=== PATIENT | female | born 1945 | race Caucasian/White ===

== ENCOUNTER 2019-08-06 12:13 | Inpatient (IN) | payer MEDICARE ==
[2019-08-06] MEDS ORDERED: SODIUM CHLORIDE 0.9% 1,000 ML IV STA ×2 (12:32→16:54)
[2019-08-06] MEDS ORDERED: ONDANSETRON 4 MG/2 ML VIAL IVP STA (12:34)
[2019-08-06] MEDS ORDERED: FAMOTIDINE 20 MG/2 ML VIAL IV STA (12:34)
--- NOTE | 2019-08-06 12:44 | ED ---
General Adult HPI - General Chief complaint: Weakness Stated complaint: weaknes/nausea Time Seen by Provider: 08/06/19 12:26 Source: patient, RN notes reviewed Mode of arrival: wheelchair Limitations: no limitations - History of Present Illness Initial comments: Patient is a pleasant 73-year-old female presenting to the emergency Department with fatigue. Symptoms have progressed over the past couple of weeks. Patient has mild nausea. Patient states she may feel slightly short of breath. No cough. Patient originally denies chest discomfort and then later states sometimes she has discomfort lateral to her left breast when she lies on it at nighttime. Patient does complain of some discomfort behind her right knee. No vomiting. No constipation or diarrhea. - Related Data Home Medications Medication Instructions Recorded Confirmed Gabapentin [Neurontin] 300 mg PO BID 08/06/19 08/06/19 LORazepam [Ativan] 0.5 mg PO BID 08/06/19 08/06/19 Lisinopril [Zestril] 2.5 mg PO DAILY 08/06/19 08/06/19 PARoxetine [Paxil] 20 mg PO DAILY 08/06/19 08/06/19 Pioglitazone [Actos] 30 mg PO DAILY 08/06/19 08/06/19 amLODIPine [Norvasc] 5 mg PO DAILY 08/06/19 08/06/19 metFORMIN HCL [Glucophage] 500 mg PO BID 08/06/19 08/06/19 Allergies Allergy/AdvReac Type Severity Reaction Status Date / Time No Known Allergies Allergy Verified 08/06/19 13:21 Review of Systems ROS Statement: Those systems with pertinent positive or pertinent negative responses have been documented in the HPI. ROS Other: All systems not noted in ROS Statement are negative. Constitutional: Denies: fever Eyes: Denies: eye pain ENT: Denies: ear pain Respiratory: Reports: dyspnea (Possibly mild dyspnea). Denies: cough Cardiovascular: Reports: as per HPI Endocrine: Reports: fatigue Gastrointestinal: Reports: nausea. Denies: abdominal pain, vomiting Genitourinary: Denies: dysuria Musculoskeletal: Denies: back pain Skin: Denies: rash Neurological: Denies: weakness Past Medical History Past Medical History: Diabetes Mellitus, Hypertension History of Any Multi-Drug Resistant Organisms: None Reported Past Surgical History: Breast Surgery, Heart Catheterization With Stent, Hysterectomy, Orthopedic Surgery Additional Past Surgical History / Comment(s): knee, shoulder replacement Past Psychological History: No Psychological Hx Reported Smoking Status: Never smoker Past Alcohol Use History: None Reported Past Drug Use History: None Reported General Exam Limitations: no limitations General appearance: alert, in no apparent distress Head exam: Present: normocephalic Eye exam: Present: normal appearance, PERRL, EOMI ENT exam: Present: normal oropharynx Neck exam: Present: normal inspection Respiratory exam: Present: normal lung sounds bilaterally Cardiovascular Exam: Present: regular rate, normal rhythm Expanded Peripheral pulses: 2+: Dorsalis Pedis (R), Dorsalis Pedis (L) GI/Abdominal exam: Present: soft. Absent: tenderness Extremities exam: Present: normal inspection, calf tenderness (Mild tenderness right upper calf and popliteal region). Absent: pedal edema Back exam: Present: normal inspection Neurological exam: Present: alert Psychiatric exam: Present: normal affect, normal mood Skin exam: Present: normal color Course Vital Signs 08/06/19 08/06/19 08/06/19 12:19 13:18 14:00 Temperature 98.2 F Pulse Rate 70 65 Pulse Rate [ 87 Telemetry Nurse ] Respiratory 18 16 Rate Blood Pressure 106/60 114/66 O2 Sat by Pulse 95 95 Oximetry EKG Findings - EKG Comments: EKG Findings:: Normal sinus rhythm 66. DC 170. QRS 92. QT 406. QTc 425. Normal axis. Normal QRS. No acute ST change. Medical Decision Making - Medical Decision Making Patient reevaluated and resting comfortably in bed. Case was discussed with Dr. Ponce, who will admit covering for hospital call. Consult placed for pulmonary. VQ scan will be ordered. - Lab Data Result diagrams: 08/06/19 12:50 08/06/19 12:50 Lab Results 08/06/19 08/06/19 08/06/19 Range/Units 12:50 12:50 12:50 WBC 3.0 L (3.8-10.6) k/uL RBC 4.53 (3.80-5.40) m/uL Hgb 13.8 (11.4-16.0) gm/dL Hct 40.7 (34.0-46.0) % MCV 89.8 (80.0-100.0) fL MCH 30.5 (25.0-35.0) pg MCHC 33.9 (31.0-37.0) g/dL RDW 13.3 (11.5-15.5) % Plt Count 90 L (150-450) k/uL Neutrophils % 69 % Lymphocytes % 24 % Monocytes % 4 % Eosinophils % 1 % Basophils % 0 % Neutrophils # 2.1 (1.3-7.7) k/uL Lymphocytes # 0.7 L (1.0-4.8) k/uL Monocytes # 0.1 (0-1.0) k/uL Eosinophils # 0.0 (0-0.7) k/uL Basophils # 0.0 (0-0.2) k/uL Manual Slide Review Performed PT 10.5 (9.0-12.0) sec INR 1.0 (<1.2) APTT 25.3 (22.0-30.0) sec D-Dimer 1.16 H (<0.60) mg/L FEU Sodium 139 (137-145) mmol/L Potassium 3.5 (3.5-5.1) mmol/L Chloride 106 (98-107) mmol/L Carbon Dioxide 22 (22-30) mmol/L Anion Gap 11 mmol/L BUN 17 (7-17) mg/dL Creatinine 0.67 (0.52-1.04) mg/dL Est GFR (CKD-EPI)AfAm >90 (>60 ml/min/1.73 sqM) Est GFR (CKD-EPI)NonAf 88 (>60 ml/min/1.73 sqM) Glucose 196 H (74-99) mg/dL Calcium 8.7 (8.4-10.2) mg/dL Total Bilirubin 0.6 (0.2-1.3) mg/dL AST 44 H (14-36) U/L ALT 21 (4-34) U/L Alkaline Phosphatase 75 (38-126) U/L Creatine Kinase 98 (30-135) U/L Troponin I (0.000-0.034) ng/mL NT-Pro-B Natriuret Pep pg/mL Total Protein 7.4 (6.3-8.2) g/dL Albumin 3.9 (3.5-5.0) g/dL Urine Color Urine Appearance (Clear) Urine pH (5.0-8.0) Ur Specific [place] (1.001-1.035) Urine Protein (Negative) Urine Glucose (UA) (Negative) Urine Ketones (Negative) Urine Blood (Negative) Urine Nitrite (Negative) Urine Bilirubin (Negative) Urine Urobilinogen (<2.0) mg/dL Ur Leukocyte Esterase (Negative) Urine RBC (0-5) /hpf Urine WBC (0-5) /hpf Ur Squamous Epith Cells (0-4) /hpf Hyaline Casts (0-2) /lpf Urine Mucus (None) /hpf 08/06/19 08/06/19 08/06/19 Range/Units 12:50 12:50 13:12 WBC (3.8-10.6) k/uL RBC (3.80-5.40) m/uL Hgb (11.4-16.0) gm/dL Hct (34.0-46.0) % MCV (80.0-100.0) fL MCH (25.0-35.0) pg MCHC (31.0-37.0) g/dL RDW (11.5-15.5) % Plt Count (150-450) k/uL Neutrophils % % Lymphocytes % % Monocytes % % Eosinophils % % Basophils % % Neutrophils # (1.3-7.7) k/uL Lymphocytes # (1.0-4.8) k/uL Monocytes # (0-1.0) k/uL Eosinophils # (0-0.7) k/uL Basophils # (0-0.2) k/uL Manual Slide Review PT (9.0-12.0) sec INR (<1.2) APTT (22.0-30.0) sec D-Dimer (<0.60) mg/L FEU Sodium (137-145) mmol/L Potassium (3.5-5.1) mmol/L Chloride (98-107) mmol/L Carbon Dioxide (22-30) mmol/L Anion Gap mmol/L BUN (7-17) mg/dL Creatinine (0.52-1.04) mg/dL Est GFR (CKD-EPI)AfAm (>60 ml/min/1.73 sqM) Est GFR (CKD-EPI)NonAf (>60 ml/min/1.73 sqM) Glucose (74-99) mg/dL Calcium (8.4-10.2) mg/dL Total Bilirubin (0.2-1.3) mg/dL AST (14-36) U/L ALT (4-34) U/L Alkaline Phosphatase (38-126) U/L Creatine Kinase (30-135) U/L Troponin I <0.012 (0.000-0.034) ng/mL NT-Pro-B Natriuret Pep 489 pg/mL Total Protein (6.3-8.2) g/dL Albumin (3.5-5.0) g/dL Urine Color Yellow Urine Appearance Clear (Clear) Urine pH 6.0 (5.0-8.0) Ur Specific [place] 1.030 (1.001-1.035) Urine Protein 3+ H (Negative) Urine Glucose (UA) Negative (Negative) Urine Ketones Negative (Negative) Urine Blood Negative (Negative) Urine Nitrite Negative (Negative) Urine Bilirubin Negative (Negative) Urine Urobilinogen <2.0 (<2.0) mg/dL Ur Leukocyte Esterase Small (Negative) Urine RBC 3 (0-5) /hpf Urine WBC 8 H (0-5) /hpf Ur Squamous Epith Cells 1 (0-4) /hpf Hyaline Casts 67 H (0-2) /lpf Urine Mucus Many H (None) /hpf - Radiology Data Radiology results: report reviewed (Ultrasound right leg negative for DVT), image reviewed (Computed tomography scan of the chest is suboptimal study without evidence for acute pulmonary embolism. Bilateral groundglass opacities more prominent mid to lower lungs.) Disposition Clinical Impression: Dyspnea Disposition: ADMITTED IP TO THIS HOSP Is patient prescribed a controlled substance at d/c from ED?: No Referrals: None,Stated [Primary Care Provider] - 1-2 days Decision Time: 16:02
[2019-08-06 13:30] LABS: Basophils % (A) 0 %; Eosinophils % (A) 1 %; HCT 40.7 % (34.0-46.0); HGB 13.8 gm/dL (11.4-16.0); Lymphocytes # (A) 0.7 k/uL (1.0-4.8); Lymphocytes % (A) 24 %; MCH 30.5 pg (25.0-35.0); MCHC 33.9 g/dL (31.0-37.0); MCV 89.8 fL (80.0-100.0); Mean Platelet Volume 9.6; Monocytes # (A) 0.1 k/uL (0-1.0); Monocytes % (A) 4 %; Neutrophils # (A) 2.1 k/uL (1.3-7.7); Neutrophils % (A) 69 %; RBC 4.53 m/uL (3.80-5.40); RDW 13.3 % (11.5-15.5)
[2019-08-06 13:42] LABS: Partial Thromboplastin Time 25.3 sec (22.0-30.0); Prothrombin Time 10.5 sec (9.0-12.0)
[2019-08-06 13:44] LABS: ALT 21 U/L (4-34); AST 44 U/L (14-36); African American GFR (CKD) >90 (>60 ml/min/1.73 sqM); Albumin 3.9 g/dL (3.5-5.0); Alkaline Phosphatase 75 U/L (38-126); Anion Gap 11 mmol/L; Blood Urea Nitrogen 17 mg/dL (7-17); Calcium 8.7 mg/dL (8.4-10.2); Carbon Dioxide 22 mmol/L (22-30); Chloride 106 mmol/L (98-107); Creatine Kinase 98 U/L (30-135); Glucose 196 mg/dL (74-99); Non-African American GFR(CKD) 88 (>60 ml/min/1.73 sqM); Potassium 3.5 mmol/L (3.5-5.1); Sodium 139 mmol/L (137-145); Total Bilirubin 0.6 mg/dL (0.2-1.3); Total Protein 7.4 g/dL (6.3-8.2)
[2019-08-06 13:55] LABS: D-Dimer 1.16 mg/L FEU (<0.60)
[2019-08-06 13:59] LABS: Hyaline Casts,Urine 67 /lpf (0-2); Mucus,Urine Many /hpf; RBC,Urine 3 /hpf (0-5); Squamous Epithelial Cell,Urine 1 /hpf (0-4); WBC,Urine 8 /hpf (0-5)
[2019-08-06 14:12] LABS: Appearance,Urine Clear (Clear); Bilirubin,Urine Negative (Negative); Blood,Urine Negative (Negative); Color,Urine Yellow; Glucose,Urine (UA) Negative (Negative); Ketones,Urine Negative (Negative); Protein,Urine 3+ (Negative); Urobilinogen,Urine <2.0 mg/dL (<2.0)
[2019-08-06 14:13] LABS: Leukocyte Esterase,Urine Small (Negative); Nitrite,Urine Negative (Negative)
--- NOTE | 2019-08-06 14:27 | US ---
EXAMINATION TYPE: US venous doppler duplex LE RT DATE OF EXAM: 08/06/2019 2:05 PM COMPARISON: NONE CLINICAL HISTORY: pain. Pain SIDE PERFORMED: Right TECHNIQUE: The lower extremity deep venous system is examined utilizing real time linear array sonog nichole with graded compression, doppler sonography and color-flow sonography. VESSELS IMAGED: External Iliac Vein (EIV) Common Femoral Vein Deep Femoral Vein Greater Saphenous Vein * Femoral Vein Popliteal Vein Small Saphenous Vein * Proximal Calf Veins (* superficial vessels) Right Leg: Negative for DVT Grayscale, color doppler, spectral doppler imaging performed of the deep veins of the right lower ext remity. There is normal flow, compressibility, vascular waveforms. IMPRESSION: No ultrasound evidence for acute DVT in the right lower extremity.
[2019-08-06 14:38] LABS: Platelet Count 90 k/uL (150-450)
--- NOTE | 2019-08-06 15:20 | CT ---
EXAMINATION TYPE: CT angio chest DATE OF EXAM: 08/06/2019 COMPARISON: NONE HISTORY: weakness, cough, elevated d-dimer CT DLP: 492.7 mGycm. Automated Exposure Control for Dose Reduction was Utilized. CONTRAST: CTA scan of the thorax is performed with IV Contrast, patient injected with 65cc mL of Isovue 370, pu lmonary embolism protocol. MIP Images are created on CT scanner and reviewed. FINDINGS: LUNGS: Examination is suboptimal as patient is unable to hold breath with motion artifact degradation throughout the mid to lower lungs present. Multifocal areas of groundglass opacity are seen bilatera lly throughout the bilateral lungs slightly more prominent in the mid to lower lungs with both centra l and peripheral involvement. No pleural effusion or pneumothorax noted bilaterally. MEDIASTINUM: There is slightly suboptimal study with near equal contrast in right and left heart syst ems but no convincing CT evidence for acute pulmonary embolism. There are no greater than 1 cm hilar or mediastinal lymph nodes. No significance pericardial effusion is seen. Cardiomegaly is noted. M oderate to severe three-vessel Coronary artery calcification is present which is noted marked underly ing coronary artery disease. Satisfactory enhancement of the aorta without dissection. Ascending aort a measures up to 3.8 cm in diameter. Adjacent main pulmonary artery measures 3.3 cm in diameter, CT f indings consistent with underlying pulmonary artery hypertension. Moderate left atrial dilatation. OTHER: Small size hiatal hernia. Lipnpdpt-[id number]-[id number] multilevel spurring in the spine greatest mid to lower thoracic levels. Cholecystectomy clips are partially imaged. There is 2.4 cm simple appearing t hin-walled cyst laterally midpole of the right kidney. Visualized measures upper limits of normal in size. IMPRESSION: 1. Suboptimal study without CT evidence for acute pulmonary embolism. 2. Cardiomegaly with suspected mild bilateral alveolar and interstitial edema, correlate for CHF exac erbation. One must exclude Covid-19 pneumonia in current environment. Correlate clinically.
[2019-08-06] MEDS ORDERED: IPRATROPIUM-ALBUTEROL 3 ML NEB INHALATION PRN ×2 (16:02→16:54)
[2019-08-06] MEDS ORDERED: NALOXONE 0.4 MG/ML 1 ML VIAL IV PRN (16:42)
--- NOTE | 2019-08-06 16:54 | P.HPIM ---
History of Present Illness H&P Date: 08/06/19 Chief Complaint: sob 73-year-old female with hx of COPD sec to passive smoking, CAD with stent, DM 2, HTN, hyperlipidemia presenting to the emergency Department with fatigue. She states she was about to fall due to severe weakness. Also having sob and mild cough as well as subjective fevers. Symptoms have progressed over the past couple of weeks. Patient has mild nausea. No chest pain. No vomiting. No constipation or diarrhea. In the ER evaluation revealed normal vital signs. she was worked up, CT chest showed bilateral alveolar edema that could represent CHF vs. pneumonia. Labs showed leukopenia, thromocytopenia as well as elevated d-dimer. Doppler U/S of the right leg showed no DVT. Review of Systems Complete ROS performed, pertinent positives per HPI otherwise negative. Past Medical History Past Medical History: Diabetes Mellitus, Hypertension History of Any Multi-Drug Resistant Organisms: None Reported Past Surgical History: Breast Surgery, Heart Catheterization With Stent, Hysterectomy, Orthopedic Surgery Additional Past Surgical History / Comment(s): knee, shoulder replacement Past Psychological History: No Psychological Hx Reported Smoking Status: Never smoker Past Alcohol Use History: None Reported Past Drug Use History: None Reported Medications and Allergies Home Medications Medication Instructions Recorded Confirmed Type Gabapentin [Neurontin] 300 mg PO BID 08/06/19 08/06/19 History LORazepam [Ativan] 0.5 mg PO BID 08/06/19 08/06/19 History Lisinopril [Zestril] 2.5 mg PO DAILY 08/06/19 08/06/19 History PARoxetine [Paxil] 20 mg PO DAILY 08/06/19 08/06/19 History Pioglitazone [Actos] 30 mg PO DAILY 08/06/19 08/06/19 History amLODIPine [Norvasc] 5 mg PO DAILY 08/06/19 08/06/19 History metFORMIN HCL [Glucophage] 500 mg PO BID 08/06/19 08/06/19 History Allergies Allergy/AdvReac Type Severity Reaction Status Date / Time No Known Allergies Allergy Verified 08/06/19 13:21 Physical Exam Vitals: Vital Signs Temp Pulse Pulse Resp BP Pulse Ox 08/06/19 14:00 87 08/06/19 13:18 65 16 114/66 95 08/06/19 12:19 98.2 F 70 18 106/60 95 Intake and Output 08/06/19 08/06/19 08/06/19 06:59 14:59 22:59 Other: Weight 90.718 kg Constitutional: No acute distress, conversant, pleasant Eyes:Anicteric sclerae, moist conjunctiva, no lid-lag, PERRLA, ENMT: Oropharynx clear, no erythema, exudates Neck: Supple, FROM, no masses, or JVD, No carotid bruits, No thyromegaly Lungs: scatter wheezing. Clear to percussion, Normal respiratory effort, no accessory muscle use Cardiovascular: Irregularly irregular, normal rate, No murmurs, gallops, or rubs, No peripheral edema Abdominal: Soft, Nontender, no guarding, rebound or rigidity, Normoactive bowel sounds, No hepatomegaly, No splenomegaly, No palpable mass Skin: Normal temperature, tone, texture, turgor, no induration, No subcutaneous nodules, No rash, lesions, No ulcers Extremities: No digital cyanosis, No clubbing, Pedal pulses intact and symmetrical, Radial pulses intact and symmetrical, No calf tenderness Psychiatric: Alert and oriented to person, place and time, appropriate affect, intact judgement Neuro: Muscles Strength 5/5 in all 4 extremities, Sensation to light touch grossly present throughout, Cranial nerves II-XII grossly intact, no focal sensory deficits Results CBC & Chem 7: 08/06/19 12:50 08/06/19 12:50 Labs: Abnormal Lab Results - Last 24 Hours (Table) 08/06/19 08/06/19 08/06/19 Range/Units 12:50 12:50 12:50 WBC 3.0 L (3.8-10.6) k/uL Plt Count 90 L (150-450) k/uL Lymphocytes # 0.7 L (1.0-4.8) k/uL D-Dimer 1.16 H (<0.60) mg/L FEU Glucose 196 H (74-99) mg/dL AST 44 H (14-36) U/L Urine Protein (Negative) Urine WBC (0-5) /hpf Hyaline Casts (0-2) /lpf Urine Mucus (None) /hpf 08/06/19 Range/Units 13:12 WBC (3.8-10.6) k/uL Plt Count (150-450) k/uL Lymphocytes # (1.0-4.8) k/uL D-Dimer (<0.60) mg/L FEU Glucose (74-99) mg/dL AST (14-36) U/L Urine Protein 3+ H (Negative) Urine WBC 8 H (0-5) /hpf Hyaline Casts 67 H (0-2) /lpf Urine Mucus Many H (None) /hpf Assessment and Plan Plan: Community aquirted pneumonia R/O COVID, test sent Will treat with ceftriaxone and azithromycin for now. Blood and sputum cx O2 to keep sats above 92% Acute COPD exacerbation Steroids Bronchodilators Abx as above DM2 Hold oral hypoglycemics SSI HTN Hyperlipidemia Depression All stable resume meds Admitted to inpatient expected length of stay more than 2 midnights Anticipated discharge: 1-2 days Disposition: likely home
[2019-08-06 16:56] LABS: C Reactive Protein 39.2 mg/L (<10.0); Magnesium 1.7 mg/dL (1.6-2.3)
--- NOTE | 2019-08-06 18:35 | XR ---
EXAMINATION TYPE: XR chest 2V DATE OF EXAM: 08/06/2019 COMPARISON: NONE HISTORY: Short of breath TECHNIQUE: 2 views FINDINGS: There is coarse interstitial density in the lungs. There is a left shoulder prosthesis. The re is no heart failure. Costophrenic angles are clear. IMPRESSION: Coarse interstitial pulmonary density probably due to prominent fibrosis. No heart failur e seen.
--- NOTE | 2019-08-06 18:46 | NM ---
EXAMINATION TYPE: NM pul vent and perfuse DATE OF EXAM: 08/06/2019 COMPARISON: NONE HISTORY: TECHNIQUE: Utilizing inhalation of 34.4 mCi Tc 99m DTPA aerosol and intravenous injection of 4.6 mCi of Tc 99m MAA, ventilation and perfusion images are acquired post injection in multiple projections. FINDINGS: There are matching subsegmental ventilation/perfusion defects involving both upper lobes and consiste nt with airway disease. There is no ventilation/perfusion mismatch. Lower lobes are fairly normally a erated and perfused. The remainder of exam is unremarkable.. IMPRESSION: There is evidence of some airway disease. There is a low probability of pulmonary embolism.
[2019-08-06 19:11] LABS: Glucose,Whole Blood 194 mg/dL (75-99)
[2019-08-06] MEDS: methylPREDNISolone SOD SUCCI 40 MG/ML 1 ML VIAL IV SCH (19:20)
[2019-08-06] MEDS: INSULIN ASPART (NovoLOG) 100 UNIT/ML VIAL SQ SCH ×2 (19:24→21:40)
[2019-08-06] MEDS: IPRATROPIUM-ALBUTEROL 3 ML NEB INHALATION SCH (20:14)
[2019-08-06] MEDS: AZITHROMYCIN 500 MG in SODIUM CHLORIDE 0.9% 250 ML IVPB SCH (20:35)
[2019-08-06 21:38] LABS: Glucose,Whole Blood 174 mg/dL (75-99)
[2019-08-06] MEDS: GABAPENTIN 300 MG CAP PO SCH (21:40)
[2019-08-06] MEDS: LORazepam 0.5 MG TAB PO SCH (21:56)
[2019-08-07] MEDS: methylPREDNISolone SOD SUCCI 40 MG/ML 1 ML VIAL IV SCH ×5 (02:38→23:42)
[2019-08-07 03:09] LABS: Ferritin 231.3 ng/mL (10.0-291.0)
[2019-08-07 06:18] LABS: HCT 40.2 % (34.0-46.0); HGB 12.9 gm/dL (11.4-16.0); MCH 29.3 pg (25.0-35.0); MCHC 32.1 g/dL (31.0-37.0); MCV 91.5 fL (80.0-100.0); Mean Platelet Volume 9.5; RBC 4.39 m/uL (3.80-5.40); RDW 13.5 % (11.5-15.5)
[2019-08-07 06:20] LABS: Platelet Count 76 k/uL (150-450)
[2019-08-07 06:21] LABS: ALT 19 U/L (4-34); AST 38 U/L (14-36); African American GFR (CKD) >90 (>60 ml/min/1.73 sqM); Albumin 3.7 g/dL (3.5-5.0); Alkaline Phosphatase 74 U/L (38-126); Anion Gap 10 mmol/L; Blood Urea Nitrogen 16 mg/dL (7-17); Calcium 8.7 mg/dL (8.4-10.2); Carbon Dioxide 23 mmol/L (22-30); Chloride 109 mmol/L (98-107); Glucose 233 mg/dL (74-99); Non-African American GFR(CKD) >90 (>60 ml/min/1.73 sqM); Phosphorus 3.5 mg/dL (2.5-4.5); Potassium 3.6 mmol/L (3.5-5.1); Sodium 142 mmol/L (137-145); Total Bilirubin 0.3 mg/dL (0.2-1.3); Total Protein 6.8 g/dL (6.3-8.2); WBC 1.3 k/uL (3.8-10.6)
[2019-08-07 06:42] LABS: Lymphocytes # (M) 0.42 k/uL (1.0-4.8); Monocytes # (M) 0.04 k/uL (0-1.0); Neutrophils # (M) 0.85 k/uL (1.3-7.7); Neutrophils % (M) 65 %; Nucleated Red Blood Cells 0 /100 WBC (0-0); Total Cells Counted 100
[2019-08-07] MEDS: IPRATROPIUM-ALBUTEROL 3 ML NEB INHALATION SCH ×4 (07:14→19:41)
[2019-08-07] MEDS: LORazepam 0.5 MG TAB PO SCH ×2 (08:33→20:53)
[2019-08-07] MEDS: amLODIPine 5 MG TAB PO SCH (08:33)
[2019-08-07] MEDS: ENOXAPARIN 40 MG/0.4 ML SYRINGE SQ SCH (08:33)
[2019-08-07] MEDS: PARoxetine 20 MG TAB PO SCH (08:33)
[2019-08-07] MEDS: LISINOPRIL 2.5 MG TAB PO SCH (08:33)
[2019-08-07 09:03] LABS: Glucose,Whole Blood 244 mg/dL (75-99)
[2019-08-07] MEDS: INSULIN ASPART (NovoLOG) 100 UNIT/ML VIAL SQ SCH ×4 (09:05→20:53)
[2019-08-07] MEDS: GABAPENTIN 300 MG CAP PO SCH ×2 (10:05→20:53)
--- NOTE | 2019-08-07 10:24 | P.PN ---
Subjective Progress Note Date: 08/07/19 Principal diagnosis: weakness Patient doing well, no significant shortness of breath. Still having a cough that is barely productive of any phlegm.. Still feeling weak. No fevers or chills. No nausea or vomiting. No diarrhea. Objective - Vital Signs Vital signs: Vital Signs Temp 98.3 F 08/07/19 07:40 Pulse 67 08/07/19 08:56 Resp 20 08/07/19 08:56 BP 131/66 08/07/19 08:56 Pulse Ox 95 08/07/19 08:56 Intake & Output 08/06/19 08/07/19 08/07/19 18:59 06:59 18:59 Weight 90.718 kg 90.718 kg - Exam Constitutional: No acute distress, conversant, pleasant Eyes:Anicteric sclerae, moist conjunctiva, no lid-lag, PERRLA, ENMT: Oropharynx clear, no erythema, exudates Neck: Supple, FROM, no masses, or JVD, No carotid bruits, No thyromegaly Lungs: scatter wheezing especially on the basis. Clear to percussion, Normal respiratory effort, no accessory muscle use Cardiovascular: RRR, No murmurs, gallops, or rubs, No peripheral edema Abdominal: Soft, Nontender, no guarding, rebound or rigidity, Normoactive bowel sounds, No hepatomegaly, No splenomegaly, No palpable mass Skin: Normal temperature, tone, texture, turgor, no induration, No subcutaneous nodules, No rash, lesions, No ulcers Extremities: No digital cyanosis, No clubbing, Pedal pulses intact and symmetrical, Radial pulses intact and symmetrical, No calf tenderness Psychiatric: Alert and oriented to person, place and time, appropriate affect, intact judgement Neuro: Muscles Strength 5/5 in all 4 extremities, Sensation to light touch grossly present throughout, Cranial nerves II-XII grossly intact, no focal sensory deficits - Labs CBC & Chem 7: 08/07/19 05:54 08/07/19 05:54 Labs: Abnormal Lab Results - Last 24 Hours (Table) 08/06/19 08/06/19 08/06/19 Range/Units 12:50 12:50 12:50 WBC 3.0 L (3.8-10.6) k/uL Plt Count 90 L (150-450) k/uL Neutrophils # (Manual) (1.3-7.7) k/uL Lymphocytes # 0.7 L (1.0-4.8) k/uL Lymphocytes # (Manual) (1.0-4.8) k/uL D-Dimer 1.16 H (<0.60) mg/L FEU Chloride (98-107) mmol/L Glucose 196 H (74-99) mg/dL POC Glucose (mg/dL) (75-99) mg/dL AST 44 H (14-36) U/L Lactate Dehydrogenase (313-618) U/L C-Reactive Protein (<10.0) mg/L Urine Protein (Negative) Urine WBC (0-5) /hpf Hyaline Casts (0-2) /lpf Urine Mucus (None) /hpf 08/06/19 08/06/19 08/06/19 Range/Units 13:12 16:36 19:09 WBC (3.8-10.6) k/uL Plt Count (150-450) k/uL Neutrophils # (Manual) (1.3-7.7) k/uL Lymphocytes # (1.0-4.8) k/uL Lymphocytes # (Manual) (1.0-4.8) k/uL D-Dimer (<0.60) mg/L FEU Chloride (98-107) mmol/L Glucose (74-99) mg/dL POC Glucose (mg/dL) 194 H (75-99) mg/dL AST (14-36) U/L Lactate Dehydrogenase 819 H (313-618) U/L C-Reactive Protein 39.2 H (<10.0) mg/L Urine Protein 3+ H (Negative) Urine WBC 8 H (0-5) /hpf Hyaline Casts 67 H (0-2) /lpf Urine Mucus Many H (None) /hpf 08/06/19 08/07/19 08/07/19 Range/Units 21:36 05:54 05:54 WBC 1.3 L* (3.8-10.6) k/uL Plt Count 76 L (150-450) k/uL Neutrophils # (Manual) 0.85 L (1.3-7.7) k/uL Lymphocytes # (1.0-4.8) k/uL Lymphocytes # (Manual) 0.42 L (1.0-4.8) k/uL D-Dimer (<0.60) mg/L FEU Chloride 109 H (98-107) mmol/L Glucose 233 H (74-99) mg/dL POC Glucose (mg/dL) 174 H (75-99) mg/dL AST 38 H (14-36) U/L Lactate Dehydrogenase (313-618) U/L C-Reactive Protein (<10.0) mg/L Urine Protein (Negative) Urine WBC (0-5) /hpf Hyaline Casts (0-2) /lpf Urine Mucus (None) /hpf 08/07/19 Range/Units 08:52 WBC (3.8-10.6) k/uL Plt Count (150-450) k/uL Neutrophils # (Manual) (1.3-7.7) k/uL Lymphocytes # (1.0-4.8) k/uL Lymphocytes # (Manual) (1.0-4.8) k/uL D-Dimer (<0.60) mg/L FEU Chloride (98-107) mmol/L Glucose (74-99) mg/dL POC Glucose (mg/dL) 244 H (75-99) mg/dL AST (14-36) U/L Lactate Dehydrogenase (313-618) U/L C-Reactive Protein (<10.0) mg/L Urine Protein (Negative) Urine WBC (0-5) /hpf Hyaline Casts (0-2) /lpf Urine Mucus (None) /hpf Assessment and Plan Plan: Community aquirted pneumonia R/O COVID, test sent Continue ceftriaxone and azithromycin for now. Blood and sputum cx O2 to keep sats above 92% Acute COPD exacerbation Steroids Bronchodilators Abx as above DM2 Hold oral hypoglycemics SSI with blood sugar checks every before meals and at bedtime HTN Hyperlipidemia Depression All stable resume meds Anticipated discharge: 2 days Disposition: likely home Discussed with [facility]
--- NOTE | 2019-08-07 10:30 | P.CNPUL ---
History of Present Illness Consult date: 08/06/19 Reason for consult: dyspnea, pneumonia History of present illness: 3-year-old female patient with known history of COPD, coronary artery disease, diabetes mellitus type 2 and hypertension hyperlipidemia who presented emergency department because of shortness of breath. She was feeling weak along with shortness of breath and some mild cough and subjective feeling of feverishness and the temperature and thinks of been progressing slowly over the past few weeks. No chest pain. No nausea vomiting or diarrhea or abdominal pain. Vitals were essentially within normal limits. Computed tomography scan of the chest showed multifocal areas of groundglass opacity bilaterally throughout the lungs slightly more prominent in the mid and lower lung anderson more so central and somewhat peripheral. No pleural effusions. No evidence of any pulmonary embolism. No significant mediastinal lymphadenopathy. Coronary calcifications was present. Ascending aorta measuring 3.8 cm. Pulmonary artery was dilated indicating possibly a component of pulmonary hypertension. Moderate to severe level or multilevel splitting of the spine greatest in the mid and the lower thoracic spine. The white cell count is low with some lymphopenia and a platelet count of 90. D-dimer was 1.16 with a normal PT/PTT and INR. The LDH was 819. C-reactive protein was 39.2. Electrolytes are all within normal limits. Lactic acid level was at 1.5. BNP level was 489. UA showing +3 glucose. 8 WBCs, 3 RBCs along with some hyaline casts. Covid 19 nasal swab was sent and the results are still pending for now. The patient is currently afebrile. She was started on a combination of Rocephin and Zithromax. The patient is receiving IV fluids normal saline at rate of 50 mL an hour. Patient was also started on IV Solu-Medrol 40 mg every 6 hours. Review of Systems Constitutional: Reports fatigue, Reports weakness Eyes: denies as per HPI, denies blurred vision, denies bulging eye, denies decre ased vision, denies diplopia, denies discharge, denies dry eye, denies irritation, denies itching, denies pain, denies loss of peripheral vision, denies loss of vision, denies tunnel vision/blind spots Ears: deny: decreased hearing, ear discharge, earache, tinnitus Ears, nose, mouth and throat: Reports as per HPI Breasts: absent: as per HPI, change in shape, gynecomastia, masses, nipple discharge, pain, skin changes, swelling Cardiovascular: Reports dyspnea on exertion Respiratory: Reports dyspnea Gastrointestinal: Reports as per HPI Genitourinary: Reports as per HPI Menstruation: Reports as per HPI Musculoskeletal: Reports as per HPI Musculoskeletal: absent: ankle pain, ankle stiffness, ankle swelling, as per HPI, elbow pain, elbow stiffness, elbow swelling, foot pain, foot stiffness, foot swelling, hand pain, hand stiffness, hand swelling, hip pain, hip stiffness, hip swelling, knee pain, knee stiffness, knee swelling, shoulder pain, shoulder stiffness, shoulder swelling, wrist pain, wrist stiffness, wrist swelling Integumentary: Reports as per HPI Neurological: Reports as per HPI Psychiatric: Reports as per HPI Endocrine: Reports as per HPI Hematologic/Lymphatic: Reports as per HPI Allergic/Immunologic: Reports as per HPI Past Medical History Past Medical History: Coronary Artery Disease (CAD), Diabetes Mellitus, Hyperlipidemia, Hypertension History of Any Multi-Drug Resistant Organisms: None Reported Past Surgical History: Breast Surgery, Heart Catheterization With Stent, Hysterectomy, Orthopedic Surgery Additional Past Surgical History / Comment(s): knee, shoulder replacement Past Psychological History: No Psychological Hx Reported Smoking Status: Never smoker Past Alcohol Use History: None Reported Past Drug Use History: None Reported Medications and Allergies Home Medications Medication Instructions Recorded Confirmed Type Gabapentin [Neurontin] 300 mg PO BID 08/06/19 08/06/19 History LORazepam [Ativan] 0.5 mg PO BID 08/06/19 08/06/19 History Lisinopril [Zestril] 2.5 mg PO DAILY 08/06/19 08/06/19 History PARoxetine [Paxil] 20 mg PO DAILY 08/06/19 08/06/19 History Pioglitazone [Actos] 30 mg PO DAILY 08/06/19 08/06/19 History amLODIPine [Norvasc] 5 mg PO DAILY 08/06/19 08/06/19 History metFORMIN HCL [Glucophage] 500 mg PO BID 08/06/19 08/06/19 History Allergies Allergy/AdvReac Type Severity Reaction Status Date / Time No Known Allergies Allergy Verified 08/06/19 13:21 Physical Exam Vitals: Vital Signs Temp Pulse Pulse Resp BP Pulse Ox 08/06/19 19:29 97.5 F L 81 18 144/71 93 L 08/06/19 16:39 65 16 119/60 95 08/06/19 14:00 87 08/06/19 13:18 65 16 114/66 95 08/06/19 12:19 98.2 F 70 18 106/60 95 Intake and Output 08/06/19 08/06/19 08/06/19 06:59 14:59 22:59 Other: Weight 90.718 kg The patient appeared well nourished and normally developed. Vital signs as documented. Head exam is unremarkable. No scleral icterus or corneal arcus noted. Neck is without jugular venous distension, thyromegaly, or carotid bruits. Carotid upstrokes are brisk bilaterally. Lungs are clear to auscultation and percussion. Cardiac exam reveals the PMI to be normally sized and situated. Rhythm is regular. First and second heart sounds normal. No murmurs, rubs or gallops. Abdominal exam reveals normal bowel sounds, no masses, no organomegaly and no aortic enlargement. Extremities are nonedematous and both femoral and pedal pulses are normal.Examination of the skin revealed no evidence of significant rashes, suspicious appearing nevi or other concerning lesions.neurologically the patient is awake and alert and there is no focal neurological deficits. Results - Laboratory Findings CBC and BMP: 08/06/19 12:50 08/06/19 12:50 PT/INR, D-dimer PT 10.5 sec (9.0-12.0) 08/06/19 12:50 INR 1.0 (<1.2) 08/06/19 12:50 D-Dimer 1.16 mg/L FEU (<0.60) H 08/06/19 12:50 Abnormal lab findings: Abnormal Labs 08/06/19 08/06/19 08/06/19 12:50 12:50 12:50 WBC 3.0 L Plt Count 90 L Lymphocytes # 0.7 L D-Dimer 1.16 H Glucose 196 H POC Glucose (mg/dL) AST 44 H Lactate Dehydrogenase C-Reactive Protein Urine Protein Urine WBC Hyaline Casts Urine Mucus 08/06/19 08/06/19 08/06/19 13:12 16:36 19:09 WBC Plt Count Lymphocytes # D-Dimer Glucose POC Glucose (mg/dL) 194 H AST Lactate Dehydrogenase 819 H C-Reactive Protein 39.2 H Urine Protein 3+ H Urine WBC 8 H Hyaline Casts 67 H Urine Mucus Many H - Diagnostic Findings Chest x-ray: image reviewed CT scan - chest: image reviewed Assessment and Plan Plan: 1 Acute bilateral pneumonia with vague groundglass pulmonary infiltrates. Consider viral pneumonia. Consider over 19 infection of the lungs/pneumonia. Consider interstitial edema. Acute lung injury is felt to be less likely 2 shortness of breath secondary to above 3 diabetes mellitus type 2 4 hypertension 5 hyperlipidemia 6 history of depression 7 leukopenia/lymphopenia 8 thrombocytopenia Plan Awaiting Covid 19 nasal swab analysis by PCR. Continue current antibiotic coverage Monitor fever pattern Monitor oxygenation Droplet isolation We'll continue to follow
[2019-08-07 12:20] LABS: Glucose,Whole Blood 261 mg/dL (75-99)
--- NOTE | 2019-08-07 13:05 | P.PN ---
Subjective Progress Note Date: 08/07/19 On today's evaluation the patient is on 2 L oxygen by nasal cannula. Denies having any significant shortness of breath and we are still awaiting the covid19 nasal swab PCR.. The patient has developed leukopenia which could be essentially viral in nature. The patient remains in rapid atrial fibrillation. The patient remains on a combination of Rocephin and Zithromax. She remains on IV Solu Medrol 40 mg every 6 hours. Objective - Vital Signs Vital signs: Vital Signs Temp 98.7 F 08/07/19 12:45 Pulse 80 08/07/19 12:45 Resp 18 08/07/19 12:45 BP 111/56 08/07/19 12:45 Pulse Ox 96 08/07/19 12:45 Intake & Output 08/06/19 08/07/19 08/07/19 18:59 06:59 18:59 Weight 90.718 kg 90.718 kg - Exam The patient appeared well nourished and normally developed. Vital signs as documented. Head exam is unremarkable. No scleral icterus or corneal arcus noted. Neck is without jugular venous distension, thyromegaly, or carotid bruits. Carotid upstrokes are brisk bilaterally. Lungs are clear to auscultation and percussion. Cardiac exam reveals the PMI to be normally sized and situated. Rhythm is regular. First and second heart sounds normal. No murmurs, rubs or gallops. Abdominal exam reveals normal bowel sounds, no masses, no organomegaly and no aortic enlargement. Extremities are nonedematous and both femoral and pedal pulses are normal.Examination of the skin revealed no evidence of significant rashes, suspicious appearing nevi or other concerning lesions.neurologically the patient is awake and alert and there is no focal neurological deficits. - Labs CBC & Chem 7: 08/07/19 05:54 08/07/19 05:54 Labs: Abnormal Lab Results - Last 24 Hours (Table) 08/06/19 08/06/19 08/06/19 Range/Units 12:50 12:50 12:50 WBC 3.0 L (3.8-10.6) k/uL Plt Count 90 L (150-450) k/uL Neutrophils # (Manual) (1.3-7.7) k/uL Lymphocytes # 0.7 L (1.0-4.8) k/uL Lymphocytes # (Manual) (1.0-4.8) k/uL D-Dimer 1.16 H (<0.60) mg/L FEU Chloride (98-107) mmol/L Glucose 196 H (74-99) mg/dL POC Glucose (mg/dL) (75-99) mg/dL AST 44 H (14-36) U/L Lactate Dehydrogenase (313-618) U/L C-Reactive Protein (<10.0) mg/L Urine Protein (Negative) Urine WBC (0-5) /hpf Hyaline Casts (0-2) /lpf Urine Mucus (None) /hpf 08/06/19 08/06/19 08/06/19 Range/Units 13:12 16:36 19:09 WBC (3.8-10.6) k/uL Plt Count (150-450) k/uL Neutrophils # (Manual) (1.3-7.7) k/uL Lymphocytes # (1.0-4.8) k/uL Lymphocytes # (Manual) (1.0-4.8) k/uL D-Dimer (<0.60) mg/L FEU Chloride (98-107) mmol/L Glucose (74-99) mg/dL POC Glucose (mg/dL) 194 H (75-99) mg/dL AST (14-36) U/L Lactate Dehydrogenase 819 H (313-618) U/L C-Reactive Protein 39.2 H (<10.0) mg/L Urine Protein 3+ H (Negative) Urine WBC 8 H (0-5) /hpf Hyaline Casts 67 H (0-2) /lpf Urine Mucus Many H (None) /hpf 08/06/19 08/07/19 08/07/19 Range/Units 21:36 05:54 05:54 WBC 1.3 L* (3.8-10.6) k/uL Plt Count 76 L (150-450) k/uL Neutrophils # (Manual) 0.85 L (1.3-7.7) k/uL Lymphocytes # (1.0-4.8) k/uL Lymphocytes # (Manual) 0.42 L (1.0-4.8) k/uL D-Dimer (<0.60) mg/L FEU Chloride 109 H (98-107) mmol/L Glucose 233 H (74-99) mg/dL POC Glucose (mg/dL) 174 H (75-99) mg/dL AST 38 H (14-36) U/L Lactate Dehydrogenase (313-618) U/L C-Reactive Protein (<10.0) mg/L Urine Protein (Negative) Urine WBC (0-5) /hpf Hyaline Casts (0-2) /lpf Urine Mucus (None) /hpf 08/07/19 08/07/19 Range/Units 08:52 12:19 WBC (3.8-10.6) k/uL Plt Count (150-450) k/uL Neutrophils # (Manual) (1.3-7.7) k/uL Lymphocytes # (1.0-4.8) k/uL Lymphocytes # (Manual) (1.0-4.8) k/uL D-Dimer (<0.60) mg/L FEU Chloride (98-107) mmol/L Glucose (74-99) mg/dL POC Glucose (mg/dL) 244 H 261 H (75-99) mg/dL AST (14-36) U/L Lactate Dehydrogenase (313-618) U/L C-Reactive Protein (<10.0) mg/L Urine Protein (Negative) Urine WBC (0-5) /hpf Hyaline Casts (0-2) /lpf Urine Mucus (None) /hpf Assessment and Plan Plan: 1 Acute bilateral pneumonia with vague groundglass pulmonary infiltrates. Consider viral pneumonia. Consider COVID 19 infection of the lungs/pneumonia. Consider interstitial edema. Acute lung injury is felt to be less likely. The Covid 19 nasal swab PCR still pending for now. Patient is currently on 2 L of oxygen by nasal cannula. No signs of bleeding respiratory decompensation as the patient is still on antibiotics and a combination of steroids. 2 shortness of breath secondary to above 3 diabetes mellitus type 2 4 hypertension 5 hyperlipidemia 6 history of depression 7 leukopenia/lymphopenia 8 thrombocytopenia Plan Awaiting Covid 19 nasal swab analysis by PCR. Continue current antibiotic coverage Monitor fever pattern Monitor oxygenation Droplet isolation We'll continue to follow
[2019-08-07 17:28] LABS: Glucose,Whole Blood 275 mg/dL (75-99)
[2019-08-07] MEDS: AZITHROMYCIN 500 MG in SODIUM CHLORIDE 0.9% 250 ML IVPB SCH (17:42)
[2019-08-07 20:19] LABS: Glucose,Whole Blood 298 mg/dL (75-99)
[2019-08-08] MEDS: methylPREDNISolone SOD SUCCI 40 MG/ML 1 ML VIAL IV SCH (05:54)
[2019-08-08 06:49] LABS: Glucose,Whole Blood 263 mg/dL (75-99)
[2019-08-08] MEDS: LISINOPRIL 2.5 MG TAB PO SCH (08:37)
[2019-08-08] MEDS: ENOXAPARIN 40 MG/0.4 ML SYRINGE SQ SCH (08:37)
[2019-08-08] MEDS: INSULIN ASPART (NovoLOG) 100 UNIT/ML VIAL SQ SCH ×4 (08:37→22:12)
[2019-08-08] MEDS: GABAPENTIN 300 MG CAP PO SCH ×2 (08:38→20:41)
[2019-08-08] MEDS: LORazepam 0.5 MG TAB PO SCH ×2 (08:38→20:41)
[2019-08-08] MEDS: amLODIPine 5 MG TAB PO SCH (08:38)
[2019-08-08] MEDS: PARoxetine 20 MG TAB PO SCH (08:38)
[2019-08-08] MEDS: IPRATROPIUM-ALBUTEROL 3 ML NEB INHALATION SCH (08:59)
[2019-08-08 09:55] LABS: Basophils % (A) 0 %; Eosinophils % (A) 0 %; HCT 39.8 % (34.0-46.0); HGB 12.4 gm/dL (11.4-16.0); Lymphocytes # (A) 0.5 k/uL (1.0-4.8); Lymphocytes % (A) 8 %; MCH 28.8 pg (25.0-35.0); MCHC 31.2 g/dL (31.0-37.0); MCV 92.2 fL (80.0-100.0); Mean Platelet Volume 9.3; Monocytes # (A) 0.1 k/uL (0-1.0); Monocytes % (A) 3 %; Neutrophils # (A) 4.8 k/uL (1.3-7.7); Neutrophils % (A) 88 %; RBC 4.32 m/uL (3.80-5.40); RDW 13.7 % (11.5-15.5); WBC 5.4 k/uL (3.8-10.6)
[2019-08-08 10:05] LABS: Platelet Count 96 k/uL (150-450)
[2019-08-08 10:12] LABS: African American GFR (CKD) >90 (>60 ml/min/1.73 sqM); Anion Gap 9 mmol/L; Blood Urea Nitrogen 19 mg/dL (7-17); Calcium 8.6 mg/dL (8.4-10.2); Carbon Dioxide 21 mmol/L (22-30); Chloride 111 mmol/L (98-107); Glucose 267 mg/dL (74-99); Magnesium 1.7 mg/dL (1.6-2.3); Non-African American GFR(CKD) >90 (>60 ml/min/1.73 sqM); Potassium 3.9 mmol/L (3.5-5.1); Sodium 141 mmol/L (137-145)
[2019-08-08 11:38] LABS: Glucose,Whole Blood 298 mg/dL (75-99)
--- NOTE | 2019-08-08 12:11 | P.PN ---
Subjective Progress Note Date: 08/08/19 Principal diagnosis: weakness Patient doing well, no significant shortness of breath. Still having a cough that is barely productive of any phlegm.. Still feeling weak. No fevers or chills. No nausea or vomiting. No diarrhea. Objective - Vital Signs Vital signs: Vital Signs Temp 97.9 F 08/08/19 06:45 Pulse 70 08/08/19 09:20 Resp 17 08/08/19 07:52 BP 125/53 08/08/19 06:45 Pulse Ox 90 L 08/08/19 06:45 Intake & Output 08/07/19 08/08/19 08/08/19 18:59 06:59 18:59 Intake Total 100 Balance 100 Weight 90.718 kg Intake: Intake, IV Titration 100 Amount Sodium Chloride 0.9% 1, 100 000 ml @ 50 mls/hr IV . Q20H STA Rx#:[id number] Other: # Voids 1 1 - Exam Constitutional: No acute distress, conversant, pleasant Eyes:Anicteric sclerae, moist conjunctiva, no lid-lag, PERRLA, ENMT: Oropharynx clear, no erythema, exudates Neck: Supple, FROM, no masses, or JVD, No carotid bruits, No thyromegaly Lungs: scatter wheezing especially on the basis. Clear to percussion, Normal respiratory effort, no accessory muscle use Cardiovascular: RRR, No murmurs, gallops, or rubs, No peripheral edema Abdominal: Soft, Nontender, no guarding, rebound or rigidity, Normoactive bowel sounds, No hepatomegaly, No splenomegaly, No palpable mass Skin: Normal temperature, tone, texture, turgor, no induration, No subcutaneous nodules, No rash, lesions, No ulcers Extremities: No digital cyanosis, No clubbing, Pedal pulses intact and symmetrical, Radial pulses intact and symmetrical, No calf tenderness Psychiatric: Alert and oriented to person, place and time, appropriate affect, intact judgement Neuro: Muscles Strength 5/5 in all 4 extremities, Sensation to light touch grossly present throughout, Cranial nerves II-XII grossly intact, no focal sensory deficits - Labs CBC & Chem 7: 08/08/19 08:48 08/08/19 08:48 Labs: Abnormal Lab Results - Last 24 Hours (Table) 08/06/19 08/07/19 08/07/19 Range/Units 16:36 12:19 17:27 Plt Count (150-450) k/uL Lymphocytes # (1.0-4.8) k/uL Chloride (98-107) mmol/L Carbon Dioxide (22-30) mmol/L BUN (7-17) mg/dL Creatinine (0.52-1.04) mg/dL Glucose (74-99) mg/dL POC Glucose (mg/dL) 261 H 275 H (75-99) mg/dL Coronavirus (PCR) Detected H (Not Detected) 08/07/19 08/08/19 08/08/19 Range/Units 20:18 06:44 08:48 Plt Count 96 L (150-450) k/uL Lymphocytes # 0.5 L (1.0-4.8) k/uL Chloride (98-107) mmol/L Carbon Dioxide (22-30) mmol/L BUN (7-17) mg/dL Creatinine (0.52-1.04) mg/dL Glucose (74-99) mg/dL POC Glucose (mg/dL) 298 H 263 H (75-99) mg/dL Coronavirus (PCR) (Not Detected) 08/08/19 08/08/19 Range/Units 08:48 11:33 Plt Count (150-450) k/uL Lymphocytes # (1.0-4.8) k/uL Chloride 111 H (98-107) mmol/L Carbon Dioxide 21 L (22-30) mmol/L BUN 19 H (7-17) mg/dL Creatinine 0.47 L (0.52-1.04) mg/dL Glucose 267 H (74-99) mg/dL POC Glucose (mg/dL) 298 H (75-99) mg/dL Coronavirus (PCR) (Not Detected) Microbiology - Last 24 Hours (Table) 08/06/19 19:16 Blood Culture - Preliminary Blood No Growth after 24 hours Assessment and Plan Plan: Community aquirted pneumonia sec to COVID19 Discontinue ceftriaxone and azithromycin Start decadron. Blood cx negative O2 to keep sats above 92% Acute COPD exacerbation Steroids as above Bronchodilators DM2 Hold oral hypoglycemics Glucose not controlled Start lantus 6 units daily SSI with blood sugar checks every before meals and at bedtime HTN Hyperlipidemia Depression All stable resume meds Anticipated discharge: 2 days Disposition: likely home
[2019-08-08] MEDS: ALBUTEROL HFA INHALER INHALATION SCH ×3 (12:34→20:08)
[2019-08-08] MEDS: DEXAMETHASONE 2 MG TAB PO SCH (13:03)
--- NOTE | 2019-08-08 13:27 | P.PN ---
Subjective Progress Note Date: 08/08/19 Principal diagnosis: Acute COVID 19 related pneumonia On today's evaluation the patient is on 2 L oxygen by nasal cannula. Denies having any significant shortness of breath and we are still awaiting the covid19 nasal swab PCR.. The patient has developed leukopenia which could be essentially viral in nature. The patient remains in rapid atrial fibrillation. The patient remains on a combination of Rocephin and Zithromax. She remains on IV Solu Medrol 40 mg every 6 hours. On 08/08/2019 patient seen in follow-up on medical surgical floor, her COVID 19 was found to be positive. Clinically patient remains stable, room air pulse ox is 90%, she is afebrile, hemodynamically she is stable, occasional cough, no specific complaints. Feeling better, with a stop the azithromycin, Decadron has been added, patient is ready on Lovenox prophylactic dose. Today's blood work shows white blood cell count at 5.4, within normal range now, lymphocyte count is 0.5, sodium is 141, potassium is 3.9, chloride is 111, CO2 is 21, BUN is 19, creatinine 0.47. Patient reports no nausea no vomiting, breathing appears to be comfortable. Objective - Vital Signs Vital signs: Vital Signs Temp 98.2 F 08/08/19 11:30 Pulse 92 08/08/19 11:30 Resp 17 08/08/19 11:30 BP 133/52 08/08/19 11:30 Pulse Ox 90 L 08/08/19 11:30 Intake & Output 08/07/19 08/08/19 08/08/19 18:59 06:59 18:59 Intake Total 100 Balance 100 Weight 90.718 kg 90.718 kg Intake: Intake, IV Titration 100 Amount Sodium Chloride 0.9% 1, 100 000 ml @ 50 mls/hr IV . Q20H STA Rx#:[id number] Other: # Voids 1 1 - Exam GENERAL EXAM: Alert, very pleasant, 73-year-old white female, on room air, with a pulse ox of 90%, comfortable in no apparent distress. HEAD: Normocephalic/atraumatic. EYES: Normal reaction of pupils, equal size. Conjunctiva pink, sclera white. NOSE: Clear with pink turbinates. THROAT: No erythema or exudates. NECK: No masses, no JVD, no thyroid enlargement, no adenopathy. CHEST: No chest wall deformity. Symmetrical expansion. LUNGS: Equal air entry with no crackles, wheeze, rhonchi or dullness. CVS: Regular rate and rhythm, normal S1 and S2, no gallops, no murmurs, no rubs ABDOMEN: Soft, nontender. No hepatosplenomegaly, normal bowel sounds, no guarding or rigidity. EXTREMITIES: No clubbing, no edema, no cyanosis, 2+ pulses and upper and lower extremities. MUSCULOSKELETAL: Muscle strength and tone normal. SPINE: No scoliosis or deformity SKIN: No rashes CENTRAL NERVOUS SYSTEM: Alert and oriented -3. No focal deficits, tone is normal in all 4 extremities. PSYCHIATRIC: Alert and oriented -3. Appropriate affect. Intact judgment and insight. - Labs CBC & Chem 7: 08/08/19 08:48 08/08/19 08:48 Labs: Abnormal Lab Results - Last 24 Hours (Table) 08/06/19 08/07/19 08/07/19 Range/Units 16:36 17:27 20:18 Plt Count (150-450) k/uL Lymphocytes # (1.0-4.8) k/uL Chloride (98-107) mmol/L Carbon Dioxide (22-30) mmol/L BUN (7-17) mg/dL Creatinine (0.52-1.04) mg/dL Glucose (74-99) mg/dL POC Glucose (mg/dL) 275 H 298 H (75-99) mg/dL Coronavirus (PCR) Detected H (Not Detected) 08/08/19 08/08/19 08/08/19 Range/Units 06:44 08:48 08:48 Plt Count 96 L (150-450) k/uL Lymphocytes # 0.5 L (1.0-4.8) k/uL Chloride 111 H (98-107) mmol/L Carbon Dioxide 21 L (22-30) mmol/L BUN 19 H (7-17) mg/dL Creatinine 0.47 L (0.52-1.04) mg/dL Glucose 267 H (74-99) mg/dL POC Glucose (mg/dL) 263 H (75-99) mg/dL Coronavirus (PCR) (Not Detected) 08/08/19 Range/Units 11:33 Plt Count (150-450) k/uL Lymphocytes # (1.0-4.8) k/uL Chloride (98-107) mmol/L Carbon Dioxide (22-30) mmol/L BUN (7-17) mg/dL Creatinine (0.52-1.04) mg/dL Glucose (74-99) mg/dL POC Glucose (mg/dL) 298 H (75-99) mg/dL Coronavirus (PCR) (Not Detected) Microbiology - Last 24 Hours (Table) 08/06/19 19:16 Blood Culture - Preliminary Blood No Growth after 24 hours Assessment and Plan Plan: Assessment: 1 Acute bilateral pneumonia with vague groundglass pulmonary infiltrates secondary to COVID 19 related pneumonia. 2 shortness of breath secondary to above 3 diabetes mellitus type 2 4 hypertension 5 hyperlipidemia 6 history of depression 7 leukopenia/lymphopenia 8 thrombocytopenia Plan: We'll add Decadron 6 mg daily orally, postop that nebulized treatments, patient can have albuterol inhaler 4 times a day, continue current dose of Lovenox, patient's coronavirus PCR came back positive, confirming suspicions for coronavirus related pneumonitis. Vital signs are stable, patient is afebrile, can stop the azithromycin. Follow-up chest x-ray in the morning. I performed a history & physical examination of the patient and discussed their management with my nurse practitioner, Erin Encarnacion. I reviewed the nurse practitioner's note and agree with the documented findings and plan of care. Lung sounds are positive for diminished breath sounds. The findings and the impression was discussed with the patient. I attest to the documentation by the nurse practitioner. Time with Patient: Less than 30
[2019-08-08 16:41] LABS: Glucose,Whole Blood 289 mg/dL (75-99)
[2019-08-08] MEDS: INSULIN DETEMIR (LEVEMIR) 100 UNIT/ML SYR SQ SCH (17:21)
[2019-08-08] MEDS ORDERED: ACETAMINOPHEN TAB 325 MG TAB PO PRN (17:24)
[2019-08-08 21:44] LABS: Glucose,Whole Blood 250 mg/dL (75-99)
[2019-08-09 07:17] LABS: Glucose,Whole Blood 186 mg/dL (75-99)
[2019-08-09 07:41] LABS: Glucose,Whole Blood 176 mg/dL (75-99)
[2019-08-09] MEDS: ALBUTEROL HFA INHALER INHALATION SCH ×4 (08:16→20:41)
[2019-08-09 08:33] LABS: Basophils % (A) 0 %; Eosinophils % (A) 0 %; HCT 37.8 % (34.0-46.0); HGB 12.4 gm/dL (11.4-16.0); Lymphocytes # (A) 0.5 k/uL (1.0-4.8); Lymphocytes % (A) 6 %; MCH 29.6 pg (25.0-35.0); MCHC 32.8 g/dL (31.0-37.0); MCV 90.4 fL (80.0-100.0); Mean Platelet Volume 9.5; Monocytes # (A) 0.2 k/uL (0-1.0); Monocytes % (A) 3 %; Neutrophils # (A) 7.1 k/uL (1.3-7.7); Neutrophils % (A) 90 %; Platelet Count 101 k/uL (150-450); RBC 4.18 m/uL (3.80-5.40); RDW 13.8 % (11.5-15.5); WBC 7.8 k/uL (3.8-10.6)
[2019-08-09 09:01] LABS: ALT 24 U/L (4-34); AST 58 U/L (14-36); African American GFR (CKD) >90 (>60 ml/min/1.73 sqM); Albumin 3.1 g/dL (3.5-5.0); Alkaline Phosphatase 72 U/L (38-126); Anion Gap 6 mmol/L; Blood Urea Nitrogen 14 mg/dL (7-17); Calcium 8.4 mg/dL (8.4-10.2); Carbon Dioxide 25 mmol/L (22-30); Chloride 109 mmol/L (98-107); Creatine Kinase 154 U/L (30-135); Glucose 189 mg/dL (74-99); Non-African American GFR(CKD) >90 (>60 ml/min/1.73 sqM); Potassium 3.2 mmol/L (3.5-5.1); Sodium 140 mmol/L (137-145); Total Bilirubin 0.6 mg/dL (0.2-1.3); Total Protein 6.2 g/dL (6.3-8.2)
[2019-08-09 09:28] LABS: C Reactive Protein 68.1 mg/L (<10.0)
[2019-08-09] MEDS: GABAPENTIN 300 MG CAP PO SCH ×2 (09:36→20:12)
[2019-08-09] MEDS: PARoxetine 20 MG TAB PO SCH (09:36)
[2019-08-09] MEDS: LORazepam 0.5 MG TAB PO SCH ×2 (09:36→20:12)
[2019-08-09] MEDS: INSULIN ASPART (NovoLOG) 100 UNIT/ML VIAL SQ SCH ×4 (10:00→20:25)
[2019-08-09] MEDS: INSULIN DETEMIR (LEVEMIR) 100 UNIT/ML SYR SQ SCH (10:31)
[2019-08-09] MEDS: DEXAMETHASONE 2 MG TAB PO SCH (10:31)
[2019-08-09] MEDS: POTASSIUM CHLORIDE ER 20 MEQ TAB.ER PO SCH ×2 (10:32→11:41)
[2019-08-09] MEDS: LISINOPRIL 2.5 MG TAB PO SCH (10:32)
[2019-08-09] MEDS: amLODIPine 5 MG TAB PO SCH (10:32)
--- NOTE | 2019-08-09 10:44 | XR ---
EXAMINATION TYPE: XR chest 1V portable DATE OF EXAM: 08/09/2019 COMPARISON: 08/06/2019 HISTORY: Shortness of breath TECHNIQUE: Single frontal view of the chest is obtained. FINDINGS: There is multifocal areas of consolidation progressed relative to the prior exam. No pneum othorax. Postsurgical change left shoulder arthropathy right shoulder. Atherosclerotic change aorta. Hypertrophic degenerative change of the spine. IMPRESSION: 1. Multifocal areas of infiltrate correlate for pneumonia.
[2019-08-09] MEDS ORDERED: SODIUM CHLORIDE 0.9% IV ONE (11:30)
[2019-08-09] MEDS ORDERED: [UNRECOGNIZED DRUG - OTHER] IV ONE (11:30)
[2019-08-09] MEDS: SODIUM CHLORIDE 0.9% 1,000 ML IV SCH (11:42)
[2019-08-09 11:50] LABS: Appearance,Urine Clear (Clear); Bilirubin,Urine Negative (Negative); Blood,Urine Moderate (Negative); Color,Urine Yellow; Glucose,Urine (UA) Trace (Negative); Ketones,Urine Negative (Negative); Leukocyte Esterase,Urine Negative (Negative); Mucus,Urine Rare /hpf; Nitrite,Urine Negative (Negative); Protein,Urine 1+ (Negative); RBC,Urine <1 /hpf (0-5); Specific Gravity,Urine 1.015 (1.001-1.035); Squamous Epithelial Cell,Urine <1 /hpf (0-4); Urobilinogen,Urine <2.0 mg/dL (<2.0); WBC,Urine 1 /hpf (0-5)
[2019-08-09 12:09] LABS: Glucose,Whole Blood 218 mg/dL (75-99)
--- NOTE | 2019-08-09 14:38 | P.PN ---
Subjective Progress Note Date: 08/09/19 On today's evaluation of 08/09/2019 the patient is being seen in follow-up. Noted the patient got transferred to the intensive care unit because of worsening shortness of breath and worsening and hypoxemia. Earlier this morning, the patient didn't placed on 100% nonrebreather facemask and despite that she continued to be quite hypoxic with a pulse ox in the mid 80s. She was placed on high flow oxygen and subsequently she was switched to airvo at 15 L with an FiO2 of 90%. This both upper saturation just above 90%. She was still tachypneic and her most recent respiratory rate is in the mid 30s. Noted the patient was quite short of breath earlier and she was breathing is fast as 40 times a minute. Her troponin came back at 0.042. LDH level is at 1156. Her d- dimer came up to 4.08. The patient was switched to a therapeutic dose of Lovenox. She is still on Decadron and she is receiving 6 mg daily basis. I'm going to also proceed with Remdisavir treatment and ID consultation will be obt ained and appropriate paperwork will be sent to approve this medication. The patient is obviously decompensated and had a PF ratio has not significantly, and as such the patient will be candidate for this medication. She is running a low-grade fever of 100.6. I also contacted the family had spoke to the son and informed him of the above-mentioned changes. The patient's condition is critical and she is a high risk of developing respiratory failure requiring intubation mechanical ventilation. She is on normal saline at the rate of 70 mL an hour. Objective - Vital Signs Vital signs: Vital Signs Temp 99.1 F 08/09/19 12:00 Pulse 75 08/09/19 12:00 Resp 40 H 08/09/19 12:00 BP 135/63 08/09/19 12:00 Pulse Ox 96 08/09/19 12:00 Intake & Output 08/08/19 08/09/19 08/09/19 18:59 06:59 18:59 Intake Total 650 600 Output Total 285 Balance 650 315 Weight 90.718 kg Intake: IV 350 Sodium Chloride 0.9% 1, 350 000 ml @ 70 mls/hr IV . [id number] [facility] Rx#:[id number] Intake, IV Titration 250 Amount Non Formulary Drug 100 250 each In Sodium Chloride 0 .9% 250 ml @ 250 mls/hr IV Q24H [facility] Rx#:[id number] Oral 650 Output: Urine 285 Other: Voiding Method Indwelling Catheter # Voids 3 1 - Exam The patient appeared to be in moderate degree of respiratory distress. She was tachypneic. She was in the 100% nonrebreather facemask and subsequently she was switched to Airvo at an FiO2 of 90% with a flow of 50 L. Head exam was generally normal. There was no scleral icterus or corneal arcus. Mucous membranes were moist. Neck was supple and without jugular venous distension, thyromegaly, or carotid bruits. Carotids were easily palpable bilaterally. There was no adenopathy. Lungs sounds are diminished bilaterally and some crackles that are fine can be appreciated throughout the lungs bilaterally. Cardiac exam revealed the PMI to be normally situated and sized. The rhythm was regular and no extrasystoles were noted during several minutes of auscultation. The first and second heart sounds were normal and physiologic splitting of the second heart sound was noted. There were no murmurs, rubs, clicks, or gallops. Abdominal exam revealed normal bowel sounds. The abdomen was soft, non-tender, and without masses, organomegaly, or appreciable enlargement of the abdominal aorta. Examination of the extremities revealed easily palpable radial, femoral and pedal pulses. There was no cyanosis, clubbing or edema. Examination of the skin revealed no evidence of significant rashes, suspicious appearing nevi or other concerning lesions. Neurologically awake and alert and there is no focal neurological deficits. - Labs CBC & Chem 7: 08/09/19 08:06 08/09/19 08:06 Labs: Abnormal Lab Results - Last 24 Hours (Table) 08/08/19 08/08/19 08/09/19 Range/Units 16:35 21:43 07:16 Plt Count (150-450) k/uL Lymphocytes # (1.0-4.8) k/uL D-Dimer (<0.60) mg/L FEU Potassium (3.5-5.1) mmol/L Chloride (98-107) mmol/L Creatinine (0.52-1.04) mg/dL Glucose (74-99) mg/dL POC Glucose (mg/dL) 289 H 250 H 186 H (75-99) mg/dL AST (14-36) U/L Lactate Dehydrogenase (313-618) U/L Creatine Kinase (30-135) U/L Troponin I (0.000-0.034) ng/mL C-Reactive Protein (<10.0) mg/L Total Protein (6.3-8.2) g/dL Albumin (3.5-5.0) g/dL Urine Protein (Negative) Urine Glucose (UA) (Negative) Urine Blood (Negative) Urine Mucus (None) /hpf 08/09/19 08/09/19 08/09/19 Range/Units 07:40 08:06 08:06 Plt Count 101 L (150-450) k/uL Lymphocytes # 0.5 L (1.0-4.8) k/uL D-Dimer (<0.60) mg/L FEU Potassium 3.2 L (3.5-5.1) mmol/L Chloride 109 H (98-107) mmol/L Creatinine 0.49 L (0.52-1.04) mg/dL Glucose 189 H (74-99) mg/dL POC Glucose (mg/dL) 176 H (75-99) mg/dL AST 58 H (14-36) U/L Lactate Dehydrogenase (313-618) U/L Creatine Kinase 154 H (30-135) U/L Troponin I (0.000-0.034) ng/mL C-Reactive Protein 68.1 H (<10.0) mg/L Total Protein 6.2 L (6.3-8.2) g/dL Albumin 3.1 L (3.5-5.0) g/dL Urine Protein (Negative) Urine Glucose (UA) (Negative) Urine Blood (Negative) Urine Mucus (None) /hpf 08/09/19 08/09/19 08/09/19 Range/Units 08:18 08:18 08:18 Plt Count (150-450) k/uL Lymphocytes # (1.0-4.8) k/uL D-Dimer 4.08 H (<0.60) mg/L FEU Potassium (3.5-5.1) mmol/L Chloride (98-107) mmol/L Creatinine (0.52-1.04) mg/dL Glucose (74-99) mg/dL POC Glucose (mg/dL) (75-99) mg/dL AST (14-36) U/L Lactate Dehydrogenase 1156 H (313-618) U/L Creatine Kinase (30-135) U/L Troponin I 0.042 H* (0.000-0.034) ng/mL C-Reactive Protein (<10.0) mg/L Total Protein (6.3-8.2) g/dL Albumin (3.5-5.0) g/dL Urine Protein (Negative) Urine Glucose (UA) (Negative) Urine Blood (Negative) Urine Mucus (None) /hpf 08/09/19 08/09/19 Range/Units 08:45 11:49 Plt Count (150-450) k/uL Lymphocytes # (1.0-4.8) k/uL D-Dimer (<0.60) mg/L FEU Potassium (3.5-5.1) mmol/L Chloride (98-107) mmol/L Creatinine (0.52-1.04) mg/dL Glucose (74-99) mg/dL POC Glucose (mg/dL) 218 H (75-99) mg/dL AST (14-36) U/L Lactate Dehydrogenase (313-618) U/L Creatine Kinase (30-135) U/L Troponin I (0.000-0.034) ng/mL C-Reactive Protein (<10.0) mg/L Total Protein (6.3-8.2) g/dL Albumin (3.5-5.0) g/dL Urine Protein 1+ H (Negative) Urine Glucose (UA) Trace H (Negative) Urine Blood Moderate H (Negative) Urine Mucus Rare H (None) /hpf Microbiology - Last 24 Hours (Table) 08/06/19 19:16 Blood Culture - Preliminary Blood No Growth after 48 hours Assessment and Plan Plan: 1 acute hypoxic respiratory failure with significant worsening of the oxygenation and drop in the PF ratio with development of diffuse bilateral Covid 19 related pneumonia. The patient is currently on a airvo with an FiO2 of 90% and 50 L. She has developed worsening in bilateral pulmonary infiltrates. Her condition decompensated significantly. There is a rise in the LDH and the d- dimer is and the patient remains on Decadron and she'll be started on anticoagu lation. Consider development of ARDS secondary to extensive bilateral Covid related pneumonia. 2 shortness of breath secondary to above 3 diabetes mellitus type 2 4 hypertension 5 hyperlipidemia 6 history of depression 7 leukopenia/lymphopenia, improving and the white cell count is up to 7.8 8 thrombocytopenia, improved and the patient's platelet count is up to 101 Plan Continue Decadron 6 mg by mouth daily Continue high flow oxygen Continue Lovenox and change it to 1 mg per KG every 12 hours IV fluids with normal saline at the rate of 50 mL an hour Monitor. 3 markers Monitor fever pattern Monitor oxygenation Droplet isolation Obtain approval for Remdesivir and will consult infectious disease. Condition is critical and I contacted the son and there is a high likelihood that the patient may end up intubated on a mechanical ventilator. We'll continue to follow
--- NOTE | 2019-08-09 14:46 | CDI ---
Documentation Clarification Form Date: 08/09/2019 CDS: Anahi Mock, CCS, CCDS Admit Date: 08/06/2019 Patient Name: Carine Mccarty Discharge Date: ATTENTION: The Clinical Documentation Specialists (CDI) and [facility] Coding Staff appreciate your assistance in clarifying documentation. Please respond to the clarification below the line at the bottom and electronically sign. The CDI & [facility] Coding staff will review the response and follow-up if needed. Please note: Queries are made part of the Legal Health Record. If you have any questions, please contact the author of this message via ITS. Dear Dr. Daina Mcadams: Per the 08/07 Attending Progress Note: "Community acquired pneumonia secondary to COVDI-19. History/Risk Factors: COPD, DM II, Hypertension, Hyperlipidemia, Depression, CAD with previous stent. Clinical Indicators: 73 yo fem, presented to the [facility] on 08/05 with weakness & nausea, slightly SOB, no cough, no chest discomfort, no diarrhea. VS 08/05: T 98.2-97.5* - 99.9^, 08/08: 100.6^. HR 70 - 81; R 18 - 16, 08/08: 20^ - 45^. BP: 106/60 - 144/71. PO: 95 - 92* RA - 2Lnc; 08/08: 75 2Lnc - 88 6Lnc - 98 15% nb - 96 50% high flow Lactic acid 08/05: 1.5, no repeat Blood cultures 08/05: Preliminary no growth @ 48 hrs. Treatment 08/05: IV fluid rate 1,000 mls @ 75/hr, IV Pepcid, IV Zofran, INH Albuterol, IV fluid rate 1,000 mls @ 50/hr, IV Rocephin, IV Azithromycin, IV Solumedrol/ 08/08: IV fluid rate 1,000 mls @ 70/hr, po Kcl, IV Decadron (IV Rocephin & IV Azithromycin discontinued) Transferred to ICU 08/08. In your professional opinion, please clarify if these findings signify one of the following conditions, whether the condition is POA, and cause, if known: Sepsis ruled out Sepsis, please specify cause: Other, please specify Unable to determine Present on Admission: Yes or No (Last Revision: May 2017) Sepsis likely sec to acute pneumonia MTDD
--- NOTE | 2019-08-09 17:05 | P.PN ---
Subjective Progress Note Date: 08/09/19 Principal diagnosis: weakness Patient apparently decompensated last night, became tachypnea, hypoxic. She was transferred to the ICU. She is currently on high flow nasal cannula. She states that she's feeling fine. Denied any pain. She did have a fever last night 100.6. No nausea or vomiting. Objective - Vital Signs Vital signs: Vital Signs Temp 99.1 F 08/09/19 12:00 Pulse 68 08/09/19 16:00 Resp 36 H 08/09/19 16:00 BP 109/54 08/09/19 16:00 Pulse Ox 92 L 08/09/19 16:24 Intake & Output 08/08/19 08/09/19 08/09/19 18:59 06:59 18:59 Intake Total 650 740 Output Total 410 Balance 650 330 Weight 90.718 kg Intake: IV 490 Sodium Chloride 0.9% 1, 490 000 ml @ 70 mls/hr IV . [id number] [facility] Rx#:[id number] Intake, IV Titration 250 Amount Non Formulary Drug 100 250 each In Sodium Chloride 0 .9% 250 ml @ 250 mls/hr IV Q24H [facility] Rx#:[id number] Oral 650 Output: Urine 410 Other: Voiding Method Indwelling Catheter # Voids 3 1 - Exam Constitutional: No acute distress, conversant, pleasant Eyes:Anicteric sclerae, moist conjunctiva, no lid-lag, PERRLA, ENMT: Oropharynx clear, no erythema, exudates Neck: Supple, FROM, no masses, or JVD, No carotid bruits, No thyromegaly Lungs: scatter wheezing especially on the basis. Clear to percussion, Normal respiratory effort, no accessory muscle use Cardiovascular: RRR, No murmurs, gallops, or rubs, No peripheral edema Abdominal: Soft, Nontender, no guarding, rebound or rigidity, Normoactive bowel sounds, No hepatomegaly, No splenomegaly, No palpable mass Skin: Normal temperature, tone, texture, turgor, no induration, No subcutaneous nodules, No rash, lesions, No ulcers Extremities: No digital cyanosis, No clubbing, Pedal pulses intact and symmetrical, Radial pulses intact and symmetrical, No calf tenderness Psychiatric: Alert and oriented to person, place and time, appropriate affect, intact judgement Neuro: Muscles Strength 5/5 in all 4 extremities, Sensation to light touch grossly present throughout, Cranial nerves II-XII grossly intact, no focal sensory deficits - Labs CBC & Chem 7: 08/09/19 08:06 08/09/19 08:06 Labs: Abnormal Lab Results - Last 24 Hours (Table) 08/08/19 08/09/19 08/09/19 Range/Units 21:43 07:16 07:40 Plt Count (150-450) k/uL Lymphocytes # (1.0-4.8) k/uL D-Dimer (<0.60) mg/L FEU Potassium (3.5-5.1) mmol/L Chloride (98-107) mmol/L Creatinine (0.52-1.04) mg/dL Glucose (74-99) mg/dL POC Glucose (mg/dL) 250 H 186 H 176 H (75-99) mg/dL AST (14-36) U/L Lactate Dehydrogenase (313-618) U/L Creatine Kinase (30-135) U/L Troponin I (0.000-0.034) ng/mL C-Reactive Protein (<10.0) mg/L Total Protein (6.3-8.2) g/dL Albumin (3.5-5.0) g/dL Urine Protein (Negative) Urine Glucose (UA) (Negative) Urine Blood (Negative) Urine Mucus (None) /hpf 08/09/19 08/09/19 08/09/19 Range/Units 08:06 08:06 08:18 Plt Count 101 L (150-450) k/uL Lymphocytes # 0.5 L (1.0-4.8) k/uL D-Dimer 4.08 H (<0.60) mg/L FEU Potassium 3.2 L (3.5-5.1) mmol/L Chloride 109 H (98-107) mmol/L Creatinine 0.49 L (0.52-1.04) mg/dL Glucose 189 H (74-99) mg/dL POC Glucose (mg/dL) (75-99) mg/dL AST 58 H (14-36) U/L Lactate Dehydrogenase (313-618) U/L Creatine Kinase 154 H (30-135) U/L Troponin I (0.000-0.034) ng/mL C-Reactive Protein 68.1 H (<10.0) mg/L Total Protein 6.2 L (6.3-8.2) g/dL Albumin 3.1 L (3.5-5.0) g/dL Urine Protein (Negative) Urine Glucose (UA) (Negative) Urine Blood (Negative) Urine Mucus (None) /hpf 08/09/19 08/09/19 08/09/19 Range/Units 08:18 08:18 08:45 Plt Count (150-450) k/uL Lymphocytes # (1.0-4.8) k/uL D-Dimer (<0.60) mg/L FEU Potassium (3.5-5.1) mmol/L Chloride (98-107) mmol/L Creatinine (0.52-1.04) mg/dL Glucose (74-99) mg/dL POC Glucose (mg/dL) (75-99) mg/dL AST (14-36) U/L Lactate Dehydrogenase 1156 H (313-618) U/L Creatine Kinase (30-135) U/L Troponin I 0.042 H* (0.000-0.034) ng/mL C-Reactive Protein (<10.0) mg/L Total Protein (6.3-8.2) g/dL Albumin (3.5-5.0) g/dL Urine Protein 1+ H (Negative) Urine Glucose (UA) Trace H (Negative) Urine Blood Moderate H (Negative) Urine Mucus Rare H (None) /hpf 08/09/19 Range/Units 11:49 Plt Count (150-450) k/uL Lymphocytes # (1.0-4.8) k/uL D-Dimer (<0.60) mg/L FEU Potassium (3.5-5.1) mmol/L Chloride (98-107) mmol/L Creatinine (0.52-1.04) mg/dL Glucose (74-99) mg/dL POC Glucose (mg/dL) 218 H (75-99) mg/dL AST (14-36) U/L Lactate Dehydrogenase (313-618) U/L Creatine Kinase (30-135) U/L Troponin I (0.000-0.034) ng/mL C-Reactive Protein (<10.0) mg/L Total Protein (6.3-8.2) g/dL Albumin (3.5-5.0) g/dL Urine Protein (Negative) Urine Glucose (UA) (Negative) Urine Blood (Negative) Urine Mucus (None) /hpf Microbiology - Last 24 Hours (Table) 08/06/19 19:16 Blood Culture - Preliminary Blood No Growth after 48 hours Assessment and Plan Plan: Acute sepsis Community acquired pneumonia sec to COVID19 Continue Decadron 6 mg by mouth daily Continue high flow oxygen Patient started on Lovenox therapeutic dose especially with the elevated d-dimer and troponin IV fluids with normal saline at the rate of 50 mL an hour Acute COPD exacerbation Steroids as above Bronchodilators DM2 Hold oral hypoglycemics Glucose better controlled after lantus 6 units daily added SSI with blood sugar checks every before meals and at bedtime HTN Hyperlipidemia Depression All stable resume meds Anticipated discharge: Pending clinical course Disposition: Pending clinical course
[2019-08-09 17:32] LABS: Glucose,Whole Blood 251 mg/dL (75-99)
[2019-08-09 18:55] LABS: Ferritin 309.5 ng/mL (10.0-291.0)
[2019-08-09] MEDS: ENOXAPARIN 100 MG/ML SYRINGE SQ SCH (20:12)
[2019-08-09 20:24] LABS: Glucose,Whole Blood 233 mg/dL (75-99)
[2019-08-09] MEDS ORDERED: INSULIN DETEMIR (LEVEMIR) 100 UNIT/ML SYR SQ SCH (21:00)
[2019-08-09] MEDS ORDERED: INSULIN DETEMIR (LEVEMIR) 100 UNIT/ML SYR SQ ONE (21:00)
[2019-08-10] MEDS: SODIUM CHLORIDE 0.9% 1,000 ML IV SCH ×2 (01:28→16:35)
[2019-08-10 05:45] LABS: Basophils % (A) 0 %; Eosinophils % (A) 1 %; HCT 43.3 % (34.0-46.0); HGB 12.8 gm/dL (11.4-16.0); Hypochromasia Marked; Lymphocytes # (A) 0.4 k/uL (1.0-4.8); Lymphocytes % (A) 6 %; MCH 30.4 pg (25.0-35.0); MCHC 29.6 g/dL (31.0-37.0); Macrocytosis Slight; Mean Platelet Volume 8.7; Monocytes # (A) 0.4 k/uL (0-1.0); Monocytes % (A) 6 %; Neutrophils # (A) 6.1 k/uL (1.3-7.7); Neutrophils % (A) 88 %; RBC 4.21 m/uL (3.80-5.40); RDW 13.2 % (11.5-15.5); WBC 6.9 k/uL (3.8-10.6)
[2019-08-10 05:54] LABS: MCV 102.8 fL (80.0-100.0); Platelet Count 157 k/uL (150-450)
[2019-08-10 05:56] LABS: Albumin 3.4 g/dL (3.5-5.0); Calcium 8.7 mg/dL (8.4-10.2); Potassium 3.6 mmol/L (3.5-5.1); Total Bilirubin 0.3 mg/dL (0.2-1.3); Total Protein 6.4 g/dL (6.3-8.2)
[2019-08-10 06:04] LABS: Glucose,Whole Blood 158 mg/dL (75-99)
[2019-08-10] MEDS: INSULIN ASPART (NovoLOG) 100 UNIT/ML VIAL SQ SCH ×4 (06:32→20:56)
[2019-08-10] MEDS ORDERED: Potassium Replacement Protocol 1 EACH MISC MISCELLANE PRN (06:33)
[2019-08-10] MEDS: INSULIN DETEMIR (LEVEMIR) 100 UNIT/ML SYR SQ SCH (06:55)
[2019-08-10] MEDS ORDERED: POTASSIUM CHLORIDE ER 20 MEQ TAB.ER PO SCH (07:00)
[2019-08-10] MEDS: ALBUTEROL HFA INHALER INHALATION SCH ×4 (07:57→20:27)
[2019-08-10] MEDS: GABAPENTIN 300 MG CAP PO SCH ×2 (08:31→20:20)
[2019-08-10] MEDS: PARoxetine 20 MG TAB PO SCH (08:31)
[2019-08-10] MEDS: FAMOTIDINE 20 MG TAB PO SCH ×2 (08:31→20:20)
[2019-08-10] MEDS: LISINOPRIL 2.5 MG TAB PO SCH (08:31)
[2019-08-10] MEDS: DEXAMETHASONE 2 MG TAB PO SCH (08:32)
[2019-08-10] MEDS: amLODIPine 5 MG TAB PO SCH (08:32)
[2019-08-10] MEDS: ENOXAPARIN 100 MG/ML SYRINGE SQ SCH ×2 (08:33→20:18)
--- NOTE | 2019-08-10 08:58 | P.CONS ---
History of Present Illness - Reason for Consult Consult date: 08/09/19 Covid 19 infection Requesting physician: Hue Huerta - Chief Complaint Fatigue and weakness shortness of breath few days - History of Present Illness Patient is a 73-year-old female presented to the ER at [facility] on 08/06/2019 with a chief complaints of weakness and fatigue nausea and shortness of breath symptom has been going on for a few days before she presented to the hospital patient did have a mild cough which was dry in nature and no pleuritic chest pain on arrival to the ER the patient was afebrile subsequently during hospital stay the patient did spike a low-grade fever of 99.9 patient had did have a leukopenia as well as lymphopenia elevated CRP and normal before considering patient CT angiogram did shows bilateral alveolar and is additionally been treated with a question of CHF versus covid 19 infection the patient and is apparently saw came back positive and the patient was initially managed on the floor with dexamethasone and respiratory support last 5 to the patient did went respiratory distress requiring high flow oxygen subsequently the patient has been transferred to the ICU where the patient had been complaining of more shortness of breath even at rest she also have a cough which has been moderate intensity and not bring up any sputum some nausea but no vomiting no diarrhea patient is in the surgeon for consideration of Remdisivir in view of worsening respiratory status with underlying covid19 pn eum[place] Review of Systems Positive point has been mentioned in the HPI rest of the systems are negative Past Medical History Past Medical History: Coronary Artery Disease (CAD), Diabetes Mellitus, Hyperlipidemia, Hypertension Additional Past Medical History / Comment(s): NIDDM type II, 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 History of Any Multi-Drug Resistant Organisms: None Reported Past Surgical History: Breast Surgery, Heart Catheterization With Stent, Hysterectomy, Orthopedic Surgery Additional Past Surgical History / Comment(s): knee, shoulder replacement Additional Past Anesthesia/Blood Transfusion Reaction / Comm: Slow to wake with last surgery. Date of Last Stent Placement:: 02/14/99 Past Psychological History: No Psychological Hx Reported Additional Psychological History / Comment(s): Pt recently moved here from [place] and is currently living in a hotel waiting to purchase a home. She is independent. Smoking Status: Never smoker Past Alcohol Use History: None Reported Past Drug Use History: None Reported - Past Family History Father Additional Family Medical History / Comment(s): Father had heart problems Mother Family Medical History: Diabetes Mellitus Additional Family Medical History / Comment(s): Heart problems Medications and Allergies Home Medications Medication Instructions Recorded Confirmed Type Gabapentin [Neurontin] 300 mg PO BID 08/06/19 08/06/19 History LORazepam [Ativan] 0.5 mg PO BID 08/06/19 08/06/19 History Lisinopril [Zestril] 2.5 mg PO DAILY 08/06/19 08/06/19 History PARoxetine [Paxil] 20 mg PO DAILY 08/06/19 08/06/19 History Pioglitazone [Actos] 30 mg PO DAILY 08/06/19 08/06/19 History amLODIPine [Norvasc] 5 mg PO DAILY 08/06/19 08/06/19 History metFORMIN HCL [Glucophage] 500 mg PO BID 08/06/19 08/06/19 History Allergies Allergy/AdvReac Type Severity Reaction Status Date / Time No Known Allergies Allergy Verified 08/06/19 13:21 Physical Exam Vitals: Vital Signs Temp Pulse Pulse Resp BP BP Pulse Ox 08/09/19 12:00 99.1 F 75 40 H 135/63 96 08/09/19 11:25 93 L 08/09/19 11:00 72 45 H 143/66 90 L 08/09/19 10:00 92 37 H 123/57 90 L 08/09/19 09:10 88 L 08/09/19 09:00 78 41 H 131/66 87 L 08/09/19 08:00 99.1 F 78 40 H 152/70 08/09/19 07:00 100.6 F H 58 L 24 132/72 95 08/09/19 06:21 99 148/63 89 L 08/09/19 06:01 98.2 F 91 40 H 138/66 90 L 08/09/19 04:52 93 L 08/09/19 04:10 24 92 L 08/09/19 04:05 88 L 08/09/19 04:00 61 24 08/09/19 02:55 99.3 F 61 30 H 152/66 92 L 08/09/19 02:13 96 08/09/19 01:27 97 08/09/19 01:25 98 08/09/19 01:00 99.2 F 77 20 144/72 88 L 08/09/19 00:00 77 20 08/08/19 20:00 76 18 08/08/19 19:25 98.2 F 76 130/71 92 L 08/08/19 16:00 80 18 08/08/19 14:30 98.2 F 80 18 128/65 93 L Intake and Output 08/08/19 08/09/19 08/09/19 22:59 06:59 14:59 Intake Total 600 Output Total 285 Balance 315 Intake: IV 350 Sodium Chloride 0.9% 1, 350 000 ml @ 70 mls/hr IV . [id number] [facility] Rx#:[id number] Intake, IV Titration 250 Amount Non Formulary Drug 100 250 each In Sodium Chloride 0 .9% 250 ml @ 250 mls/hr IV Q24H [facility] Rx#:[id number] Output: Urine 285 Other: Voiding Method Indwelling Catheter # Voids 1 1 GENERAL DESCRIPTION: An elderly female lying in bed, mild distress. Mild tachypnea, no accessory muscle of respiration use. HEENT: Shows Pallor , no scleral icterus. Oral mucous membrane is dry. No pharyngeal erythema or thrush NECK: Trachea central, no thyromegaly. LUNGS: Unlabored breathing. Coarse present bilaterally No wheeze or crackle. HEART: S1, S2, regular rate and rhythm. No loud murmur ABDOMEN: Soft, no tenderness , guarding or rigidity, no organomegaly EXTREMITIES: No edema of feet. SKIN: No rash, no masses palpable. NEUROLOGICAL: The patient is awake, alert, oriented x3, mood and affect normal. Results CBC & Chem 7: 08/10/19 05:08 08/10/19 05:08 Labs: Abnormal Lab Results - Last 24 Hours (Table) 08/08/19 08/08/19 08/09/19 Range/Units 16:35 21:43 07:16 Plt Count (150-450) k/uL Lymphocytes # (1.0-4.8) k/uL D-Dimer (<0.60) mg/L FEU Potassium (3.5-5.1) mmol/L Chloride (98-107) mmol/L Creatinine (0.52-1.04) mg/dL Glucose (74-99) mg/dL POC Glucose (mg/dL) 289 H 250 H 186 H (75-99) mg/dL AST (14-36) U/L Lactate Dehydrogenase (313-618) U/L Creatine Kinase (30-135) U/L Troponin I (0.000-0.034) ng/mL C-Reactive Protein (<10.0) mg/L Total Protein (6.3-8.2) g/dL Albumin (3.5-5.0) g/dL Urine Protein (Negative) Urine Glucose (UA) (Negative) Urine Blood (Negative) Urine Mucus (None) /hpf 08/09/19 08/09/19 08/09/19 Range/Units 07:40 08:06 08:06 Plt Count 101 L (150-450) k/uL Lymphocytes # 0.5 L (1.0-4.8) k/uL D-Dimer (<0.60) mg/L FEU Potassium 3.2 L (3.5-5.1) mmol/L Chloride 109 H (98-107) mmol/L Creatinine 0.49 L (0.52-1.04) mg/dL Glucose 189 H (74-99) mg/dL POC Glucose (mg/dL) 176 H (75-99) mg/dL AST 58 H (14-36) U/L Lactate Dehydrogenase (313-618) U/L Creatine Kinase 154 H (30-135) U/L Troponin I (0.000-0.034) ng/mL C-Reactive Protein 68.1 H (<10.0) mg/L Total Protein 6.2 L (6.3-8.2) g/dL Albumin 3.1 L (3.5-5.0) g/dL Urine Protein (Negative) Urine Glucose (UA) (Negative) Urine Blood (Negative) Urine Mucus (None) /hpf 08/09/19 08/09/19 08/09/19 Range/Units 08:18 08:18 08:18 Plt Count (150-450) k/uL Lymphocytes # (1.0-4.8) k/uL D-Dimer 4.08 H (<0.60) mg/L FEU Potassium (3.5-5.1) mmol/L Chloride (98-107) mmol/L Creatinine (0.52-1.04) mg/dL Glucose (74-99) mg/dL POC Glucose (mg/dL) (75-99) mg/dL AST (14-36) U/L Lactate Dehydrogenase 1156 H (313-618) U/L Creatine Kinase (30-135) U/L Troponin I 0.042 H* (0.000-0.034) ng/mL C-Reactive Protein (<10.0) mg/L Total Protein (6.3-8.2) g/dL Albumin (3.5-5.0) g/dL Urine Protein (Negative) Urine Glucose (UA) (Negative) Urine Blood (Negative) Urine Mucus (None) /hpf 08/09/19 08/09/19 Range/Units 08:45 11:49 Plt Count (150-450) k/uL Lymphocytes # (1.0-4.8) k/uL D-Dimer (<0.60) mg/L FEU Potassium (3.5-5.1) mmol/L Chloride (98-107) mmol/L Creatinine (0.52-1.04) mg/dL Glucose (74-99) mg/dL POC Glucose (mg/dL) 218 H (75-99) mg/dL AST (14-36) U/L Lactate Dehydrogenase (313-618) U/L Creatine Kinase (30-135) U/L Troponin I (0.000-0.034) ng/mL C-Reactive Protein (<10.0) mg/L Total Protein (6.3-8.2) g/dL Albumin (3.5-5.0) g/dL Urine Protein 1+ H (Negative) Urine Glucose (UA) Trace H (Negative) Urine Blood Moderate H (Negative) Urine Mucus Rare H (None) /hpf Microbiology - Last 24 Hours (Table) 08/06/19 19:16 Blood Culture - Preliminary Blood No Growth after 48 hours Assessment and Plan Assessment: 1-patient with acute respiratory failure in this patient who did have bilateral interstitial and alveolar infiltrate and positive nasopharyngeal swab for Covid19 in this patient who did have a progressive worsening of her respiratory status over the last 48 hours in this patient who did have significantly elevated inflammatory markers with elevated LDH CRP lymphopenia despite being on dexamethasone qualifies her for the Remdisivir (1) Pneumonia due to COVID-19 virus Current Visit: Yes Status: Acute Code(s): U07.1 - COVID-19; J12.89 - OTHER VIRAL PNEUMONIA SNOMED Code(s): 464778380 (2) Respiratory failure Current Visit: Yes Status: Acute Code(s): J96.90 - RESPIRATORY FAILURE, UNSP, UNSP W HYPOXIA OR HYPERCAPNIA SNOMED Code(s): 016969486 Plan: 1-patient will be started on Remdesivir 200 mg day 1 followed by 100 mg daily for 4 more doses 2- continue with the dexamethasone 3- droplet isolation and respiratory support We will follow on clinical condition and cultures to further adjust medication if needed Thank you for this consultation will follow this patient with you
--- NOTE | 2019-08-10 10:42 | XR ---
EXAMINATION TYPE: XR chest 1V portable DATE OF EXAM: 08/10/2019 HISTORY: Shortness of breath. COMPARISON: 08/09/2019 TECHNIQUE: Single view of the chest is submitted. FINDINGS: Demonstrated are scattered senescent parenchymal change. Scattered patchy infiltrates seen throughout both lung anderson remain essentially unchanged. Correlate for underlying pneumonia. Progress studies are advised. The heart is stable. Hilar and mediastinal structures are within normal limits. Degenerative changes are seen of the dorsal spine. IMPRESSION: 1. Scattered patchy infiltrates seen throughout both lung anderson remain essentially unchanged. Corre late for underlying pneumonia. Progress studies are advised.
[2019-08-10 12:10] LABS: Ferritin 37.1 ng/mL (10.0-291.0)
[2019-08-10] MEDS: SODIUM CHLORIDE 0.9% IV SCH (12:17)
[2019-08-10] MEDS: [UNRECOGNIZED DRUG - OTHER] IV SCH (12:17)
[2019-08-10 12:30] LABS: Glucose,Whole Blood 220 mg/dL (75-99)
--- NOTE | 2019-08-10 14:03 | P.PN ---
Subjective Progress Note Date: 08/10/19 Principal diagnosis: weakness Patient states that she's feeling better. She denies current shortness of breath. No pain. No fevers or chills. No overnight issues. Still requiring oxygen with high flow. According to nursing staff she is less tachypneic today compared to yesterday. Objective - Vital Signs Vital signs: Vital Signs Temp 98.0 F 08/10/19 12:00 Pulse 59 L 08/10/19 13:00 Resp 35 H 08/10/19 13:00 BP 119/53 08/10/19 13:00 Pulse Ox 92 L 08/10/19 13:00 Intake & Output 08/09/19 08/10/19 08/10/19 18:59 06:59 18:59 Intake Total 1020 770 420 Output Total 685 665 245 Balance 335 105 175 Intake: IV 770 770 420 Sodium Chloride 0.9% 1, 770 770 420 000 ml @ 70 mls/hr IV . [id number] [facility] Rx#:[id number] Intake, IV Titration 250 Amount Non Formulary Drug 100 250 each In Sodium Chloride 0 .9% 250 ml @ 250 mls/hr IV Q24H [facility] Rx#:[id number] Output: Urine 685 665 245 Other: Voiding Method Indwelling Catheter Indwelling Catheter Indwelling Catheter # Bowel Movements 1 - Exam Constitutional: No acute distress, conversant, pleasant Eyes:Anicteric sclerae, moist conjunctiva, no lid-lag, PERRLA, ENMT: Oropharynx clear, no erythema, exudates Neck: Supple, FROM, no masses, or JVD, No carotid bruits, No thyromegaly Lungs: scatter wheezing especially on the basis. Clear to percussion, Normal respiratory effort, no accessory muscle use Cardiovascular: RRR, No murmurs, gallops, or rubs, No peripheral edema Abdominal: Soft, Nontender, no guarding, rebound or rigidity, Normoactive bowel sounds, No hepatomegaly, No splenomegaly, No palpable mass Skin: Normal temperature, tone, texture, turgor, no induration, No subcutaneous nodules, No rash, lesions, No ulcers Extremities: No digital cyanosis, No clubbing, Pedal pulses intact and symme trical, Radial pulses intact and symmetrical, No calf tenderness Psychiatric: Alert and oriented to person, place and time, appropriate affect, intact judgement Neuro: Muscles Strength 5/5 in all 4 extremities, Sensation to light touch grossly present throughout, Cranial nerves II-XII grossly intact, no focal sensory deficits - Labs CBC & Chem 7: 08/10/19 05:08 08/10/19 05:08 Labs: Abnormal Lab Results - Last 24 Hours (Table) 08/09/19 08/09/19 08/09/19 Range/Units 08:06 17:20 20:23 MCV (80.0-100.0) fL MCHC (31.0-37.0) g/dL Lymphocytes # (1.0-4.8) k/uL Chloride (98-107) mmol/L Carbon Dioxide (22-30) mmol/L BUN (7-17) mg/dL Glucose (74-99) mg/dL POC Glucose (mg/dL) 251 H 233 H (75-99) mg/dL Ferritin 309.5 H (10.0-291.0) ng/mL ALT (4-34) U/L C-Reactive Protein (<10.0) mg/L Albumin (3.5-5.0) g/dL 08/10/19 08/10/19 08/10/19 Range/Units 05:08 05:08 06:02 MCV 102.8 H D (80.0-100.0) fL MCHC 29.6 L (31.0-37.0) g/dL Lymphocytes # 0.4 L (1.0-4.8) k/uL Chloride 96 L (98-107) mmol/L Carbon Dioxide 43 H* (22-30) mmol/L BUN 34 H (7-17) mg/dL Glucose 118 H (74-99) mg/dL POC Glucose (mg/dL) 158 H (75-99) mg/dL Ferritin (10.0-291.0) ng/mL ALT 59 H (4-34) U/L C-Reactive Protein 15.0 H (<10.0) mg/L Albumin 3.4 L (3.5-5.0) g/dL 08/10/19 Range/Units 12:25 MCV (80.0-100.0) fL MCHC (31.0-37.0) g/dL Lymphocytes # (1.0-4.8) k/uL Chloride (98-107) mmol/L Carbon Dioxide (22-30) mmol/L BUN (7-17) mg/dL Glucose (74-99) mg/dL POC Glucose (mg/dL) 220 H (75-99) mg/dL Ferritin (10.0-291.0) ng/mL ALT (4-34) U/L C-Reactive Protein (<10.0) mg/L Albumin (3.5-5.0) g/dL Microbiology - Last 24 Hours (Table) 08/06/19 19:16 Blood Culture - Preliminary Blood No Growth after 72 hours Assessment and Plan Plan: Acute sepsis Community acquired pneumonia sec to COVID19 Started on remdisivir, ID following Continue Decadron 6 mg by mouth daily Continue high flow oxygen Patient started on Lovenox therapeutic dose especially with the elevated d-dimer and troponin IV fluids with normal saline at the rate of 50 mL an hour Acute hypoxic respiratory failure High-Flow nasal cannula as above High risk for intubation Acute COPD exacerbation Steroids as above Bronchodilators DM2 Hold oral hypoglycemics Increase lantus to 8 units daily SSI with blood sugar checks every before meals and at bedtime HTN Hyperlipidemia Depression All stable resume meds Anticipated discharge: Pending clinical course Disposition: Pending clinical course
--- NOTE | 2019-08-10 14:23 | P.PN ---
Subjective Progress Note Date: 08/10/19 On today's evaluation of 08/10/2019, the patient seems to be a bit more stable compared to yesterday. She was quite tachypneic on yesterday's evaluation she was requiring high flow oxygen. Currently she is still requiring high flow oxygen with a 50 L and FiO2 of 90%. Nevertheless, the patient is less tachypneic and less short of breath compared to yesterday. Her pulse ox is improved and her saturations above 92% at this point in time. Note that I was able to arrange for this patient to receive Remdisivir and this will be continued for now. She is also on Decadron 6 mg on a daily basis. Her chest x- ray still showing diffuse bilateral pulmonary infiltrates. The inflammatory markers are gradually improving. There is a significant drop in the LDH which is down to 431. The patient's CRP is down. The patient is taking some soft diet. No nausea. No vomiting. No abdominal pain. No altered mentation. No muscle aches or pains. No side effects related to the treatment for now. Objective - Vital Signs Vital signs: Vital Signs Temp 98.0 F 08/10/19 12:00 Pulse 59 L 08/10/19 13:00 Resp 35 H 08/10/19 13:00 BP 119/53 08/10/19 13:00 Pulse Ox 92 L 08/10/19 13:00 Intake & Output 08/09/19 08/10/19 08/10/19 18:59 06:59 18:59 Intake Total 1020 770 420 Output Total 685 665 245 Balance 335 105 175 Intake: IV 770 770 420 Sodium Chloride 0.9% 1, 770 770 420 000 ml @ 70 mls/hr IV . [id number] [facility] Rx#:[id number] Intake, IV Titration 250 Amount Non Formulary Drug 100 250 each In Sodium Chloride 0 .9% 250 ml @ 250 mls/hr IV Q24H [facility] Rx#:[id number] Output: Urine 685 665 245 Other: Voiding Method Indwelling Catheter Indwelling Catheter Indwelling Catheter # Bowel Movements 1 - Exam The patient appeared to be in moderate degree of respiratory distress. She is less tachypneic and she is on Airvo at an FiO2 of 90% with a flow of 50 L. Head exam was generally normal. There was no scleral icterus or corneal arcus. M ucous membranes were moist. Neck was supple and without jugular venous distension, thyromegaly, or carotid bruits. Carotids were easily palpable bilaterally. There was no adenopathy. Lungs sounds are diminished bilaterally and some crackles that are fine can be appreciated throughout the lungs bilaterally. Cardiac exam revealed the PMI to be normally situated and sized. The rhythm was regular and no extrasystoles were noted during several minutes of auscultation. The first and second heart sounds were normal and physiologic splitting of the second heart sound was noted. There were no murmurs, rubs, clicks, or gallops. Abdominal exam revealed normal bowel sounds. The abdomen was soft, non-tender, and without masses, organomegaly, or appreciable enlargement of the abdominal aorta. Examination of the extremities revealed easily palpable radial, femoral and pedal pulses. There was no cyanosis, clubbing or edema. Examination of the skin revealed no evidence of significant rashes, suspicious appearing nevi or other concerning lesions. Neurologically awake and alert and there is no focal neurological deficits. - Labs CBC & Chem 7: 08/10/19 05:08 08/10/19 05:08 Labs: Abnormal Lab Results - Last 24 Hours (Table) 08/09/19 08/09/19 08/09/19 Range/Units 08:06 17:20 20:23 MCV (80.0-100.0) fL MCHC (31.0-37.0) g/dL Lymphocytes # (1.0-4.8) k/uL Chloride (98-107) mmol/L Carbon Dioxide (22-30) mmol/L BUN (7-17) mg/dL Glucose (74-99) mg/dL POC Glucose (mg/dL) 251 H 233 H (75-99) mg/dL Ferritin 309.5 H (10.0-291.0) ng/mL ALT (4-34) U/L C-Reactive Protein (<10.0) mg/L Albumin (3.5-5.0) g/dL 08/10/19 08/10/19 08/10/19 Range/Units 05:08 05:08 06:02 MCV 102.8 H D (80.0-100.0) fL MCHC 29.6 L (31.0-37.0) g/dL Lymphocytes # 0.4 L (1.0-4.8) k/uL Chloride 96 L (98-107) mmol/L Carbon Dioxide 43 H* (22-30) mmol/L BUN 34 H (7-17) mg/dL Glucose 118 H (74-99) mg/dL POC Glucose (mg/dL) 158 H (75-99) mg/dL Ferritin (10.0-291.0) ng/mL ALT 59 H (4-34) U/L C-Reactive Protein 15.0 H (<10.0) mg/L Albumin 3.4 L (3.5-5.0) g/dL 08/10/19 Range/Units 12:25 MCV (80.0-100.0) fL MCHC (31.0-37.0) g/dL Lymphocytes # (1.0-4.8) k/uL Chloride (98-107) mmol/L Carbon Dioxide (22-30) mmol/L BUN (7-17) mg/dL Glucose (74-99) mg/dL POC Glucose (mg/dL) 220 H (75-99) mg/dL Ferritin (10.0-291.0) ng/mL ALT (4-34) U/L C-Reactive Protein (<10.0) mg/L Albumin (3.5-5.0) g/dL Microbiology - Last 24 Hours (Table) 08/06/19 19:16 Blood Culture - Preliminary Blood No Growth after 72 hours Assessment and Plan Plan: 1 acute hypoxic respiratory failure with significant worsening of the oxygenation and drop in the PF ratio with development of diffuse bilateral Covid 19 related pneumonia. The patient is currently on a airvo with an FiO2 of 90% and 50 L. the patient is currently on Decadron. The patient was also started on Remdesivir . She seems to be less tachypneic compared to yesterday. Her shortness of breath is not that significant and the patient is not having any major respiratory distress. The respiratory rate has settled and calm down compared to yesterday. She is also having intermittent markers checked and the levels are also improving. 2 shortness of breath secondary to above 3 diabetes mellitus type 2 4 hypertension 5 hyperlipidemia 6 history of depression 7 leukopenia/lymphopenia, recovered 8 thrombocytopenia, recovered Plan Continue Decadron 6 mg by mouth daily Continue high flow oxygen Continue Lovenox and change it to 1 mg per KG every 12 hours IV fluids with normal saline at the rate of 50 mL an hour Continue Remdesivir Monitor markers Monitor fever pattern Monitor oxygenation Droplet isolation The patient continues to be critical. The patient was monitored here in the intensive care unit. She remains a high risk of requiring intubation mechanical ventilation. Nevertheless, I would say there has been some improvement compared to yesterday and will continue to follow.
--- NOTE | 2019-08-10 16:28 | PN ---
PROGRESS NOTE DATE OF SERVICE: 08/10/2019 REASON FOR FOLLOWUP: Acute COVID-19 pneumonia. INTERVAL HISTORY: The patient is currently afebrile. She did have 100.6 yesterday morning. The patient did require high-flow oxygen last night. However, currently she is on a nasal cannula, high-flow. The patient is hemodynamically stable, not on pressor support. No vomiting or diarrhea has been reported. Oral intake remains poor. The patient remains sleepy. PHYSICAL EXAMINATION: Blood pressure 131/63 with a pulse of 56, temperature 98. She is 95% on high-flow oxygen. General description is an elderly female lying in bed in no distress. No tachypnea or accessory muscle of respiration use. RESPIRATORY SYSTEM: Unlabored breathing. No tachypnea. Fisher catheter dark urine. EXTREMITIES: No edema of the feet. LABS: Hemoglobin 12.8, white count 6.9, BUN of 34, creatinine 0.98. DIAGNOSTIC IMPRESSION AND PLAN: Patient with acute COVID-19 pneumonia in this patient who is currently on remdesivir Chest x-ray this morning shows significant change. Continue to monitor the patient closely. Overall prognosis remains guarded. MMODL / IJN: [id number] /
[2019-08-10 17:42] LABS: Glucose,Whole Blood 232 mg/dL (75-99)
[2019-08-10 20:31] LABS: Glucose,Whole Blood 184 mg/dL (75-99)
[2019-08-10] MEDS: LORazepam 0.5 MG TAB PO SCH (22:43)
[2019-08-10] MEDS: ENOXAPARIN 40 MG/0.4 ML SYRINGE SQ SCH (22:43)
[2019-08-11 06:09] LABS: Basophils % (A) 0 %; Eosinophils % (A) 1 %; HCT 34.5 % (34.0-46.0); HGB 11.9 gm/dL (11.4-16.0); Lymphocytes # (A) 0.6 k/uL (1.0-4.8); Lymphocytes % (A) 10 %; MCH 31.3 pg (25.0-35.0); MCHC 34.6 g/dL (31.0-37.0); Mean Platelet Volume 9.8; Monocytes # (A) 0.2 k/uL (0-1.0); Monocytes % (A) 3 %; Neutrophils # (A) 4.8 k/uL (1.3-7.7); Neutrophils % (A) 85 %; Platelet Count 123 k/uL (150-450); RBC 3.81 m/uL (3.80-5.40); RDW 13.5 % (11.5-15.5); WBC 5.7 k/uL (3.8-10.6)
[2019-08-11 06:16] LABS: MCV 90.4 fL (80.0-100.0)
[2019-08-11 06:25] LABS: Glucose,Whole Blood 154 mg/dL (75-99)
[2019-08-11 06:28] LABS: ALT 20 U/L (4-34); AST 36 U/L (14-36); African American GFR (CKD) >90 (>60 ml/min/1.73 sqM); Albumin 2.6 g/dL (3.5-5.0); Alkaline Phosphatase 66 U/L (38-126); Anion Gap 6 mmol/L; Blood Urea Nitrogen 18 mg/dL (7-17); Calcium 7.8 mg/dL (8.4-10.2); Carbon Dioxide 22 mmol/L (22-30); Chloride 112 mmol/L (98-107); Creatine Kinase 43 U/L (30-135); Glucose 144 mg/dL (74-99); LDH 1430 U/L (313-618); Non-African American GFR(CKD) >90 (>60 ml/min/1.73 sqM); Potassium 3.6 mmol/L (3.5-5.1); Sodium 140 mmol/L (137-145); Total Bilirubin 0.5 mg/dL (0.2-1.3); Total Protein 5.6 g/dL (6.3-8.2)
[2019-08-11] MEDS: SODIUM CHLORIDE 0.9% 1,000 ML IV SCH ×2 (06:46→20:00)
--- NOTE | 2019-08-11 06:46 | XR ---
EXAMINATION TYPE: XR chest 1V portable DATE OF EXAM: 08/11/2019 HISTORY: assess lungs. REFERENCE: Previous study dated 08/10/2019. FINDINGS: There has been a left shoulder arthroplasty. The heart is enlarged. There are worsening bilateral infiltrates. There is blunting of the right CP a ngle. I cannot exclude a small right effusion. IMPRESSION: WORSENING BILATERAL PNEUMONIAS, WORSE ON THE RIGHT THAN THE LEFT.
[2019-08-11] MEDS: INSULIN ASPART (NovoLOG) 100 UNIT/ML VIAL SQ SCH ×4 (07:01→20:16)
[2019-08-11] MEDS: INSULIN DETEMIR (LEVEMIR) 100 UNIT/ML SYR SQ SCH (07:01)
[2019-08-11 07:32] LABS: C Reactive Protein 66.7 mg/L (<10.0)
[2019-08-11] MEDS ORDERED: POTASSIUM CHLORIDE ER 20 MEQ TAB.ER PO SCH (08:00)
[2019-08-11] MEDS ORDERED: FUROSEMIDE 10 MG/ML 4 ML VIAL IV STA (08:20)
[2019-08-11] MEDS: ALBUTEROL HFA INHALER INHALATION SCH ×4 (08:26→20:02)
[2019-08-11] MEDS: GABAPENTIN 300 MG CAP PO SCH ×2 (08:45→20:00)
[2019-08-11] MEDS: DEXAMETHASONE 2 MG TAB PO SCH (08:45)
[2019-08-11] MEDS: LISINOPRIL 2.5 MG TAB PO SCH (08:45)
[2019-08-11] MEDS: amLODIPine 5 MG TAB PO SCH (08:45)
[2019-08-11] MEDS: LORazepam 0.5 MG TAB PO PRN (08:45)
[2019-08-11] MEDS: FAMOTIDINE 20 MG TAB PO SCH ×2 (08:45→20:00)
[2019-08-11] MEDS: PARoxetine 20 MG TAB PO SCH (08:45)
[2019-08-11] MEDS: ENOXAPARIN 100 MG/ML SYRINGE SQ SCH ×2 (08:46→20:00)
[2019-08-11 09:08] LABS: Glucose,Whole Blood 148 mg/dL (75-99)
[2019-08-11] MEDS: [UNRECOGNIZED DRUG - OTHER] IV SCH (12:15)
[2019-08-11] MEDS: SODIUM CHLORIDE 0.9% IV SCH (12:15)
--- NOTE | 2019-08-11 12:16 | P.PN ---
Subjective Progress Note Date: 08/11/19 Principal diagnosis: weakness Patient is doing ok, no complaints of sob but states that she is feeling anxious. Still having a cough. No fevers. It was noted that she became more tachypneic today. Objective - Vital Signs Vital signs: Vital Signs Temp 98.0 F 08/11/19 08:00 Pulse 55 L 08/11/19 11:00 Resp 38 H 08/11/19 11:00 BP 135/64 08/11/19 11:00 Pulse Ox 100 08/11/19 11:00 Intake & Output 08/10/19 08/11/19 08/11/19 18:59 06:59 18:59 Intake Total 1160 770 350 Output Total 332 993 2202 Balance 530 20 -1685 Weight 89.1 kg Intake: IV 910 770 350 Sodium Chloride 0.9% 1, 910 770 350 000 ml @ 70 mls/hr IV . [id number] [facility] Rx#:[id number] Intake, IV Titration 250 Amount Non Formulary Drug 100 250 each In Sodium Chloride 0 .9% 250 ml @ 250 mls/hr IV Q24H [facility] Rx#:[id number] Output: Urine 856 246 7556 Other: Voiding Method Indwelling Catheter Indwelling Catheter # Bowel Movements 1 1 - Exam Constitutional: No acute distress, conversant, pleasant Eyes:Anicteric sclerae, moist conjunctiva, no lid-lag, PERRLA, ENMT: Oropharynx clear, no erythema, exudates Neck: Supple, FROM, no masses, or JVD, No carotid bruits, No thyromegaly Lungs: scatter wheezing especially on the basis. Clear to percussion, Normal respiratory effort, no accessory muscle use Cardiovascular: RRR, No murmurs, gallops, or rubs, No peripheral edema Abdominal: Soft, Nontender, no guarding, rebound or rigidity, Normoactive bowel sounds, No hepatomegaly, No splenomegaly, No palpable mass Skin: Normal temperature, tone, texture, turgor, no induration, No subcutaneous nodules, No rash, lesions, No ulcers Extremities: No digital cyanosis, No clubbing, Pedal pulses intact and symmetrical, Radial pulses intact and symmetrical, No calf tenderness Psychiatric: Alert and oriented to person, place and time, appropriate affect, intact judgement Neuro: Muscles Strength 5/5 in all 4 extremities, Sensation to light touch grossly present throughout, Cranial nerves II-XII grossly intact, no focal sensory deficits - Labs CBC & Chem 7: 08/11/19 05:19 08/11/19 05:19 Labs: Abnormal Lab Results - Last 24 Hours (Table) 08/10/19 08/10/19 08/10/19 Range/Units 12:25 17:31 20:30 Plt Count (150-450) k/uL Lymphocytes # (1.0-4.8) k/uL D-Dimer (<0.60) mg/L FEU Chloride (98-107) mmol/L BUN (7-17) mg/dL Creatinine (0.52-1.04) mg/dL Glucose (74-99) mg/dL POC Glucose (mg/dL) 220 H 232 H 184 H (75-99) mg/dL Calcium (8.4-10.2) mg/dL Lactate Dehydrogenase (313-618) U/L C-Reactive Protein (<10.0) mg/L Total Protein (6.3-8.2) g/dL Albumin (3.5-5.0) g/dL 08/11/19 08/11/19 08/11/19 Range/Units 05:19 05:19 05:19 Plt Count 123 L (150-450) k/uL Lymphocytes # 0.6 L (1.0-4.8) k/uL D-Dimer 3.89 H (<0.60) mg/L FEU Chloride 112 H (98-107) mmol/L BUN 18 H (7-17) mg/dL Creatinine 0.35 L (0.52-1.04) mg/dL Glucose 144 H (74-99) mg/dL POC Glucose (mg/dL) (75-99) mg/dL Calcium 7.8 L (8.4-10.2) mg/dL Lactate Dehydrogenase 1430 H (313-618) U/L C-Reactive Protein 66.7 H (<10.0) mg/L Total Protein 5.6 L (6.3-8.2) g/dL Albumin 2.6 L (3.5-5.0) g/dL 08/11/19 08/11/19 Range/Units 06:23 09:05 Plt Count (150-450) k/uL Lymphocytes # (1.0-4.8) k/uL D-Dimer (<0.60) mg/L FEU Chloride (98-107) mmol/L BUN (7-17) mg/dL Creatinine (0.52-1.04) mg/dL Glucose (74-99) mg/dL POC Glucose (mg/dL) 154 H 148 H (75-99) mg/dL Calcium (8.4-10.2) mg/dL Lactate Dehydrogenase (313-618) U/L C-Reactive Protein (<10.0) mg/L Total Protein (6.3-8.2) g/dL Albumin (3.5-5.0) g/dL Microbiology - Last 24 Hours (Table) 08/06/19 19:16 Blood Culture - Preliminary Blood No Growth after 96 hours Assessment and Plan Plan: Acute sepsis/Community acquired pneumonia sec to COVID19 Started on remdisivir, ID following Continue Decadron 6 mg by mouth daily Continue high flow oxygen Lovenox therapeutic dose especially with the elevated d-dimer and troponin Lasix 40mg IV times one Acute hypoxic respiratory failure High-Flow nasal cannula as above High risk for intubation Acute COPD exacerbation Steroids as above Bronchodilators DM2 Hold oral hypoglycemics Lantus 8 units daily SSI with blood sugar checks every before meals and at bedtime HTN Hyperlipidemia Depression All stable resume meds D/W Dr Huerta Anticipated discharge: Pending clinical course Disposition: Pending clinical course
[2019-08-11 12:25] LABS: Glucose,Whole Blood 141 mg/dL (75-99)
--- NOTE | 2019-08-11 13:22 | P.PN ---
Subjective Progress Note Date: 08/11/19 On today's evaluation of 08/11/2019, the patient remains critically ill. Chest x-ray showing diffuse bilateral pulmonary infiltrates related to COVID 19 related pneumonia. However, there has been no interval worsening in the patient's oxygenation. I see the patient she is slightly more tachypneic compared to yesterday. She denies having any significant dyspnea despite her tachypnea. She is on Remdisivir per protocol in addition to Decadron. The patient had an initial drop in the LDH and a C-reactive protein. On today's evaluation, I see that the LDH is up to 1430 and the C-reactive protein is up to 66.7. She remains on therapeutic dose of Lovenox. She is afebrile. No specific complaints. She is trying to sit up as much as possible on a chair. She is getting a bit more weak and debilitated based on the above-mentioned comorbidities. No nausea. No vomiting. No diarrhea. She'll be given a dose of Lasix for now to keep a adequate fluid balance. She is aware that if her condition gets worse, she may need to be intubated and placed on a mechanical ventilator. We are trying to avoid the process of intubation for now. Objective - Vital Signs Vital signs: Vital Signs Temp 98.0 F 08/11/19 08:00 Pulse 52 L 08/11/19 12:00 Resp 43 H 08/11/19 12:00 BP 121/48 08/11/19 12:00 Pulse Ox 100 08/11/19 12:00 Intake & Output 08/10/19 08/11/19 08/11/19 18:59 06:59 18:59 Intake Total 1160 770 600 Output Total 266 494 5658 Balance 530 20 -1760 Weight 89.1 kg Intake: IV 910 770 350 Sodium Chloride 0.9% 1, 910 770 350 000 ml @ 70 mls/hr IV . [id number] [facility] Rx#:[id number] Intake, IV Titration 250 250 Amount Non Formulary Drug 100 250 250 each In Sodium Chloride 0 .9% 250 ml @ 250 mls/hr IV Q24H [facility] Rx#:[id number] Output: Urine 216 811 5465 Other: Voiding Method Indwelling Catheter Indwelling Catheter # Bowel Movements 1 1 - Exam The patient appeared to be in moderate degree of respiratory distress. She is less tachypneic and she is on Airvo at an FiO2 of 90% with a flow of 50 L. Head exam was generally normal. There was no scleral icterus or corneal arcus. Mucous membranes were moist. Neck was supple and without jugular venous distension, thyromegaly, or carotid bruits. Carotids were easily palpable bilaterally. There was no adenopathy. Lungs sounds are diminished bilaterally and some crackles that are fine can be appreciated throughout the lungs bilaterally. Cardiac exam revealed the PMI to be normally situated and sized. The rhythm was regular and no extrasystoles were noted during several minutes of auscultation. The first and second heart sounds were normal and physiologic splitting of the second heart sound was noted. There were no murmurs, rubs, clicks, or gallops. Abdominal exam revealed normal bowel sounds. The abdomen was soft, non-tender, and without masses, organomegaly, or appreciable enlargement of the abdominal aorta. Examination of the extremities revealed easily palpable radial, femoral and pedal pulses. There was no cyanosis, clubbing or edema. Examination of the skin revealed no evidence of significant rashes, suspicious appearing nevi or other concerning lesions. Neurologically awake and alert and there is no focal neurological deficits. - Labs CBC & Chem 7: 08/11/19 05:19 08/11/19 05:19 Labs: Abnormal Lab Results - Last 24 Hours (Table) 08/10/19 08/10/19 08/11/19 Range/Units 17:31 20:30 05:19 Plt Count (150-450) k/uL Lymphocytes # (1.0-4.8) k/uL D-Dimer (<0.60) mg/L FEU Chloride 112 H (98-107) mmol/L BUN 18 H (7-17) mg/dL Creatinine 0.35 L (0.52-1.04) mg/dL Glucose 144 H (74-99) mg/dL POC Glucose (mg/dL) 232 H 184 H (75-99) mg/dL Calcium 7.8 L (8.4-10.2) mg/dL Lactate Dehydrogenase 1430 H (313-618) U/L C-Reactive Protein 66.7 H (<10.0) mg/L Total Protein 5.6 L (6.3-8.2) g/dL Albumin 2.6 L (3.5-5.0) g/dL 08/11/19 08/11/19 08/11/19 Range/Units 05:19 05:19 06:23 Plt Count 123 L (150-450) k/uL Lymphocytes # 0.6 L (1.0-4.8) k/uL D-Dimer 3.89 H (<0.60) mg/L FEU Chloride (98-107) mmol/L BUN (7-17) mg/dL Creatinine (0.52-1.04) mg/dL Glucose (74-99) mg/dL POC Glucose (mg/dL) 154 H (75-99) mg/dL Calcium (8.4-10.2) mg/dL Lactate Dehydrogenase (313-618) U/L C-Reactive Protein (<10.0) mg/L Total Protein (6.3-8.2) g/dL Albumin (3.5-5.0) g/dL 08/11/19 08/11/19 Range/Units 09:05 12:24 Plt Count (150-450) k/uL Lymphocytes # (1.0-4.8) k/uL D-Dimer (<0.60) mg/L FEU Chloride (98-107) mmol/L BUN (7-17) mg/dL Creatinine (0.52-1.04) mg/dL Glucose (74-99) mg/dL POC Glucose (mg/dL) 148 H 141 H (75-99) mg/dL Calcium (8.4-10.2) mg/dL Lactate Dehydrogenase (313-618) U/L C-Reactive Protein (<10.0) mg/L Total Protein (6.3-8.2) g/dL Albumin (3.5-5.0) g/dL Microbiology - Last 24 Hours (Table) 08/06/19 19:16 Blood Culture - Preliminary Blood No Growth after 96 hours Assessment and Plan Plan: 1 acute hypoxic respiratory failure with significant worsening of the oxygenation and drop in the PF ratio with development of diffuse bilateral Covid 19 related pneumonia. Remdisivir and Decadron is being utilized to treat this patient's pneumonia. The patient is also on on the percent nonrebreather facemask and she is alternating that with high flow oxygen. X-rays slightly worse compared to yesterday's pressure in the right lower lobe area. Still oxygenating and still declining any significant respiratory distress despite her underlying tachypnea. Typical of this type of coronavirus pneumonia. I do not think she has progressed to full blown ARDS for now. 2 shortness of breath secondary to above 3 diabetes mellitus type 2 4 hypertension 5 hyperlipidemia 6 history of depression 7 leukopenia/lymphopenia, recovered 8 thrombocytopenia, recovered Plan Decadron 6 mg by mouth daily Continue high flow oxygen Continue Lovenox and change it to 1 mg per KG every 12 hours IV fluids with normal saline at the rate of 50 mL an hour Lasix 40 mg IV push Continue Remdesivir Monitor markers Monitor fever pattern Monitor oxygenation Droplet isolation The patient continues to be critical. The patient was monitored here in the intensive care unit. She remains a high risk of requiring intubation mechanical ventilation. Nevertheless, I would say there has been some improvement compared to yesterday and will continue to follow.
[2019-08-11 17:25] LABS: Glucose,Whole Blood 244 mg/dL (75-99)
[2019-08-11 17:33] LABS: Ferritin 443.5 ng/mL (10.0-291.0)
[2019-08-11] MEDS: POTASSIUM CHLORIDE ER 20 MEQ TAB.ER PO SCH ×2 (18:10→19:59)
[2019-08-11 20:10] LABS: Glucose,Whole Blood 209 mg/dL (75-99)
--- NOTE | 2019-08-11 23:53 | PN ---
PROGRESS NOTE DATE OF SERVICE: 08/11/2019 REASON FOR FOLLOWUP: Acute COVID-19 pneumonia. INTERVAL HISTORY: Patient is currently afebrile. The patient is requiring high-flow oxygen. Still complaining of some shortness of breath. No worsening pain. Continued to have a cough which is moderate intensity. Remains to be dry in nature. No chest pain. No nausea. No abdominal pain. No diarrhea. PHYSICAL EXAMINATION: Blood pressure 128/58 with a pulse of 73, temperature 98.4. She is 97% on high-flow oxygen. General description is an elderly female up in the bed in no distress. Respiratory system: Unlabored breathing, decreased breath sounds in the base. No wheeze. Heart S1, S2. Regular rate and rhythm. Abdomen soft, no tenderness. LABS: Hemoglobin 11.8, white count 5.7. BUN of 18, creatinine 0.35. DIAGNOSTIC IMPRESSION/PLAN: Patient with acute COVID-19 pneumonia. This patient has x-ray finding showing some worsening also with worsening inflammatory markers with concern for possible the patient is currently on and dexamethasone. Lovenox dose will be adjusted up. We will monitor clinical course closely and may benefit from . This will be discussed further with the groover and striper operator. Continue supportive care. MMODL / IJN: [id number] /
[2019-08-12 05:28] LABS: Basophils % (A) 0 %; Eosinophils % (A) 0 %; HCT 36.2 % (34.0-46.0); HGB 11.7 gm/dL (11.4-16.0); Lymphocytes # (A) 0.6 k/uL (1.0-4.8); Lymphocytes % (A) 11 %; MCH 28.9 pg (25.0-35.0); MCHC 32.2 g/dL (31.0-37.0); MCV 89.7 fL (80.0-100.0); Mean Platelet Volume 9.9; Monocytes # (A) 0.2 k/uL (0-1.0); Monocytes % (A) 4 %; Neutrophils # (A) 4.4 k/uL (1.3-7.7); Neutrophils % (A) 82 %; Platelet Count 130 k/uL (150-450); RBC 4.04 m/uL (3.80-5.40); RDW 13.5 % (11.5-15.5); WBC 5.4 k/uL (3.8-10.6)
[2019-08-12 05:39] LABS: ALT 19 U/L (4-34); AST 32 U/L (14-36); African American GFR (CKD) >90 (>60 ml/min/1.73 sqM); Albumin 2.7 g/dL (3.5-5.0); Alkaline Phosphatase 70 U/L (38-126); Anion Gap 4 mmol/L; Blood Urea Nitrogen 18 mg/dL (7-17); C Reactive Protein 46.6 mg/L (<10.0); Calcium 8.1 mg/dL (8.4-10.2); Carbon Dioxide 24 mmol/L (22-30); Chloride 109 mmol/L (98-107); Creatine Kinase 33 U/L (30-135); Glucose 138 mg/dL (74-99); LDH 1353 U/L (313-618); Non-African American GFR(CKD) >90 (>60 ml/min/1.73 sqM); Potassium 3.9 mmol/L (3.5-5.1); Sodium 137 mmol/L (137-145); Total Bilirubin 0.6 mg/dL (0.2-1.3); Total Protein 5.6 g/dL (6.3-8.2)
[2019-08-12] MEDS ORDERED: POTASSIUM CHLORIDE ER 20 MEQ TAB.ER PO SCH (06:00)
[2019-08-12] MEDS: INSULIN DETEMIR (LEVEMIR) 100 UNIT/ML SYR SQ SCH (06:31)
[2019-08-12 06:36] LABS: Glucose,Whole Blood 147 mg/dL (75-99)
--- NOTE | 2019-08-12 06:36 | XR ---
EXAMINATION TYPE: XR chest 1V portable DATE OF EXAM: 08/12/2019 HISTORY: assess lungs. REFERENCE: Previous study dated 08/11/2019. FINDINGS: There is a left shoulder arthroplasty in place. The heart is enlarged. There are continuing opacities present bilaterally. Aeration of the left lung has improved. The right lung appears unchanged. There is blunting of the right CP angle. It would be difficult to exclude a small right effusion. IMPRESSION: 1. CONTINUING RIGHT-SIDED INFILTRATES. 2. IMPROVED AERATION, LEFT LUNG.
[2019-08-12] MEDS: INSULIN ASPART (NovoLOG) 100 UNIT/ML VIAL SQ SCH ×4 (06:54→21:01)
[2019-08-12] MEDS: ENOXAPARIN 100 MG/ML SYRINGE SQ SCH ×2 (07:39→20:53)
[2019-08-12] MEDS: DEXAMETHASONE 2 MG TAB PO SCH (07:39)
[2019-08-12] MEDS: amLODIPine 5 MG TAB PO SCH (07:39)
[2019-08-12] MEDS: GABAPENTIN 300 MG CAP PO SCH ×2 (07:40→20:54)
[2019-08-12] MEDS: FAMOTIDINE 20 MG TAB PO SCH ×2 (07:40→20:53)
[2019-08-12] MEDS: LISINOPRIL 2.5 MG TAB PO SCH (07:41)
[2019-08-12] MEDS: ALBUTEROL HFA INHALER INHALATION SCH ×4 (08:08→21:12)
[2019-08-12] MEDS: PARoxetine 20 MG TAB PO SCH (09:00)
--- NOTE | 2019-08-12 11:02 | P.PN ---
Subjective Progress Note Date: 08/12/19 On 08/12/2019 a.m. seeing this patient for a follow-up. I'm glad to report some improvement on today's chest x-ray was a left-sided infiltrate is improved compared to yesterday's chest x-ray. The right remains unchanged. In any rate, there is been within the patient's oxygenation also. The patient is a 55 L and FiO2 has been drop down to 70%. Her pulse oxing is above 90% and she seems to be much more comfortable and less tachypneic compared to yesterday. She is afebrile. She remains on Decadron. She remains on Remdisivir per protocol in addition to Decadron.she remains on Lovenox. LDH and CRP is gradually improving. No nausea. No vomiting. No chest pain. No altered mentation. There is some overall generalized weakness which is global. Objective - Vital Signs Vital signs: Vital Signs Temp 98 F 08/12/19 08:00 Pulse 49 L 08/12/19 10:00 Resp 12 08/12/19 10:00 BP 120/47 08/12/19 10:00 Pulse Ox 95 08/12/19 10:00 Intake & Output 08/11/19 08/12/19 08/12/19 18:59 06:59 18:59 Intake Total 1020 910 330 Output Total 2910 900 245 Balance -1890 10 85 Weight 90 kg Intake: IV 770 910 210 Sodium Chloride 0.9% 1, 770 910 210 000 ml @ 70 mls/hr IV . [id number] [facility] Rx#:[id number] Intake, IV Titration 250 Amount Non Formulary Drug 100 250 each In Sodium Chloride 0 .9% 250 ml @ 250 mls/hr IV Q24H [facility] Rx#:[id number] Oral 120 Output: Urine 2910 900 245 Other: Voiding Method Indwelling Catheter Indwelling Catheter Indwelling Catheter # Bowel Movements 1 - Exam The patient appeared to be in moderate degree of respiratory distress. She is less tachypneic and she is on Airvo at an FiO2 of 70% with a flow of 55L. Head exam was generally normal. There was no scleral icterus or corneal arcus. Mucous membranes were moist. Neck was supple and without jugular venous distension, thyromegaly, or carotid bruits. Carotids were easily palpable bilaterally. There was no adenopathy. Lungs sounds are diminished bilaterally and some crackles that are fine can be appreciated throughout the lungs bilaterally. Cardiac exam revealed the PMI to be normally situated and sized. The rhythm was regular and no extrasystoles were noted during several minutes of auscultation. The first and second heart sounds were normal and physiologic splitting of the second heart sound was noted. There were no murmurs, rubs, clicks, or gallops. Abdominal exam revealed normal bowel sounds. The abdomen was soft, non-tender, and without masses, organomegaly, or appreciable enlargement of the abdominal aorta. Examination of the extremities revealed easily palpable radial, femoral and pedal pulses. There was no cyanosis, clubbing or edema. Examination of the skin revealed no evidence of significant rashes, suspicious appearing nevi or other concerning lesions. Neurologically awake and alert and there is no focal neurological deficits. - Labs CBC & Chem 7: 08/12/19 04:32 08/12/19 04:32 Labs: Abnormal Lab Results - Last 24 Hours (Table) 08/11/19 08/11/19 08/11/19 Range/Units 05:19 12:24 17:24 Plt Count (150-450) k/uL Lymphocytes # (1.0-4.8) k/uL D-Dimer (<0.60) mg/L FEU Chloride (98-107) mmol/L BUN (7-17) mg/dL Creatinine (0.52-1.04) mg/dL Glucose (74-99) mg/dL POC Glucose (mg/dL) 141 H 244 H (75-99) mg/dL Calcium (8.4-10.2) mg/dL Ferritin 443.5 H (10.0-291.0) ng/mL Lactate Dehydrogenase (313-618) U/L C-Reactive Protein (<10.0) mg/L Total Protein (6.3-8.2) g/dL Albumin (3.5-5.0) g/dL 08/11/19 08/12/19 08/12/19 Range/Units 20:09 04:32 04:32 Plt Count 130 L (150-450) k/uL Lymphocytes # 0.6 L (1.0-4.8) k/uL D-Dimer (<0.60) mg/L FEU Chloride 109 H (98-107) mmol/L BUN 18 H (7-17) mg/dL Creatinine 0.43 L (0.52-1.04) mg/dL Glucose 138 H (74-99) mg/dL POC Glucose (mg/dL) 209 H (75-99) mg/dL Calcium 8.1 L (8.4-10.2) mg/dL Ferritin (10.0-291.0) ng/mL Lactate Dehydrogenase 1353 H (313-618) U/L C-Reactive Protein 46.6 H (<10.0) mg/L Total Protein 5.6 L (6.3-8.2) g/dL Albumin 2.7 L (3.5-5.0) g/dL 08/12/19 08/12/19 Range/Units 04:32 06:35 Plt Count (150-450) k/uL Lymphocytes # (1.0-4.8) k/uL D-Dimer 2.97 H (<0.60) mg/L FEU Chloride (98-107) mmol/L BUN (7-17) mg/dL Creatinine (0.52-1.04) mg/dL Glucose (74-99) mg/dL POC Glucose (mg/dL) 147 H (75-99) mg/dL Calcium (8.4-10.2) mg/dL Ferritin (10.0-291.0) ng/mL Lactate Dehydrogenase (313-618) U/L C-Reactive Protein (<10.0) mg/L Total Protein (6.3-8.2) g/dL Albumin (3.5-5.0) g/dL Microbiology - Last 24 Hours (Table) 08/06/19 19:16 Blood Culture - Preliminary Blood No Growth after 120 hours Assessment and Plan Plan: 1 acute hypoxic respiratory failure with significant worsening of the oxygenation and drop in the PF ratio with development of diffuse bilateral Covid 19 related pneumonia. Remdisivir and Decadron is being utilized to treat this patient's pneumonia. The patient does not fit the typical ARDS criteria. I think she has diffuse pneumonia which is probably improving based on today's chest x-ray and there is been some limited improvement in the oxygenation. No significant tachypnea. We'll avoid intubation. 2 shortness of breath secondary to above 3 diabetes mellitus type 2 4 hypertension 5 hyperlipidemia 6 history of depression 7 leukopenia/lymphopenia, recovered 8 thrombocytopenia, recovered Plan Decadron 6 mg by mouth daily Continue high flow oxygen, and wean down the FiO2 as tolerated to maintain a saturation above 90% Continue Lovenox and change it to 1 mg per KG every 12 hours IV fluids with normal saline at the rate of 50 mL an hour Lasix 40 mg IV push Continue Remdesivir Monitor markers Monitor fever pattern Monitor oxygenation Droplet isolation The patient continues to be critical. The patient was monitored here in the intensive care unit. She is slightly improved compared to yesterday.
[2019-08-12 13:48] LABS: Glucose,Whole Blood 227 mg/dL (75-99)
[2019-08-12] MEDS: SODIUM CHLORIDE 0.9% IV SCH (17:34)
[2019-08-12] MEDS: [UNRECOGNIZED DRUG - OTHER] IV SCH (17:34)
[2019-08-12 18:20] LABS: Glucose,Whole Blood 218 mg/dL (75-99)
[2019-08-12] MEDS: SODIUM CHLORIDE 0.9% 1,000 ML IV SCH (20:53)
[2019-08-12] MEDS: LORazepam 0.5 MG TAB PO PRN (21:01)
[2019-08-12 21:02] LABS: Glucose,Whole Blood 215 mg/dL (75-99)
--- NOTE | 2019-08-13 04:16 | PN ---
PROGRESS NOTE DATE OF SERVICE: 08/12/2019 REASON FOR FOLLOWUP: Acute COVID-19 pneumonia. INTERVAL HISTORY: The patient is currently afebrile. The patient is breathing comfortably, feeling slightly better compared to yesterday. Denies having any chest pain with minimal cough. No nausea, no vomiting. No abdominal pain or any diarrhea. PHYSICAL EXAMINATION: Blood pressure 124/56 with pulse 60, temperature 98.3. She is 96% on 65% FiO2. General description is an elderly female up in the bed in no distress. RESPIRATORY SYSTEM: Unlabored breathing. A few crackles by the nursing staff. EXTREMITIES: No edema of feet. LABS: Hemoglobin 11.7, white count 5.4. BUN of 18, creatinine 0.43. Blood culture has been negative. DIAGNOSTIC IMPRESSION AND PLAN: Patient with acute COVID-19 pneumonia in this patient who has shown some clinical improvement with improved aeration of the left lung and right-sided infiltrate. Patient to continue with therapy along with Lovenox and dexamethasone and monitor clinical course closely. MMODL / IJN: [id number] /
[2019-08-13 04:51] LABS: Basophils % (A) 0 %; Eosinophils % (A) 1 %; HCT 35.7 % (34.0-46.0); HGB 11.9 gm/dL (11.4-16.0); Lymphocytes # (A) 0.7 k/uL (1.0-4.8); Lymphocytes % (A) 14 %; MCH 30.4 pg (25.0-35.0); MCHC 33.4 g/dL (31.0-37.0); MCV 90.9 fL (80.0-100.0); Mean Platelet Volume 9.3; Monocytes # (A) 0.2 k/uL (0-1.0); Monocytes % (A) 4 %; Neutrophils # (A) 4.2 k/uL (1.3-7.7); Neutrophils % (A) 79 %; Platelet Count 130 k/uL (150-450); RBC 3.93 m/uL (3.80-5.40); RDW 13.5 % (11.5-15.5); WBC 5.3 k/uL (3.8-10.6)
[2019-08-13 05:07] LABS: ALT 19 U/L (4-34); AST 33 U/L (14-36); African American GFR (CKD) >90 (>60 ml/min/1.73 sqM); Albumin 2.5 g/dL (3.5-5.0); Alkaline Phosphatase 53 U/L (38-126); Anion Gap 15 mmol/L; Blood Urea Nitrogen 16 mg/dL (7-17); C Reactive Protein 35.9 mg/L (<10.0); Carbon Dioxide 21 mmol/L (22-30); Chloride 102 mmol/L (98-107); Glucose 110 mg/dL (74-99); LDH 1262 U/L (313-618); Non-African American GFR(CKD) >90 (>60 ml/min/1.73 sqM); Potassium 3.9 mmol/L (3.5-5.1); Sodium 138 mmol/L (137-145); Total Bilirubin 0.6 mg/dL (0.2-1.3); Total Protein 5.2 g/dL (6.3-8.2)
[2019-08-13 05:13] LABS: Calcium 6.4 mg/dL (8.4-10.2)
[2019-08-13] MEDS: SODIUM CHLORIDE 0.9% 1,000 ML IV SCH ×2 (05:39→08:28)
[2019-08-13] MEDS ORDERED: POTASSIUM CHLORIDE ER 20 MEQ TAB.ER PO SCH (06:00)
[2019-08-13] MEDS: INSULIN DETEMIR (LEVEMIR) 100 UNIT/ML SYR SQ SCH (06:58)
[2019-08-13 07:06] LABS: Glucose,Whole Blood 114 mg/dL (75-99)
[2019-08-13] MEDS: INSULIN ASPART (NovoLOG) 100 UNIT/ML VIAL SQ SCH ×4 (07:10→21:10)
[2019-08-13] MEDS ORDERED: CALCIUM GLUCONATE 1 GM in SODIUM CHLORIDE 0.9% 100 ML IVPB ONE (07:30)
--- NOTE | 2019-08-13 07:46 | XR ---
EXAMINATION TYPE: XR chest 1V portable DATE OF EXAM: 08/13/2019 COMPARISON: 08/12/2019 HISTORY: Shortness of breath TECHNIQUE: Single frontal view of the chest is obtained. FINDINGS: Postsurgical change left shoulder with arthropathy resorption of the right clavicle. Diffu se airspace disease greater on the right stable. Heart is enlarged. Atherosclerotic change aorta. No pneumothorax. IMPRESSION: 1. Diffuse bilateral airspace disease correlate for diffuse pneumonia versus CHF.
[2019-08-13] MEDS: ALBUTEROL HFA INHALER INHALATION SCH ×4 (08:12→21:05)
[2019-08-13] MEDS: FAMOTIDINE 20 MG TAB PO SCH ×2 (08:26→20:36)
[2019-08-13] MEDS: LISINOPRIL 2.5 MG TAB PO SCH (08:26)
[2019-08-13] MEDS: amLODIPine 5 MG TAB PO SCH (08:26)
[2019-08-13] MEDS: PARoxetine 20 MG TAB PO SCH (08:27)
[2019-08-13] MEDS: GABAPENTIN 300 MG CAP PO SCH ×2 (08:27→20:36)
[2019-08-13] MEDS: DEXAMETHASONE 2 MG TAB PO SCH (08:27)
[2019-08-13] MEDS: ENOXAPARIN 100 MG/ML SYRINGE SQ SCH ×2 (08:27→21:09)
--- NOTE | 2019-08-13 11:04 | P.PN ---
Subjective Progress Note Date: 08/12/19 Principal diagnosis: weakness Patient seems to be more comfortable today. O2 requirements coming down. Objective - Vital Signs Vital signs: Vital Signs Temp 99.0 F 08/13/19 08:00 Pulse 69 08/13/19 10:00 Resp 34 H 08/13/19 10:00 BP 132/65 08/13/19 10:00 Pulse Ox 91 L 08/13/19 10:00 Intake & Output 08/12/19 08/13/19 08/13/19 18:59 06:59 18:59 Intake Total 890 810 280 Output Total 765 1000 655 Balance 125 190 -375 Weight 91.9 kg 91.9 kg Intake: IV 770 810 280 Sodium Chloride 0.9% 1, 770 810 280 000 ml @ 70 mls/hr IV . [id number] COUNTS [facility]CLUDE 234 BEDS AT [facility] Rx#:[id number] Oral 120 Output: Urine 765 1000 655 Other: Voiding Method Indwelling Catheter Indwelling Catheter Indwelling Catheter - Exam Constitutional: No acute distress, conversant, pleasant Eyes:Anicteric sclerae, moist conjunctiva, no lid-lag, PERRLA, ENMT: Oropharynx clear, no erythema, exudates Neck: Supple, FROM, no masses, or JVD, No carotid bruits, No thyromegaly Lungs: scatter wheezing especially on the basis. Clear to percussion, Normal respiratory effort, no accessory muscle use Cardiovascular: RRR, No murmurs, gallops, or rubs, No peripheral edema Abdominal: Soft, Nontender, no guarding, rebound or rigidity, Normoactive bowel sounds, No hepatomegaly, No splenomegaly, No palpable mass Skin: Normal temperature, tone, texture, turgor, no induration, No subcutaneous nodules, No rash, lesions, No ulcers Extremities: No digital cyanosis, No clubbing, Pedal pulses intact and symmetrical, Radial pulses intact and symmetrical, No calf tenderness Psychiatric: Alert and oriented to person, place and time, appropriate affect, i ntact judgement Neuro: Muscles Strength 5/5 in all 4 extremities, Sensation to light touch grossly present throughout, Cranial nerves II-XII grossly intact, no focal sensory deficits - Labs CBC & Chem 7: 08/13/19 04:12 08/13/19 04:12 Labs: Abnormal Lab Results - Last 24 Hours (Table) 08/12/19 08/12/19 08/12/19 Range/Units 04:32 13:47 18:09 Plt Count (150-450) k/uL Lymphocytes # (1.0-4.8) k/uL D-Dimer (<0.60) mg/L FEU Carbon Dioxide (22-30) mmol/L Creatinine (0.52-1.04) mg/dL Glucose (74-99) mg/dL POC Glucose (mg/dL) 227 H 218 H (75-99) mg/dL Calcium (8.4-10.2) mg/dL Ferritin 369.0 H (10.0-291.0) ng/mL Lactate Dehydrogenase (313-618) U/L C-Reactive Protein (<10.0) mg/L Total Protein (6.3-8.2) g/dL Albumin (3.5-5.0) g/dL 08/12/19 08/13/19 08/13/19 Range/Units 21:00 04:12 04:12 Plt Count 130 L (150-450) k/uL Lymphocytes # 0.7 L (1.0-4.8) k/uL D-Dimer 4.33 H (<0.60) mg/L FEU Carbon Dioxide (22-30) mmol/L Creatinine (0.52-1.04) mg/dL Glucose (74-99) mg/dL POC Glucose (mg/dL) 215 H (75-99) mg/dL Calcium (8.4-10.2) mg/dL Ferritin (10.0-291.0) ng/mL Lactate Dehydrogenase (313-618) U/L C-Reactive Protein (<10.0) mg/L Total Protein (6.3-8.2) g/dL Albumin (3.5-5.0) g/dL 08/13/19 08/13/19 Range/Units 04:12 07:05 Plt Count (150-450) k/uL Lymphocytes # (1.0-4.8) k/uL D-Dimer (<0.60) mg/L FEU Carbon Dioxide 21 L (22-30) mmol/L Creatinine 0.33 L (0.52-1.04) mg/dL Glucose 110 H (74-99) mg/dL POC Glucose (mg/dL) 114 H (75-99) mg/dL Calcium 6.4 L* (8.4-10.2) mg/dL Ferritin (10.0-291.0) ng/mL Lactate Dehydrogenase 1262 H (313-618) U/L C-Reactive Protein 35.9 H (<10.0) mg/L Total Protein 5.2 L (6.3-8.2) g/dL Albumin 2.5 L (3.5-5.0) g/dL Microbiology - Last 24 Hours (Table) 08/06/19 19:16 Blood Culture - Final Blood No Growth after 144 hours Assessment and Plan Plan: Acute sepsis/Community acquired pneumonia sec to COVID19 Started on remdisivir, ID following Continue Decadron 6 mg by mouth daily Continue high flow oxygen Lovenox therapeutic dose especially with the elevated d-dimer and troponin Lasix 40mg IV times one Acute hypoxic respiratory failure High-Flow nasal cannula as above High risk for intubation Acute COPD exacerbation Steroids as above Bronchodilators DM2 Hold oral hypoglycemics Lantus 8 units daily SSI with blood sugar checks every before meals and at bedtime HTN Hyperlipidemia Depression All stable resume meds D/W Dr Huerta Anticipated discharge: Pending clinical course Disposition: Pending clinical course
--- NOTE | 2019-08-13 11:06 | P.PN ---
Subjective Progress Note Date: 08/13/19 Principal diagnosis: weakness She continues to improve, oxygen requirement continued to go down. No fevers or chills. She seems less short of breath. No pain. Objective - Vital Signs Vital signs: Vital Signs Temp 99.0 F 08/13/19 08:00 Pulse 69 08/13/19 10:00 Resp 34 H 08/13/19 10:00 BP 132/65 08/13/19 10:00 Pulse Ox 91 L 08/13/19 10:00 Intake & Output 08/12/19 08/13/19 08/13/19 18:59 06:59 18:59 Intake Total 890 810 280 Output Total 765 1000 655 Balance 125 -190 -375 Weight 91.9 kg 91.9 kg Intake: IV 770 810 280 Sodium Chloride 0.9% 1, 770 810 280 000 ml @ 70 mls/hr IV . [id number] [facility] Rx#:[id number] Oral 120 Output: Urine 765 1000 655 Other: Voiding Method Indwelling Catheter Indwelling Catheter Indwelling Catheter - Exam Constitutional: No acute distress, conversant, pleasant Eyes:Anicteric sclerae, moist conjunctiva, no lid-lag, PERRLA, ENMT: Oropharynx clear, no erythema, exudates Neck: Supple, FROM, no masses, or JVD, No carotid bruits, No thyromegaly Lungs: scatter wheezing especially on the basis. Clear to percussion, Normal respiratory effort, no accessory muscle use Cardiovascular: RRR, No murmurs, gallops, or rubs, No peripheral edema Abdominal: Soft, Nontender, no guarding, rebound or rigidity, Normoactive bowel sounds, No hepatomegaly, No splenomegaly, No palpable mass Skin: Normal temperature, tone, texture, turgor, no induration, No subcutaneous nodules, No rash, lesions, No ulcers Extremities: No digital cyanosis, No clubbing, Pedal pulses intact and symmetrical, Radial pulses intact and symmetrical, No calf tenderness Psychiatric: Alert and oriented to person, place and time, appropriate affect, intact judgement Neuro: Muscles Strength 5/5 in all 4 extremities, Sensation to light touch grossly present throughout, Cranial nerves II-XII grossly intact, no focal sensory deficits - Labs CBC & Chem 7: 08/13/19 04:12 08/13/19 04:12 Labs: Abnormal Lab Results - Last 24 Hours (Table) 08/12/19 08/12/19 08/12/19 Range/Units 04:32 13:47 18:09 Plt Count (150-450) k/uL Lymphocytes # (1.0-4.8) k/uL D-Dimer (<0.60) mg/L FEU Carbon Dioxide (22-30) mmol/L Creatinine (0.52-1.04) mg/dL Glucose (74-99) mg/dL POC Glucose (mg/dL) 227 H 218 H (75-99) mg/dL Calcium (8.4-10.2) mg/dL Ferritin 369.0 H (10.0-291.0) ng/mL Lactate Dehydrogenase (313-618) U/L C-Reactive Protein (<10.0) mg/L Total Protein (6.3-8.2) g/dL Albumin (3.5-5.0) g/dL 08/12/19 08/13/19 08/13/19 Range/Units 21:00 04:12 04:12 Plt Count 130 L (150-450) k/uL Lymphocytes # 0.7 L (1.0-4.8) k/uL D-Dimer 4.33 H (<0.60) mg/L FEU Carbon Dioxide (22-30) mmol/L Creatinine (0.52-1.04) mg/dL Glucose (74-99) mg/dL POC Glucose (mg/dL) 215 H (75-99) mg/dL Calcium (8.4-10.2) mg/dL Ferritin (10.0-291.0) ng/mL Lactate Dehydrogenase (313-618) U/L C-Reactive Protein (<10.0) mg/L Total Protein (6.3-8.2) g/dL Albumin (3.5-5.0) g/dL 08/13/19 08/13/19 Range/Units 04:12 07:05 Plt Count (150-450) k/uL Lymphocytes # (1.0-4.8) k/uL D-Dimer (<0.60) mg/L FEU Carbon Dioxide 21 L (22-30) mmol/L Creatinine 0.33 L (0.52-1.04) mg/dL Glucose 110 H (74-99) mg/dL POC Glucose (mg/dL) 114 H (75-99) mg/dL Calcium 6.4 L* (8.4-10.2) mg/dL Ferritin (10.0-291.0) ng/mL Lactate Dehydrogenase 1262 H (313-618) U/L C-Reactive Protein 35.9 H (<10.0) mg/L Total Protein 5.2 L (6.3-8.2) g/dL Albumin 2.5 L (3.5-5.0) g/dL Microbiology - Last 24 Hours (Table) 08/06/19 19:16 Blood Culture - Final Blood No Growth after 144 hours Assessment and Plan Plan: Acute sepsis/Community acquired pneumonia sec to COVID19 Started on remdisivir, ID following Continue Decadron 6 mg by mouth daily Continue high flow oxygen and wean as possible Lovenox therapeutic dose especially with the elevated d-dimer and troponin Acute hypoxic respiratory failure High-Flow nasal cannula as above High risk for intubation Acute COPD exacerbation Steroids as above Bronchodilators DM2 Hold oral hypoglycemics Lantus 10 units daily SSI with blood sugar checks every before meals and at bedtime HTN Hyperlipidemia Depression All stable resume meds Anticipated discharge: Pending clinical course Disposition: Pending clinical course
[2019-08-13 11:52] LABS: Glucose,Whole Blood 169 mg/dL (75-99)
[2019-08-13 12:03] LABS: Ferritin 406.1 ng/mL (10.0-291.0)
[2019-08-13] MEDS: SODIUM CHLORIDE 0.9% IV SCH (12:19)
[2019-08-13] MEDS: [UNRECOGNIZED DRUG - OTHER] IV SCH (12:19)
--- NOTE | 2019-08-13 12:23 | CDI ---
Documentation Clarification Form Date: 08/13/2019 12:13:30 PM From: Anahi Mock CCS, CCDS Admit Date: 08/06/2019 04:02:00 PM Patient Name: Carine Mccarty Visit Number: [id number] Discharge Date: ATTENTION: The Clinical Documentation Specialists (CDI) and [facility] Coding Staff appreciate your assistance in clarifying documentation. Please respond to the clarification below the line at the bottom and electronically sign. The CDI & [facility] Coding staff will review the response and follow-up if needed. Please note: Queries are made part of the Legal Health Record. If you have any questions, please contact the author of this message via ITS. Dr. Hue Huerta: Atrial Fibrillation is documented in the [facility] Progress Notes 08/06 & 08/07 without further specificity. Cardiology is not consulted on this account. History/Risk Factors: Hypertension, CAD, Hyperlipidemia, DM II on oral hypoglycemic drugs, COPD & previous coronary stent placement. No history of Atrial Fibrillation documented, no home anticoagulants. Clinical Indicators: 73 yo female, presented to the ED with SOB on 08/05. Diagnosed with Sepsis due to community acquired pneumonia is positive COVID 19 & COPD exacerbation. EKG 08/05: R 66 nsr HR 08/05: 70 81; 08/06: 62 80; 08/07: 71; 08/08: 69 92; 08/09: 58* - 76; 08/10: 45* - 73; 08/11: 44* - 74; 08/12: 45* - 71 Treatment: IV fluid rate 1,000 mls @ 75/hr, IV Pepcid, IV Zofran, INH Albuterol, IV Rocephin, IV Azithromycin, IV Solumedrol, IV Lasix, po KCL, Lovenox SQ, po Zestril, Norvasc. In your professional opinion, can you please clarify the type of Atrial Fibrillation, if known? Paroxysmal Persistent Other, please specify Unable to determine (Last Revision: May 2017) Paroxysmal MTDD
--- NOTE | 2019-08-13 14:37 | P.PN ---
Subjective Progress Note Date: 08/13/19 Principal diagnosis: Acute hypoxic respiratory failure secondary to covid 19 pneumonitis. Patient was reevaluated today on 08/13/19, she was admitted on 08/06/19, patient was admitted with diffuse bilateral pneumonia, and she turned out to have positive PCR for aguiar virus. Patient remains in the ICU, she remains on high flow nasal cannula/airvo with flow of 45 L/m, and 60% FiO2. Her O2 saturation is marginal, 93%. Patient looks very comfortable, she is now on Decadron, Pe pcid, Lovenox, lisinopril, and we added Lopid. Patient has poor oral intake, and dietary was consulted. Clinically the patient stated that she is feeling better. Her inflammatory markers for aguiar virus seems to be improving. Patient has mostly overall generalized weakness. Chest x-ray continues to show diffuse bilateral airspace disease Right more so than left. The left lung seems to be improving compared to previous x-rays CBC is relatively normal electrolytes are normal renal profile is normal, ionized calcium is 4.9. C- reactive protein is 36, LDH is 1262 and ferritin is 406. Objective - Vital Signs Vital signs: Vital Signs Temp 99.0 F 08/13/19 08:00 Pulse 68 08/13/19 13:00 Resp 32 H 08/13/19 13:00 BP 130/65 08/13/19 13:00 Pulse Ox 95 08/13/19 13:00 Intake & Output 08/12/19 08/13/19 08/13/19 18:59 06:59 18:59 Intake Total 890 810 490 Output Total 765 1000 1040 Balance 125 -190 -550 Weight 91.9 kg 91.9 kg Intake: IV 770 810 490 Sodium Chloride 0.9% 1, 770 810 490 000 ml @ 70 mls/hr IV . [id number] [facility] Rx#:[id number] Oral 120 Output: Urine 765 1000 1040 Other: Voiding Method Indwelling Catheter Indwelling Catheter Indwelling Catheter - Exam Physical Exam: Revealed 73-year-old female, in no distress. On high flow oxygen. Head: Atraumatic, normocephalic. HEENT:[Neck is supple.] [No neck masses.] [No thyromegaly.] [No JVD.] Chest: [Crackles and Velcro rales at the bases bilaterally. Specially on the right side/right basilar symmetrical chest expansion. Cardiac Exam: [Normal S1 and S2, no S3 gallop, no murmur.] Abdomen: [Soft, nontender, no megaly, no rebound, no guarding, normal bowel sounds.] Extremities: [No clubbing, no edema, no cyanosis.] Neurological Exam: [No focal neurologic deficit.] Alert oriented 3. Psychiatric: Normal mood, affect and normal mental status examination. Skin: No rashes. - Labs CBC & Chem 7: 08/13/19 04:12 08/13/19 04:12 Labs: Abnormal Lab Results - Last 24 Hours (Table) 08/12/19 08/12/19 08/12/19 Range/Units 04:32 18:09 21:00 Plt Count (150-450) k/uL Lymphocytes # (1.0-4.8) k/uL D-Dimer (<0.60) mg/L FEU Carbon Dioxide (22-30) mmol/L Creatinine (0.52-1.04) mg/dL Glucose (74-99) mg/dL POC Glucose (mg/dL) 218 H 215 H (75-99) mg/dL Calcium (8.4-10.2) mg/dL Ferritin 369.0 H (10.0-291.0) ng/mL Lactate Dehydrogenase (313-618) U/L C-Reactive Protein (<10.0) mg/L Total Protein (6.3-8.2) g/dL Albumin (3.5-5.0) g/dL 08/13/19 08/13/19 08/13/19 Range/Units 04:12 04:12 04:12 Plt Count 130 L (150-450) k/uL Lymphocytes # 0.7 L (1.0-4.8) k/uL D-Dimer 4.33 H (<0.60) mg/L FEU Carbon Dioxide 21 L (22-30) mmol/L Creatinine 0.33 L (0.52-1.04) mg/dL Glucose 110 H (74-99) mg/dL POC Glucose (mg/dL) (75-99) mg/dL Calcium 6.4 L* (8.4-10.2) mg/dL Ferritin 406.1 H (10.0-291.0) ng/mL Lactate Dehydrogenase 1262 H (313-618) U/L C-Reactive Protein 35.9 H (<10.0) mg/L Total Protein 5.2 L (6.3-8.2) g/dL Albumin 2.5 L (3.5-5.0) g/dL 08/13/19 08/13/19 Range/Units 07:05 11:49 Plt Count (150-450) k/uL Lymphocytes # (1.0-4.8) k/uL D-Dimer (<0.60) mg/L FEU Carbon Dioxide (22-30) mmol/L Creatinine (0.52-1.04) mg/dL Glucose (74-99) mg/dL POC Glucose (mg/dL) 114 H 169 H (75-99) mg/dL Calcium (8.4-10.2) mg/dL Ferritin (10.0-291.0) ng/mL Lactate Dehydrogenase (313-618) U/L C-Reactive Protein (<10.0) mg/L Total Protein (6.3-8.2) g/dL Albumin (3.5-5.0) g/dL Microbiology - Last 24 Hours (Table) 08/06/19 19:16 Blood Culture - Final Blood No Growth after 144 hours Assessment and Plan Assessment: Impression: Acute hypoxic respiratory failure secondary to covid 19 pneumonitis. Patient remains on Decadron, she received already remdesivir. On relatively high dose of Lovenox, on high flow oxygen, on Pepcid, added Lopid. And she is already on lisinopril. Type 2 diabetes. Leukopenia with lymphopenia and thrombocytopenia recovery. Benign essential hypertension. Recommendation: Continue present supportive care measures. Continue to monitor the patient in the ICU, Continue all medications as listed above. We will continue to follow. Prognosis remains relatively guarded. Time with Patient: Less than 30
[2019-08-13 16:47] LABS: Glucose,Whole Blood 293 mg/dL (75-99)
[2019-08-13 16:47] LABS: Glucose,Whole Blood 275 mg/dL (75-99)
[2019-08-13 17:49] LABS: Glucose,Whole Blood 278 mg/dL (75-99)
--- NOTE | 2019-08-13 18:18 | PN ---
PROGRESS NOTE DATE OF SERVICE: 08/13/2019 REASON FOR FOLLOWUP: Acute COVID-19 pneumonia. INTERVAL HISTORY: The patient is currently afebrile. The patient is hemodynamically stable, not on any pressor support. The patient's FiO2 is currently down. No vomiting has been noted. She did have one episode of diarrhea. No other change has been reported by the nursing staff. PHYSICAL EXAMINATION: Blood pressure 123/51, pulse 65, temperature 98. She is 98% on high-flow oxygen. General description is an elderly female lying in bed in no distress. RESPIRATORY SYSTEM: Unlabored breathing. No significant crackles or wheezing have been reported by the nursing staff. EXTREMITIES: No edema of the feet. LABS: Hemoglobin 11.9, white count 5.3, BUN of 16, creatinine 0.33. Inflammatory markers are slowly coming down. A chest x-ray this morning did show diffuse airspace disease, but did not mention any comparing to the previous x-ray. DIAGNOSTIC IMPRESSION/PLAN: 1. Patient with acute COVID-19 pneumonia, for which the patient will continue on remdesivir and Lovenox. 2. and will monitor clinical course closely. 3. Patient had diarrhea only one episode. Advised to increase her probiotic and yogurt intake. No need for C difficile testing at this point. MMODL / IJN: [id number] /
[2019-08-13] MEDS: ATORVASTATIN 20 MG TAB PO SCH (20:36)
[2019-08-13 21:03] LABS: Glucose,Whole Blood 220 mg/dL (75-99)
[2019-08-14 05:45] LABS: African American GFR (CKD) >90 (>60 ml/min/1.73 sqM); Anion Gap 5 mmol/L; Blood Urea Nitrogen 15 mg/dL (7-17); Carbon Dioxide 22 mmol/L (22-30); Chloride 107 mmol/L (98-107); Glucose 118 mg/dL (74-99); Non-African American GFR(CKD) >90 (>60 ml/min/1.73 sqM); Potassium 3.6 mmol/L (3.5-5.1); Sodium 134 mmol/L (137-145)
[2019-08-14 05:51] LABS: Basophils % (A) 0 %; Eosinophils % (A) 1 %; HCT 35.5 % (34.0-46.0); HGB 11.5 gm/dL (11.4-16.0); Lymphocytes # (A) 0.7 k/uL (1.0-4.8); Lymphocytes % (A) 12 %; MCH 28.9 pg (25.0-35.0); MCHC 32.4 g/dL (31.0-37.0); MCV 89.3 fL (80.0-100.0); Mean Platelet Volume 9.8; Monocytes # (A) 0.3 k/uL (0-1.0); Monocytes % (A) 5 %; Neutrophils # (A) 4.5 k/uL (1.3-7.7); Neutrophils % (A) 81 %; Platelet Count 165 k/uL (150-450); RBC 3.97 m/uL (3.80-5.40); RDW 13.4 % (11.5-15.5); WBC 5.6 k/uL (3.8-10.6)
[2019-08-14] MEDS ORDERED: POTASSIUM CHLORIDE ER 20 MEQ TAB.ER PO SCH (06:00)
[2019-08-14 06:28] LABS: Glucose,Whole Blood 112 mg/dL (75-99)
[2019-08-14] MEDS: SODIUM CHLORIDE 0.9% 1,000 ML IV SCH ×2 (06:34→12:14)
[2019-08-14] MEDS: INSULIN DETEMIR (LEVEMIR) 100 UNIT/ML SYR SQ SCH (06:35)
[2019-08-14] MEDS: INSULIN ASPART (NovoLOG) 100 UNIT/ML VIAL SQ SCH ×4 (06:36→20:31)
[2019-08-14] MEDS: ALBUTEROL HFA INHALER INHALATION SCH ×4 (08:09→20:31)
[2019-08-14] MEDS: amLODIPine 5 MG TAB PO SCH (08:28)
[2019-08-14] MEDS: DEXAMETHASONE 2 MG TAB PO SCH (08:28)
[2019-08-14] MEDS: ENOXAPARIN 100 MG/ML SYRINGE SQ SCH ×2 (08:28→19:53)
[2019-08-14] MEDS: FAMOTIDINE 20 MG TAB PO SCH ×2 (08:29→19:54)
[2019-08-14] MEDS: PARoxetine 20 MG TAB PO SCH (08:29)
[2019-08-14] MEDS: GABAPENTIN 300 MG CAP PO SCH ×2 (08:29→19:53)
[2019-08-14] MEDS: LISINOPRIL 2.5 MG TAB PO SCH (08:31)
[2019-08-14] MEDS: PIPERACILLIN-TAZOBACTAM 3.375 GM in SODIUM CHLORIDE 0.9% 100 ML IVPB SCH ×2 (09:23→17:09)
--- NOTE | 2019-08-14 10:24 | XR ---
EXAMINATION TYPE: XR chest 1V portable DATE OF EXAM: 08/14/2019 COMPARISON: Prior chest x-ray 08/13/2019 HISTORY: Covid Pneumonia TECHNIQUE: Single frontal view of the chest is obtained. FINDINGS: Diffuse airspace disease is greater on the right than on the left and similar appearance. Patient is rotated. No evident pneumothorax or pleural effusion. Heart size is likely stable. There a re overlying cardiac leads. Patient is status post left shoulder arthroplasty. There are overlying ar tifacts. IMPRESSION: Findings are similar to prior exam and consistent with patient's history of pneumonia. C ongestive heart failure, pulmonary edema not excluded.
[2019-08-14 11:57] LABS: Glucose,Whole Blood 171 mg/dL (75-99)
--- NOTE | 2019-08-14 13:37 | P.PN ---
Subjective Progress Note Date: 08/14/19 Principal diagnosis: Acute hypoxic respiratory failure secondary to covid 19 pneumonitis. Patient was reevaluated today on 08/13/19, she was admitted on 08/06/19, patient was admitted with diffuse bilateral pneumonia, and she turned out to have positive PCR for aguiar virus. Patient remains in the ICU, she remains on high flow nasal cannula/airvo with flow of 45 L/m, and 60% FiO2. Her O2 saturation is marginal, 93%. Patient looks very comfortable, she is now on Decadron, Pe pcid, Lovenox, lisinopril, and we added Lopid. Patient has poor oral intake, and dietary was consulted. Clinically the patient stated that she is feeling better. Her inflammatory markers for aguiar virus seems to be improving. Patient has mostly overall generalized weakness. Chest x-ray continues to show diffuse bilateral airspace disease Right more so than left. The left lung seems to be improving compared to previous x-rays CBC is relatively normal electrolytes are normal renal profile is normal, ionized calcium is 4.9. C- reactive protein is 36, LDH is 1262 and ferritin is 406. Patient was reevaluated today on 08/14/19, remains in the ICU, remains on high flow oxygen, FiO2 is 60%, and flow rate is 45 L/m. O2 saturation is 94%. Patient is now complaining of any form of respiratory distress. She seems to be quite comfortable, looks comfortable, her chest x-ray continues to show significant airspace disease in both lungs, however right seems to be more so compared to the left lung. Today I added Zosyn for empiric coverage for possible underlying bacterial infection in addition to her aguiar virus pneumonitis. Labs today were noted to be relatively unremarkable, CBC is re latively normal. No inflammatory markers were ordered today. Objective - Vital Signs Vital signs: Vital Signs Temp 98.5 F 08/14/19 12:00 Pulse 56 L 08/14/19 13:00 Resp 17 08/14/19 13:00 BP 118/49 08/14/19 13:00 Pulse Ox 90 L 08/14/19 13:00 Intake & Output 08/13/19 08/14/19 08/14/19 18:59 06:59 18:59 Intake Total 1030 920 490 Output Total 1735 795 745 Balance -705 125 -255 Weight 91.9 kg Intake: IV 840 840 490 Sodium Chloride 0.9% 1, 840 840 490 000 ml @ 70 mls/hr IV . [id number] [facility] Rx#:[id number] Oral 190 80 Output: Urine 1735 795 745 Other: Voiding Method Indwelling Catheter Indwelling Catheter Indwelling Catheter # Voids 1 - Exam Physical Exam: Revealed 73-year-old female, in no distress. On high flow oxygen. Head: Atraumatic, normocephalic. HEENT:[Neck is supple.] [No neck masses.] [No thyromegaly.] [No JVD.] Chest: [Crackles and Velcro rales at the bases bilaterally. Specially on the right side/right basilar symmetrical chest expansion. Cardiac Exam: [Normal S1 and S2, no S3 gallop, no murmur.] Abdomen: [Soft, nontender, no megaly, no rebound, no guarding, normal bowel sounds.] Extremities: [No clubbing, no edema, no cyanosis.] Neurological Exam: [No focal neurologic deficit.] Alert oriented 3. Psychiatric: Normal mood, affect and normal mental status examination. Skin: No rashes. - Labs CBC & Chem 7: 08/14/19 04:46 08/14/19 04:46 Labs: Abnormal Lab Results - Last 24 Hours (Table) 08/13/19 08/13/19 08/13/19 Range/Units 16:36 16:39 17:48 Lymphocytes # (1.0-4.8) k/uL Sodium (137-145) mmol/L Creatinine (0.52-1.04) mg/dL Glucose (74-99) mg/dL POC Glucose (mg/dL) 275 H 293 H 278 H (75-99) mg/dL Calcium (8.4-10.2) mg/dL 08/13/19 08/14/19 08/14/19 Range/Units 21:01 04:46 04:46 Lymphocytes # 0.7 L (1.0-4.8) k/uL Sodium 134 L (137-145) mmol/L Creatinine 0.39 L (0.52-1.04) mg/dL Glucose 118 H (74-99) mg/dL POC Glucose (mg/dL) 220 H (75-99) mg/dL Calcium 8.0 L (8.4-10.2) mg/dL 08/14/19 08/14/19 Range/Units 06:27 11:56 Lymphocytes # (1.0-4.8) k/uL Sodium (137-145) mmol/L Creatinine (0.52-1.04) mg/dL Glucose (74-99) mg/dL POC Glucose (mg/dL) 112 H 171 H (75-99) mg/dL Calcium (8.4-10.2) mg/dL Assessment and Plan Assessment: Impression: Acute hypoxic respiratory failure secondary to covid 19 pneumonitis. Patient remains on Decadron, she received already remdesivir. On relatively high dose of Lovenox, on high flow oxygen, on Pepcid, added Lopid. And she is already on lisinopril. Type 2 diabetes. Leukopenia with lymphopenia and thrombocytopenia, resolved. Benign essential hypertension. Recommendation: Continue present supportive care measures. Continue to monitor the patient in the ICU, Continue all medications as listed above. Add Zosyn 3.375 g IV piggyback every 8 hours for empiric coverage for potential underlying bacterial infection. We will continue to follow. Prognosis remains relatively guarded. Time with Patient: Less than 30
--- NOTE | 2019-08-14 14:08 | P.PN ---
Subjective Progress Note Date: 08/14/19 Principal diagnosis: weakness Patient has been doing well. Her oxygen demand has been decreasing. No fevers or chills. No other overnight events. Objective - Vital Signs Vital signs: Vital Signs Temp 98.5 F 08/14/19 12:00 Pulse 56 L 08/14/19 14:00 Resp 35 H 08/14/19 14:00 BP 133/86 08/14/19 14:00 Pulse Ox 100 08/14/19 14:00 Intake & Output 08/13/19 08/14/19 08/14/19 18:59 06:59 18:59 Intake Total 1030 920 620 Output Total 1735 795 795 Balance -705 125 -175 Weight 91.9 kg Intake: IV 840 840 560 Sodium Chloride 0.9% 1, 840 840 560 000 ml @ 70 mls/hr IV . [id number] [facility] Rx#:[id number] Oral 190 80 60 Output: Urine 1735 795 795 Other: Voiding Method Indwelling Catheter Indwelling Catheter Indwelling Catheter # Voids 1 - Exam Constitutional: No acute distress, conversant, pleasant Eyes:Anicteric sclerae, moist conjunctiva, no lid-lag, PERRLA, ENMT: Oropharynx clear, no erythema, exudates Neck: Supple, FROM, no masses, or JVD, No carotid bruits, No thyromegaly Lungs: scatter wheezing especially on the basis. Clear to percussion, Normal respiratory effort, no accessory muscle use Cardiovascular: RRR, No murmurs, gallops, or rubs, No peripheral edema Abdominal: Soft, Nontender, no guarding, rebound or rigidity, Normoactive bowel sounds, No hepatomegaly, No splenomegaly, No palpable mass Skin: Normal temperature, tone, texture, turgor, no induration, No subcutaneous nodules, No rash, lesions, No ulcers Extremities: No digital cyanosis, No clubbing, Pedal pulses intact and symmetrical, Radial pulses intact and symmetrical, No calf tenderness Psychiatric: Alert and oriented to person, place and time, appropriate affect, intact judgement Neuro: Muscles Strength 5/5 in all 4 extremities, Sensation to light touch grossly present throughout, Cranial nerves II-XII grossly intact, no focal sensory deficits - Labs CBC & Chem 7: 08/14/19 04:46 08/14/19 04:46 Labs: Abnormal Lab Results - Last 24 Hours (Table) 08/13/19 08/13/19 08/13/19 Range/Units 16:36 16:39 17:48 Lymphocytes # (1.0-4.8) k/uL Sodium (137-145) mmol/L Creatinine (0.52-1.04) mg/dL Glucose (74-99) mg/dL POC Glucose (mg/dL) 275 H 293 H 278 H (75-99) mg/dL Calcium (8.4-10.2) mg/dL 08/13/19 08/14/19 08/14/19 Range/Units 21:01 04:46 04:46 Lymphocytes # 0.7 L (1.0-4.8) k/uL Sodium 134 L (137-145) mmol/L Creatinine 0.39 L (0.52-1.04) mg/dL Glucose 118 H (74-99) mg/dL POC Glucose (mg/dL) 220 H (75-99) mg/dL Calcium 8.0 L (8.4-10.2) mg/dL 08/14/19 08/14/19 Range/Units 06:27 11:56 Lymphocytes # (1.0-4.8) k/uL Sodium (137-145) mmol/L Creatinine (0.52-1.04) mg/dL Glucose (74-99) mg/dL POC Glucose (mg/dL) 112 H 171 H (75-99) mg/dL Calcium (8.4-10.2) mg/dL Assessment and Plan Plan: Acute sepsis/Community acquired pneumonia sec to COVID19 Continue remdisivir, ID following Continue Decadron 6 mg by mouth daily Continue high flow oxygen and wean as possible Lovenox therapeutic dose especially with the elevated d-dimer and troponin Zosyn started by ICU team on 08/13 to cover for possible bacterial pneumonia Acute hypoxic respiratory failure High-Flow nasal cannula as above Risk for intubation persists Acute COPD exacerbation Steroids as above Bronchodilators DM2 Sugars have been high Increase lantus to 12 units daily SSI with blood sugar checks every before meals and at bedtime HTN Hyperlipidemia Depression All stable resume meds Anticipated discharge: Pending clinical course Disposition: Pending clinical course
--- NOTE | 2019-08-14 15:28 | PN ---
PROGRESS NOTE DATE OF SERVICE: 08/14/2019 REASON FOR FOLLOWUP: Acute COVID-19 pneumonia. INTERVAL HISTORY: Patient is currently afebrile. Patient is breathing more comfortably. The patient overall FiO2 requirement has decreased. Denies having any chest pain. Did have some cough but no sputum. No nausea, no vomiting. No abdominal pain or diarrhea. PHYSICAL EXAMINATION: Blood pressure 133/86, pulse of 56. Temperature is 98.5. She is 100% on 50% FiO2. General description is an elderly female in the chair in no distress. Respiratory system: Unlabored breathing. Clear to auscultation anteriorly. Heart S1, S2. Regular rate and rhythm. Abdomen soft, no tenderness. LABS: Hemoglobin 11.5, white count 5.6, 0.7. DIAGNOSTIC IMPRESSION AND PLAN: Patient with acute COVID-19 pneumonia, patient seemed to have shown some clinical improvement currently on to continue and monitor clinical course closely. Continue supportive care. MMODL / IJN: [id number] /
[2019-08-14 16:48] LABS: Glucose,Whole Blood 338 mg/dL (75-99)
[2019-08-14] MEDS: ATORVASTATIN 20 MG TAB PO SCH (19:54)
[2019-08-14 20:24] LABS: Glucose,Whole Blood 300 mg/dL (75-99)
[2019-08-15] MEDS: PIPERACILLIN-TAZOBACTAM 3.375 GM in SODIUM CHLORIDE 0.9% 100 ML IVPB SCH ×3 (00:11→15:29)
[2019-08-15 04:41] LABS: Basophils % (A) 0 %; Eosinophils % (A) 1 %; HCT 34.5 % (34.0-46.0); HGB 11.2 gm/dL (11.4-16.0); Lymphocytes # (A) 0.5 k/uL (1.0-4.8); Lymphocytes % (A) 10 %; MCH 28.9 pg (25.0-35.0); MCHC 32.6 g/dL (31.0-37.0); MCV 88.7 fL (80.0-100.0); Monocytes # (A) 0.3 k/uL (0-1.0); Monocytes % (A) 5 %; Neutrophils # (A) 4.5 k/uL (1.3-7.7); Neutrophils % (A) 83 %; Platelet Count 124 k/uL (150-450); RBC 3.89 m/uL (3.80-5.40); RDW 13.3 % (11.5-15.5); WBC 5.5 k/uL (3.8-10.6)
[2019-08-15 04:55] LABS: African American GFR (CKD) >90 (>60 ml/min/1.73 sqM); Anion Gap 5 mmol/L; Blood Urea Nitrogen 17 mg/dL (7-17); Carbon Dioxide 22 mmol/L (22-30); Chloride 109 mmol/L (98-107); Glucose 138 mg/dL (74-99); Non-African American GFR(CKD) >90 (>60 ml/min/1.73 sqM); Potassium 3.4 mmol/L (3.5-5.1); Sodium 136 mmol/L (137-145)
[2019-08-15] MEDS: POTASSIUM CHLORIDE ER 20 MEQ TAB.ER PO SCH ×4 (06:13→12:46)
[2019-08-15 06:33] LABS: Glucose,Whole Blood 119 mg/dL (75-99)
[2019-08-15] MEDS: INSULIN DETEMIR (LEVEMIR) 100 UNIT/ML SYR SQ SCH (06:40)
[2019-08-15] MEDS: INSULIN ASPART (NovoLOG) 100 UNIT/ML VIAL SQ SCH ×4 (06:40→20:43)
--- NOTE | 2019-08-15 08:56 | XR ---
EXAMINATION TYPE: XR chest 1V portable DATE OF EXAM: 08/15/2019 COMPARISON: 08/14/2019 HISTORY: Shortness of breath TECHNIQUE: Single frontal view of the chest is obtained. FINDINGS: Diffuse bilateral pleural-parenchymal changes are seen. Arthropathy of the shoulder. Posts urgical change left shoulder. No pneumothorax. Heart size normal. Atherosclerotic change aorta. IMPRESSION: Diffuse pleural-parenchymal changes are stable correlate for pneumonia or pneumonitis gi johnny the lack of significant pleural fluid which is favored over CHF.
[2019-08-15] MEDS: ENOXAPARIN 100 MG/ML SYRINGE SQ SCH ×2 (09:08→20:03)
[2019-08-15] MEDS: GABAPENTIN 300 MG CAP PO SCH ×2 (09:09→20:03)
[2019-08-15] MEDS: PARoxetine 20 MG TAB PO SCH (09:09)
[2019-08-15] MEDS: DEXAMETHASONE 2 MG TAB PO SCH (09:09)
[2019-08-15] MEDS: LISINOPRIL 2.5 MG TAB PO SCH (09:09)
[2019-08-15] MEDS: FAMOTIDINE 20 MG TAB PO SCH ×2 (09:09→20:03)
[2019-08-15] MEDS: amLODIPine 5 MG TAB PO SCH (09:09)
[2019-08-15] MEDS: SODIUM CHLORIDE 0.9% 1,000 ML IV SCH (09:28)
[2019-08-15] MEDS: ALBUTEROL HFA INHALER INHALATION SCH ×4 (10:13→20:43)
--- NOTE | 2019-08-15 10:21 | P.PN ---
Subjective No acute events reported by nursing staff. Patient's feeling about the same. She denies shortness of breath at rest. She is still 60% FiO2/45 L Objective - Vital Signs Vital signs: Vital Signs Temp 98.1 F 08/15/19 08:00 Pulse 54 L 08/15/19 10:00 Resp 27 H 08/15/19 10:00 BP 129/93 08/15/19 10:00 Pulse Ox 91 L 08/15/19 10:00 Intake & Output 08/14/19 08/15/19 08/15/19 18:59 06:59 18:59 Intake Total 970 1210 70 Output Total 1315 850 65 Balance -345 360 5 Weight 91.2 kg Intake: IV 910 770 70 Sodium Chloride 0.9% 1, 910 770 70 000 ml @ 70 mls/hr IV . [id number] [facility] Rx#:[id number] Intake, IV Titration 200 Amount Piperacillin-Tazobactam 3 200 .375 gm In Sodium Chloride 0.9% 100 ml @ 25 mls/hr IVPB Q8HR [facility] Rx# :[id number] Oral 60 240 Output: Urine 1315 850 65 Other: Voiding Method Indwelling Catheter Indwelling Catheter Indwelling Catheter # Bowel Movements 1 1 - Exam General: The patient is awake and alert, in no distress Eye: there is normal conjunctiva bilaterally. Neck: The neck is supple, there is no JVD. Cardiovascular: Normal S1-S2, no S3-S4, no murmurs. Respiratory: Lungs with diffuse crackles all over the chest Gastrointestinal: Abdomen is soft, nontender Musculoskeletal: There is no pedal edema. Neurological:. Speech is normal. Skin: Skin is warm and dry - Labs CBC & Chem 7: 08/15/19 04:10 08/15/19 04:10 Labs: Abnormal Lab Results - Last 24 Hours (Table) 08/14/19 08/14/19 08/14/19 Range/Units 11:56 16:46 20:22 Hgb (11.4-16.0) gm/dL Plt Count (150-450) k/uL Lymphocytes # (1.0-4.8) k/uL Sodium (137-145) mmol/L Potassium (3.5-5.1) mmol/L Chloride (98-107) mmol/L Creatinine (0.52-1.04) mg/dL Glucose (74-99) mg/dL POC Glucose (mg/dL) 171 H 338 H 300 H (75-99) mg/dL Calcium (8.4-10.2) mg/dL 08/15/19 08/15/19 08/15/19 Range/Units 04:10 04:10 06:32 Hgb 11.2 L (11.4-16.0) gm/dL Plt Count 124 L (150-450) k/uL Lymphocytes # 0.5 L (1.0-4.8) k/uL Sodium 136 L (137-145) mmol/L Potassium 3.4 L (3.5-5.1) mmol/L Chloride 109 H (98-107) mmol/L Creatinine 0.49 L (0.52-1.04) mg/dL Glucose 138 H (74-99) mg/dL POC Glucose (mg/dL) 119 H (75-99) mg/dL Calcium 8.0 L (8.4-10.2) mg/dL Assessment and Plan Assessment: Acute sepsis/Community acquired pneumonia/pneumonitis secondary to COVID19 Finished remdisivir course, ID following Continue Decadron 6 mg by mouth daily Continue high flow oxygen and wean as possible Lovenox therapeutic dose especially with the elevated d-dimer and troponin Zosyn started by ICU team on 08/13 to cover for possible bacterial pneumonia Acute hypoxic respiratory failure High-Flow nasal cannula as above Acute COPD exacerbation Steroids as above Bronchodilators DM2 Elevated blood glucose, steroid-induced Increase lantus to 12 units daily SSI with blood sugar checks every before meals and at bedtime HTN Hyperlipidemia Depression All stable resume meds Anticipated discharge: Pending clinical course Disposition: Pending clinical course
--- NOTE | 2019-08-15 12:32 | P.PN ---
Subjective Progress Note Date: 08/15/19 Principal diagnosis: Acute hypoxic respiratory failure secondary to covid 19 pneumonitis. Patient was reevaluated today on 08/13/19, she was admitted on 08/06/19, patient was admitted with diffuse bilateral pneumonia, and she turned out to have positive PCR for aguiar virus. Patient remains in the ICU, she remains on high flow nasal cannula/airvo with flow of 45 L/m, and 60% FiO2. Her O2 saturation is marginal, 93%. Patient looks very comfortable, she is now on Decadron, Pe pcid, Lovenox, lisinopril, and we added Lopid. Patient has poor oral intake, and dietary was consulted. Clinically the patient stated that she is feeling better. Her inflammatory markers for aguiar virus seems to be improving. Patient has mostly overall generalized weakness. Chest x-ray continues to show diffuse bilateral airspace disease Right more so than left. The left lung seems to be improving compared to previous x-rays CBC is relatively normal electrolytes are normal renal profile is normal, ionized calcium is 4.9. C- reactive protein is 36, LDH is 1262 and ferritin is 406. Patient was reevaluated today on 08/14/19, remains in the ICU, remains on high flow oxygen, FiO2 is 60%, and flow rate is 45 L/m. O2 saturation is 94%. Patient is now complaining of any form of respiratory distress. She seems to be quite comfortable, looks comfortable, her chest x-ray continues to show significant airspace disease in both lungs, however right seems to be more so compared to the left lung. Today I added Zosyn for empiric coverage for possible underlying bacterial infection in addition to her aguiar virus pneumonitis. Labs today were noted to be relatively unremarkable, CBC is re latively normal. No inflammatory markers were ordered today. Patient was reevaluated today on 08/15/19, remains in the ICU, chest x-ray showing slight improvement especially in the right sided pneumonitis. Patient is down to 50% FiO2, flow at 45 L/m, O2 saturation is 88%. However the patient has no symptoms of shortness of breath no cough no wheezing. Her cough is occasional with minimal sputum production. No chest pain, patient does not feel and does not seem to be in distress. Labs today were all reviewed. No inflammatory markers were ordered. Objective - Vital Signs Vital signs: Vital Signs Temp 98.1 F 08/15/19 08:00 Pulse 52 L 08/15/19 11:00 Resp 29 H 08/15/19 11:00 BP 107/43 08/15/19 11:00 Pulse Ox 91 L 08/15/19 11:01 Intake & Output 08/14/19 08/15/19 08/15/19 18:59 06:59 18:59 Intake Total 970 1210 70 Output Total 1315 850 65 Balance -345 360 5 Weight 91.2 kg Intake: IV 910 770 70 Sodium Chloride 0.9% 1, 910 770 70 000 ml @ 70 mls/hr IV . [id number] [facility] Rx#:[id number] Intake, IV Titration 200 Amount Piperacillin-Tazobactam 3 200 .375 gm In Sodium Chloride 0.9% 100 ml @ 25 mls/hr IVPB Q8HR [facility] Rx# :[id number] Oral 60 240 Output: Urine 1315 850 65 Other: Voiding Method Indwelling Catheter Indwelling Catheter Indwelling Catheter # Bowel Movements 1 1 - Exam Physical Exam: Revealed 73-year-old female, in no distress. On high flow oxygen. Head: Atraumatic, normocephalic. HEENT:[Neck is supple.] [No neck masses.] [No thyromegaly.] [No JVD.] Chest: [Crackles at the bases persists. Symmetrical chest expansion. No chest wall tenderness. Cardiac Exam: [Normal S1 and S2, no S3 gallop, no murmur.] Abdomen: [Soft, nontender, no megaly, no rebound, no guarding, normal bowel sounds.] Extremities: [No clubbing, no edema, no cyanosis.] Neurological Exam: [No focal neurologic deficit.] Alert oriented 3. Psychiatric: Normal mood, affect and normal mental status examination. Skin: No rashes. - Labs CBC & Chem 7: 08/15/19 04:10 08/15/19 10:16 Labs: Abnormal Lab Results - Last 24 Hours (Table) 08/14/19 08/14/19 08/15/19 Range/Units 16:46 20:22 04:10 Hgb 11.2 L (11.4-16.0) gm/dL Plt Count 124 L (150-450) k/uL Lymphocytes # 0.5 L (1.0-4.8) k/uL Sodium (137-145) mmol/L Potassium (3.5-5.1) mmol/L Chloride (98-107) mmol/L Creatinine (0.52-1.04) mg/dL Glucose (74-99) mg/dL POC Glucose (mg/dL) 338 H 300 H (75-99) mg/dL Calcium (8.4-10.2) mg/dL 08/15/19 08/15/19 08/15/19 Range/Units 04:10 06:32 10:16 Hgb (11.4-16.0) gm/dL Plt Count (150-450) k/uL Lymphocytes # (1.0-4.8) k/uL Sodium 136 L (137-145) mmol/L Potassium 3.4 L 3.3 L (3.5-5.1) mmol/L Chloride 109 H (98-107) mmol/L Creatinine 0.49 L (0.52-1.04) mg/dL Glucose 138 H (74-99) mg/dL POC Glucose (mg/dL) 119 H (75-99) mg/dL Calcium 8.0 L (8.4-10.2) mg/dL Assessment and Plan Assessment: Impression: Acute hypoxic respiratory failure secondary to covid 19 pneumonitis. Type 2 diabetes. Leukopenia with lymphopenia and thrombocytopenia, resolved. Benign essential hypertension. Recommendation: Continue present supportive care measures. Patient received so far remdesivir, Decadron, remains on Lovenox, Pepcid, atorvastatin, and Zosyn was added yesterday. Continue to monitor the patient in the ICU, Continue all medications as listed above. Add Zosyn 3.375 g IV piggyback every 8 hours for empiric coverage for potential underlying bacterial infection. Prognosis remains relatively guarded. Continue to monitor in the ICU Time with Patient: Less than 30
[2019-08-15 12:42] LABS: Glucose,Whole Blood 199 mg/dL (75-99)
[2019-08-15 15:47] LABS: Magnesium 1.7 mg/dL (1.6-2.3); Potassium 4.8 mmol/L (3.5-5.1)
[2019-08-15 17:19] LABS: Glucose,Whole Blood 394 mg/dL (75-99)
[2019-08-15 17:19] LABS: Glucose,Whole Blood 396 mg/dL (75-99)
[2019-08-15] MEDS: ATORVASTATIN 20 MG TAB PO SCH (20:03)
[2019-08-15 20:25] LABS: Glucose,Whole Blood 409 mg/dL (75-99)
--- NOTE | 2019-08-15 22:55 | PN ---
PROGRESS NOTE DATE OF SERVICE: 08/15/2019 REASON FOR FOLLOWUP: Acute COVID-19 pneumonia. INTERVAL HISTORY: The patient is currently afebrile. The patient is breathing comfortably. The patient denies having any chest pain. Occasional cough. No nausea. No vomiting. No abdominal pain or diarrhea. PHYSICAL EXAMINATION: Blood pressure is 113/57 with a pulse of 55, temperature 98.1. She is 92% on 45% FiO2. General description is an elderly female up in the chair in no distress. RESPIRATORY SYSTEM: Unlabored breathing. Some decreased breath sounds at the base. No wheeze. HEART: S1, S2. Regular rate and rhythm. ABDOMEN: Soft. No tenderness. LABS: Hemoglobin 11.1, white count of 5.5, creatinine 0.49. Blood cultures negative. Chest x-ray stable. DIAGNOSTIC IMPRESSION AND PLAN: Patient with acute COVID-19 pneumonia in this patient who seems to have shown some clinical improvement. FiO2 requirement has slightly decreased. The patient is breathing comfortably. Patient at this time to continue with current supportive treatment. She has to finish her 5-day course of remdesivir. Monitor the patient closely. secondary bacterial infection. MMODL / IJN: [id number] /
[2019-08-16] MEDS: PIPERACILLIN-TAZOBACTAM 3.375 GM in SODIUM CHLORIDE 0.9% 100 ML IVPB SCH ×3 (00:13→16:44)
[2019-08-16] MEDS: SODIUM CHLORIDE 0.9% 1,000 ML IV SCH (00:14)
[2019-08-16 05:19] LABS: Basophils % (A) 0 %; Eosinophils # (A) 0.1 k/uL (0-0.7); Eosinophils % (A) 1 %; HCT 35.4 % (34.0-46.0); HGB 11.9 gm/dL (11.4-16.0); Lymphocytes # (A) 0.7 k/uL (1.0-4.8); Lymphocytes % (A) 11 %; MCH 30.5 pg (25.0-35.0); MCHC 33.6 g/dL (31.0-37.0); MCV 90.6 fL (80.0-100.0); Mean Platelet Volume 9.6; Monocytes # (A) 0.3 k/uL (0-1.0); Monocytes % (A) 4 %; Neutrophils # (A) 5.1 k/uL (1.3-7.7); Neutrophils % (A) 82 %; Platelet Count 153 k/uL (150-450); RBC 3.91 m/uL (3.80-5.40); RDW 13.5 % (11.5-15.5); WBC 6.2 k/uL (3.8-10.6)
[2019-08-16 05:57] LABS: ALT 23 U/L (4-34); AST 25 U/L (14-36); African American GFR (CKD) >90 (>60 ml/min/1.73 sqM); Albumin 2.4 g/dL (3.5-5.0); Alkaline Phosphatase 74 U/L (38-126); Anion Gap 5 mmol/L; Blood Urea Nitrogen 14 mg/dL (7-17); C Reactive Protein 24.9 mg/L (<10.0); Calcium 8.2 mg/dL (8.4-10.2); Carbon Dioxide 23 mmol/L (22-30); Chloride 108 mmol/L (98-107); Glucose 130 mg/dL (74-99); Non-African American GFR(CKD) >90 (>60 ml/min/1.73 sqM); Sodium 136 mmol/L (137-145); Total Bilirubin 0.5 mg/dL (0.2-1.3); Total Protein 5.4 g/dL (6.3-8.2)
[2019-08-16] MEDS: INSULIN ASPART (NovoLOG) 100 UNIT/ML VIAL SQ SCH ×4 (06:01→21:01)
[2019-08-16] MEDS: INSULIN DETEMIR (LEVEMIR) 100 UNIT/ML SYR SQ SCH (06:07)
[2019-08-16 06:16] LABS: Glucose,Whole Blood 129 mg/dL (75-99)
[2019-08-16] MEDS: ENOXAPARIN 100 MG/ML SYRINGE SQ SCH ×2 (07:42→20:46)
[2019-08-16] MEDS: LISINOPRIL 2.5 MG TAB PO SCH (07:42)
[2019-08-16] MEDS: amLODIPine 5 MG TAB PO SCH (07:42)
[2019-08-16] MEDS: FAMOTIDINE 20 MG TAB PO SCH ×2 (07:42→20:45)
[2019-08-16] MEDS: GABAPENTIN 300 MG CAP PO SCH ×2 (07:43→20:45)
[2019-08-16] MEDS: DEXAMETHASONE 2 MG TAB PO SCH (07:43)
[2019-08-16] MEDS: PARoxetine 20 MG TAB PO SCH (07:43)
[2019-08-16] MEDS: ALBUTEROL HFA INHALER INHALATION SCH ×4 (09:08→20:36)
--- NOTE | 2019-08-16 11:13 | XR ---
EXAMINATION TYPE: XR chest 1V portable DATE OF EXAM: 08/16/2019 COMPARISON: Prior chest x-ray 08/15/2019 HISTORY: Redness of breath TECHNIQUE: Single frontal view of the chest is obtained. FINDINGS: Bilateral airspace disease shows a similar appearance. There are overlying leads. No evide nt pneumothorax or pleural effusion. Heart is stable accounting for rotation. Aorta is dense. Postop change noted to the left shoulder. Arthropathy present in the right shoulder, distal clavicular resec tion is noted. There are overlying artifacts. IMPRESSION: Findings are similar to prior exam, correlate for pneumonia, edema
[2019-08-16 11:53] LABS: Glucose,Whole Blood 198 mg/dL (75-99)
[2019-08-16 12:02] LABS: Ferritin 270.3 ng/mL (10.0-291.0)
--- NOTE | 2019-08-16 13:01 | P.PN ---
Subjective Progress Note Date: 08/16/19 Principal diagnosis: Acute hypoxic respiratory failure secondary to covid 19 pneumonitis. Patient was reevaluated today on 08/13/19, she was admitted on 08/06/19, patient was admitted with diffuse bilateral pneumonia, and she turned out to have positive PCR for aguiar virus. Patient remains in the ICU, she remains on high flow nasal cannula/airvo with flow of 45 L/m, and 60% FiO2. Her O2 saturation is marginal, 93%. Patient looks very comfortable, she is now on Decadron, Pe pcid, Lovenox, lisinopril, and we added Lopid. Patient has poor oral intake, and dietary was consulted. Clinically the patient stated that she is feeling better. Her inflammatory markers for aguiar virus seems to be improving. Patient has mostly overall generalized weakness. Chest x-ray continues to show diffuse bilateral airspace disease Right more so than left. The left lung seems to be improving compared to previous x-rays CBC is relatively normal electrolytes are normal renal profile is normal, ionized calcium is 4.9. C- reactive protein is 36, LDH is 1262 and ferritin is 406. Patient was reevaluated today on 08/14/19, remains in the ICU, remains on high flow oxygen, FiO2 is 60%, and flow rate is 45 L/m. O2 saturation is 94%. Patient is now complaining of any form of respiratory distress. She seems to be quite comfortable, looks comfortable, her chest x-ray continues to show significant airspace disease in both lungs, however right seems to be more so compared to the left lung. Today I added Zosyn for empiric coverage for possible underlying bacterial infection in addition to her aguiar virus pneumonitis. Labs today were noted to be relatively unremarkable, CBC is re latively normal. No inflammatory markers were ordered today. Patient was reevaluated today on 08/15/19, remains in the ICU, chest x-ray showing slight improvement especially in the right sided pneumonitis. Patient is down to 50% FiO2, flow at 45 L/m, O2 saturation is 88%. However the patient has no symptoms of shortness of breath no cough no wheezing. Her cough is occasional with minimal sputum production. No chest pain, patient does not feel and does not seem to be in distress. Labs today were all reviewed. No inflammatory markers were ordered. Reevaluated today on 08/16/19, patient remains in the ICU, remains on the the same FiO2 and airflow settings, she is on 50% and 45 L/m flow. Remains on Zosyn, remains on Decadron, patient is feeling better, chest x-ray is showing possibly a slight improvement. Patient denies being in distress, she does have some cough the cough is productive with whitish phlegm no fever no chills no hemoptysis no chest pain. C-reactive protein is down to 24.9 today, and it was 35.9 only 2 days ago. Ferritin is down to 270. Rest of the labs are basically unremarkable including a basic metabolic profile and CBC. Objective - Vital Signs Vital signs: Vital Signs Temp 98.0 F 08/16/19 08:00 Pulse 58 L 08/16/19 10:00 Resp 29 H 08/16/19 10:00 BP 111/50 08/16/19 10:00 Pulse Ox 91 L 08/16/19 12:06 Intake & Output 08/15/19 08/16/19 08/16/19 18:59 06:59 18:59 Intake Total 460 500 350 Output Total 1160 1440 400 Balance -700 -940 -50 Weight 92.4 kg Intake: IV 360 250 Sodium Chloride 0.9% 1, 360 250 000 ml @ 50 mls/hr IV . Q20H [facility] Rx#:[id number] Intake, IV Titration 100 500 100 Amount Piperacillin-Tazobactam 3 100 100 100 .375 gm In Sodium Chloride 0.9% 100 ml @ 25 mls/hr IVPB Q8HR [facility] Rx# :[id number] Sodium Chloride 0.9% 1, 400 000 ml @ 50 mls/hr IV . Q20H [facility] Rx#:[id number] Output: Urine 1160 1440 400 Other: Voiding Method Indwelling Catheter Indwelling Catheter Indwelling Catheter # Bowel Movements 1 - Exam Physical Exam: Revealed 73-year-old female, in no distress. On high flow oxygen. 45 L and 50%. Head: Atraumatic, normocephalic. HEENT:[Neck is supple.] [No neck masses.] [No thyromegaly.] [No JVD.] Chest: [Crackles at the bases persists. Symmetrical chest expansion. No chest wall tenderness. Cardiac Exam: [Normal S1 and S2, no S3 gallop, no murmur.] Abdomen: [Soft, nontender, no megaly, no rebound, no guarding, normal bowel sounds.] Extremities: [No clubbing, no edema, no cyanosis.] Neurological Exam: [No focal neurologic deficit.] Alert oriented 3. Psychiatric: Normal mood, affect and normal mental status examination. Skin: No rashes. - Labs CBC & Chem 7: 08/16/19 04:59 08/16/19 04:59 Labs: Abnormal Lab Results - Last 24 Hours (Table) 08/15/19 08/15/19 08/15/19 Range/Units 17:16 17:17 20:23 Lymphocytes # (1.0-4.8) k/uL Sodium (137-145) mmol/L Chloride (98-107) mmol/L Creatinine (0.52-1.04) mg/dL Glucose (74-99) mg/dL POC Glucose (mg/dL) 396 H 394 H 409 H (75-99) mg/dL Calcium (8.4-10.2) mg/dL C-Reactive Protein (<10.0) mg/L Total Protein (6.3-8.2) g/dL Albumin (3.5-5.0) g/dL 08/16/19 08/16/19 08/16/19 Range/Units 04:59 04:59 06:15 Lymphocytes # 0.7 L (1.0-4.8) k/uL Sodium 136 L (137-145) mmol/L Chloride 108 H (98-107) mmol/L Creatinine 0.48 L (0.52-1.04) mg/dL Glucose 130 H (74-99) mg/dL POC Glucose (mg/dL) 129 H (75-99) mg/dL Calcium 8.2 L (8.4-10.2) mg/dL C-Reactive Protein 24.9 H (<10.0) mg/L Total Protein 5.4 L (6.3-8.2) g/dL Albumin 2.4 L (3.5-5.0) g/dL 08/16/19 Range/Units 11:51 Lymphocytes # (1.0-4.8) k/uL Sodium (137-145) mmol/L Chloride (98-107) mmol/L Creatinine (0.52-1.04) mg/dL Glucose (74-99) mg/dL POC Glucose (mg/dL) 198 H (75-99) mg/dL Calcium (8.4-10.2) mg/dL C-Reactive Protein (<10.0) mg/L Total Protein (6.3-8.2) g/dL Albumin (3.5-5.0) g/dL Assessment and Plan Assessment: Impression: Acute hypoxic respiratory failure secondary to covid 19 pneumonitis. Type 2 diabetes. Leukopenia with lymphopenia and thrombocytopenia, resolved. Benign essential hypertension. Recommendation: Continue present supportive care measures. Patient received so far remdesivir, Decadron, remains on Lovenox, Pepcid, atorvastatin, and Zosyn was added yesterday. Continue to monitor the patient in the ICU, Continue all medications as listed above. Add Zosyn 3.375 g IV piggyback every 8 hours for empiric coverage for potential underlying bacterial infection. Considering the patient is clearly demonstrating stability over the last few days, and considering the chest x-ray is showing possibly a slight improvement and not getting any worse, I will transfer the patient out of the ICU to a regular medical floor, and we will continue to follow closely. Not quite ready for discharge planning at this point yet. Time with Patient: Less than 30
--- NOTE | 2019-08-16 14:53 | P.PN ---
Subjective No acute events reported by nursing staff. Patient's feeling about the same. She denies shortness of breath at rest. She is still 60% FiO2/45 L Objective - Vital Signs Vital signs: Vital Signs Temp 98.0 F 08/16/19 08:00 Pulse 58 L 08/16/19 10:00 Resp 29 H 08/16/19 10:00 BP 111/50 08/16/19 10:00 Pulse Ox 91 L 08/16/19 12:06 Intake & Output 08/15/19 08/16/19 08/16/19 18:59 06:59 18:59 Intake Total 460 500 350 Output Total 1160 1440 400 Balance -700 -940 -50 Weight 92.4 kg Intake: IV 360 250 Sodium Chloride 0.9% 1, 360 250 000 ml @ 50 mls/hr IV . Q20H [facility] Rx#:[id number] Intake, IV Titration 100 500 100 Amount Piperacillin-Tazobactam 3 100 100 100 .375 gm In Sodium Chloride 0.9% 100 ml @ 25 mls/hr IVPB Q8HR [facility] Rx# :[id number] Sodium Chloride 0.9% 1, 400 000 ml @ 50 mls/hr IV . Q20H [facility] Rx#:[id number] Output: Urine 1160 1440 400 Other: Voiding Method Indwelling Catheter Indwelling Catheter Indwelling Catheter # Bowel Movements 1 - Exam General: The patient is awake and alert, in no distress Eye: there is normal conjunctiva bilaterally. Neck: The neck is supple, there is no JVD. Cardiovascular: Normal S1-S2, no S3-S4, no murmurs. Respiratory: Lungs with scattered crackles Gastrointestinal: Abdomen is soft, nontender Musculoskeletal: There is no pedal edema. Neurological:. Speech is normal. Skin: Skin is warm and dry - Labs CBC & Chem 7: 08/16/19 04:59 08/16/19 04:59 Labs: Abnormal Lab Results - Last 24 Hours (Table) 08/15/19 08/15/19 08/15/19 Range/Units 17:16 17:17 20:23 Lymphocytes # (1.0-4.8) k/uL Sodium (137-145) mmol/L Chloride (98-107) mmol/L Creatinine (0.52-1.04) mg/dL Glucose (74-99) mg/dL POC Glucose (mg/dL) 396 H 394 H 409 H (75-99) mg/dL Calcium (8.4-10.2) mg/dL C-Reactive Protein (<10.0) mg/L Total Protein (6.3-8.2) g/dL Albumin (3.5-5.0) g/dL 08/16/19 08/16/19 08/16/19 Range/Units 04:59 04:59 06:15 Lymphocytes # 0.7 L (1.0-4.8) k/uL Sodium 136 L (137-145) mmol/L Chloride 108 H (98-107) mmol/L Creatinine 0.48 L (0.52-1.04) mg/dL Glucose 130 H (74-99) mg/dL POC Glucose (mg/dL) 129 H (75-99) mg/dL Calcium 8.2 L (8.4-10.2) mg/dL C-Reactive Protein 24.9 H (<10.0) mg/L Total Protein 5.4 L (6.3-8.2) g/dL Albumin 2.4 L (3.5-5.0) g/dL 08/16/19 Range/Units 11:51 Lymphocytes # (1.0-4.8) k/uL Sodium (137-145) mmol/L Chloride (98-107) mmol/L Creatinine (0.52-1.04) mg/dL Glucose (74-99) mg/dL POC Glucose (mg/dL) 198 H (75-99) mg/dL Calcium (8.4-10.2) mg/dL C-Reactive Protein (<10.0) mg/L Total Protein (6.3-8.2) g/dL Albumin (3.5-5.0) g/dL Assessment and Plan Assessment: Acute sepsis/Community acquired pneumonia/pneumonitis secondary to COVID19 Finished remdisivir course, ID following Continue Decadron 6 mg by mouth daily Continue high flow oxygen and wean as possible Lovenox therapeutic dose especially with the elevated d-dimer and troponin Zosyn started by ICU team on 08/13 to cover for possible bacterial pneumonia Acute hypoxic respiratory failure High-Flow nasal cannula as above Acute COPD exacerbation Steroids as above Bronchodilators DM2 Elevated blood glucose, steroid-induced Increase lantus to 12 units daily SSI with blood sugar checks every before meals and at bedtime HTN Hyperlipidemia Depression All stable resume meds Anticipated discharge: Pending clinical course Disposition: Pending clinical course
[2019-08-16 16:52] LABS: Glucose,Whole Blood 284 mg/dL (75-99)
[2019-08-16] MEDS: ATORVASTATIN 20 MG TAB PO SCH (20:45)
[2019-08-16 20:59] LABS: Glucose,Whole Blood 290 mg/dL (75-99)
--- NOTE | 2019-08-16 22:38 | PN ---
PROGRESS NOTE DATE OF SERVICE: 08/16/2019 REASON FOR FOLLOWUP: Acute COVID-19 pneumonia. INTERVAL HISTORY: The patient is currently afebrile. The patient is hemodynamically stable, not on any pressor support. Oxygen requirement has gone down. No nausea. No vomiting. No diarrhea has been reported. PHYSICAL EXAMINATION: Blood pressure is 119/62 with a pulse of 49, temperature 98.4. She is 94% on 50% FiO2. General description is an elderly female up in the chair in no distress. RESPIRATORY SYSTEM: Unlabored breathing. EXTREMITIES: No edema of the feet. LABS: Hemoglobin 11.9, white count 6.2, BUN of 14, creatinine 0.48. DIAGNOSTIC IMPRESSION AND PLAN: Patient with acute COVID-19 pneumonia in this patient who seems to have responded clinically to the remdesivir. She is currently on Lovenox and dexamethasone; to continue along with the Lovenox continue with supportive care. MMODL / IJN: [id number] /
[2019-08-17] MEDS: PIPERACILLIN-TAZOBACTAM 3.375 GM in SODIUM CHLORIDE 0.9% 100 ML IVPB SCH ×3 (04:55→16:49)
[2019-08-17 06:11] LABS: Basophils % (A) 0 %; Eosinophils # (A) 0.1 k/uL (0-0.7); Eosinophils % (A) 1 %; HCT 34.9 % (34.0-46.0); HGB 11.8 gm/dL (11.4-16.0); Lymphocytes # (A) 0.8 k/uL (1.0-4.8); Lymphocytes % (A) 12 %; MCH 30.5 pg (25.0-35.0); MCHC 33.8 g/dL (31.0-37.0); MCV 90.2 fL (80.0-100.0); Mean Platelet Volume 10.1; Monocytes # (A) 0.2 k/uL (0-1.0); Monocytes % (A) 3 %; Neutrophils # (A) 5.5 k/uL (1.3-7.7); Neutrophils % (A) 82 %; Platelet Count 149 k/uL (150-450); RBC 3.87 m/uL (3.80-5.40); RDW 13.5 % (11.5-15.5); WBC 6.7 k/uL (3.8-10.6)
[2019-08-17 06:17] LABS: ALT 26 U/L (4-34); AST 26 U/L (14-36); African American GFR (CKD) >90 (>60 ml/min/1.73 sqM); Albumin 2.5 g/dL (3.5-5.0); Alkaline Phosphatase 79 U/L (38-126); Anion Gap 5 mmol/L; Blood Urea Nitrogen 14 mg/dL (7-17); Carbon Dioxide 26 mmol/L (22-30); Chloride 108 mmol/L (98-107); Glucose 119 mg/dL (74-99); Non-African American GFR(CKD) >90 (>60 ml/min/1.73 sqM); Potassium 4.3 mmol/L (3.5-5.1); Sodium 139 mmol/L (137-145); Total Bilirubin 0.4 mg/dL (0.2-1.3); Total Protein 5.4 g/dL (6.3-8.2)
[2019-08-17] MEDS: SODIUM CHLORIDE 0.9% 1,000 ML IV SCH ×2 (06:29→16:57)
[2019-08-17 06:51] LABS: Glucose,Whole Blood 120 mg/dL (75-99)
[2019-08-17] MEDS: INSULIN ASPART (NovoLOG) 100 UNIT/ML VIAL SQ SCH ×4 (06:55→22:34)
[2019-08-17] MEDS: INSULIN DETEMIR (LEVEMIR) 100 UNIT/ML SYR SQ SCH (07:07)
--- NOTE | 2019-08-17 08:59 | XR ---
EXAMINATION TYPE: XR chest 1V portable DATE OF EXAM: 08/17/2019 COMPARISON: 08/16/2019 HISTORY: Shortness of breath TECHNIQUE: Single frontal view of the chest is obtained. FINDINGS: Diffuse bilateral infiltrates. Arthropathy of the shoulders. Postsurgical change left shou lder. Heart size stable. Hypertrophic and degenerative change of the spine. IMPRESSION: Diffuse bilateral infiltrates.
[2019-08-17] MEDS: ALBUTEROL HFA INHALER INHALATION SCH ×4 (09:07→20:40)
[2019-08-17] MEDS: FAMOTIDINE 20 MG TAB PO SCH ×2 (09:41→22:15)
[2019-08-17] MEDS: ENOXAPARIN 100 MG/ML SYRINGE SQ SCH ×2 (09:41→22:16)
[2019-08-17] MEDS: DEXAMETHASONE 2 MG TAB PO SCH (09:41)
[2019-08-17] MEDS: PARoxetine 20 MG TAB PO SCH (09:42)
[2019-08-17] MEDS: amLODIPine 5 MG TAB PO SCH (09:42)
[2019-08-17] MEDS: LISINOPRIL 2.5 MG TAB PO SCH (09:42)
[2019-08-17] MEDS: GABAPENTIN 300 MG CAP PO SCH ×2 (09:42→22:16)
--- NOTE | 2019-08-17 11:20 | P.PN ---
Subjective Progress Note Date: 08/17/19 Principal diagnosis: Acute hypoxic respiratory failure secondary to covid 19 pneumonitis. Patient was reevaluated today on 08/13/19, she was admitted on 08/06/19, patient was admitted with diffuse bilateral pneumonia, and she turned out to have positive PCR for aguiar virus. Patient remains in the ICU, she remains on high flow nasal cannula/airvo with flow of 45 L/m, and 60% FiO2. Her O2 saturation is marginal, 93%. Patient looks very comfortable, she is now on Decadron, Pe pcid, Lovenox, lisinopril, and we added Lopid. Patient has poor oral intake, and dietary was consulted. Clinically the patient stated that she is feeling better. Her inflammatory markers for aguiar virus seems to be improving. Patient has mostly overall generalized weakness. Chest x-ray continues to show diffuse bilateral airspace disease Right more so than left. The left lung seems to be improving compared to previous x-rays CBC is relatively normal electrolytes are normal renal profile is normal, ionized calcium is 4.9. C- reactive protein is 36, LDH is 1262 and ferritin is 406. Patient was reevaluated today on 08/14/19, remains in the ICU, remains on high flow oxygen, FiO2 is 60%, and flow rate is 45 L/m. O2 saturation is 94%. Patient is now complaining of any form of respiratory distress. She seems to be quite comfortable, looks comfortable, her chest x-ray continues to show significant airspace disease in both lungs, however right seems to be more so compared to the left lung. Today I added Zosyn for empiric coverage for possible underlying bacterial infection in addition to her aguiar virus pneumonitis. Labs today were noted to be relatively unremarkable, CBC is re latively normal. No inflammatory markers were ordered today. Patient was reevaluated today on 08/15/19, remains in the ICU, chest x-ray showing slight improvement especially in the right sided pneumonitis. Patient is down to 50% FiO2, flow at 45 L/m, O2 saturation is 88%. However the patient has no symptoms of shortness of breath no cough no wheezing. Her cough is occasional with minimal sputum production. No chest pain, patient does not feel and does not seem to be in distress. Labs today were all reviewed. No inflammatory markers were ordered. Reevaluated today on 08/16/19, patient remains in the ICU, remains on the the same FiO2 and airflow settings, she is on 50% and 45 L/m flow. Remains on Zosyn, remains on Decadron, patient is feeling better, chest x-ray is showing possibly a slight improvement. Patient denies being in distress, she does have some cough the cough is productive with whitish phlegm no fever no chills no hemoptysis no chest pain. C-reactive protein is down to 24.9 today, and it was 35.9 only 2 days ago. Ferritin is down to 270. Rest of the labs are basically unremarkable including a basic metabolic profile and CBC. Patient was reevaluated today on 09/13/19, remains on high flow nasal cannula, her O2 saturations up in the 96% range, chest x-ray is showing slight worsening, but clinically the patient is feeling better. Denies shortness of breath but continues to have intermittent episodes of cough. CBC basic metabolic profile and liver profile seems to be quite unremarkable today. Objective - Vital Signs Vital signs: Vital Signs Temp 98.0 F 08/16/19 23:00 Pulse 49 L 08/16/19 17:00 Resp 34 H 08/16/19 23:00 BP 123/79 08/16/19 23:00 Pulse Ox 89 L 08/17/19 03:26 Intake & Output 08/16/19 08/17/19 08/17/19 18:59 06:59 18:59 Intake Total 700 900 Output Total 1100 1350 Balance -400 -450 Weight 92.4 kg 91.6 kg Intake: IV 500 400 Sodium Chloride 0.9% 1, 500 400 000 ml @ 50 mls/hr IV . Q20H [facility] Rx#:[id number] Intake, IV Titration 200 Amount Piperacillin-Tazobactam 3 200 .375 gm In Sodium Chloride 0.9% 100 ml @ 25 mls/hr IVPB Q8HR [facility] Rx# :[id number] Oral 500 Output: Urine 1100 1350 Other: Voiding Method Indwelling Catheter Indwelling Catheter - Exam Physical Exam: Revealed 73-year-old female, in no distress. On high flow oxygen. 45 L and 60%. Head: Atraumatic, normocephalic. HEENT:[Neck is supple.] [No neck masses.] [No thyromegaly.] [No JVD.] Chest: [Crackles at the bases persists. Symmetrical chest expansion. No chest wall tenderness. Cardiac Exam: [Normal S1 and S2, no S3 gallop, no murmur.] Abdomen: [Soft, nontender, no megaly, no rebound, no guarding, normal bowel sounds.] Extremities: [No clubbing, no edema, no cyanosis.] Neurological Exam: [No focal neurologic deficit.] Alert oriented 3. Psychiatric: Normal mood, affect and normal mental status examination. Skin: No rashes. - Labs CBC & Chem 7: 08/17/19 05:05 08/17/19 05:05 Labs: Abnormal Lab Results - Last 24 Hours (Table) 08/16/19 08/16/19 08/16/19 Range/Units 11:51 16:50 20:57 Plt Count (150-450) k/uL Lymphocytes # (1.0-4.8) k/uL Chloride (98-107) mmol/L Creatinine (0.52-1.04) mg/dL Glucose (74-99) mg/dL POC Glucose (mg/dL) 198 H 284 H 290 H (75-99) mg/dL Calcium (8.4-10.2) mg/dL Total Protein (6.3-8.2) g/dL Albumin (3.5-5.0) g/dL 08/17/19 08/17/19 08/17/19 Range/Units 05:05 05:05 06:50 Plt Count 149 L (150-450) k/uL Lymphocytes # 0.8 L (1.0-4.8) k/uL Chloride 108 H (98-107) mmol/L Creatinine 0.48 L (0.52-1.04) mg/dL Glucose 119 H (74-99) mg/dL POC Glucose (mg/dL) 120 H (75-99) mg/dL Calcium 8.0 L (8.4-10.2) mg/dL Total Protein 5.4 L (6.3-8.2) g/dL Albumin 2.5 L (3.5-5.0) g/dL Assessment and Plan Assessment: Impression: Acute hypoxic respiratory failure secondary to covid 19 pneumonitis. Type 2 diabetes. Leukopenia with lymphopenia and thrombocytopenia, resolved. Benign essential hypertension. Recommendation: Continue present supportive care measures. Will transfer the patient to a regular medical floor. And continue to monitor. Continue oxygen at high flow Continue all medications as listed above. Continue Zosyn Transfer out of the ICU once a bed becomes available. Not ready for any discharge planning considering the patient is requiring significant amount of oxygen. Time with Patient: Less than 30
[2019-08-17 12:08] LABS: Glucose,Whole Blood 131 mg/dL (75-99)
[2019-08-17 16:59] LABS: Glucose,Whole Blood 366 mg/dL (75-99)
[2019-08-17 16:59] LABS: Glucose,Whole Blood 364 mg/dL (75-99)
--- NOTE | 2019-08-17 17:13 | P.PN ---
Subjective Progress Note Date: 08/17/19 Principal diagnosis: Coronavirus infection Patient was seen and examined. No acute events overnight. Patient reports improvement in her breathing since yesterday. States that she was feeling much better this morning, tired out this afternoon. She denies any chest pain or pal pitations. No nausea or vomiting. No fever or chills. Currently on high flow saturating 94% 45 L FiO2 60%. Speaking in full sentences without any difficulties on the phone. Chest x-ray shows diffuse bilateral infiltrates. Objective - Vital Signs Vital signs: Vital Signs Temp 98 F 08/17/19 15:00 Pulse 47 L 08/17/19 16:00 Resp 29 H 08/17/19 16:00 BP 121/56 08/17/19 15:00 Pulse Ox 94 L 08/17/19 16:29 Intake & Output 08/16/19 08/17/19 08/17/19 18:59 06:59 18:59 Intake Total 700 900 900 Output Total 1100 1350 700 Balance -400 -450 200 Weight 92.4 kg 91.6 kg Intake: IV 500 400 400 Sodium Chloride 0.9% 1, 500 400 400 000 ml @ 50 mls/hr IV . Q20H [facility] Rx#:[id number] Intake, IV Titration 200 Amount Piperacillin-Tazobactam 3 200 .375 gm In Sodium Chloride 0.9% 100 ml @ 25 mls/hr IVPB Q8HR [facility] Rx# :[id number] Oral 500 500 Output: Urine 1100 1350 700 Other: Voiding Method Indwelling Catheter Indwelling Catheter Indwelling Catheter - Exam General: [non toxic], [no distress], [appears at stated age] Derm: [warm], [dry] Head: [atraumatic], [normocephalic], [symmetric] Eyes: [EOMI], [no lid lag], [anicteric sclera] Mouth: [no lip lesion], [mucus membranes moist] Cardiovascular: [S1S2 reg], [no murmur], [positive DP pulse bilateral], Lungs: [Good air entry with crackles scattered bilateral], [no rhonchi, no rales] , [no accessory muscle use] Abdominal: [soft], [ nontender to palpation], [no guarding], [no appreciable organomegaly] Ext: [no gross muscle atrophy], [no edema], [no contractures] Neuro: [no focal neuro deficits] Psych: [Alert], [oriented], [appropriate affect] - Labs CBC & Chem 7: 08/17/19 05:05 08/17/19 05:05 Labs: Abnormal Lab Results - Last 24 Hours (Table) 08/16/19 08/17/19 08/17/19 Range/Units 20:57 05:05 05:05 Plt Count 149 L (150-450) k/uL Lymphocytes # 0.8 L (1.0-4.8) k/uL Chloride 108 H (98-107) mmol/L Creatinine 0.48 L (0.52-1.04) mg/dL Glucose 119 H (74-99) mg/dL POC Glucose (mg/dL) 290 H (75-99) mg/dL Calcium 8.0 L (8.4-10.2) mg/dL Total Protein 5.4 L (6.3-8.2) g/dL Albumin 2.5 L (3.5-5.0) g/dL 08/17/19 08/17/19 08/17/19 Range/Units 06:50 12:06 16:56 Plt Count (150-450) k/uL Lymphocytes # (1.0-4.8) k/uL Chloride (98-107) mmol/L Creatinine (0.52-1.04) mg/dL Glucose (74-99) mg/dL POC Glucose (mg/dL) 120 H 131 H 366 H (75-99) mg/dL Calcium (8.4-10.2) mg/dL Total Protein (6.3-8.2) g/dL Albumin (3.5-5.0) g/dL 08/17/19 Range/Units 16:57 Plt Count (150-450) k/uL Lymphocytes # (1.0-4.8) k/uL Chloride (98-107) mmol/L Creatinine (0.52-1.04) mg/dL Glucose (74-99) mg/dL POC Glucose (mg/dL) 364 H (75-99) mg/dL Calcium (8.4-10.2) mg/dL Total Protein (6.3-8.2) g/dL Albumin (3.5-5.0) g/dL Assessment and Plan Assessment: Acute hypoxic respiratory failure secondary to COVID 19 with possible superimposed pneumonia Acute COPD exacerbation Type 2 diabetes mellitus with hyperglycemia likely steroid-induced Hypertension Dyslipidemia Depression Patient is currently on Airvo saturating mid 90s on 45 L high flow FiO2 60%. Chest x-ray shows diffuse infiltrates. Blood cultures negative at 144 hours. Continue albuterol inhaler as needed. Continue dexamethasone 6 mg by mouth daily. Continue Lovenox therapeutic dosing due to elevated d-dimer. Completed course of Remdesivir. Zosyn started for possible bacterial pneumonia. Pulmonology on board. Repeat inflammatory markers tomorrow morning. Repeat chest x-ray tomorrow morning. Management as above. [id number] glucose 364. Continue Levemir 16 units at bedtime. Insulin sliding scale. Regular Accu-Cheks. Hypoglycemic precautions. BP 121/56. Continue lisinopril. Monitor vitals, adjust medications as necessary. Continue Lipitor. Continue paroxetine.
--- NOTE | 2019-08-17 17:30 | PN ---
PROGRESS NOTE DATE OF SERVICE: 08/17/2019 REASON FOR FOLLOWUP: Acute COVID-19 pneumonia. INTERVAL HISTORY: Patient is currently afebrile. The patient is breathing comfortably, did request high- flow oxygen this morning, however, currently being weaned off. The patient denies any chest pain. Very minimal cough and occasional sputum. No nausea, vomiting. No abdominal pain. No diarrhea. On examination, blood pressure 120/56, pulse of 97, temperature 98. She is 91% on 45% FIO2. General description is an elderly female up in the chair in no distress. Respiratory system: Unlabored breathing with crackles at bases per still operator batch or continuous. Extremities: No edema of the feet and no rashes. IMPRESSION/PLAN: Patient with acute COVID-19 pneumonia in this patient who has completed her five day course, currently on Dexamethasone, Lovenox, Pepcid to continue along with supportive treatment and monitor clinical course closely. MMMELITONL / BSAIMN: [id number] /
[2019-08-17] MEDS: ATORVASTATIN 20 MG TAB PO SCH (22:16)
[2019-08-17 22:24] LABS: Glucose,Whole Blood 286 mg/dL (75-99)
[2019-08-18] MEDS: PIPERACILLIN-TAZOBACTAM 3.375 GM in SODIUM CHLORIDE 0.9% 100 ML IVPB SCH ×3 (00:10→15:04)
[2019-08-18 07:04] LABS: Glucose,Whole Blood 160 mg/dL (75-99)
[2019-08-18] MEDS: INSULIN ASPART (NovoLOG) 100 UNIT/ML VIAL SQ SCH ×4 (08:13→20:27)
[2019-08-18] MEDS: INSULIN DETEMIR (LEVEMIR) 100 UNIT/ML SYR SQ SCH (08:14)
[2019-08-18] MEDS: PARoxetine 20 MG TAB PO SCH (08:16)
[2019-08-18] MEDS: LISINOPRIL 2.5 MG TAB PO SCH (08:16)
[2019-08-18] MEDS: ENOXAPARIN 100 MG/ML SYRINGE SQ SCH ×2 (08:16→20:33)
[2019-08-18] MEDS: amLODIPine 5 MG TAB PO SCH (08:16)
[2019-08-18] MEDS: DEXAMETHASONE 2 MG TAB PO SCH (08:16)
[2019-08-18] MEDS: FAMOTIDINE 20 MG TAB PO SCH ×2 (08:16→20:27)
[2019-08-18] MEDS: GABAPENTIN 300 MG CAP PO SCH ×2 (08:16→20:27)
[2019-08-18] MEDS: ALBUTEROL HFA INHALER INHALATION SCH ×4 (08:51→20:22)
--- NOTE | 2019-08-18 09:08 | XR ---
EXAMINATION TYPE: XR chest 1V portable DATE OF EXAM: 08/18/2019 COMPARISON: 70 05/04/2019 INDICATION: Covid, coronavirus TECHNIQUE: Single frontal view of the chest is obtained. FINDINGS: The heart size is normal. The pulmonary vasculature is normal. Patchy bilateral infiltrates are present. Findings are similar to prior study. IMPRESSION: 1. Stable patchy infiltrates which can be compatible with atypical pneumonia, coronavirus, in the pro per clinical setting
[2019-08-18 09:55] LABS: Basophils % (A) 0 %; Eosinophils # (A) 0.1 k/uL (0-0.7); Eosinophils % (A) 1 %; HCT 38.6 % (34.0-46.0); Lymphocytes # (A) 0.7 k/uL (1.0-4.8); Lymphocytes % (A) 9 %; MCH 28.6 pg (25.0-35.0); MCV 92.3 fL (80.0-100.0); Mean Platelet Volume 9.6; Monocytes # (A) 0.4 k/uL (0-1.0); Monocytes % (A) 5 %; Neutrophils # (A) 6.5 k/uL (1.3-7.7); Neutrophils % (A) 84 %; Platelet Count 133 k/uL (150-450); RBC 4.19 m/uL (3.80-5.40); RDW 13.6 % (11.5-15.5); WBC 7.7 k/uL (3.8-10.6)
[2019-08-18 10:25] LABS: ALT 28 U/L (4-34); AST 30 U/L (14-36); African American GFR (CKD) >90 (>60 ml/min/1.73 sqM); Albumin 2.6 g/dL (3.5-5.0); Alkaline Phosphatase 80 U/L (38-126); Anion Gap 7 mmol/L; Blood Urea Nitrogen 19 mg/dL (7-17); C Reactive Protein 11.1 mg/L (<10.0); Calcium 8.2 mg/dL (8.4-10.2); Carbon Dioxide 22 mmol/L (22-30); Chloride 106 mmol/L (98-107); Glucose 264 mg/dL (74-99); LDH 977 U/L (313-618); Non-African American GFR(CKD) >90 (>60 ml/min/1.73 sqM); Potassium 3.6 mmol/L (3.5-5.1); Sodium 135 mmol/L (137-145); Total Bilirubin 0.4 mg/dL (0.2-1.3); Total Protein 5.5 g/dL (6.3-8.2)
[2019-08-18 11:59] LABS: Glucose,Whole Blood 186 mg/dL (75-99)
[2019-08-18] MEDS: SODIUM CHLORIDE 0.9% 1,000 ML IV SCH (12:08)
--- NOTE | 2019-08-18 13:10 | P.PN ---
Subjective Progress Note Date: 08/18/19 Principal diagnosis: Acute hypoxic respiratory failure secondary to CoVID 19 pneumonitis The patient is seen today 08/18/2019 in follow-up on the regular medical floor. She is awake and alert in no acute distress. Currently sitting up in a chair at the bedside. She remains on AirVo at 60% FiO2 and 45 L. Chest x-ray continued to show diffuse bilateral pneumonitis more so on the right, unchanged. Clinically she is feeling better. White count 7.7. Hemoglobin 12.0. D-dimer 1.90. Sodium 135. Potassium 3.6. Creatinine 0.43. LDH 977. C-reactive protein 11.1. She remains on Lipitor, dexamethasone, Lovenox, Pepcid. Antibiotics in the form of Zosyn. Objective - Vital Signs Vital signs: Vital Signs Temp 98.5 F 08/18/19 07:00 Pulse 51 L 08/18/19 07:00 Resp 18 08/18/19 07:00 BP 148/77 08/18/19 07:00 Pulse Ox 95 08/18/19 08:51 Intake & Output 08/17/19 08/18/19 08/18/19 18:59 06:59 18:59 Intake Total 900 200 Output Total 418 762 1612 Balance 200 -600 -800 Weight 91.5 kg Intake: IV 400 Sodium Chloride 0.9% 1, 400 000 ml @ 50 mls/hr IV . Q20H [facility] Rx#:[id number] Intake, IV Titration 200 Amount Piperacillin-Tazobactam 3 200 .375 gm In Sodium Chloride 0.9% 100 ml @ 25 mls/hr IVPB Q8HR [facility] Rx# :[id number] Oral 500 Output: Urine 375 091 2238 Other: Voiding Method Indwelling Catheter Indwelling Catheter Indwelling Catheter # Bowel Movements 1 - Exam GENERAL EXAM: Alert, pleasant 73-year-old female patient, on the AirVo device at 60% FiO2, comfortable in no apparent distress. HEAD: Normocephalic. EYES: Normal reaction of pupils, equal size. NOSE: Clear with pink turbinates. THROAT: No erythema or exudates. NECK: No masses, no JVD. CHEST: No chest wall deformity. LUNGS: Equal air entry with bilateral scattered rhonchi. CVS: S1 and S2 normal with no audible murmur, regular rhythm. ABDOMEN: No hepatosplenomegaly, normal bowel sounds, no guarding or rigidity. SPINE: No scoliosis or deformity SKIN: No rashes CENTRAL NERVOUS SYSTEM: No focal deficits, tone is normal in all 4 extremities. EXTREMITIES: There is no peripheral edema. No clubbing, no cyanosis. Peripheral pulses are intact. - Labs CBC & Chem 7: 08/18/19 09:32 08/18/19 09:32 Labs: Abnormal Lab Results - Last 24 Hours (Table) 08/17/19 08/17/19 08/17/19 Range/Units 16:56 16:57 22:22 Plt Count (150-450) k/uL Lymphocytes # (1.0-4.8) k/uL D-Dimer (<0.60) mg/L FEU Sodium (137-145) mmol/L BUN (7-17) mg/dL Creatinine (0.52-1.04) mg/dL Glucose (74-99) mg/dL POC Glucose (mg/dL) 366 H 364 H 286 H (75-99) mg/dL Calcium (8.4-10.2) mg/dL Lactate Dehydrogenase (313-618) U/L C-Reactive Protein (<10.0) mg/L Total Protein (6.3-8.2) g/dL Albumin (3.5-5.0) g/dL 08/18/19 08/18/19 08/18/19 Range/Units 07:03 09:32 09:32 Plt Count 133 L (150-450) k/uL Lymphocytes # 0.7 L (1.0-4.8) k/uL D-Dimer (<0.60) mg/L FEU Sodium 135 L (137-145) mmol/L BUN 19 H (7-17) mg/dL Creatinine 0.43 L (0.52-1.04) mg/dL Glucose 264 H (74-99) mg/dL POC Glucose (mg/dL) 160 H (75-99) mg/dL Calcium 8.2 L (8.4-10.2) mg/dL Lactate Dehydrogenase 977 H (313-618) U/L C-Reactive Protein 11.1 H (<10.0) mg/L Total Protein 5.5 L (6.3-8.2) g/dL Albumin 2.6 L (3.5-5.0) g/dL 08/18/19 08/18/19 Range/Units 09:32 11:58 Plt Count (150-450) k/uL Lymphocytes # (1.0-4.8) k/uL D-Dimer 1.90 H (<0.60) mg/L FEU Sodium (137-145) mmol/L BUN (7-17) mg/dL Creatinine (0.52-1.04) mg/dL Glucose (74-99) mg/dL POC Glucose (mg/dL) 186 H (75-99) mg/dL Calcium (8.4-10.2) mg/dL Lactate Dehydrogenase (313-618) U/L C-Reactive Protein (<10.0) mg/L Total Protein (6.3-8.2) g/dL Albumin (3.5-5.0) g/dL Assessment and Plan Assessment: Acute hypoxic respiratory failure secondary to Covid 19 pneumonitis. Type 2 diabetes. Leukopenia with lymphopenia and thrombocytopenia, resolved. Benign essential hypertension. Plan: The patient was seen and evaluated by Dr. Owens Chest x-ray and labs reviewed Titrate down the FiO2 as tolerated Current medications Increase her activity within her room in isolation as tolerated We will continue to follow and make further recommendations based on her cli nical status I, the cosigning physician, performed a history & physical examination of the patient. Lungs sounds with bilateral scattered rhonchi. Maintaining good O2 saturations in the 90s on 60% FiO2 and 45 L on the AirVo. I discussed the assessment and plan of care with my nurse practitioner, Guerita Griffin. I attest to the above note as dictated by her.
--- NOTE | 2019-08-18 13:57 | P.PN ---
Subjective Progress Note Date: 08/18/19 Principal diagnosis: Coronavirus infection Patient was seen and examined. No acute events overnight. Patient reports mild improvement in her breathing since yesterday. She denies any chest pain or palpitations. No nausea or vomiting. No fever or chills. Currently on high f low saturating mid 90s % 45 L FiO2 60%. Speaking in full sentences without any difficulties. Chest x-ray shows diffuse bilateral infiltrates. Objective - Vital Signs Vital signs: Vital Signs Temp 98.5 F 08/18/19 07:00 Pulse 51 L 08/18/19 07:00 Resp 18 08/18/19 07:00 BP 148/77 08/18/19 07:00 Pulse Ox 95 08/18/19 08:51 Intake & Output 08/17/19 08/18/19 08/18/19 18:59 06:59 18:59 Intake Total 900 200 Output Total 439 979 4019 Balance 200 -600 -800 Weight 91.5 kg Intake: IV 400 Sodium Chloride 0.9% 1, 400 000 ml @ 50 mls/hr IV . Q20H [facility] Rx#:[id number] Intake, IV Titration 200 Amount Piperacillin-Tazobactam 3 200 .375 gm In Sodium Chloride 0.9% 100 ml @ 25 mls/hr IVPB Q8HR [facility] Rx# :[id number] Oral 500 Output: Urine 107 273 9759 Other: Voiding Method Indwelling Catheter Indwelling Catheter Indwelling Catheter # Bowel Movements 1 - Exam General: [non toxic], [no distress], [appears at stated age] Derm: [warm], [dry] Head: [atraumatic], [normocephalic], [symmetric] Eyes: [EOMI], [no lid lag], [anicteric sclera] Mouth: [no lip lesion], [mucus membranes moist] Cardiovascular: [S1S2 reg], [no murmur], [positive DP pulse bilateral], Lungs: [Good air entry with crackles scattered bilateral], [no rhonchi, no rale s] , [no accessory muscle use] Abdominal: [soft], [ nontender to palpation], [no guarding], [no appreciable organomegaly] Ext: [no gross muscle atrophy], [no edema], [no contractures] Neuro: [no focal neuro deficits] Psych: [Alert], [oriented], [appropriate affect] - Labs CBC & Chem 7: 08/18/19 09:32 08/18/19 09:32 Labs: Abnormal Lab Results - Last 24 Hours (Table) 08/17/19 08/17/19 08/17/19 Range/Units 16:56 16:57 22:22 Plt Count (150-450) k/uL Lymphocytes # (1.0-4.8) k/uL D-Dimer (<0.60) mg/L FEU Sodium (137-145) mmol/L BUN (7-17) mg/dL Creatinine (0.52-1.04) mg/dL Glucose (74-99) mg/dL POC Glucose (mg/dL) 366 H 364 H 286 H (75-99) mg/dL Calcium (8.4-10.2) mg/dL Lactate Dehydrogenase (313-618) U/L C-Reactive Protein (<10.0) mg/L Total Protein (6.3-8.2) g/dL Albumin (3.5-5.0) g/dL 08/18/19 08/18/19 08/18/19 Range/Units 07:03 09:32 09:32 Plt Count 133 L (150-450) k/uL Lymphocytes # 0.7 L (1.0-4.8) k/uL D-Dimer (<0.60) mg/L FEU Sodium 135 L (137-145) mmol/L BUN 19 H (7-17) mg/dL Creatinine 0.43 L (0.52-1.04) mg/dL Glucose 264 H (74-99) mg/dL POC Glucose (mg/dL) 160 H (75-99) mg/dL Calcium 8.2 L (8.4-10.2) mg/dL Lactate Dehydrogenase 977 H (313-618) U/L C-Reactive Protein 11.1 H (<10.0) mg/L Total Protein 5.5 L (6.3-8.2) g/dL Albumin 2.6 L (3.5-5.0) g/dL 08/18/19 08/18/19 Range/Units 09:32 11:58 Plt Count (150-450) k/uL Lymphocytes # (1.0-4.8) k/uL D-Dimer 1.90 H (<0.60) mg/L FEU Sodium (137-145) mmol/L BUN (7-17) mg/dL Creatinine (0.52-1.04) mg/dL Glucose (74-99) mg/dL POC Glucose (mg/dL) 186 H (75-99) mg/dL Calcium (8.4-10.2) mg/dL Lactate Dehydrogenase (313-618) U/L C-Reactive Protein (<10.0) mg/L Total Protein (6.3-8.2) g/dL Albumin (3.5-5.0) g/dL Assessment and Plan Assessment: Acute hypoxic respiratory failure secondary to COVID 19 with possible sup erimposed pneumonia Acute COPD exacerbation Type 2 diabetes mellitus with hyperglycemia likely steroid-induced Hypertension Dyslipidemia Depression Patient is currently on Airvo saturating mid 90s on 45 L high flow FiO2 60%. Chest x-ray shows diffuse infiltrates. Blood cultures negative. Continue albuterol inhaler as needed. Continue dexamethasone 6 mg by mouth daily. Continue Lovenox therapeutic dosing due to elevated d-dimer. Completed course of Remdesivir. Zosyn started for possible bacterial pneumonia. Pulmonology on board. D-dimer, LDH and CRP trending down. Repeat chest x-ray tomorrow morning. Management as above. Cjjrg-[id number] glucose 186. Continue Levemir 16 units at bedtime. Insulin sliding scale. Regular Accu-Cheks. Hypoglycemic precautions. BP 148/77. Continue lisinopril. Monitor vitals, adjust medications as necessary. Continue Lipitor. Continue paroxetine.
[2019-08-18 17:07] LABS: Glucose,Whole Blood 361 mg/dL (75-99)
[2019-08-18 20:11] LABS: Glucose,Whole Blood 372 mg/dL (75-99)
[2019-08-18] MEDS: ATORVASTATIN 20 MG TAB PO SCH (20:27)
--- NOTE | 2019-08-18 22:33 | PN ---
PROGRESS NOTE DATE OF SERVICE: 08/18/2019 REASON FOR FOLLOWUP: Acute COVID-19 pneumonia. INTERVAL HISTORY: Patient is currently afebrile. The patient is breathing more comfortably. She has been moved out of the ICU. Still requiring high-flow nasal oxygen. No chest pain or shortness of breath. Minimal cough. No sputum. No nausea. No vomiting. No abdominal pain or diarrhea. PHYSICAL EXAMINATION: Blood pressure 133/64 with a pulse of 63, temperature 98.1. She is 96% on high-flow oxygen. General description: The patient is an elderly female up in the chair in no distress. Respiratory system: Unlabored breathing, decreased breath sounds in the base, with no wheeze. Heart S1, S2. Regular rate and rhythm. Abdomen: Soft, no tenderness. LABS: CRP is down to 11 and did show a downward trend as well. White count is normal. Creatinine 0.43. DIAGNOSTIC IMPRESSION/PLAN: 1. Patient with acute COVID-19 pneumonia in this patient who seemed to have shown overall clinical improvement and received a 5 day course of currently on Lovenox, and Dexamethasone. Inflammatory marker showing a downward trend. No evidence of any secondary bacterial pneumonia. Zosyn can be discontinued. 2. Patient with a Fisher which can be discontinued to decrease risk of catheter associated urinary tract infection. MMODL / IJN: [id number] /
[2019-08-19] MEDS: PIPERACILLIN-TAZOBACTAM 3.375 GM in SODIUM CHLORIDE 0.9% 100 ML IVPB SCH ×3 (00:55→16:15)
[2019-08-19] MEDS: ALBUTEROL HFA INHALER INHALATION SCH ×4 (07:49→21:19)
[2019-08-19 08:11] LABS: Basophils % (A) 0 %; Eosinophils # (A) 0.1 k/uL (0-0.7); Eosinophils % (A) 1 %; HCT 37.6 % (34.0-46.0); HGB 12.8 gm/dL (11.4-16.0); Lymphocytes # (A) 1.1 k/uL (1.0-4.8); Lymphocytes % (A) 13 %; MCH 30.3 pg (25.0-35.0); MCV 89.1 fL (80.0-100.0); Mean Platelet Volume 9.9; Monocytes # (A) 0.3 k/uL (0-1.0); Monocytes % (A) 4 %; Neutrophils # (A) 6.8 k/uL (1.3-7.7); Neutrophils % (A) 81 %; Platelet Count 129 k/uL (150-450); RBC 4.23 m/uL (3.80-5.40); RDW 13.5 % (11.5-15.5); WBC 8.4 k/uL (3.8-10.6)
[2019-08-19 08:20] LABS: Glucose,Whole Blood 127 mg/dL (75-99)
[2019-08-19] MEDS: INSULIN ASPART (NovoLOG) 100 UNIT/ML VIAL SQ SCH ×4 (08:20→23:16)
[2019-08-19 08:22] LABS: ALT 32 U/L (4-34); AST 29 U/L (14-36); African American GFR (CKD) >90 (>60 ml/min/1.73 sqM); Albumin 2.7 g/dL (3.5-5.0); Alkaline Phosphatase 80 U/L (38-126); Anion Gap 4 mmol/L; Blood Urea Nitrogen 19 mg/dL (7-17); Calcium 8.4 mg/dL (8.4-10.2); Carbon Dioxide 27 mmol/L (22-30); Chloride 107 mmol/L (98-107); Glucose 106 mg/dL (74-99); Non-African American GFR(CKD) >90 (>60 ml/min/1.73 sqM); Potassium 4.3 mmol/L (3.5-5.1); Sodium 138 mmol/L (137-145); Total Bilirubin 0.5 mg/dL (0.2-1.3); Total Protein 5.7 g/dL (6.3-8.2)
[2019-08-19] MEDS: INSULIN DETEMIR (LEVEMIR) 100 UNIT/ML SYR SQ SCH (08:34)
[2019-08-19] MEDS: SODIUM CHLORIDE 0.9% 1,000 ML IV SCH (08:35)
[2019-08-19] MEDS: PARoxetine 20 MG TAB PO SCH (08:36)
[2019-08-19] MEDS: GABAPENTIN 300 MG CAP PO SCH ×2 (08:36→23:16)
[2019-08-19] MEDS: amLODIPine 5 MG TAB PO SCH (08:36)
[2019-08-19] MEDS: LISINOPRIL 2.5 MG TAB PO SCH (08:36)
[2019-08-19] MEDS: DEXAMETHASONE 2 MG TAB PO SCH (08:36)
[2019-08-19] MEDS: FAMOTIDINE 20 MG TAB PO SCH ×2 (08:36→23:16)
[2019-08-19 11:36] LABS: Glucose,Whole Blood 169 mg/dL (75-99)
--- NOTE | 2019-08-19 12:19 | P.PN ---
Subjective Progress Note Date: 08/19/19 Principal diagnosis: Acute hypoxic respiratory failure secondary to CoVID 19 pneumonitis The patient is seen today 08/18/2019 in follow-up on the regular medical floor. She is awake and alert in no acute distress. Currently sitting up in a chair at the bedside. She remains on AirVo at 60% FiO2 and 45 L. Chest x-ray continued to show diffuse bilateral pneumonitis more so on the right, unchanged. Clinically she is feeling better. White count 7.7. Hemoglobin 12.0. D-dimer 1.90. Sodium 135. Potassium 3.6. Creatinine 0.43. LDH 977. C-reactive protein 11.1. She remains on Lipitor, dexamethasone, Lovenox, Pepcid. Antibiotics in the form of Zosyn. The patient is seen today 08/19/2019 in follow-up on the regular medical floor. She is currently sitting up in a chair at the bedside. Awake and alert in no acute distress. Breathing easier today compared to yesterday. Still requiring AirVo high flow oxygen currently at 40 L and 43% FiO2. White count 8.4. He moglobin 12.8. Platelet counts 129,000. Sodium 138. Potassium 4.3. Creatinine 0.50. Objective - Vital Signs Vital signs: Vital Signs Temp 98.7 F 08/19/19 07:00 Pulse 51 L 08/19/19 08:00 Resp 16 08/19/19 08:00 BP 118/71 08/19/19 01:37 Pulse Ox 93 L 08/19/19 07:00 Intake & Output 08/18/19 08/19/19 08/19/19 18:59 06:59 18:59 Intake Total 200 100 Output Total 1000 650 Balance -800 100 -650 Weight 91.7 kg Intake: Intake, IV Titration 200 Amount Piperacillin-Tazobactam 3 200 .375 gm In Sodium Chloride 0.9% 100 ml @ 25 mls/hr IVPB Q8HR [facility] Rx# :[id number] Oral 100 Output: Urine 1000 650 Other: Voiding Method Indwelling Catheter Indwelling Catheter Indwelling Catheter # Bowel Movements 1 1 - Exam GENERAL EXAM: Alert, pleasant 73-year-old female patient, on the AirVo device at 43% FiO2, comfortable in no apparent distress. HEAD: Normocephalic. EYES: Normal reaction of pupils, equal size. NOSE: Clear with pink turbinates. THROAT: No erythema or exudates. NECK: No masses, no JVD. CHEST: No chest wall deformity. LUNGS: Equal air entry with bilateral scattered rhonchi. CVS: S1 and S2 normal with no audible murmur, regular rhythm. ABDOMEN: No hepatosplenomegaly, normal bowel sounds, no guarding or rigidity. SPINE: No scoliosis or deformity SKIN: No rashes CENTRAL NERVOUS SYSTEM: No focal deficits, tone is normal in all 4 extremities. EXTREMITIES: There is no peripheral edema. No clubbing, no cyanosis. Peripheral pulses are intact. - Labs CBC & Chem 7: 08/19/19 07:40 08/19/19 07:40 Labs: Abnormal Lab Results - Last 24 Hours (Table) 08/18/19 08/18/19 08/19/19 Range/Units 17:00 20:08 07:40 Plt Count (150-450) k/uL BUN 19 H (7-17) mg/dL Creatinine 0.50 L (0.52-1.04) mg/dL Glucose 106 H (74-99) mg/dL POC Glucose (mg/dL) 361 H 372 H (75-99) mg/dL Total Protein 5.7 L (6.3-8.2) g/dL Albumin 2.7 L (3.5-5.0) g/dL 08/19/19 08/19/19 08/19/19 Range/Units 07:40 08:19 11:35 Plt Count 129 L (150-450) k/uL BUN (7-17) mg/dL Creatinine (0.52-1.04) mg/dL Glucose (74-99) mg/dL POC Glucose (mg/dL) 127 H 169 H (75-99) mg/dL Total Protein (6.3-8.2) g/dL Albumin (3.5-5.0) g/dL Assessment and Plan Assessment: Acute hypoxic respiratory failure secondary to Covid 19 pneumonitis. Improving and currently on AirVo at 40 L and 43% FiO2 Type 2 diabetes. Leukopenia with lymphopenia and thrombocytopenia, improved Benign essential hypertension. Plan: The patient was seen and evaluated by Dr. Owens She remains stable from the pulmonary standpoint Repeat chest x-ray in a.m. Titrate down the FiO2 as tolerated Continue current medications We will continue to follow and make further recommendations based on her clinical status I, the cosigning physician, performed a history & physical examination of the patient. Lungs sounds with bilateral scattered rhonchi. Maintaining good O2 saturations in the 90s on 43% FiO2 and 40 L on the AirVo. I discussed the assessment and plan of care with my nurse practitioner, Guerita Griffin. I attest to the above note as dictated by her.
--- NOTE | 2019-08-19 14:17 | P.PN ---
Subjective Progress Note Date: 08/19/19 Principal diagnosis: Coronavirus infection Patient was seen and examined. No acute events overnight. Patient reports mild improvement in her breathing since yesterday. She denies any chest pain or palpitations. No nausea or vomiting. No fever or chills. Currently on high f low saturating mid 90s % 40 L FiO2 44%. Speaking in full sentences without any difficulties. Chest x-ray shows diffuse bilateral infiltrates. Objective - Vital Signs Vital signs: Vital Signs Temp 98.7 F 08/19/19 07:00 Pulse 51 L 08/19/19 08:00 Resp 16 08/19/19 08:00 BP 118/71 08/19/19 01:37 Pulse Ox 93 L 08/19/19 07:00 Intake & Output 08/18/19 08/19/19 08/19/19 18:59 06:59 18:59 Intake Total 200 100 100 Output Total 1000 650 Balance -800 100 -550 Weight 91.7 kg Intake: Intake, IV Titration 200 Amount Piperacillin-Tazobactam 3 200 .375 gm In Sodium Chloride 0.9% 100 ml @ 25 mls/hr IVPB Q8HR [facility] Rx# :[id number] Oral 100 100 Output: Urine 1000 650 Other: Voiding Method Indwelling Catheter Indwelling Catheter Indwelling Catheter # Bowel Movements 1 1 - Exam General: [non toxic], [no distress], [appears at stated age] Derm: [warm], [dry] Head: [atraumatic], [normocephalic], [symmetric] Eyes: [EOMI], [no lid lag], [anicteric sclera] Mouth: [no lip lesion], [mucus membranes moist] Cardiovascular: [S1S2 reg], [no murmur], [positive DP pulse bilateral], Lungs: [Good air entry with crackles scattered bilateral], [no rhonchi, no rales] , [no accessory muscle use] Abdominal: [soft], [ nontender to palpation], [no guarding], [no appreciable or ganomegaly] Ext: [no gross muscle atrophy], [no edema], [no contractures] Neuro: [no focal neuro deficits] Psych: [Alert], [oriented], [appropriate affect] - Labs CBC & Chem 7: 08/19/19 07:40 08/19/19 07:40 Labs: Abnormal Lab Results - Last 24 Hours (Table) 08/18/19 08/18/19 08/19/19 Range/Units 17:00 20:08 07:40 Plt Count (150-450) k/uL BUN 19 H (7-17) mg/dL Creatinine 0.50 L (0.52-1.04) mg/dL Glucose 106 H (74-99) mg/dL POC Glucose (mg/dL) 361 H 372 H (75-99) mg/dL Total Protein 5.7 L (6.3-8.2) g/dL Albumin 2.7 L (3.5-5.0) g/dL 08/19/19 08/19/19 08/19/19 Range/Units 07:40 08:19 11:35 Plt Count 129 L (150-450) k/uL BUN (7-17) mg/dL Creatinine (0.52-1.04) mg/dL Glucose (74-99) mg/dL POC Glucose (mg/dL) 127 H 169 H (75-99) mg/dL Total Protein (6.3-8.2) g/dL Albumin (3.5-5.0) g/dL Assessment and Plan Assessment: Acute hypoxic respiratory failure secondary to COVID 19 with possible superimposed pneumonia Acute COPD exacerbation Type 2 diabetes mellitus with hyperglycemia likely steroid-induced Hypertension Dyslipidemia Depression Patient is currently on Airvo saturating mid 90s on 40 L high flow FiO2 44%. Chest x-ray shows diffuse infiltrates. Blood cultures negative. Continue albuterol inhaler as needed. Continue dexamethasone 6 mg by mouth daily. Continue Lovenox therapeutic dosing due to elevated d-dimer. Completed course of Remdesivir. Zosyn started for possible bacterial pneumonia. Pulmonology on board. D-dimer, LDH and CRP trending down. Repeat chest x-ray tomorrow morning. Management as above. Rfffc-cm-puvl glucose 169. Continue Levemir 16 units at bedtime. Insulin sliding scale. Regular Accu-Cheks. Hypoglycemic precautions. BP 118/71. Continue lisinopril. Monitor vitals, adjust medications as necessar y. Continue Lipitor. Continue paroxetine. [Patient admitted for acute hypoxic respiratory failure secondary to coronavirus infection. She is on high flow nasal cannula and oxygen requirements are slowly decreasing. She is pending clinical improvement. Pulmonology on board. Likely DC in 3 days.]
[2019-08-19] MEDS: ENOXAPARIN 100 MG/ML SYRINGE SQ SCH ×2 (16:18→20:42)
[2019-08-19 16:19] LABS: Glucose,Whole Blood 297 mg/dL (75-99)
[2019-08-19 20:38] LABS: Glucose,Whole Blood 312 mg/dL (75-99)
[2019-08-19] MEDS: ATORVASTATIN 20 MG TAB PO SCH (23:16)
[2019-08-20] MEDS: ENOXAPARIN 100 MG/ML SYRINGE SQ SCH ×2 (05:58→17:34)
[2019-08-20] MEDS: SODIUM CHLORIDE 0.9% 1,000 ML IV SCH (06:02)
--- NOTE | 2019-08-20 06:28 | PN ---
PROGRESS NOTE DATE OF SERVICE: 08/19/2019 REASON FOR FOLLOWUP: Acute COVID-19 pneumonia. INTERVAL HISTORY: The patient is currently afebrile. The patient has been breathing comfortably. The patient denies having any chest pain or shortness of breath. . No nausea, no vomiting. No abdominal pain or diarrhea. Overall O2 requirement has decreased down to 12 L. PHYSICAL EXAMINATION: Blood pressure 112/69 with a pulse of 47, temperature 98.5. She is 98% on 12 L nasal cannula. General description is an elderly female up in the chair in no distress. RESPIRATORY SYSTEM: Unlabored breathing. Extremities: No edema of the feet. LABS: White count of 8.4, BUN of 19, creatinine 0.50. Blood culture has been negative. DIAGNOSTIC IMPRESSION AND PLAN: 1. Patient with acute COVID-19 pneumonia for which patient completed therapy. The patient is currently on Lovenox and dexamethasone to be continued clinically without any evidence of secondary bacterial pneumonia. Zosyn will be discontinued. 2. Also we are going to discontinue her Fisher catheter to decrease risk of catheter associated urinary tract infection. MMODL / IJN: [id number] /
[2019-08-20 06:54] LABS: Glucose,Whole Blood 136 mg/dL (75-99)
[2019-08-20] MEDS: INSULIN ASPART (NovoLOG) 100 UNIT/ML VIAL SQ SCH ×4 (07:15→21:15)
[2019-08-20] MEDS: FAMOTIDINE 20 MG TAB PO SCH ×2 (08:31→21:15)
[2019-08-20] MEDS: LISINOPRIL 2.5 MG TAB PO SCH (08:31)
[2019-08-20] MEDS: INSULIN DETEMIR (LEVEMIR) 100 UNIT/ML SYR SQ SCH (08:31)
[2019-08-20] MEDS: GABAPENTIN 300 MG CAP PO SCH ×2 (08:32→21:15)
[2019-08-20] MEDS: amLODIPine 5 MG TAB PO SCH (08:32)
[2019-08-20] MEDS: DEXAMETHASONE 2 MG TAB PO SCH (08:32)
[2019-08-20] MEDS: PARoxetine 20 MG TAB PO SCH (08:32)
--- NOTE | 2019-08-20 08:50 | XR ---
EXAMINATION TYPE: XR chest 1V portable DATE OF EXAM: 08/20/2019 COMPARISON: 08/18/2019 HISTORY: Cough, TECHNIQUE: Single frontal view of the chest is obtained. FINDINGS: Diffuse patchy infiltrates bilaterally. Postsurgical change left shoulder and arthropathy right shoulder. No pleural effusion or pneumothorax. Heart size stable. IMPRESSION: Diffuse bilateral infiltrates
[2019-08-20] MEDS: ALBUTEROL HFA INHALER INHALATION SCH ×4 (09:18→20:13)
--- NOTE | 2019-08-20 09:20 | P.PN ---
Subjective No acute events reported by nursing staff. Patient is feeling better today. She denies shortness of breath at this time. Her oxygen requirements improved. She is currently on 20 L of oxygen. Objective - Vital Signs Vital signs: Vital Signs Temp 98 F 08/20/19 06:45 Pulse 44 L 08/20/19 06:45 Resp 18 08/20/19 07:10 BP 139/69 08/20/19 06:45 Pulse Ox 96 08/20/19 06:45 Intake & Output 08/19/19 08/20/19 08/20/19 18:59 06:59 18:59 Intake Total 400 Output Total 1300 750 Balance -900 -750 Weight 77.5 kg Intake: IV 300 Sodium Chloride 0.9% 1, 300 000 ml @ 50 mls/hr IV . Q20H [facility] Rx#:[id number] Oral 100 Output: Urine 1300 750 Other: Voiding Method Indwelling Catheter Indwelling Catheter Indwelling Catheter # Voids 1 300 # Bowel Movements 1 - Exam General: The patient is awake and alert, in no distress Eye: there is normal conjunctiva bilaterally. Neck: The neck is supple, there is no JVD. Cardiovascular: Normal S1-S2, no S3-S4, no murmurs. Respiratory: Lungs clear to auscultation bilaterally Gastrointestinal: Abdomen is soft, nontender Musculoskeletal: There is no pedal edema. Neurological:. Speech is normal. Skin: Skin is warm and dry - Labs CBC & Chem 7: 08/19/19 07:40 08/19/19 07:40 Labs: Abnormal Lab Results - Last 24 Hours (Table) 08/19/19 08/19/19 08/19/19 Range/Units 11:35 16:18 20:37 POC Glucose (mg/dL) 169 H 297 H 312 H (75-99) mg/dL 08/20/19 Range/Units 06:46 POC Glucose (mg/dL) 136 H (75-99) mg/dL Assessment and Plan Assessment: Acute sepsis/Community acquired pneumonia/pneumonitis secondary to COVID19 X-ray showing persistent diffuse infiltrates Finished remdisivir course, ID following Continue Decadron 6 mg by mouth daily Continue high flow oxygen and wean as possible Lovenox therapeutic dose especially with the elevated d-dimer and troponin Finished antibiotic course with Zosyn to cover for possible bacterial pneumonia Acute hypoxic respiratory failure Oxygen requirement improving currently on 23 to Acute COPD exacerbation Steroids as above Bronchodilators DM2 Elevated blood glucose, steroid-induced Increase lantus to 12 units daily SSI with blood sugar checks every before meals and at bedtime HTN Hyperlipidemia Depression All stable resume meds Anticipated discharge: Pending clinical course Disposition: Pending clinical course
[2019-08-20 11:22] LABS: Prothrombin Time 10.7 sec (9.0-12.0)
[2019-08-20 11:37] LABS: Glucose,Whole Blood 133 mg/dL (75-99)
[2019-08-20 11:40] LABS: Ferritin 268.7 ng/mL (10.0-291.0)
[2019-08-20 11:47] LABS: C Reactive Protein <5.0 mg/L (<10.0); LDH 900 U/L (313-618)
--- NOTE | 2019-08-20 13:13 | P.PN ---
Subjective Progress Note Date: 08/20/19 Principal diagnosis: Acute COVID 19 related pneumonia On today's evaluation the patient is on 2 L oxygen by nasal cannula. Denies having any significant shortness of breath and we are still awaiting the covid19 nasal swab PCR.. The patient has developed leukopenia which could be essentially viral in nature. The patient remains in rapid atrial fibrillation. The patient remains on a combination of Rocephin and Zithromax. She remains on IV Solu Medrol 40 mg every 6 hours. On 08/08/2019 patient seen in follow-up on medical surgical floor, her COVID 19 was found to be positive. Clinically patient remains stable, room air pulse ox is 90%, she is afebrile, hemodynamically she is stable, occasional cough, no specific complaints. Feeling better, with a stop the azithromycin, Decadron has been added, patient is ready on Lovenox prophylactic dose. Today's blood work shows white blood cell count at 5.4, within normal range now, lymphocyte count is 0.5, sodium is 141, potassium is 3.9, chloride is 111, CO2 is 21, BUN is 19, creatinine 0.47. Patient reports no nausea no vomiting, breathing appears to be comfortable. On 08/20/2019 patient seen in follow-up on general medical floor, she was on 12 L of oxygen pulse ox of 96%, currently on 10 L of oxygen her pulse ox is 97%, no complaints of worsening dyspnea, she looks very comfortable, she is up to the commode, her Fisher has been discontinued, lung sounds are clear, no crackles nor rhonchi, no fever or chills, chest x-ray still shows patchy diffuse bilateral infiltrates, repeat inflammatory markers are pending, patient is status post course of treatment with remdesivir, she is on oral Decadron, Lovenox at 90 milligrams twice daily, oral Pepcid. No acute events overnight, she states her breathing has improved, but it has improved, no nausea vomiting diarrhea, no complex of abdominal pain. Objective - Vital Signs Vital signs: Vital Signs Temp 98 F 08/20/19 06:45 Pulse 44 L 08/20/19 06:45 Resp 18 08/20/19 07:10 BP 139/69 08/20/19 06:45 Pulse Ox 96 08/20/19 12:40 Intake & Output 08/19/19 08/20/19 08/20/19 18:59 06:59 18:59 Intake Total 400 Output Total 1300 750 700 Balance -900 -750 -700 Weight 77.5 kg Intake: IV 300 Sodium Chloride 0.9% 1, 300 000 ml @ 50 mls/hr IV . Q20H [facility] Rx#:[id number] Oral 100 Output: Urine 1300 750 700 Other: Voiding Method Indwelling Catheter Indwelling Catheter Indwelling Catheter # Voids 1 300 # Bowel Movements 1 - Exam GENERAL EXAM: Alert, very pleasant, 73-year-old white female, 10 L per high flow nasal cannula with pulse ox of 97% comfortable in no apparent distress. HEAD: Normocephalic/atraumatic. EYES: Normal reaction of pupils, equal size. Conjunctiva pink, sclera white. NOSE: Clear with pink turbinates. THROAT: No erythema or exudates. NECK: No masses, no JVD, no thyroid enlargement, no adenopathy. CHEST: No chest wall deformity. Symmetrical expansion. LUNGS: Equal air entry with no crackles, wheeze, rhonchi or dullness. CVS: Regular rate and rhythm, normal S1 and S2, no gallops, no murmurs, no rubs ABDOMEN: Soft, nontender. No hepatosplenomegaly, normal bowel sounds, no guarding or rigidity. EXTREMITIES: No clubbing, no edema, no cyanosis, 2+ pulses and upper and lower extremities. MUSCULOSKELETAL: Muscle strength and tone normal. SPINE: No scoliosis or deformity SKIN: No rashes CENTRAL NERVOUS SYSTEM: Alert and oriented -3. No focal deficits, tone is normal in all 4 extremities. PSYCHIATRIC: Alert and oriented -3. Appropriate affect. Intact judgment and insight. - Labs CBC & Chem 7: 08/19/19 07:40 08/19/19 07:40 Labs: Abnormal Lab Results - Last 24 Hours (Table) 08/19/19 08/19/19 08/20/19 Range/Units 16:18 20:37 06:46 POC Glucose (mg/dL) 297 H 312 H 136 H (75-99) mg/dL Lactate Dehydrogenase (313-618) U/L 08/20/19 08/20/19 Range/Units 10:46 11:34 POC Glucose (mg/dL) 133 H (75-99) mg/dL Lactate Dehydrogenase 900 H (313-618) U/L Assessment and Plan Plan: Assessment: 1 Acute bilateral pneumonia with vague groundglass pulmonary infiltrates second andres to COVID 19 related pneumonia. Improving, and patient is off the Airvo, early on 10 L per high flow nasal cannula. Patient has received a course of Remdesivir, remains on Decadron, therapeutic doses of Lovenox, Pepcid 2 shortness of breath secondary to above, improved 3 diabetes mellitus type 2 4 hypertension 5 hyperlipidemia 6 history of depression 7 leukopenia/lymphopenia 8 thrombocytopenia Plan: Continue current medical treatment, continue weaning FiO2 to keep O2 sat at 92% or better, currently is down to 10 L, continue to wean, breathing is comfortable, no fever or chills, today's chest x-ray has been reviewed showing persistence of diffuse bilateral infiltrates, but clinically patient is stable, recent activity as tolerated. Will repeat inflammatory markers today. I performed a history & physical examination of the patient and discussed their management with my nurse practitioner, Erin Encarnacion. I reviewed the nurse practitioner's note and agree with the documented findings and plan of care. Lung sounds are positive for diminished breath sounds. The findings and the impression was discussed with the patient. I attest to the documentation by the nurse practitioner. Time with Patient: Less than 30
[2019-08-20 16:59] LABS: Glucose,Whole Blood 322 mg/dL (75-99)
--- NOTE | 2019-08-20 20:35 | PN ---
PROGRESS NOTE DATE OF SERVICE: 08/20/2019 REASON FOR FOLLOWUP: Acute COVID-19 pneumonia. INTERVAL HISTORY: The patient is currently afebrile. The patient is breathing more comfortably. The patient is hemodynamically stable, not on any pressor support. FiO2 is currently down to 8 L. She is saturating 97% on it. No significant cough, vomiting or any diarrhea reported. Fisher catheter has been discontinued. PHYSICAL EXAMINATION: Blood pressure 104/67, pulse of 77, temperature 98.5. She is 92% on 8 L nasal cannula. General description is an elderly female lying in bed in no distress. RESPIRATORY SYSTEM: Unlabored breathing with minimal crackles reported by the nursing staff. EXTREMITIES: No edema of the feet. LAB: CRP normal. LDH is 900. DIAGNOSTIC IMPRESSION AND PLAN: Patient with acute COVID-19 pneumonia that has been adequately treated. The patient has completed her 5-day course of remdesivir. No evidence of any secondary bacterial pneumonia. Hence no need for systemic antibiotics. We will monitor her clinical course closely. MMODL / IJN: [id number] /
[2019-08-20 21:01] LABS: Glucose,Whole Blood 281 mg/dL (75-99)
[2019-08-20] MEDS: ATORVASTATIN 20 MG TAB PO SCH (21:15)
[2019-08-21] MEDS: ENOXAPARIN 100 MG/ML SYRINGE SQ SCH ×2 (06:12→17:26)
[2019-08-21 06:55] LABS: Glucose,Whole Blood 129 mg/dL (75-99)
[2019-08-21] MEDS: INSULIN ASPART (NovoLOG) 100 UNIT/ML VIAL SQ SCH ×4 (07:17→21:44)
[2019-08-21] MEDS: INSULIN DETEMIR (LEVEMIR) 100 UNIT/ML SYR SQ SCH (07:17)
[2019-08-21 08:08] LABS: Basophils % (A) 0 %; Eosinophils # (A) 0.1 k/uL (0-0.7); Eosinophils % (A) 1 %; HCT 38.7 % (34.0-46.0); HGB 12.8 gm/dL (11.4-16.0); Lymphocytes # (A) 1.1 k/uL (1.0-4.8); Lymphocytes % (A) 17 %; MCHC 33.1 g/dL (31.0-37.0); MCV 90.6 fL (80.0-100.0); Monocytes # (A) 0.4 k/uL (0-1.0); Monocytes % (A) 5 %; Neutrophils % (A) 75 %; Platelet Count 101 k/uL (150-450); RBC 4.28 m/uL (3.80-5.40); RDW 13.5 % (11.5-15.5); WBC 6.6 k/uL (3.8-10.6)
[2019-08-21 08:25] LABS: African American GFR (CKD) >90 (>60 ml/min/1.73 sqM); Anion Gap 3 mmol/L; Blood Urea Nitrogen 24 mg/dL (7-17); Calcium 8.5 mg/dL (8.4-10.2); Carbon Dioxide 30 mmol/L (22-30); Chloride 104 mmol/L (98-107); Glucose 128 mg/dL (74-99); Non-African American GFR(CKD) >90 (>60 ml/min/1.73 sqM); Potassium 5.1 mmol/L (3.5-5.1); Sodium 137 mmol/L (137-145)
[2019-08-21] MEDS: DEXAMETHASONE 2 MG TAB PO SCH (09:04)
[2019-08-21] MEDS: amLODIPine 5 MG TAB PO SCH (09:04)
[2019-08-21] MEDS: LISINOPRIL 2.5 MG TAB PO SCH (09:04)
[2019-08-21] MEDS: FAMOTIDINE 20 MG TAB PO SCH ×2 (09:04→21:44)
[2019-08-21] MEDS: PARoxetine 20 MG TAB PO SCH (09:04)
[2019-08-21] MEDS: GABAPENTIN 300 MG CAP PO SCH ×2 (09:04→21:44)
[2019-08-21] MEDS: ALBUTEROL HFA INHALER INHALATION SCH ×4 (09:45→19:59)
--- NOTE | 2019-08-21 10:11 | P.PN ---
Subjective No acute events reported by nursing staff. Patient is feeling better today. She denies shortness of breath at this time. Her oxygen requirements improved. She is currently on 20 L of oxygen. Objective - Vital Signs Vital signs: Vital Signs Temp 97.7 F 08/21/19 06:50 Pulse 45 L 08/21/19 07:13 Resp 16 08/21/19 07:13 BP 165/65 08/21/19 06:50 Pulse Ox 97 08/21/19 06:50 Intake & Output 08/20/19 08/21/19 08/21/19 18:59 06:59 18:59 Intake Total 500 100 Output Total 700 700 Balance -200 -600 Intake: Intake, IV Titration 400 Amount Sodium Chloride 0.9% 1, 400 000 ml @ 50 mls/hr IV . Q20H [facility] Rx#:[id number] Oral 100 100 Output: Urine 700 700 Other: Voiding Method Toilet Toilet Toilet # Voids 2 1 1 - Exam General: The patient is awake and alert, in no distress Eye: there is normal conjunctiva bilaterally. Neck: The neck is supple, there is no JVD. Cardiovascular: Normal S1-S2, no S3-S4, no murmurs. Respiratory: Lungs with scattered crackles Gastrointestinal: Abdomen is soft, nontender Musculoskeletal: There is no pedal edema. Neurological:. Speech is normal. Skin: Skin is warm and dry - Labs CBC & Chem 7: 08/21/19 07:33 08/21/19 07:33 Labs: Abnormal Lab Results - Last 24 Hours (Table) 08/20/19 08/20/19 08/20/19 Range/Units 10:46 11:34 16:56 Plt Count (150-450) k/uL BUN (7-17) mg/dL Creatinine (0.52-1.04) mg/dL Glucose (74-99) mg/dL POC Glucose (mg/dL) 133 H 322 H (75-99) mg/dL Lactate Dehydrogenase 900 H (313-618) U/L 08/20/19 08/21/19 08/21/19 Range/Units 21:00 06:51 07:33 Plt Count 101 L (150-450) k/uL BUN (7-17) mg/dL Creatinine (0.52-1.04) mg/dL Glucose (74-99) mg/dL POC Glucose (mg/dL) 281 H 129 H (75-99) mg/dL Lactate Dehydrogenase (313-618) U/L 08/21/19 Range/Units 07:33 Plt Count (150-450) k/uL BUN 24 H (7-17) mg/dL Creatinine 0.51 L (0.52-1.04) mg/dL Glucose 128 H (74-99) mg/dL POC Glucose (mg/dL) (75-99) mg/dL Lactate Dehydrogenase (313-618) U/L Assessment and Plan Assessment: Acute sepsis/Community acquired pneumonia/pneumonitis secondary to COVID19 repeat X-ray on 08/19 showing persistent diffuse infiltrates. We'll repeat chest x-ray tomorrow Finished remdisivir course, ID following Continue Decadron 6 mg by mouth daily, awaiting pulmonology recommendation for duration of steroid course Continue high flow oxygen and wean as possible, currently on 8 L of oxygen down from 12 yesterday. We will continue to wean down as tolerated Lovenox therapeutic dose especially with the elevated d-dimer and troponin Finished antibiotic course with Zosyn to cover for possible bacterial pneumonia Acute hypoxic respiratory failure Oxygen requirement improving gradually Acute COPD exacerbation Steroids as above Bronchodilators DM2 Elevated blood glucose, steroid-induced Increase lantus to 12 units daily SSI with blood sugar checks every before meals and at bedtime HTN Hyperlipidemia Depression All stable resume meds Anticipated discharge: Pending clinical course. May need oxygen to go home with Disposition: Pending clinical course
--- NOTE | 2019-08-21 10:39 | P.PN ---
Subjective Progress Note Date: 08/21/19 Principal diagnosis: Acute COVID 19 related pneumonia On today's evaluation the patient is on 2 L oxygen by nasal cannula. Denies having any significant shortness of breath and we are still awaiting the covid19 nasal swab PCR.. The patient has developed leukopenia which could be essentially viral in nature. The patient remains in rapid atrial fibrillation. The patient remains on a combination of Rocephin and Zithromax. She remains on IV Solu Medrol 40 mg every 6 hours. On 08/08/2019 patient seen in follow-up on medical surgical floor, her COVID 19 was found to be positive. Clinically patient remains stable, room air pulse ox is 90%, she is afebrile, hemodynamically she is stable, occasional cough, no specific complaints. Feeling better, with a stop the azithromycin, Decadron has been added, patient is ready on Lovenox prophylactic dose. Today's blood work shows white blood cell count at 5.4, within normal range now, lymphocyte count is 0.5, sodium is 141, potassium is 3.9, chloride is 111, CO2 is 21, BUN is 19, creatinine 0.47. Patient reports no nausea no vomiting, breathing appears to be comfortable. On 08/20/2019 patient seen in follow-up on general medical floor, she was on 12 L of oxygen pulse ox of 96%, currently on 10 L of oxygen her pulse ox is 97%, no complaints of worsening dyspnea, she looks very comfortable, she is up to the commode, her Fisher has been discontinued, lung sounds are clear, no crackles nor rhonchi, no fever or chills, chest x-ray still shows patchy diffuse bilateral infiltrates, repeat inflammatory markers are pending, patient is status post course of treatment with remdesivir, she is on oral Decadron, Lovenox at 90 milligrams twice daily, oral Pepcid. No acute events overnight, she states her breathing has improved, but it has improved, no nausea vomiting diarrhea, no complex of abdominal pain. On 08/21/2019 patient seen in follow-up on the general medical floor. She is currently on 8 L of oxygen pulse ox is 94%, some reason her FiO2 has been bumped back up to 10 L, patient denies any dyspnea, seems quite comfortable, she has been get not to the commode, and walking the room, tolerating activity very well, overall feeling better, no specific complaints, lung sounds are clear, she's been afebrile. Chest x-ray today, today's labs have been reviewed showing white blood cell count of 6.6, hemoglobin of 12.8, electrolytes were unremarkable, BUN is 24 creatinine 0.51. Patient is status post course of Nilesh Witt on oral dose of Decadron, she is on albuterol inhaler, Pepcid, Lovenox Clinically stable. Objective - Vital Signs Vital signs: Vital Signs Temp 97.7 F 08/21/19 06:50 Pulse 45 L 08/21/19 07:13 Resp 16 08/21/19 07:13 BP 165/65 08/21/19 06:50 Pulse Ox 97 08/21/19 06:50 Intake & Output 08/20/19 08/21/19 08/21/19 18:59 06:59 18:59 Intake Total 500 100 Output Total 700 700 Balance -200 -600 Intake: Intake, IV Titration 400 Amount Sodium Chloride 0.9% 1, 400 000 ml @ 50 mls/hr IV . Q20H [facility] Rx#:[id number] Oral 100 100 Output: Urine 700 700 Other: Voiding Method Toilet Toilet Toilet # Voids 2 1 1 - Exam GENERAL EXAM: Alert, very pleasant, 73-year-old white female, 10 L per high flow nasal cannula with pulse ox of 97% comfortable in no apparent distress. HEAD: Normocephalic/atraumatic. EYES: Normal reaction of pupils, equal size. Conjunctiva pink, sclera white. NOSE: Clear with pink turbinates. THROAT: No erythema or exudates. NECK: No masses, no JVD, no thyroid enlargement, no adenopathy. CHEST: No chest wall deformity. Symmetrical expansion. LUNGS: Equal air entry with no crackles, wheeze, rhonchi or dullness. CVS: Regular rate and rhythm, normal S1 and S2, no gallops, no murmurs, no rubs ABDOMEN: Soft, nontender. No hepatosplenomegaly, normal bowel sounds, no guarding or rigidity. EXTREMITIES: No clubbing, no edema, no cyanosis, 2+ pulses and upper and lower extremities. MUSCULOSKELETAL: Muscle strength and tone normal. SPINE: No scoliosis or deformity SKIN: No rashes CENTRAL NERVOUS SYSTEM: Alert and oriented -3. No focal deficits, tone is normal in all 4 extremities. PSYCHIATRIC: Alert and oriented -3. Appropriate affect. Intact judgment and insight. - Labs CBC & Chem 7: 08/21/19 07:33 08/21/19 07:33 Labs: Abnormal Lab Results - Last 24 Hours (Table) 08/20/19 08/20/19 08/20/19 Range/Units 10:46 11:34 16:56 Plt Count (150-450) k/uL BUN (7-17) mg/dL Creatinine (0.52-1.04) mg/dL Glucose (74-99) mg/dL POC Glucose (mg/dL) 133 H 322 H (75-99) mg/dL Lactate Dehydrogenase 900 H (313-618) U/L 08/20/19 08/21/19 08/21/19 Range/Units 21:00 06:51 07:33 Plt Count 101 L (150-450) k/uL BUN (7-17) mg/dL Creatinine (0.52-1.04) mg/dL Glucose (74-99) mg/dL POC Glucose (mg/dL) 281 H 129 H (75-99) mg/dL Lactate Dehydrogenase (313-618) U/L 08/21/19 Range/Units 07:33 Plt Count (150-450) k/uL BUN 24 H (7-17) mg/dL Creatinine 0.51 L (0.52-1.04) mg/dL Glucose 128 H (74-99) mg/dL POC Glucose (mg/dL) (75-99) mg/dL Lactate Dehydrogenase (313-618) U/L Assessment and Plan Plan: Assessment: 1 Acute bilateral pneumonia with vague groundglass pulmonary infiltrates secondary to COVID 19 related pneumonia. Improving, and patient is off the Airvo, early on 10 L per high flow nasal cannula. Patient has received a course of Remdesivir, remains on Decadron, therapeutic doses of Lovenox, Pepcid 2 shortness of breath secondary to above, improved 3 diabetes mellitus type 2 4 hypertension 5 hyperlipidemia 6 history of depression 7 leukopenia/lymphopenia 8 thrombocytopenia Plan: Continue weaning FiO2, once the patient is down to 3-4 L per nasal cannula she can be considered for discharge home, likely stable, no worsening dyspnea, no fever. No nausea vomiting or diarrhea, tolerating ambulation within the room, remains on Lovenox, Decadron, Pepcid. Status post remdesivir course completion. Follow-up inflammatory markers in the morning. Follow-up chest x-ray. I performed a history & physical examination of the patient and discussed their management with my nurse practitioner, Erin Encarnacion. I reviewed the nurse practitioner's note and agree with the documented findings and plan of care. Lung sounds are positive for diminished breath sounds. The findings and the impression was discussed with the patient. I attest to the documentation by the nurse practitioner. Time with Patient: Less than 30
[2019-08-21 11:37] LABS: Glucose,Whole Blood 215 mg/dL (75-99)
--- NOTE | 2019-08-21 14:19 | CDI ---
Documentation Clarification Form Date: 08/21/2019 02:16:05 PM From: Anahi Mock CCS, CCDS Admit Date: 08/06/2019 04:02:00 PM Patient Name: Carine Mccarty Visit Number: [id number] Discharge Date: ATTENTION: The Clinical Documentation Specialists (CDI) and [facility] Coding Staff appreciate your assistance in clarifying documentation. Please respond to the clarification below the line at the bottom and electronically sign. The CDI & [facility] Coding staff will review the response and follow-up if needed. Please note: Queries are made part of the Legal Health Record. If you have any questions, please contact the author of this message via ITS. Dr. Bailey Guy: Conflicting documentation has been found in the medical record: Per the attending Progress Notes beginning on 08/13: "Zosyn started for possible bacterial pneumonia". Per the Infectious Disease Consult & subsequent Progress Notes beginning on 08/17: "No evidence of any secondary bacterial pneumonia." 08/05 Blood Culture: Final: Negative No Sputum Culture obtained. History/Risk Factors: DM II, Hyperlipidemia, Hypertension, CAD, COPD. Clinical Indicators: 73 yo female, presented to the ED on 08/05 with SOB, fevers, cough, weakness & falls. Admitted with Community Acquired Pneumonia & COVID test done which was positive on 08/05. The patient is being treated for Sepsis related to COVID-19 Pneumonia, Severe Sepsis & Acute Hypoxic Respiratory Failure. The patient was in ICU from 08/08 to 08/16, now on a general medical floor, being gradually weaned off O2. Treatment starting on 08/05: IV fluid rate 75, IV Zofran, INH Albuterol, IV Rocephin, IV Azithromycin, IV Solumedrol, O2 2Lnc. 08/08: Pt was put on NRB & High Flow O2 & transferred to ICU for worsening respiratory status. 08/13 IV Zosyn started. In your opinion, please clarify the most clinically appropriate diagnosis for this patient? Bacterial Pneumonia is ruled out Bacterial Pneumonia ruled in Other, please specify: Unable to determine (Last Revision: May 2017) Bacterial Pneumonia is ruled out MTDD
[2019-08-21 17:09] LABS: Glucose,Whole Blood 481 mg/dL (75-99)
[2019-08-21 20:47] LABS: Glucose,Whole Blood 357 mg/dL (75-99)
[2019-08-21] MEDS: ATORVASTATIN 20 MG TAB PO SCH (21:44)
--- NOTE | 2019-08-21 21:59 | PN ---
PROGRESS NOTE DATE OF SERVICE: 08/21/2019 REASON FOR FOLLOWUP: COVID-19 infection. INTERVAL HISTORY: The patient is currently afebrile. The patient is breathing more comfortably. The patient denies having any chest pain or shortness of breath. Minimal cough with clear sputum. No nausea, no vomiting. No abdominal pain or diarrhea. PHYSICAL EXAMINATION: Blood pressure 107/62 with a pulse of 52, temperature 98.5. She is 94% on 4 L nasal cannula. General description is an elderly female lying in bed in no distress. RESPIRATORY SYSTEM: Unlabored breathing. A few crackles at the base per the RN. EXTREMITIES: No edema of the feet. LABS: Hemoglobin is 12.8, white count 6.6, BUN of 24, creatinine 0.51. DIAGNOSTIC IMPRESSION AND PLAN: Patient with acute COVID-19 pneumonia in this patient who has shown overall clinical improvement. The patient's oxygen requirements have kept going down. She is afebrile. Inflammatory markers are almost normalized. On dexamethasone and Lovenox. No need for any systemic antibiotic, as no evidence of any secondary bacterial infection. Will monitor her clinical course closely. MMODL / IJN: [id number] /
[2019-08-22] MEDS: ENOXAPARIN 100 MG/ML SYRINGE SQ SCH (05:03)
[2019-08-22 07:09] LABS: Glucose,Whole Blood 145 mg/dL (75-99)
--- NOTE | 2019-08-22 07:58 | XR ---
EXAMINATION TYPE: XR chest 1V DATE OF EXAM: 08/22/2019 COMPARISON: 08/20/2019 HISTORY: Shortness of breath TECHNIQUE: Single frontal view of the chest is obtained. FINDINGS: Diffuse patchy infiltrates bilaterally. Postsurgical change left shoulder and arthropathy right shoulder. No pleural effusion or pneumothorax. Heart size stable. IMPRESSION: Diffuse bilateral infiltrates
[2019-08-22] MEDS: INSULIN ASPART (NovoLOG) 100 UNIT/ML VIAL SQ SCH ×2 (08:09→12:27)
[2019-08-22] MEDS: PARoxetine 20 MG TAB PO SCH (08:10)
[2019-08-22] MEDS: amLODIPine 5 MG TAB PO SCH (08:10)
[2019-08-22] MEDS: DEXAMETHASONE 2 MG TAB PO SCH (08:10)
[2019-08-22] MEDS: GABAPENTIN 300 MG CAP PO SCH (08:10)
[2019-08-22] MEDS: LISINOPRIL 2.5 MG TAB PO SCH (08:10)
[2019-08-22] MEDS: FAMOTIDINE 20 MG TAB PO SCH (08:10)
[2019-08-22] MEDS: INSULIN DETEMIR (LEVEMIR) 100 UNIT/ML SYR SQ SCH (08:10)
[2019-08-22] MEDS: ALBUTEROL HFA INHALER INHALATION SCH ×3 (08:25→16:06)
[2019-08-22 08:27] LABS: Basophils % (A) 0 %; Eosinophils # (A) 0.1 k/uL (0-0.7); Eosinophils % (A) 1 %; HCT 39.9 % (34.0-46.0); HGB 13.3 gm/dL (11.4-16.0); Lymphocytes # (A) 1.1 k/uL (1.0-4.8); Lymphocytes % (A) 18 %; MCH 30.3 pg (25.0-35.0); MCHC 33.3 g/dL (31.0-37.0); MCV 91.1 fL (80.0-100.0); Mean Platelet Volume 10.3; Monocytes # (A) 0.3 k/uL (0-1.0); Monocytes % (A) 5 %; Neutrophils # (A) 4.4 k/uL (1.3-7.7); Neutrophils % (A) 75 %; RBC 4.38 m/uL (3.80-5.40); RDW 13.5 % (11.5-15.5); WBC 5.9 k/uL (3.8-10.6)
[2019-08-22 08:42] LABS: Platelet Count 96 k/uL (150-450)
[2019-08-22 08:54] LABS: African American GFR (CKD) >90 (>60 ml/min/1.73 sqM); Anion Gap 5 mmol/L; Blood Urea Nitrogen 25 mg/dL (7-17); Calcium 8.7 mg/dL (8.4-10.2); Carbon Dioxide 30 mmol/L (22-30); Chloride 103 mmol/L (98-107); Glucose 140 mg/dL (74-99); LDH 565 U/L (313-618); Non-African American GFR(CKD) >90 (>60 ml/min/1.73 sqM); Potassium 4.4 mmol/L (3.5-5.1); Sodium 138 mmol/L (137-145)
[2019-08-22 09:26] LABS: C Reactive Protein <5.0 mg/L (<10.0)
[2019-08-22 11:36] LABS: Glucose,Whole Blood 153 mg/dL (75-99)
--- NOTE | 2019-08-22 13:14 | P.DS ---
Providers Date of admission: 08/06/19 16:02 Expected date of discharge: 08/22/19 Attending physician: Daina Mcadams MD Consults: 08/06/19 16:02 Consult Physician Routine Consulting Provider: Hue Huerta Consult Reason/Comments: dyspneay Do you want consulting provider notified?: Yes 08/09/19 09:20 Consult Physician Routine Consulting Provider: Kate Amin Consult Reason/Comments: COVID 19 Do you want consulting provider notified?: Yes 08/09/19 09:25 Consult Physician Routine Consulting Provider: Kate Amin Consult Reason/Comments: remdesiver Do you want consulting provider notified?: Yes Primary care physician: Stated None Hospital Course: Discharge Diagnosis: COVID 19 Pneumonia COVID 19 hypercoagulable state Acute hypoxic respiratory failure DM 2 with hyperglycemia HTN Lymphopenia and leukopenia Thromboctyopenia Sepsis due to COVID 19 pneumonia AE COPD- Ruled out Bacteria; pneumonia ruled out A. Fib ruled out Hospital Course: Patient is a 73-year-old female with diabetes, hypertension, and obesity who presented with fatigue, severe weakness, shortness of breath, and cough. In the ER there was concern for possible COVID 19 pneumonitis versus CHF versus pneumonia. She was admitted and started on ceftriaxone and Zithromax. She was also started on steroids and bronchodilators for possible COPD exacerbation. Pulmonary was consulted and agreeeded with abx, but did not feel this was consistent with COPD exacerbation. COVID 19 testing was done and ultimately came back positive. Her steroids were switched to decadron, her antibiotics were stopped. Overnight on 08/07 the patient was transferred to the ICU due to worsening shortness of breath and hypoxemia. She was requiring a 50L on the airvo. her d-dimer was elevated to 4.08 and she was switched to therapeutic lovenox dosing. ID was consulted and remdisavir was requested and the patient did receive this medication. She had a slow continued improvement in her oxygen requirements. She continued to require high flow nasal canula. She was able to slowly decreased her oxygen requirements. By the moring of 08/21 she was determined stable for discharge. She will follow-up with Dr. Dutta in 1 week, she will be on home O2, and she will have repeat CBC in 1 week. She has completed her course of remdesivir and Decadron. She will be on 30 days of Xaretlo if we can get this covered and then can resume her Aspirin 81 mg daily. Imaging: Venous doppler Right: negative for DVT CTA chest: Cardiomegally, mild bilateral alveolar interstitial edema VQ Scan: low probability of pulmonary embolism Patient seen and examined at bedside. States that her breathing is almost back to baseline. She is still requiring oxygen. No chest pain, no nausea, no diarreah. Concerned about a walker for home and not havig her daughter live with her. I informed her how to call to request a PCP change with her insurance. So cecil gutierrez will meet with her for resources for her daughter, and Rx written for a walker. Vital signs reviewed and stable. General: non toxic, no distress, appears at stated age Derm: warm, dry Head: atraumatic, normocephalic, symmetric Eyes: EOMI, no lid lag, anicteric sclera Mouth: no lip lesion, mucus membranes moist Cardiovascular: S1S2 reg, no murmur, positive posterior tibial pulse bilateral, Lungs: CTA bilateral, no rhonchi, no rales , no accessory muscle use Abdominal: soft, nontender to palpation, no guarding, no appreciable organomegaly Ext: no gross muscle atrophy, no edema, no contractures Neuro: CN II-XI grossly intact, no focal neuro deficits Psych: Alert, oriented, appropriate affect A total of minutes of time were spent preparing this complex discharge summary . Patient Condition at Discharge: Stable Plan - Discharge Summary Discharge Rx Participant: No New Discharge Prescriptions: No Action metFORMIN HCL [Glucophage] 500 mg PO BID amLODIPine [Norvasc] 5 mg PO DAILY Pioglitazone [Actos] 30 mg PO DAILY PARoxetine [Paxil] 20 mg PO DAILY Lisinopril [Zestril] 2.5 mg PO DAILY LORazepam [Ativan] 0.5 mg PO BID Gabapentin [Neurontin] 300 mg PO BID Discharge Medication List Gabapentin [Neurontin] 300 mg PO BID 08/06/19 [History] LORazepam [Ativan] 0.5 mg PO BID 08/06/19 [History] Pioglitazone [Actos] 30 mg PO DAILY 08/06/19 [History] RX: Albuterol Inhaler [Ventolin Hfa Inhaler] 2 puff INHALATION RT-QID #1 inhaler 08/22/19 [Rx] RX: Lisinopril [Zestril] 2.5 mg PO DAILY #30 tab 08/22/19 [Rx] RX: PARoxetine [Paxil] 20 mg PO DAILY #30 tab 08/22/19 [Rx] RX: amLODIPine [Norvasc] 5 mg PO DAILY #30 tab 08/22/19 [Rx] RX: metFORMIN HCL 1,000 mg PO BID #60 tab 08/22/19 [Rx] Rivaroxaban [Xarelto] 10 mg PO DAILY #30 tab 08/22/19 [Rx] Follow up Appointment(s)/Referral(s): [facility], [NON-STAFF] - 1-2 Days None,Stated [Primary Care Provider] - 1-2 days [facility] [NON-STAFF] - As Needed Javier Dutta [STAFF PHYSICIAN] - 1-2 Days (This will also be a new patient appointment, please make day after discharge.)
--- NOTE | 2019-08-22 14:36 | PN ---
PROGRESS NOTE DATE OF SERVICE: 08/22/2019 SUBJECTIVE: Patient was seen in followup today on general medical-surgical floor. She is awake and alert, her oxygen is down to 4 L right now, she has no specific complaints, denies any shortness of breath, lung sounds are clear to auscultation, she is awake and alert, she has been tolerating ambulation in the room, no nausea, vomiting, or diarrhea. The patient has been treated with Remdesivir course of treatment for COVID-19 related pneumoniae, she remains on oral Decadron, Lovenox at therapeutic doses, we do not have access to her labs today, and on her last check inflammatory markers were trending down from 2 days ago. No acute events overnight, the patient is anticipated to be discharged home today. PHYSICAL EXAM: GENERAL: Well-developed 73-year-old white female, sitting up in a chair, currently on 4 L of oxygen, in no acute distress. HEENT: Normocephalic and atraumatic. EYES: No icterus. No conjunctivitis, no sore throat. No cervical lymphadenopathy. No carotid bruits. RESPIRATORY: Lung sounds clear to auscultation, no coughing or wheezes. CARDIOVASCULAR: Normal S1, S2. No murmurs. No extra heart sounds. GI: No abdominal pain. ABDOMEN: Soft, nontender. Bowel sounds x4. : Unremarkable. SKIN: No rash. MUSCULOSKELETAL: Normal range of motion. NEUROLOGICAL: No altered mentation, awake and alert, oriented x3. PSYCHIATRIC: Negative. ASSESSMENT: 1. Acute COVID-19 related pneumonia. 2. Acute hypoxic respiratory failure related to the above. 3. Elevated inflammatory markers related to COVID-19 related pneumonia, improving. 4. Bilateral infiltrates related to COVID-19 pneumonitis. PLAN: Patient is clinically stable, FiO2 down to 4 L, no acute events overnight, afebrile, no specific complaints, tolerating ambulation in the room, from a pulmonary perspective, stable for transfer home today on outpatient course of oral Decadron, she will likely need home oxygen, obtain home oxygen assessment. She will need outpatient followup with her primary care physician in 2 weeks, she will also need a prescription to have her COVID-19 retested likely in 2-3 weeks or when she is completely asymptomatic. MMODL / IJN: [id number] / [facility]
[2019-08-22 16:30] LABS: Glucose,Whole Blood 315 mg/dL (75-99)
--- NOTE | 2019-08-22 16:36 | PN ---
PROGRESS NOTE DATE OF SERVICE: 08/22/2019 REASON FOR FOLLOWUP: Acute COVID-19 infection. INTERVAL HISTORY: The patient is currently afebrile. The patient is feeling better, breathing comfortably. FiO2 is currently down to 4 L. The patient denies having any chest pain. Minimal cough. No nausea. No vomiting. No abdominal pain or diarrhea. PHYSICAL EXAMINATION: Blood pressure 134/73 with a pulse of 81, temperature 98. She is 99% on room air. General description is an elderly female up in the chair in no distress. Exam was deferred. LABS: Hemoglobin is 13.3, white count of 5.9. CRP and LDH normal. Creatinine 0.50. DIAGNOSTIC IMPRESSION AND PLAN: Patient with acute COVID-19 pneumonia. The patient seems to have clinically responded to treatment. Patient currently on Lovenox and dexamethasone. Oral FiO2 requirements have been significantly decreased. Continue supportive treatment. MMODL / IJN: [id number] /
[2019-08-22 16:52] LABS: Ferritin 272.8 ng/mL (10.0-291.0)
[2019-08-23 16:44] LABS: LD Isoenzymes 1 18 % (19-38); LD Isoenzymes 2 36 % (30-43); LD Isoenzymes 3 24 % (16-26); LD Isoenzymes 4 11 % (3-12); LD Isoenzymes 5 11 % (3-14); Lactacte Dehydrogenase(LD) ISO 354 U/L (120-250)
[2019-08-23 23:20] VITALS: BP 134/73; PULSE 51; RESP 17; TEMP 98
[2019-08-24 00:52] VITALS: BMI 32.3
== END 2019-08-22 17:36 | disposition home or self-care (01) | DRG 871 ==
LOC: EC 12:13 → 4SSUR 16:02 → 2SICU 08-09 07:44 → 4SSUR 08-17 23:34
PROVIDERS: ADMIT Internal Medicine; ATTEND Internal Medicine
DX: A41.89 Other specified sepsis (principal); U07.1 COVID-19; J96.01 Acute respiratory failure with hypoxia; J12.89 Other viral pneumonia; J44.0 Chronic obstructive pulmonary disease with (acute) lower respiratory infection; D68.69 Other thrombophilia; E78.5 Hyperlipidemia, unspecified; F32.9 Major depressive disorder, single episode, unspecified; Z96.619 Presence of unspecified artificial shoulder joint; E11.65 Type 2 diabetes mellitus with hyperglycemia; T38.0X5A Adverse effect of glucocorticoids and synthetic analogues, initial encounter; D69.6 Thrombocytopenia, unspecified; R65.20 Severe sepsis without septic shock; K44.9 Diaphragmatic hernia without obstruction or gangrene; D72.810 Lymphocytopenia; I10 Essential (primary) hypertension; I25.10 Atherosclerotic heart disease of native coronary artery without angina pectoris; G25.81 Restless legs syndrome; M19.90 Unspecified osteoarthritis, unspecified site; Z96.659 Presence of unspecified artificial knee joint; E66.9 Obesity, unspecified; Z79.899 Other long term (current) drug therapy; Z95.5 Presence of coronary angioplasty implant and graft; Z90.710 Acquired absence of both cervix and uterus; Z98.890 Other specified postprocedural states; Z87.11 Personal history of peptic ulcer disease; Z83.3 Family history of diabetes mellitus; Z82.49 Family history of ischemic heart disease and other diseases of the circulatory system; Z68.32 Body mass index [BMI] 32.0-32.9, adult; Z79.84 Long term (current) use of oral hypoglycemic drugs
CPT/HCPCS: 36415; 71045; 71046; 71275; 78582; 80048; 80053; 81001; 82330; 82550; 82728; 83605; 83615; 83625; 83735; 83880; 84100; 84132; 84145; 84484; 85025; 85379; 85610; 85730; 86140; 87040; 93005; 94640; 94760; 96361; 96365; 96366; 96367; 96372; 96375; 96376; 99285

== ENCOUNTER 2022-10-02 19:56 | Emergency (ER) | payer MEDICARE ==
[2022-10-02 20:11] VITALS: RESP 18
--- NOTE | 2022-10-02 20:53 | ED ---
Extremity Problem HPI - General Chief complaint: Extremity Problem,Nontraumatic Stated complaint: Feet Swollen Time Seen by Provider: 10/02/22 20:19 Source: patient Mode of arrival: wheelchair Limitations: no limitations - History of Present Illness Initial comments: 76-year-old female presenting with chief complaint of increasing lower extremity swelling. She states that the swelling has been increasing over the last week. She also states she has had increased difficulty breathing. She states that on 09/05 she had a fall which resulted in a compression fracture of the vertebrae. She states that this has caused for pain with deep breathing. She denies any chest pain. No cough, congestion, sore throat, fever, chills. No nausea or vomiting. No numbness or tingling. She denies any history of CHF. She states that she is not prescribed any diuretics that she is aware of. - Related Data Home Medications Medication Instructions Recorded Confirmed Gabapentin [Neurontin] 300 mg PO BID 08/06/19 10/02/22 Aspirin EC [Ecotrin Low Dose] 81 mg PO DAILY 10/02/22 10/02/22 Empagliflozin [Jardiance] 25 mg PO DAILY 10/02/22 10/02/22 Ibuprofen [Motrin] 800 mg PO Q8H PRN 10/02/22 10/02/22 Loratadine [Claritin] 10 mg PO DAILY 10/02/22 10/02/22 Metoprolol Tartrate [Lopressor] 25 mg PO BID 10/02/22 10/02/22 Naloxone HCl [Narcan] 4 mg NASAL DIRECTED PRN 10/02/22 10/02/22 Pantoprazole [Protonix] 40 mg PO DAILY 10/02/22 10/02/22 Rosuvastatin [Crestor] 20 mg PO DAILY 10/02/22 10/02/22 amLODIPine [Norvasc] 10 mg PO DAILY 10/02/22 10/02/22 glipiZIDE [Glucotrol] 5 mg PO BID 10/02/22 10/02/22 methocarbamoL [Robaxin] 1,000 mg PO QID PRN 10/02/22 10/02/22 oxyCODONE HCL [OxyIR] 5 mg PO Q6H PRN 10/02/22 10/02/22 traZODone HCL 150 mg PO HS 10/02/22 10/02/22 Previous Rx's Medication Instructions Recorded PARoxetine [Paxil] 20 mg PO DAILY #30 tab 08/22/19 metFORMIN HCL [Glucophage] 1,000 mg PO BID #60 tab 08/22/19 Allergies Allergy/AdvReac Type Severity Reaction Status Date / Time No Known Allergies Allergy Verified 10/02/22 21:35 Review of Systems ROS Statement: Those systems with pertinent positive or pertinent negative responses have been documented in the HPI. ROS Other: All systems not noted in ROS Statement are negative. 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 History of Any Multi-Drug Resistant Organisms: None Reported Past Surgical History: Breast Surgery, Heart Catheterization With Stent, Hysterectomy, Orthopedic Surgery Additional Past Surgical History / Comment(s): knee, shoulder replacement Additional Past Anesthesia/Blood Transfusion Reaction / Comment(s): Slow to wake with last surgery. Date of Last Stent Placement:: 02/14/99 Past Psychological History: No Psychological Hx Reported Past Alcohol Use History: None Reported Past Drug Use History: None Reported - Past Family History Father Additional Family Medical History / Comment(s): Father had heart problems Mother Family Medical History: Diabetes Mellitus Additional Family Medical History / Comment(s): Heart problems General Exam Limitations: no limitations General appearance: alert, in no apparent distress Head exam: Present: atraumatic, normocephalic, normal inspection Eye exam: Present: normal appearance, EOMI. Absent: scleral icterus, periorbital swelling Neck exam: Present: normal inspection, full ROM Respiratory exam: Present: normal lung sounds bilaterally. Absent: respiratory distress, wheezes, rales, rhonchi, stridor Cardiovascular Exam: Present: regular rate, normal rhythm, normal heart sounds. Absent: systolic murmur, diastolic murmur, rubs, gallop, clicks Extremities exam: Present: pedal edema Neurological exam: Present: alert, oriented X3, CN II-XII intact Psychiatric exam: Present: normal affect, normal mood Skin exam: Present: warm, dry, intact, normal color. Absent: rash Course Vital Signs 10/02/22 10/02/22 10/02/22 20:08 21:56 23:53 Temperature 98.6 F 98.2 F Pulse Rate 58 L 73 87 Respiratory 18 18 18 Rate Blood Pressure 125/68 119/63 121/67 O2 Sat by Pulse 95 94 L 98 Oximetry Medical Decision Making - Medical Decision Making Was pt. sent in by a medical professional or institution ([employer] [facility], [employer], urgent care, hospital, or retirement...) When possible be specific @ -No Did you speak to anyone other than the patient for history (EMS, parent, family, police, friend...)? What history was obtained from this source @ -No Did you review nursing and triage notes (agree or disagree)? Why? @ -I reviewed and agree with nursing and triage notes Were old charts reviewed (outside hosp., previous admission, EMS record, old EKG, old radiological studies, urgent care reports/EKG's, retirement records)? Report findings @ -No old charts were reviewed Differential Diagnosis (chest pain, altered mental status, abdominal pain women, abdominal pain men, vaginal bleeding, weakness, fever, dyspnea, syncope, headache, dizziness, GI bleed, back pain, seizure, CVA, palpatations, mental health, musculoskeletal)? @ -MDM Differential Dyspnea: Coronary syndrome, arrhythmia, tamponade, asthma, COPD, pulmonary embolism, pneumonia, pneumothorax, pulmonary effusion, anaphylaxis, diabetic ketoacidosis, flailed chest, pulmonary contusion, diaphragmatic rupture, anemia, neuromu scular this is not meant to be an all-inclusive list. EKG interpreted by me (3pts min.). @ -Sinus rhythm. Ventricular rate 79. CA interval 192. QRS 99. QT 379. QTc 413. No ischemic changes. X-rays interpreted by me (1pt min.). @ -Chest x-ray shows chronic changes without acute pulmonary process. No significant change from prior. CT interpreted by me (1pt min.). @ -None done U/S interpreted by me (1pt. min.). @ -Ultrasound is Negative for DVT Bilaterally What testing was considered but not performed or refused? (CT, X-rays, U/S, labs)? Why? @ -None What meds were considered but not given or refused? Why? @ -None Did you discuss the management of the patient with other professionals (professionals i.e. Dr., PA, [employer] IN[employer]OVER, lab, RT, psych nurse, social security assessor, continuous improvement director, teacher, youth probation officer, disability case manager)? Give summary @ -No Was smoking cessation discussed for >3mins.? @ -No Was critical care preformed (if so, how long)? @ -No Were there social determinants of health that impacted care today? How? (Homelessness, low income, unemployed, alcoholism, drug addiction, transportation, low edu. Level, literacy, decrease access to med. care, longterm, rehab)? @ -No Was there de-escalation of care discussed even if they declined (Discuss DNR or withdrawal of care, Hospice)? DNR status @ -No What co-morbidities impacted this encounter? (DM, HTN, Smoking, COPD, CAD, Cancer, CVA, ARF, Chemo, Hep., AIDS, mental health diagnosis, sleep apnea, morbid obesity)? @ -None Was patient admitted / discharged? Hospital course, mention meds given and route, prescriptions, significant lab abnormalities, going to OR and other p ertinent info. @ -76-year-old female with history of compression fractures of the vertebrae after a fall that occurred about a month ago. She is complaining of increasing lower extremity swelling as well as dyspnea. Patient states that she has pain with breathing due to the vertebrae fracture. She has been less active due to this injury. She has not been using her incentive spirometer. No history of CHF. On physical examination there is mild lower extremity edema. Heart and lungs are clear to auscultation. Lab work shows no leukocytosis or anemia. BNP is 332. Negative troponin. Lactic acid 2.7. Chest x-ray shows no significant change from prior study. Ultrasound is negative for DVT. Patient is educated on today's findings. Lower extremity swelling likely attributed to dependent edema. She is instructed to use compression stockings and elevate the legs. She is instructed to also use her incentive spirometer as prescribed. Follow-up with PCP. Report back to ER with any new or worsening symptoms. Discussed return parameters and answered all questions. Patient conveyed verbal understanding and agreed to the plan. I discussed this case in detail with my attending Dr. Mann Undiagnosed new problem with uncertain prognosis? @ -No Drug Therapy requiring intensive monitoring for toxicity (Heparin, Nitro, Insulin, Cardizem)? @ -No Were any procedures done? @ -No Diagnosis/symptom? @ -Dependent edema Acute, or Chronic, or Acute on Chronic? @ -Acute Uncomplicated (without systemic symptoms) or Complicated (systemic symptoms)? @ -uncomplicated Side effects of treatment? @ -No Exacerbation, Progression, or Severe Exacerbation? @ -No Poses a threat to life or bodily function? How? (Chest pain, [place], DE, pneumonia, PE, COPD, DKA, ARF, appy, cholecystitis, CVA, Diverticulitis, Homicidal, Suicidal, threat to staff... and all critical care pts) @ -No - Lab Data Result diagrams: 10/02/22 20:53 10/02/22 20:53 Lab Results 10/02/22 10/02/22 10/02/22 Range/Units 20:53 20:53 20:53 WBC 6.4 (3.8-10.6) k/uL RBC 4.34 (3.80-5.40) m/uL Hgb 13.3 (11.4-16.0) gm/dL Hct 38.1 (34.0-46.0) % MCV 87.8 (80.0-100.0) fL MCH 30.6 (25.0-35.0) pg MCHC 34.8 (31.0-37.0) g/dL RDW 13.8 (11.5-15.5) % Plt Count 103 L (150-450) k/uL MPV 12.1 Neutrophils % 63 % Lymphocytes % 27 % Monocytes % 5 % Eosinophils % 3 % Basophils % 0 % Neutrophils # 4.0 (1.3-7.7) k/uL Lymphocytes # 1.7 (1.0-4.8) k/uL Monocytes # 0.3 (0-1.0) k/uL Eosinophils # 0.2 (0-0.7) k/uL Basophils # 0.0 (0-0.2) k/uL Manual Slide Review Performed Large Platelets Present PT 11.1 (9.0-12.0) sec INR 1.1 (<1.2) APTT 23.9 (22.0-30.0) sec Sodium 137 (137-145) mmol/L Potassium 4.1 (3.5-5.1) mmol/L Chloride 106 (98-107) mmol/L Carbon Dioxide 19 L (22-30) mmol/L Anion Gap 12 mmol/L BUN 21 H (7-17) mg/dL Creatinine 0.58 (0.52-1.04) mg/dL Est GFR (CKD-EPI)AfAm >90 (>60 ml/min/1.73 sqM) Est GFR (CKD-EPI)NonAf >90 (>60 ml/min/1.73 sqM) Glucose 208 H (74-99) mg/dL Lactic Ac Sepsis Rflx Plasma Lactic Acid Sridhar (0.7-2.0) mmol/L Calcium 9.1 (8.4-10.2) mg/dL Total Bilirubin 0.5 (0.2-1.3) mg/dL AST 31 (14-36) U/L ALT 25 (4-34) U/L Alkaline Phosphatase 86 (38-126) U/L Troponin I (0.000-0.034) ng/mL NT-Pro-B Natriuret Pep 332 pg/mL Total Protein 6.9 (6.3-8.2) g/dL Albumin 3.9 (3.5-5.0) g/dL Influenza Type A (PCR) (Not Detectd) Influenza Type B (PCR) (Not Detectd) RSV (PCR) (Not Detectd) SARS-CoV-2 (PCR) (Not Detectd) 10/02/22 10/02/22 10/02/22 Range/Units 20:53 20:53 20:53 WBC (3.8-10.6) k/uL RBC (3.80-5.40) m/uL Hgb (11.4-16.0) gm/dL Hct (34.0-46.0) % MCV (80.0-100.0) fL MCH (25.0-35.0) pg MCHC (31.0-37.0) g/dL RDW (11.5-15.5) % Plt Count (150-450) k/uL MPV Neutrophils % % Lymphocytes % % Monocytes % % Eosinophils % % Basophils % % Neutrophils # (1.3-7.7) k/uL Lymphocytes # (1.0-4.8) k/uL Monocytes # (0-1.0) k/uL Eosinophils # (0-0.7) k/uL Basophils # (0-0.2) k/uL Manual Slide Review Large Platelets PT (9.0-12.0) sec INR (<1.2) APTT (22.0-30.0) sec Sodium (137-145) mmol/L Potassium (3.5-5.1) mmol/L Chloride (98-107) mmol/L Carbon Dioxide (22-30) mmol/L Anion Gap mmol/L BUN (7-17) mg/dL Creatinine (0.52-1.04) mg/dL Est GFR (CKD-EPI)AfAm (>60 ml/min/1.73 sqM) Est GFR (CKD-EPI)NonAf (>60 ml/min/1.73 sqM) Glucose (74-99) mg/dL Lactic Ac Sepsis Rflx Plasma Lactic Acid Sridhar 2.7 H* (0.7-2.0) mmol/L Calcium (8.4-10.2) mg/dL Total Bilirubin (0.2-1.3) mg/dL AST (14-36) U/L ALT (4-34) U/L Alkaline Phosphatase (38-126) U/L Troponin I <0.012 (0.000-0.034) ng/mL NT-Pro-B Natriuret Pep pg/mL Total Protein (6.3-8.2) g/dL Albumin (3.5-5.0) g/dL Influenza Type A (PCR) Not Detected (Not Detectd) Influenza Type B (PCR) Not Detected (Not Detectd) RSV (PCR) Not Detected (Not Detectd) SARS-CoV-2 (PCR) Not Detected (Not Detectd) 10/02/22 Range/Units 22:19 WBC (3.8-10.6) k/uL RBC (3.80-5.40) m/uL Hgb (11.4-16.0) gm/dL Hct (34.0-46.0) % MCV (80.0-100.0) fL MCH (25.0-35.0) pg MCHC (31.0-37.0) g/dL RDW (11.5-15.5) % Plt Count (150-450) k/uL MPV Neutrophils % % Lymphocytes % % Monocytes % % Eosinophils % % Basophils % % Neutrophils # (1.3-7.7) k/uL Lymphocytes # (1.0-4.8) k/uL Monocytes # (0-1.0) k/uL Eosinophils # (0-0.7) k/uL Basophils # (0-0.2) k/uL Manual Slide Review Large Platelets PT (9.0-12.0) sec INR (<1.2) APTT (22.0-30.0) sec Sodium (137-145) mmol/L Potassium (3.5-5.1) mmol/L Chloride (98-107) mmol/L Carbon Dioxide (22-30) mmol/L Anion Gap mmol/L BUN (7-17) mg/dL Creatinine (0.52-1.04) mg/dL Est GFR (CKD-EPI)AfAm (>60 ml/min/1.73 sqM) Est GFR (CKD-EPI)NonAf (>60 ml/min/1.73 sqM) Glucose (74-99) mg/dL Lactic Ac Sepsis Rflx Y Plasma Lactic Acid Sridhar (0.7-2.0) mmol/L Calcium (8.4-10.2) mg/dL Total Bilirubin (0.2-1.3) mg/dL AST (14-36) U/L ALT (4-34) U/L Alkaline Phosphatase (38-126) U/L Troponin I (0.000-0.034) ng/mL NT-Pro-B Natriuret Pep pg/mL Total Protein (6.3-8.2) g/dL Albumin (3.5-5.0) g/dL Influenza Type A (PCR) (Not Detectd) Influenza Type B (PCR) (Not Detectd) RSV (PCR) (Not Detectd) SARS-CoV-2 (PCR) (Not Detectd) Disposition Clinical Impression: Dependent edema Disposition: HOME SELF-CARE Condition: Good Instructions (If sedation given, give patient instructions): Leg Edema (ED) Additional Instructions: Follow-up with PCP. Report back to ER with any new or worsening symptoms. Use compression socks and keep the legs elevated. Use incentive spirometer as instructed. Is patient prescribed a controlled substance at d/c from ED?: No Referrals: None,Stated [Primary Care Provider] - 1-2 days Time of Disposition: 23:48
[2022-10-02 21:45] LABS: ALT 25 U/L (4-34); AST 31 U/L (14-36); African American GFR (CKD) >90 (>60 ml/min/1.73 sqM); Albumin 3.9 g/dL (3.5-5.0); Alkaline Phosphatase 86 U/L (38-126); Anion Gap 12 mmol/L; Blood Urea Nitrogen 21 mg/dL (7-17); Calcium 9.1 mg/dL (8.4-10.2); Carbon Dioxide 19 mmol/L (22-30); Chloride 106 mmol/L (98-107); Glucose 208 mg/dL (74-99); Non-African American GFR(CKD) >90 (>60 ml/min/1.73 sqM); Potassium 4.1 mmol/L (3.5-5.1); Sodium 137 mmol/L (137-145); Total Bilirubin 0.5 mg/dL (0.2-1.3); Total Protein 6.9 g/dL (6.3-8.2)
[2022-10-02 21:53] LABS: NT-Pro-B-Type Natriuretic Pept 332 pg/mL
[2022-10-02 22:02] LABS: INR 1.1 (<1.2); Partial Thromboplastin Time 23.9 sec (22.0-30.0); Prothrombin Time 11.1 sec (9.0-12.0)
[2022-10-02 22:27] LABS: Basophils % (A) 0 %; Eosinophils # (A) 0.2 k/uL (0-0.7); Eosinophils % (A) 3 %; HCT 38.1 % (34.0-46.0); HGB 13.3 gm/dL (11.4-16.0); Lymphocytes # (A) 1.7 k/uL (1.0-4.8); Lymphocytes % (A) 27 %; MCH 30.6 pg (25.0-35.0); MCHC 34.8 g/dL (31.0-37.0); MCV 87.8 fL (80.0-100.0); Mean Platelet Volume 12.1; Monocytes # (A) 0.3 k/uL (0-1.0); Monocytes % (A) 5 %; Neutrophils % (A) 63 %; Platelet Count 103 k/uL (150-450); RBC 4.34 m/uL (3.80-5.40); RDW 13.8 % (11.5-15.5); WBC 6.4 k/uL (3.8-10.6)
--- NOTE | 2022-10-02 22:42 | US ---
EXAMINATION TYPE: US venous doppler duplex LE BI DATE OF EXAM: 10/02/2022 10:31 PM COMPARISON: 08/06/2019 CLINICAL INDICATION: Female, 76 years old with history of LE swelling; swollen feet SIDE PERFORMED: bilateral TECHNIQUE: The lower extremity deep venous system is examined utilizing real time linear array sonog nichole with graded compression, doppler sonography and color-flow sonography. VESSELS IMAGED: Common Femoral Vein Deep Femoral Vein Greater Saphenous Vein * Femoral Vein Popliteal Vein Small Saphenous Vein * Proximal Calf Veins (* superficial vessels) Right Leg: no evidence of DVT Left Leg: no evidence of DVT IMPRESSION: Grayscale, color doppler, spectral doppler imaging performed of the deep veins of the lo wer extremities. There is normal flow, compressibility, vascular waveforms.
--- NOTE | 2022-10-02 22:59 | XR ---
EXAMINATION TYPE: XR chest 2V DATE OF EXAM: 10/02/2022 10:53 PM COMPARISON: Chest radiographs from 08/22/2019. TECHNIQUE: XR chest 2V Frontal and lateral views of the chest. CLINICAL INDICATION:Female, 76 years old with history of difficulty breathing; FINDINGS: Lungs/Pleura: There is no evidence of pleural effusion, focal consolidation, or pneumothorax. Pulmonary vascularity: Unremarkable. Heart/mediastinum: Cardiomediastinal silhouette is enlarged and stable. Musculoskeletal: No acute osseous pathology. Left shoulder arthroplasty changes and with hardware int act. IMPRESSION: Chronic changes without acute pulmonary process. No significant change from prior. Correlate for sup erimposed congestive heart failure.
[2022-10-02 23:39] LABS: Large Platelets Present
[2022-10-02 23:54] VITALS: BP 121/67; PULSE 87; TEMP 98.2
== END 2022-10-02 23:55 | disposition home or self-care (01) ==
LOC: EC 19:56
DX: R60.9 Edema, unspecified (principal); E11.9 Type 2 diabetes mellitus without complications; I10 Essential (primary) hypertension; E78.5 Hyperlipidemia, unspecified; I25.10 Atherosclerotic heart disease of native coronary artery without angina pectoris; Z79.82 Long term (current) use of aspirin; Z79.84 Long term (current) use of oral hypoglycemic drugs; Z79.899 Other long term (current) drug therapy; Z20.822 Contact with and (suspected) exposure to COVID-19
CPT/HCPCS: 36415; 71046; 80053; 83605; 83880; 84484; 85025; 85610; 85730; 87636; 93005; 93970; 99284

== ENCOUNTER → 2022-12-01 | Outpatient (CLI) | payer MEDICARE ==
--- NOTE | 2022-12-01 15:45 | NM ---
EXAMINATION TYPE: NM bone scan whole body DATE OF EXAM: 12/01/2022 COMPARISON: NONE CLINICAL INDICATION: Female, 77 years old with history of S32.010A WEDGE COMPRESSION FRACTURE OF FIRS T LUMBA; Delayed whole-body scanning was performed following the injection of 23.2 mCi Tc 99m MDP. Images acq uired 3 hours post injection. FINDINGS: Photopenic defects involving the left shoulder and bilateral knee compatible with knee and left shoul stephan replacement surgery. There is moderate intensity uptake throughout the thoracic and lumbar spine which appears degenerativ e. There is a more linear area of intense uptake involving the approximate level of L1 which would be suspicious for compression fracture. Abnormal uptake involving the left inferior pubic ramus is nonspecific but recommend x-ray correlatio n. Abnormal uptake involving the feet likely post arthritic. Abnormal uptake involving the right shoulde r could be real post arthritic or post traumatic. IMPRESSION: 1. Intense linear abnormal uptake upper lumbar spine compatible with recent compression fracture and concordant with the x-ray abnormality. 2. Nonspecific uptake left inferior pubic ramus recommend x-ray correlation. 3. Intermediate intensity uptake throughout the thoracic and lumbar spine likely degenerative.
== END | disposition home or self-care (01) ==
LOC: RADNMMAIN 10:10
PROVIDERS: ATTEND Physical Medicine & Rehabilitation
DX: S32.010A Wedge compression fracture of first lumbar vertebra, initial encounter for closed fracture (principal); S32.020A Wedge compression fracture of second lumbar vertebra, initial encounter for closed fracture; M47.817 Spondylosis without myelopathy or radiculopathy, lumbosacral region; M43.16 Spondylolisthesis, lumbar region; M43.17 Spondylolisthesis, lumbosacral region; M48.062 Spinal stenosis, lumbar region with neurogenic claudication; M51.37 Other intervertebral disc degeneration, lumbosacral region; M16.0 Bilateral primary osteoarthritis of hip; X58.XXXA Exposure to other specified factors, initial encounter
CPT/HCPCS: 78306; A9503

== ENCOUNTER → 2022-12-18 | Outpatient (CLI) | payer MEDICARE ==
--- NOTE | 2022-12-19 17:12 | MR ---
EXAMINATION TYPE: MR lumbar spine wo con DATE OF EXAM: 12/18/2022 11:10 AM CLINICAL INDICATION:Female, 77 years old with history of M54.59 low back pain; PHH, Lower back and le ft hip pain. COMPARISON: 06/27/2020 MRI TECHNIQUE: Multi planar, multi sequence imaging was performed utilizing: T1-weighted, T2-weighted, a nd turbo inversion recovery imaging of the lumbar spine. IV Contrast: cc . (None if empty) FINDINGS: Alignment: The lumbar vertebral bodies have preserved heights and alignment. Cord: The conus medullaris and the distal spinal cord appear unremarkable with regards to their signa l intensity and morphology. Bones/Discs: There is bony edema throughout the L1 vertebrae with curvilinear T1/T2 signal. Findings most compatible with fracture. Approximately 25% height loss. No evidence for significant retropulsio n. Additional multilevel degeneration changes with osteophyte formation and Schmorl's nodes, and face t arthropathy. T12-L1: Central disc protrusion without significant spinal canal stenosis. Facet arthropathy with mil d bilateral neural foraminal stenosis. L1-L2: Disc bulge and facet joint arthropathy result in mild spinal canal and mild to moderate bilate ral neural foraminal stenosis. L2-L3: No evidence of significant spinal canal stenosis or neural foraminal stenosis. L3-L4: No evidence of significant spinal canal stenosis or neural foraminal stenosis. L4-L5: Disc bulge and facet joint arthropathy result in severe spinal canal and moderate bilateral ne ural foraminal stenosis. L5-S1: The disc is rounded posterior morphology without significant spinal canal stenosis. Facet join t arthropathy with moderate right and severe left neural foraminal stenosis. No significant spinal canal or neural foraminal stenosis in the remainder of the visualized levels. Other findings: None. IMPRESSION: 1. Acute/subacute L1 vertebral body superior endplate fracture. Finding is new from 06/27/2020. 2. L4-L5 severe spinal canal stenosis and moderate bilateral neural foraminal stenosis. 3. L5 on S1 severe left neural foraminal stenosis. 4. T12-L1 central disc extrusion without significant spinal canal stenosis.
== END | disposition home or self-care (01) ==
LOC: RADMRIMAIN 09:47
PROVIDERS: ATTEND Orthopaedic Surgery Orthopaedic Surgery of the Spine
DX: S32.010A Wedge compression fracture of first lumbar vertebra, initial encounter for closed fracture (principal); S32.028A Other fracture of second lumbar vertebra, initial encounter for closed fracture; M25.78 Osteophyte, vertebrae; M43.17 Spondylolisthesis, lumbosacral region; M47.816 Spondylosis without myelopathy or radiculopathy, lumbar region; M99.73 Connective tissue and disc stenosis of intervertebral foramina of lumbar region; M51.26 Other intervertebral disc displacement, lumbar region
CPT/HCPCS: 72148

== ENCOUNTER → 2022-12-21 | Outpatient (CLI) | payer MEDICARE ==
--- NOTE | 2022-12-22 08:04 | MR ---
EXAMINATION TYPE: MR pelvis wo con DATE OF EXAM: 12/21/2022 9:05 PM CLINICAL INDICATION:Female, 77 years old with history of S32.028A fracture of second lumbar vertebra; PHH, Lumbar fracture, initial encounter. Left inferior pubic rami fx,, left buttock pain, falls. COMPARISON: none TECHNIQUE: Triplane multisequence imaging was performed of the pelvis. IV Contrast: cc none FINDINGS: Reproductive: Vagina: Unremarkable. Uterus: Appears surgically absent. Ovaries: Atrophic appearing bilaterally. Bladder: Unremarkable. Bowel: Unremarkable as visualized. Peritoneum: A small amount of free fluid in the pelvis. Lymph nodes: No evidence of adenopathy. Vasculature: Unremarkable. Musculoskeletal: Bone marrow signal is within normal signal intensity. Increased PD signal at origin of the hamstrings on the left with a small amount of signal within the semimembranosus tendon. There is degeneration changes of the hips with osteophyte formation bilaterally. No abnormal bony edema to suggest fracture within the pelvis. Inferior pubic rami appear intact without bony edema. Abdominal wall/soft tissues: Unremarkable. IMPRESSION: 1. Inferior pubic rami are intact bilaterally without evidence for bony edema. 2. Left hamstring origin tendinosis underlying partial tear not excluded the semimembranosus tendon. 3. No evidence for pelvic fracture.
== END | disposition home or self-care (01) ==
LOC: RADMRIMAIN 20:21
PROVIDERS: ATTEND Orthopaedic Surgery Orthopaedic Surgery of the Spine
DX: S32.028A Other fracture of second lumbar vertebra, initial encounter for closed fracture (principal); S32.010A Wedge compression fracture of first lumbar vertebra, initial encounter for closed fracture; M25.78 Osteophyte, vertebrae; M51.36 Other intervertebral disc degeneration, lumbar region; M47.816 Spondylosis without myelopathy or radiculopathy, lumbar region
CPT/HCPCS: 72195

== ENCOUNTER → 2022-12-21 | Outpatient (CLI) | payer MEDICARE ==
[2022-12-21 16:07] LABS: Basophils # (A) 0.02 X 10*3/uL (0.00-0.10); Basophils % (A) 0.3 %; Eosinophils # (A) 0.08 X 10*3/uL (0.04-0.35); Eosinophils % (A) 1.1 %; HGB 13.4 d/dL (12.0-15.0); Lymphocytes # (A) 1.99 X 10*3/uL (0.90-5.00); Lymphocytes % (A) 26.5 %; MCH 30.2 pg (27.0-32.0); MCHC 33.5 d/dL (32.0-37.0); MCV 90.1 FL (80.0-97.0); Mean Platelet Volume 13.8 FL (9.5-12.2); Monocytes # (A) 0.37 X 10*3/uL (0.20-1.00); Monocytes % (A) 4.9 %; NRBC Per 100 WBC 0 X 10*3/uL (0.00-0.01); Neutrophils # (A) 5.02 X 10*3/uL (1.80-7.70); Neutrophils % (A) 66.9 %; Platelet Count 132 X 10*3/uL (140-440); RBC 4.44 X 10*6/uL (4.10-5.20); RDW 13.2 % (11.5-14.5)
[2022-12-21 17:13] LABS: ALT 30 U/L (8-44); AST 35 U/L (13-35); Albumin 4.5 d/dL (3.8-4.9); Alkaline Phosphatase 69 U/L (41-126); BUN/Creat Ratio 17.67 Ratio (12.00-20.00); Blood Urea Nitrogen 10.6 mg/dL (9.0-27.0); Calcium 9.1 mg/dL (8.7-10.3); Carbon Dioxide 21.7 mmol/L (21.6-31.8); Chloride 103 mmol/L (96-109); Chol/HDL Ratio 2.56 Ratio; Globulin 2.5 d/dL (1.6-3.3); Glucose 178 mg/dL (70-110); Magnesium 1.1 mg/dL (1.5-2.4); Sodium 142 mmol/L (135-145); Total Bilirubin 0.4 mg/dL (0.3-1.2)
== END | disposition home or self-care (01) ==
LOC: LABWHC1 08:27
PROVIDERS: ATTEND Internal Medicine
DX: E11.9 Type 2 diabetes mellitus without complications (principal); E55.9 Vitamin D deficiency, unspecified
CPT/HCPCS: 36415; 80053; 80061; 82306; 83036; 83735; 84443; 85025

== ENCOUNTER 2023-01-05 10:12 | Day surgery (SDC) | payer MEDICARE ==
[~2023-01-05 10:12] MED LIST: LACTATED RINGERS 1,000 ML IV SCH; LIDOCAINE 1% (10MG/ML) FOR IV START INTRADERMA PRN
[2023-01-05 10:50] VITALS: PULSE 64; RESP 16; TEMP 98.3
[2023-01-05] MEDS ORDERED: LIDOCAINE 1% INJ 10MG/ML (20 ML MDV) ONE (10:56)
[2023-01-05] MEDS ORDERED: PROPOFOL 10 MG/ML 20 ML VIAL IV ONE (10:56)
[2023-01-05 11:09] LABS: Glucose,Whole Blood 142 mg/dL (70-110)
--- NOTE | 2023-01-05 11:19 | P.PCN ---
Date of Procedure: 01/05/23 Procedure(s) Performed: BRIEF HISTORY: Patient is a 77-year-old pleasant white female scheduled for an elective colonoscopy as a part of evaluation of chronic diarrhea for the last 1 year. She is been having bowel movements daily which are loose to watery in consistency. PROCEDURE PERFORMED: Colonoscopy with biopsy and snare polypectomy. PREOPERATIVE DIAGNOSIS: Chronic diarrhea of 1 year duration. IV sedation per Anesthesia. PROCEDURE: After informed consent was obtained, the patient, was brought into the endoscopy unit. IV sedation was administered by Anesthesia under continuous monitoring. Digital rectal examination was normal. Initially the Olympus CF-160 flexible video colonoscope was then inserted in the rectum, gradually advanced into the cecum without any difficulty. Careful examination was performed as the scope was gradually being withdrawn. Ileocecal valve and the appendiceal orifice were visualized and appeared normal. Prep was excellent. Mucosa of the cecum, appeared normal. In the ascending colon there was a was admitted broad-based polyp removed by piece by snare polypectomy and complete polypectomy accomplished. Mucosa of the ascending colon, transverse colon, descending colon, sigmoid colon, and rectum appeared normal. Random biopsies were done from ascending and descending colon to rule out microscopic/collagenous colitis. Retroflexion was performed in the rectum and no lesions were seen. The patient tolerated the procedure well. IMPRESSION: 2 cm broad-based ascending colon polyp status post piecemeal snare polypectomy and complete polypectomy accomplished Scattered sigmoid diverticulosis RECOMMENDATIONS: Findings of this examination were discussed with the patient as well as a family. She was advised to follow with the biopsy results. If the biopsy reveals adenoma she can have a repeat colonoscopy in 3 years..
[2023-01-05 11:46] VITALS: BP 110/72
== END 2023-01-05 12:03 | disposition home or self-care (01) ==
LOC: ORWHC2ENDO 10:12
PROVIDERS: ATTEND Internal Medicine Gastroenterology
DX: D12.2 Benign neoplasm of ascending colon (principal); K57.30 Diverticulosis of large intestine without perforation or abscess without bleeding; K52.9 Noninfective gastroenteritis and colitis, unspecified; K21.9 Gastro-esophageal reflux disease without esophagitis; K44.9 Diaphragmatic hernia without obstruction or gangrene; I25.10 Atherosclerotic heart disease of native coronary artery without angina pectoris; I10 Essential (primary) hypertension; E78.5 Hyperlipidemia, unspecified; E11.9 Type 2 diabetes mellitus without complications; Z79.84 Long term (current) use of oral hypoglycemic drugs; Z79.4 Long term (current) use of insulin; Z79.899 Other long term (current) drug therapy; Z95.5 Presence of coronary angioplasty implant and graft; Z96.653 Presence of artificial knee joint, bilateral; Z90.710 Acquired absence of both cervix and uterus; Z98.890 Other specified postprocedural states
CPT/HCPCS: 88305; 45380; 45385; J2001; J2704

== ENCOUNTER → 2023-04-07 | Outpatient (CLI) | payer MEDICARE ==
[2023-04-07 15:59] LABS: Basophils # (A) 0.02 X 10*3/uL (0.00-0.10); Basophils % (A) 0.4 %; Eosinophils # (A) 0.16 X 10*3/uL (0.04-0.35); Eosinophils % (A) 2.9 %; HCT 38.3 % (37.2-46.3); HGB 12.7 g/dL (12.0-15.0); Lymphocytes # (A) 1.86 X 10*3/uL (0.90-5.00); Lymphocytes % (A) 33.4 %; MCHC 33.2 g/dL (32.0-37.0); MCV 90.5 FL (80.0-97.0); Mean Platelet Volume 13.7 FL (9.5-12.2); Monocytes % (A) 5.4 %; NRBC Per 100 WBC 0 X 10*3/uL (0.00-0.01); Neutrophils # (A) 3.22 X 10*3/uL (1.80-7.70); Neutrophils % (A) 57.7 %; Platelet Count 113 X 10*3/uL (140-440); RBC 4.23 X 10*6/uL (4.10-5.20); RDW 13.3 % (11.5-14.5); WBC 5.57 X 10*3/uL (4.50-10.00)
[2023-04-07 17:10] LABS: ALT 35 U/L (8-44); AST 37 U/L (13-35); Albumin 4.2 g/dL (3.8-4.9); Albumin/Globulin Ratio 1.68 Ratio (1.60-3.17); Alkaline Phosphatase 65 U/L (41-126); BUN/Creat Ratio 24.83 Ratio (12.00-20.00); Blood Urea Nitrogen 14.9 mg/dL (9.0-27.0); Calcium 9.6 mg/dL (8.7-10.3); Carbon Dioxide 20.7 mmol/L (21.6-31.8); Chloride 107 mmol/L (96-109); Globulin 2.5 g/dL (1.6-3.3); Glucose 121 mg/dL (70-110); Magnesium 1.2 mg/dL (1.5-2.4); Potassium 4.1 mmol/L (3.5-5.5); Sodium 142 mmol/L (135-145); Total Bilirubin <0.2 mg/dL (0.3-1.2); Total Protein 6.7 g/dL (6.2-8.2)
== END | disposition home or self-care (01) ==
LOC: LABWHC1 08:26
PROVIDERS: ATTEND Internal Medicine
DX: E11.65 Type 2 diabetes mellitus with hyperglycemia (principal); E55.9 Vitamin D deficiency, unspecified; R41.3 Other amnesia
CPT/HCPCS: 36415; 80053; 82306; 82607; 82746; 83036; 83735; 84443; 85025; 86780

== ENCOUNTER → 2023-05-12 | Outpatient (CLI) | payer MEDICARE ==
--- NOTE | 2023-05-12 17:23 | US ---
EXAMINATION TYPE: US venous doppler duplex LE LT DATE OF EXAM: 05/12/2023 5:11 PM COMPARISON: 10/02/22 CLINICAL INDICATION: Female, 77 years old with history of M79.662 PAIN IN LEFT LOWER LEG; Left calf p ain x months. No hx of DVT SIDE PERFORMED: Left TECHNIQUE: The lower extremity deep venous system is examined utilizing real time linear array sonog nichole with graded compression, doppler sonography and color-flow sonography. VESSELS IMAGED: Common Femoral Vein Deep Femoral Vein Greater Saphenous Vein * Femoral Vein Popliteal Vein Small Saphenous Vein * Proximal Calf Veins (* superficial vessels) Grayscale, color doppler, spectral doppler imaging performed of the deep veins of the lower extremiti es. There is normal flow, compressibility, vascular waveforms Left Leg: No evidence for DVT IMPRESSION: No evidence of deep venous thrombosis..
== END | disposition home or self-care (01) ==
LOC: RADUSWWP 16:48
PROVIDERS: ATTEND Internal Medicine
DX: M79.662 Pain in left lower leg (principal)

== ENCOUNTER → 2023-05-18 | Outpatient (CLI) | payer MEDICARE ==
--- NOTE | 2023-05-21 12:38 | MR ---
EXAMINATION TYPE: MR brain wo/w con DATE OF EXAM: 05/18/2023 10:03 AM CLINICAL INDICATION:Female, 77 years old with history of R41.3 OTHER AMNESIA; PHH, Evaluating for dem entia, Alzheimer's. COMPARISON: None TECHNIQUE: Multi planar, multi sequence imaging was performed through the brain including: T1, T2, In version recovery, susceptibility weighted imaging and gradient echo imaging and Diffusion weighted im aging. The patient was then given intravenous contrast and multi planar, T1 fat-saturation images wer e obtained. IV Contrast: 9 cc Gadavist FINDINGS: Mild cerebral atrophy with proportional dilation of ventricular system. Atrophy most pronounced in th e frontal and parietal lobes and less so the temporal and occipital lobes. Mesial temporal lobes are symmetric. Diffusion-weighted imaging shows no evidence of restricted diffusion to suggest acute/suba cute infarct. Intracranial arterial flow voids are maintained. Midline structures show no abnormality . Scattered foci of high T2 signal intensity are seen within the periventricular white matter. The zuleta sceptibility weighted images do not reveal any evidence for micro-hemorrhage. After administration of gadolinium, no abnormal enhancement is seen. The bone marrow signal is within normal limits. Paranasal sinuses and mastoid air cells: No significant paranasal sinus disease. Visualized orbits: Bilateral aphakia IMPRESSION: 1. Mild atrophy throughout the brain most pronounced in the frontal and parietal lobes.. No evidence of intracranial mass, acute/subacute infarct, or abnormal enhancement. 2. Nonspecific white matter changes, likely related to small vessel ischemic disease.
== END | disposition home or self-care (01) ==
LOC: RADMRIMAIN 09:09
PROVIDERS: ATTEND Internal Medicine
DX: R41.3 Other amnesia (principal); G31.9 Degenerative disease of nervous system, unspecified; R90.82 White matter disease, unspecified
CPT/HCPCS: 70553; A9585

== ENCOUNTER → 2023-05-19 | Outpatient (CLI) | payer MEDICARE ==
--- NOTE | 2023-05-19 12:07 | XR ---
EXAMINATION TYPE: XR ankle complete LT DATE OF EXAM: 05/19/2023 9:58 AM CLINICAL INDICATION:Female, 77 years old with history of M79.662 Pain L calf; COMPARISON: None TECHNIQUE: XR ankle complete LT; ankle is imaged in frontal, lateral and oblique projections. FINDINGS: There is no evidence of acute osseous pathology. The joint spaces are well-preserved without evidenc e of subluxation or dislocation. Kager's fat pad is intact. Mild soft tissue swelling around the ankl e. No radiopaque foreign bodies are identified. Calcaneal plantar spurring. Calcaneal Achilles enthes ophyte formation. Mild degeneration changes throughout the joints of the foot with osteophyte formati on joint space narrowing. IMPRESSION: 1. No evidence of acute fracture. 2. Subcutaneous swelling around the ankle likely secondary to underlying soft tissue injury versus ce llulitis.
[2023-05-19 14:49] LABS: Basophils # (A) 0.02 X 10*3/uL (0.00-0.10); Basophils % (A) 0.3 %; Eosinophils # (A) 0.14 X 10*3/uL (0.04-0.35); HCT 38.6 % (37.2-46.3); HGB 12.9 g/dL (12.0-15.0); Lymphocytes # (A) 1.86 X 10*3/uL (0.90-5.00); Lymphocytes % (A) 26.3 %; MCH 30.4 pg (27.0-32.0); MCHC 33.4 g/dL (32.0-37.0); Mean Platelet Volume 13.4 FL (9.5-12.2); Monocytes # (A) 0.37 X 10*3/uL (0.20-1.00); Monocytes % (A) 5.2 %; NRBC Per 100 WBC 0 X 10*3/uL (0.00-0.01); Neutrophils # (A) 4.67 X 10*3/uL (1.80-7.70); Neutrophils % (A) 65.9 %; Platelet Count 116 X 10*3/uL (140-440); RBC 4.24 X 10*6/uL (4.10-5.20); WBC 7.08 X 10*3/uL (4.50-10.00)
[2023-05-19 14:50] LABS: Protein, Total 6.8 g/dL (6.2-8.2)
[2023-05-19 15:12] LABS: % Iron Saturation 16.59 (12.00-45.00); ALT 28 U/L (8-44); AST 31 U/L (13-35); Albumin 4.3 g/dL (3.8-4.9); Albumin/Globulin Ratio 1.72 Ratio (1.60-3.17); Alkaline Phosphatase 73 U/L (41-126); Blood Urea Nitrogen 14.7 mg/dL (9.0-27.0); Calcium 9.7 mg/dL (8.7-10.3); Carbon Dioxide 22.8 mmol/L (21.6-31.8); Chloride 106 mmol/L (96-109); Ferritin 46.5 ng/mL (10.0-291.0); Globulin 2.5 g/dL (1.6-3.3); Glucose 175 mg/dL (70-110); Iron 73 UG/DL (50-170); Magnesium 1.7 mg/dL (1.5-2.4); Potassium 4.7 mmol/L (3.5-5.5); Sodium 141 mmol/L (135-145); Total Bilirubin 0.4 mg/dL (0.3-1.2); Total Iron Binding Capacity 440 UG/DL (228-460); Total Protein 6.8 g/dL (6.2-8.2)
== END | disposition home or self-care (01) ==
LOC: RADXRMAIN 09:41
PROVIDERS: ATTEND Internal Medicine
DX: M25.472 Effusion, left ankle (principal); E53.8 Deficiency of other specified B group vitamins
CPT/HCPCS: 36415; 80053; 82607; 82728; 82746; 83540; 83550; 83735; 84165; 84443; 85025

== ENCOUNTER → 2023-08-04 | Outpatient (CLI) | payer MEDICARE ==
--- NOTE | 2023-08-04 13:50 | US ---
EXAMINATION TYPE: US abdomen complete DATE OF EXAM: 08/04/2023 COMPARISON: NONE CLINICAL INDICATION: Female, 77 years old with history of R14.0 ABDOMINAL DISTENSION; Bloating. Hx ch olecystectomy. TECHNIQUE: Multiple sonographic images of the abdomen are obtained. FINDINGS: EXAM MEASUREMENTS: Liver Length: 19.9 cm Gallbladder Wall: Surgically absent CBD: 0.72 cm Spleen: 10.7 cm Right Kidney: 11.4 x 6.5 x 5.3 cm Left Kidney: 11.3 x 5.1 x 5.6 cm GOLD BEATER NOTES: *Exam is limited due to gas and patient body habitus. Pancreas: Tail was obscured. Liver: Enlarged, heterogeneous, with increased echogenicity and attenuation. Gallbladder: Surgically absent. Evidence for sonographic Neri's sign: No CBD: Measures wnl post-cholecystectomy. Spleen: Appears heterogeneous Right Kidney: Hyperechoic area seen lower pole: 1.4 x 1.2 x 0.7 cm. *Complex lesion seen upper pole: 3.0 x 3.6 x 2.6 cm. Left Kidney: No hydronephrosis or masses seen Upper IVC: Appears wnl Abd Aorta: Portions seen appear wnl, iliac arteries were obscured. IMPRESSION: 1. Hepatomegaly and steatosis. 2. Cholecystectomy. 3. 3.6 cm hypoechoic cystic mass in the right kidney which cannot be characterized as a simple cyst. CT of the abdomen and pelvis is recommended for further evaluation. 4. Body and head of the pancreas normal. Pancreatic tail obscured by bowel gas
== END | disposition home or self-care (01) ==
LOC: RADUSWWP 07:28
PROVIDERS: ATTEND Internal Medicine Gastroenterology
DX: R16.0 Hepatomegaly, not elsewhere classified (principal); N28.1 Cyst of kidney, acquired; R14.0 Abdominal distension (gaseous); Z90.49 Acquired absence of other specified parts of digestive tract
CPT/HCPCS: 76700

== ENCOUNTER → 2023-10-12 | Outpatient (CLI) | payer MEDICARE ==
--- NOTE | 2023-10-18 11:58 | MR ---
EXAMINATION TYPE: MR lumbar spine wo con DATE OF EXAM: 10/12/2023 COMPARISON: 12/18/2022 HISTORY: 78-year-old female S32.010 Lspine wedge fx, left side pain TECHNIQUE: Multiplanar, multisequence images of the lumbar spine were acquired without IV contrast. FINDINGS: Redemonstrated is superior endplate fracture of L1 and L2. Resultant mild anterior wedging at L1, 30% anterior height loss. The changes have become chronic now. The mild superior endplate deformity of L 2 remains chronic. No new vertebral compression deformity. No suspicious bone marrow replacement. Alignment is maintaine d. Mild and moderate multilevel degenerative disc disease with desiccated and bulging discs. Posterior a nnular fissure redemonstrated at L5-S1. Multilevel ligamentum flavum thickening and hypertrophic facet arthropathy especially mid to lower evonne mbar spine redemonstrated. Conus medullaris is normal. Posterior disc bulge T12-L1 and L1-L2 are similar impressing on the ventral thecal sac and mildly timmy rowing the spinal canal. At L4-L5, redemonstrated diffuse disc bulge and severe ligamentum flavum thickening and hypertrophic facet arthropathy. There is severe focal spinal canal stenosis that persists here. On the right, changes resulting in [id number] foraminal stenosis at L4-L5 and L5-S1 as well as T12-L1. On the left, changes result in more moderate to severe neuroforaminal stenosis at L5-S1. Mild to mode rate at T12-L1 and L1-L2. Mild L4-L5. IMPRESSION: 1. Now chronic superior endplate fracture with anterior wedging at L1. No progressive height loss com pared to 12/18/2022. Overall 30% anterior height loss. Old L2 superior endplate injury redemonstrated. 2. Mild to moderate multilevel degenerative disc disease. Ligamentum flavum thickening. Hypertrophic facet arthropathy mid to lower lumbar spine. 3. Disc bulge with severe facet arthropathy and thickened ligamentum flavum continues to cause a yuliana re focal spinal canal stenosis at L4-L5. 4. Posterior disc bulges contribute to similar mild spinal canal narrowing at T12-L1 and L1-L2. Poste rior annular fissure at L5-S1 is also unchanged. 5. Variable neuroforaminal stenoses as outlined above, more moderate to severe on the left at L5-S1.
== END | disposition home or self-care (01) ==
LOC: RADMRIMAIN 12:51
PROVIDERS: ATTEND Internal Medicine
DX: S32.010A Wedge compression fracture of first lumbar vertebra, initial encounter for closed fracture (principal); M47.816 Spondylosis without myelopathy or radiculopathy, lumbar region; M48.061 Spinal stenosis, lumbar region without neurogenic claudication; M51.36 Other intervertebral disc degeneration, lumbar region
CPT/HCPCS: 72148

== ENCOUNTER 2023-12-22 08:57 | Emergency (ER) | payer MEDICARE ==
[2023-12-22 09:01] VITALS: BP 156/74; PULSE 79; RESP 20; TEMP 98.6
--- NOTE | 2023-12-22 09:17 | ED ---
Chest Pain HPI - General Chief Complaint: Chest Pain Stated Complaint: afib/post op issues Time Seen by Provider: 12/22/23 09:03 Source: patient Mode of arrival: wheelchair Limitations: no limitations - History of Present Illness Initial Comments: 78-year-old female presents to ED as directed by outpatient clinic for abnormal heart rhythm. She states that she was having an epidural and she went into atrial fibrillation, so her anesthesiologist sent her here. She endorses a history of afib in the past, which comes and goes, but is not currently taking anticoagulation or medications to control her heart rhythm. She denies shortness of breath, syncope, and chest pain. - Related Data Home Medications Medication Instructions Recorded Confirmed Gabapentin [Neurontin] 300 mg PO BID 08/06/19 01/04/23 Aspirin EC [Ecotrin Low Dose] 81 mg PO DAILY 10/02/22 01/04/23 Empagliflozin [Jardiance] 25 mg PO DAILY 10/02/22 01/04/23 Loratadine [Claritin] 10 mg PO DAILY 10/02/22 01/04/23 Metoprolol Tartrate [Lopressor] 25 mg PO BID 10/02/22 01/04/23 Naloxone HCl [Narcan] 4 mg NASAL DIRECTED PRN 10/02/22 01/04/23 Pantoprazole [Protonix] 40 mg PO DAILY 10/02/22 01/04/23 Rosuvastatin [Crestor] 20 mg PO HS 10/02/22 01/05/23 amLODIPine [Norvasc] 10 mg PO DAILY 10/02/22 01/05/23 glipiZIDE [Glucotrol] 5 mg PO BID 10/02/22 01/04/23 methocarbamoL [Robaxin] 1,000 mg PO QID PRN 10/02/22 01/05/23 oxyCODONE HCL [OxyIR] 5 mg PO Q6H PRN 10/02/22 01/05/23 traZODone HCL 150 mg PO HS 10/02/22 01/05/23 Previous Rx's Medication Instructions Recorded PARoxetine [Paxil] 20 mg PO DAILY #30 tab 08/22/19 metFORMIN HCL [Glucophage] 1,000 mg PO BID #60 tab 08/22/19 Allergies Allergy/AdvReac Type Severity Reaction Status Date / Time No Known Allergies Allergy Verified 12/22/23 09:02 Review of Systems ROS Statement: Those systems with pertinent positive or pertinent negative responses have been documented in the HPI. ROS Other: All systems not noted in ROS Statement are negative. 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 History of Any Multi-Drug Resistant Organisms: None Reported Past Surgical History: Breast Surgery, Heart Catheterization With Stent, Hysterectomy, Orthopedic Surgery Additional Past Surgical History / Comment(s): knee, shoulder replacement Additional Past Anesthesia/Blood Transfusion Reaction / Comment(s): Slow to wake with last surgery. Date of Last Stent Placement:: 02/14/99 Past Psychological History: No Psychological Hx Reported Smoking Status: Never smoker Past Alcohol Use History: None Reported Past Drug Use History: None Reported - Past Family History Father Additional Family Medical History / Comment(s): Father had heart problems Mother Family Medical History: Diabetes Mellitus Additional Family Medical History / Comment(s): Heart problems Brother(s) Family Medical History: Coronary Artery Disease (CAD) Sister(s) Family Medical History: Coronary Artery Disease (CAD) General Exam Limitations: no limitations General appearance: alert, in no apparent distress Head exam: Present: atraumatic, normocephalic, normal inspection Eye exam: Present: normal appearance, PERRL, EOMI. Absent: scleral icterus, conjunctival injection, periorbital swelling ENT exam: Present: normal exam, mucous membranes moist Neck exam: Present: normal inspection. Absent: tenderness, meningismus, lymphadenopathy Respiratory exam: Present: normal lung sounds bilaterally. Absent: respiratory distress, wheezes, rales, rhonchi, stridor Cardiovascular Exam: Present: regular rate, normal rhythm, normal heart sounds. Absent: systolic murmur, diastolic murmur, rubs, gallop, clicks GI/Abdominal exam: Present: soft, normal bowel sounds. Absent: distended, tenderness, guarding, rebound, rigid Extremities exam: Present: normal inspection, full ROM, normal capillary refill. Absent: tenderness, pedal edema, joint swelling, calf tenderness Back exam: Present: normal inspection Neurological exam: Present: alert, oriented X3, CN II-XII intact Psychiatric exam: Present: normal affect, normal mood Skin exam: Present: warm, dry, intact, normal color. Absent: rash Course Vital Signs 12/22/23 08:59 Temperature 98.6 F Pulse Rate 79 Respiratory 20 Rate Blood Pressure 156/74 O2 Sat by Pulse 96 Oximetry Chest Pain MDM - MDM Was pt. sent in by a medical professional or institution (, PA, [employer], urgent care, hospital, or long term...) When possible be specific @ -As etiologies Did you speak to anyone other than the patient for history (EMS, parent, family, police, friend...)? What history was obtained from this source @ -No Did you review nursing and triage notes (agree or disagree)? Why? @ -I reviewed and agree with nursing and triage notes Were old charts reviewed (outside hosp., previous admission, EMS record, old EKG, old radiological studies, urgent care reports/EKG's, long term records)? Report findings @ -No old charts were reviewed Differential Diagnosis (chest pain, altered mental status, abdominal pain women, abdominal pain men, vaginal bleeding, weakness, fever, dyspnea, syncope, headache, dizziness, GI bleed, back pain, seizure, CVA, palpatations, mental health, musculoskeletal)? @ -Differential Palpitations Ventricular arrhythmias, atrial arrhythmias, myocardial infarction, anemia, thyrotoxicosis, electrolyte imbalance, hypokalemia, pulmonary embolism, pulmonary disease, drugs, alcohol, anxiety, stress.... This is not meant to be an all-inclusive list. EKG interpreted by me (3pts min.). @ -As above X-rays interpreted by me (1pt min.). @ -None done CT interpreted by me (1pt min.). @ -None done U/S interpreted by me (1pt. min.). @ -None done What testing was considered but not performed or refused? (CT, X-rays, U/S, labs)? Why? @ -None What meds were considered but not given or refused? Why? @ -None Did you discuss the management of the patient with other professionals (professionals i.e. , PA, [employer], lab, RT, psych nurse, school social worker, cornice maker, teacher, enforcement officer, piano case and bench assembler)? Give summary @ -No Was smoking cessation discussed for >3mins.? @ -No Was critical care preformed (if so, how long)? @ -No Were there social determinants of health that impacted care today? How? (Homelessness, low income, unemployed, alcoholism, drug addiction, transportation, low edu. Level, literacy, decrease access to med. care, custodial, rehab)? @ -No Was there de-escalation of care discussed even if they declined (Discuss DNR or withdrawal of care, Hospice)? DNR status @ -No What co-morbidities impacted this encounter? (DM, HTN, Smoking, COPD, CAD, Cancer, CVA, ARF, Chemo, Hep., AIDS, mental health diagnosis, sleep apnea, morbid obesity)? @ -A-fib Was patient admitted / discharged? Hospital course, mention meds given and route, prescriptions, significant lab abnormalities, going to OR and other pertinent info. @ -Discharge patient is currently asymptomatic patient is normal sinus rhythm. Patient has paroxysmal atrial fibrillation. Patient has no complaints and will be discharged in stable condition with close follow-up return parameters discussed. Undiagnosed new problem with uncertain prognosis? @ -No Drug Therapy requiring intensive monitoring for toxicity (Heparin, Nitro, Insulin, Cardizem)? @ -No Were any procedures done? @ -No Diagnosis/symptom? @ -Paroxysmal atrial fibrillation Acute, or Chronic, or Acute on Chronic? @ -Acute Uncomplicated (without systemic symptoms) or Complicated (systemic symptoms)? @ -Uncomplicated Side effects of treatment? @ -No Exacerbation, Progression, or Severe Exacerbation? @ -No Poses a threat to life or bodily function? How? (Chest pain, [place], [place], pneumonia, PE, COPD, DKA, ARF, appy, cholecystitis, CVA, Diverticulitis, Homicidal, Suicidal, threat to staff... and all critical care pts) @ -No Disposition Clinical Impression: Paroxysmal A-fib Disposition: HOME SELF-CARE Condition: Stable Additional Instructions: Please return to the Emergency Department if symptoms worsen or any other concerns. Is patient prescribed a controlled substance at d/c from ED?: No Referrals: Tyree Yañez DO [Primary Care Provider] - 1-2 days Time of Disposition: 09:26
== END 2023-12-22 09:30 | disposition home or self-care (01) ==
LOC: EC 08:57
DX: I48.0 Paroxysmal atrial fibrillation (principal)
CPT/HCPCS: 93005; 99284

== ENCOUNTER 2023-12-29 20:43 | Emergency (ER) | payer MEDICARE ==
[2023-12-29 20:48] VITALS: TEMP 97.9
[2023-12-29 20:57] LABS: Glucose,Whole Blood 412 mg/dL (70-110)
[2023-12-29] MEDS: SODIUM CHLORIDE 0.9% 1,000 ML IV STA (21:04)
--- NOTE | 2023-12-29 21:12 | ED ---
General Adult HPI - General Chief complaint: Recheck/Abnormal Lab/Rx Stated complaint: Hyperglycemia Time Seen by Provider: 12/29/23 20:56 Source: patient Mode of arrival: wheelchair Limitations: no limitations - History of Present Illness Initial comments: Dictation was produced using [employer] dictation software. please excuse any grammatical, word or spelling errors. Chief Complaint: 78-year-old female hyperglycemia History of Present Illness: Patient 70-year-old female presents with hyperglycemia states that her blood sugars have been high for about a week. She noticed that her blood sugars have been running high after she got an epidural shot. She does not know what the contents of the shot were. Denies any other symptoms. Patient takes glipizide and metformin for blood sugar management. Does not take any insulin. The ROS documented in this emergency department record has been reviewed and confirmed by me. Those systems with pertinent positive or negative responses have been documented in the HPI. All other systems are other negative and/or noncontributory. - Related Data Home Medications Medication Instructions Recorded Confirmed Gabapentin [Neurontin] 300 mg PO BID 08/06/19 01/04/23 Aspirin EC [Ecotrin Low Dose] 81 mg PO DAILY 10/02/22 01/04/23 Empagliflozin [Jardiance] 25 mg PO DAILY 10/02/22 01/04/23 Loratadine [Claritin] 10 mg PO DAILY 10/02/22 01/04/23 Metoprolol Tartrate [Lopressor] 25 mg PO BID 10/02/22 01/04/23 Naloxone HCl [Narcan] 4 mg NASAL DIRECTED PRN 10/02/22 01/04/23 Pantoprazole [Protonix] 40 mg PO DAILY 10/02/22 01/04/23 Rosuvastatin [Crestor] 20 mg PO HS 10/02/22 01/05/23 amLODIPine [Norvasc] 10 mg PO DAILY 10/02/22 01/05/23 glipiZIDE [Glucotrol] 5 mg PO BID 10/02/22 01/04/23 methocarbamoL [Robaxin] 1,000 mg PO QID PRN 10/02/22 01/05/23 oxyCODONE HCL [OxyIR] 5 mg PO Q6H PRN 10/02/22 01/05/23 traZODone HCL 150 mg PO HS 10/02/22 01/05/23 Previous Rx's Medication Instructions Recorded PARoxetine [Paxil] 20 mg PO DAILY #30 tab 08/22/19 metFORMIN HCL [Glucophage] 1,000 mg PO BID #60 tab 08/22/19 Allergies Allergy/AdvReac Type Severity Reaction Status Date / Time No Known Allergies Allergy Verified 12/29/23 20:45 Review of Systems ROS Statement: Those systems with pertinent positive or pertinent negative responses have been documented in the HPI. ROS Other: All systems not noted in ROS Statement are negative. 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 History of Any Multi-Drug Resistant Organisms: None Reported Past Surgical History: Breast Surgery, Heart Catheterization With Stent, Hysterectomy, Orthopedic Surgery Additional Past Surgical History / Comment(s): knee, shoulder replacement, epidurals for pain Additional Past Anesthesia/Blood Transfusion Reaction / Comment(s): Slow to wake with last surgery. Date of Last Stent Placement:: 02/14/99 Past Psychological History: No Psychological Hx Reported Smoking Status: Never smoker Past Alcohol Use History: None Reported Past Drug Use History: None Reported - Past Family History Father Additional Family Medical History / Comment(s): Father had heart problems Mother Family Medical History: Diabetes Mellitus Additional Family Medical History / Comment(s): Heart problems Brother(s) Family Medical History: Coronary Artery Disease (CAD) Sister(s) Family Medical History: Coronary Artery Disease (CAD) General Exam - General Exam Comments Initial Comments: PHYSICAL EXAM: General Impression: Alert and oriented x3, not in acute distress HEENT: Normocephalic atraumatic, extra-ocular movements intact, pupils equal and reactive to light bilaterally, mucous membranes moist. Cardiovascular: Heart regular rate and rhythm Chest: Able to complete full sentences, no retractions, no tachypnea Abdomen: abdomen soft, non-tender, non-distended, no organomegaly Musculoskeletal: Pulses present and equal in all extremities, no peripheral edema Motor: no focal deficits noted Neurological: CN II-XII grossly intact, no focal motor or sensory deficits noted Skin: Intact with no visualized rashes Psych: Normal affect and mood Limitations: no limitations Course Vital Signs 12/29/23 12/29/23 20:45 21:48 Temperature 97.9 F Pulse Rate 98 72 Respiratory 17 18 Rate Blood Pressure 145/83 160/80 O2 Sat by Pulse 96 98 Oximetry EKG Findings - EKG Comments: EKG Findings:: My EKG interpretation: Ventricular rate 70, sinus rhythm,. 199, QRS 99, QTc 410. No [place] prolongation, no QTC prolongation, no ST or T-wave changes noted. Overall, this EKG is unremarkable Medical Decision Making - Medical Decision Making Was pt. sent in by a medical professional or institution (, PA, CLERK OF COURT, urgent care, hospital, or snf...) When possible be specific @ -No Did you speak to anyone other than the patient for history (EMS, parent, family, police, friend...)? What history was obtained from this source @ -No Did you review nursing and triage notes (agree or disagree)? Why? @ -I reviewed and agree with nursing and triage notes Were old charts reviewed (outside hosp., previous admission, EMS record, old EKG, old radiological studies, urgent care reports/EKG's, snf records)? Report findings @ -No old charts were reviewed Differential Diagnosis (chest pain, altered mental status, abdominal pain women, abdominal pain men, vaginal bleeding, musculoskeletal, weakness, fever, dyspnea, syncope, headache, dizziness, GI bleed, back pain, seizure, CVA, palpatations, mental health)? @ -DKA, hyperosmolar coma, hyperglycemia EKG interpreted by me (3pts min.). @ -None done X-rays interpreted by me (1pt min.). @ -None done CT interpreted by me (1pt min.). @ -None done U/S interpreted by me (1pt. min.). @ -None done What testing was considered but not performed or refused? (CT, X-rays, U/S, labs)? Why? @ -None What meds were considered but not given or refused? Why? @ -None Was smoking cessation discussed for >3mins.? @ -No Were there social determinants of health that impacted care today? How? (Homelessness, low income, unemployed, alcoholism, drug addiction, tr ansportation, low edu. Level, literacy, decrease access to med. care, [facility], rehab)? @ -No Was there de-escalation of care discussed even if they declined (Discuss DNR or withdrawal of care, Hospice)? DNR status @ -No What co-morbidities impacted this encounter? (DM, HTN, Smoking, COPD, CAD, Cancer, CVA, ARF, Chemo, Hep., AIDS, mental health diagnosis, sleep apnea, morbid obesity)? @ -None Was patient admitted / discharged? Hospital course, mention meds given and route, prescriptions, significant lab abnormalities, going to OR and other pertinent info. @ -70-year-old female hyperglycemia. She is diabetic. She does not take insulin. Vital signs upon arrival are within acceptable limits. Patient well- appearing at the bedside. Suspect that perhaps her hyperglycemia may be related to epidural injection she received likely containing steroids. Laboratory evaluation obtained. Glucose of 431. Patient given IV fluids and insulin. She will be monitored in the emergency department till her sugar can get down to around 250. Since she will be discharged. Patient told to avoid sugary foods until she is able to be evaluated by her primary care doctor Did you discuss the management of the patient with other professionals (professionals i.e. , PA, CLERK OF COURT, lab, RT, psych nurse, social media project manager, candy rolling machine operator, teacher, occupational medicine officer, employment case manager)? Give summary @ -No Was critical care preformed (if so, how long)? @ -No Undiagnosed new problem with uncertain prognosis? @ -No Drug Therapy requiring intensive monitoring for toxicity (Heparin, Nitro, Insulin, Cardizem)? @ -No Were any procedures done? @ -No Diagnosis/symptom? Acute, or Chronic, or Acute on Chronic? Uncomplicated ( without systemic symptoms) or Complicated (systemic symptoms)? @ -Hyperglycemia Side effects of treatment? @ -No Exacerbation, Progression, or Severe Exacerbation? @ -No Poses a threat to life or bodily function? How? (Chest pain, USA, [place], pneumonia, PE, COPD, DKA, ARF, appy, cholecystitis, CVA, Diverticulitis, Homicidal, Suicidal, threat to staff... and all critical care pts) @ -yes - Lab Data Result diagrams: 12/29/23 21:05 12/29/23 21:05 Lab Results 12/29/23 12/29/23 12/29/23 Range/Units 20:55 21:05 21:05 WBC 9.6 (3.8-10.6) k/uL RBC 5.15 (3.80-5.40) m/uL Hgb 14.9 (11.4-16.0) gm/dL Hct 46.8 H (34.0-46.0) % MCV 90.9 (80.0-100.0) fL MCH 28.9 (25.0-35.0) pg MCHC 31.7 (31.0-37.0) g/dL RDW 13.1 (11.5-15.5) % Plt Count 138 L (150-450) k/uL MPV 10.5 Neutrophils % 69 % Lymphocytes % 24 % Monocytes % 5 % Eosinophils % 1 % Basophils % 1 % Neutrophils # 6.7 (1.3-7.7) k/uL Lymphocytes # 2.3 (1.0-4.8) k/uL Monocytes # 0.5 (0-1.0) k/uL Eosinophils # 0.1 (0-0.7) k/uL Basophils # 0.1 (0-0.2) k/uL Sodium 136 L (137-145) mmol/L Potassium 4.5 (3.5-5.1) mmol/L Chloride 106 (98-107) mmol/L Carbon Dioxide 21 L (22-30) mmol/L Anion Gap 9 mmol/L BUN 22 H (7-17) mg/dL Creatinine 0.65 (0.52-1.04) mg/dL Est GFR (CKD-EPI)AfAm >90 (>60 ml/min/1.73 sqM) Est GFR (CKD-EPI)NonAf 86 (>60 ml/min/1.73 sqM) Glucose 431 H (74-99) mg/dL POC Glucose (mg/dL) 412 H (70-110) mg/dL POC Glu Technical Instructor ID Alessandra Rachell Calcium 9.5 (8.4-10.2) mg/dL 12/29/23 Range/Units 21:52 WBC (3.8-10.6) k/uL RBC (3.80-5.40) m/uL Hgb (11.4-16.0) gm/dL Hct (34.0-46.0) % MCV (80.0-100.0) fL MCH (25.0-35.0) pg MCHC (31.0-37.0) g/dL RDW (11.5-15.5) % Plt Count (150-450) k/uL MPV Neutrophils % % Lymphocytes % % Monocytes % % Eosinophils % % Basophils % % Neutrophils # (1.3-7.7) k/uL Lymphocytes # (1.0-4.8) k/uL Monocytes # (0-1.0) k/uL Eosinophils # (0-0.7) k/uL Basophils # (0-0.2) k/uL Sodium (137-145) mmol/L Potassium (3.5-5.1) mmol/L Chloride (98-107) mmol/L Carbon Dioxide (22-30) mmol/L Anion Gap mmol/L BUN (7-17) mg/dL Creatinine (0.52-1.04) mg/dL Est GFR (CKD-EPI)AfAm (>60 ml/min/1.73 sqM) Est GFR (CKD-EPI)NonAf (>60 ml/min/1.73 sqM) Glucose (74-99) mg/dL POC Glucose (mg/dL) 349 H (70-110) mg/dL POC Glu Technical Instructor ID Alessandra Rachell Calcium (8.4-10.2) mg/dL Disposition Clinical Impression: Hyperglycemia Disposition: HOME SELF-CARE Condition: Good Instructions (If sedation given, give patient instructions): Diabetic Hyperglycemia (ED) Additional Instructions: Avoid sugary foods until you can be seen and evaluated by primary care doctor for further management of your diabetes Is patient prescribed a controlled substance at d/c from ED?: No Referrals: Tyree Yañez DO [Primary Care Provider] - 1-2 days Time of Disposition: 22:06
[2023-12-29 21:19] LABS: African American GFR (CKD) >90 (>60 ml/min/1.73 sqM); Anion Gap 9 mmol/L; Blood Urea Nitrogen 22 mg/dL (7-17); Calcium 9.5 mg/dL (8.4-10.2); Carbon Dioxide 21 mmol/L (22-30); Chloride 106 mmol/L (98-107); Glucose 431 mg/dL (74-99); Non-African American GFR(CKD) 86 (>60 ml/min/1.73 sqM); Potassium 4.5 mmol/L (3.5-5.1); Sodium 136 mmol/L (137-145)
[2023-12-29 21:37] LABS: Basophils # (A) 0.1 k/uL (0-0.2); Basophils % (A) 1 %; Eosinophils # (A) 0.1 k/uL (0-0.7); Eosinophils % (A) 1 %; HCT 46.8 % (34.0-46.0); HGB 14.9 gm/dL (11.4-16.0); Lymphocytes # (A) 2.3 k/uL (1.0-4.8); Lymphocytes % (A) 24 %; MCH 28.9 pg (25.0-35.0); MCHC 31.7 g/dL (31.0-37.0); MCV 90.9 fL (80.0-100.0); Mean Platelet Volume 10.5; Monocytes # (A) 0.5 k/uL (0-1.0); Monocytes % (A) 5 %; Neutrophils # (A) 6.7 k/uL (1.3-7.7); Neutrophils % (A) 69 %; Platelet Count 138 k/uL (150-450); RBC 5.15 m/uL (3.80-5.40); RDW 13.1 % (11.5-15.5); WBC 9.6 k/uL (3.8-10.6)
[2023-12-29 21:53] LABS: Glucose,Whole Blood 349 mg/dL (70-110)
[2023-12-29] MEDS: INSULIN REGULAR 100 UNIT/ML VIAL (IV) IV ONE (21:58)
[2023-12-29 22:05] VITALS: RESP 18
[2023-12-29 22:19] LABS: Glucose,Whole Blood 294 mg/dL (70-110)
[2023-12-29 22:37] LABS: Glucose,Whole Blood 264 mg/dL (70-110)
[2023-12-29 22:43] VITALS: BP 150/78; PULSE 74
== END 2023-12-29 22:43 | disposition home or self-care (01) ==
LOC: EC 20:43
DX: E11.65 Type 2 diabetes mellitus with hyperglycemia (principal); Z79.84 Long term (current) use of oral hypoglycemic drugs
CPT/HCPCS: 36415; 80048; 85025; 96360; 96361; 99285

== ENCOUNTER → 2024-01-10 | Outpatient (CLI) | payer MEDICARE ==
[2024-01-10 16:46] LABS: HCT 42.6 % (37.2-46.3); HGB 13.7 g/dL (12.0-15.0); MCH 29.2 pg (27.0-32.0); MCHC 32.2 g/dL (32.0-37.0); MCV 90.8 FL (80.0-97.0); Mean Platelet Volume 13.6 FL (9.5-12.2); NRBC Per 100 WBC 0 X 10*3/uL (0.00-0.01); Platelet Count 119 X 10*3/uL (140-440); RBC 4.69 X 10*6/uL (4.10-5.20); RDW 13.3 % (11.5-14.5); WBC 7.19 X 10*3/uL (4.50-10.00)
[2024-01-10 16:49] LABS: BUN/Creat Ratio 27.17 Ratio (12.00-20.00); Blood Urea Nitrogen 16.3 mg/dL (9.0-27.0); Calcium 9.1 mg/dL (8.7-10.3); Carbon Dioxide 22.8 mmol/L (21.6-31.8); Chloride 108 mmol/L (96-109); Glucose 221 mg/dL (70-110); Potassium 4.2 mmol/L (3.5-5.5); Sodium 142 mmol/L (135-145)
== END | disposition home or self-care (01) ==
LOC: LABWHC1 09:44
PROVIDERS: ATTEND Internal Medicine Cardiovascular Disease
DX: I48.91 Unspecified atrial fibrillation (principal)
CPT/HCPCS: 36415; 80048; 84443; 85027

== ENCOUNTER 2024-02-14 19:38 | Emergency (ER) | payer MEDICARE ==
--- NOTE | 2024-02-14 19:54 | ED ---
Chest Pain HPI - General Stated Complaint: Chest Tightness,SoB Time Seen by Provider: 02/14/24 19:53 Source: RN notes reviewed, old records reviewed Mode of arrival: ambulatory Limitations: no limitations - History of Present Illness Initial Comments: This is a 78-year-old female to the ER for evaluation, patient presents today for evaluation regards to chest pain chest pain for a few days now patient has no fevers no chills no sick contacts MD Complaint: chest pain -: days(s) Pain Location: substernal, left chest Pain Radiation: none Severity: moderate Severity scale (1-10): 4 Consistency: constant Improves With: nothing Worsens With: nothing Anginal Symptoms: sense of impending doom Other Symptoms: palpitations Treatments Prior to Arrival: none - Related Data Home Medications Medication Instructions Recorded Confirmed Gabapentin [Neurontin] 300 mg PO BID 08/06/19 01/04/23 Aspirin EC [Ecotrin Low Dose] 81 mg PO DAILY 10/02/22 01/04/23 Empagliflozin [Jardiance] 25 mg PO DAILY 10/02/22 01/04/23 Loratadine [Claritin] 10 mg PO DAILY 10/02/22 01/04/23 Metoprolol Tartrate [Lopressor] 25 mg PO BID 10/02/22 01/04/23 Naloxone HCl [Narcan] 4 mg NASAL DIRECTED PRN 10/02/22 01/04/23 Pantoprazole [Protonix] 40 mg PO DAILY 10/02/22 01/04/23 Rosuvastatin [Crestor] 20 mg PO HS 10/02/22 01/05/23 amLODIPine [Norvasc] 10 mg PO DAILY 10/02/22 01/05/23 glipiZIDE [Glucotrol] 5 mg PO BID 10/02/22 01/04/23 methocarbamoL [Robaxin] 1,000 mg PO QID PRN 10/02/22 01/05/23 oxyCODONE HCL [OxyIR] 5 mg PO Q6H PRN 10/02/22 01/05/23 traZODone HCL 150 mg PO HS 10/02/22 01/05/23 Previous Rx's Medication Instructions Recorded PARoxetine [Paxil] 20 mg PO DAILY #30 tab 08/22/19 metFORMIN HCL [Glucophage] 1,000 mg PO BID #60 tab 08/22/19 Allergies Allergy/AdvReac Type Severity Reaction Status Date / Time No Known Allergies Allergy Verified 02/14/24 20:00 Review of Systems ROS Statement: Those systems with pertinent positive or pertinent negative responses have been documented in the HPI. ROS Other: All systems not noted in ROS Statement are negative. 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 History of Any Multi-Drug Resistant Organisms: None Reported Past Surgical History: Breast Surgery, Heart Catheterization With Stent, Hysterectomy, Orthopedic Surgery Additional Past Surgical History / Comment(s): knee, shoulder replacement, epidurals for pain Additional Past Anesthesia/Blood Transfusion Reaction / Comment(s): Slow to wake with last surgery. Date of Last Stent Placement:: 02/14/99 Past Psychological History: No Psychological Hx Reported Smoking Status: Never smoker Past Alcohol Use History: None Reported Past Drug Use History: None Reported - Past Family History Father Additional Family Medical History / Comment(s): Father had heart problems Mother Family Medical History: Diabetes Mellitus Additional Family Medical History / Comment(s): Heart problems Brother(s) Family Medical History: Coronary Artery Disease (CAD) Sister(s) Family Medical History: Coronary Artery Disease (CAD) General Exam General appearance: alert, in no apparent distress Head exam: Present: atraumatic, normocephalic, normal inspection Eye exam: Present: normal appearance, PERRL, EOMI. Absent: scleral icterus, conjunctival injection, periorbital swelling ENT exam: Present: normal exam, mucous membranes moist Neck exam: Present: normal inspection. Absent: tenderness, meningismus, lymphadenopathy Respiratory exam: Present: normal lung sounds bilaterally. Absent: respiratory distress, wheezes, rales, rhonchi, stridor Cardiovascular Exam: Present: regular rate, normal rhythm, normal heart sounds. Absent: systolic murmur, diastolic murmur, rubs, gallop, clicks GI/Abdominal exam: Present: soft, normal bowel sounds. Absent: distended, tenderness, guarding, rebound, rigid Extremities exam: Present: normal inspection, full ROM, normal capillary refill. Absent: tenderness, pedal edema, joint swelling, calf tenderness Back exam: Present: normal inspection Neurological exam: Present: alert, oriented X3, CN II-XII intact Psychiatric exam: Present: normal affect, normal mood Skin exam: Present: warm, dry, intact, normal color. Absent: rash Course Vital Signs 02/14/24 19:57 Temperature 98.6 F Pulse Rate 69 Respiratory 18 Rate Blood Pressure 129/63 O2 Sat by Pulse 96 Oximetry - Reevaluation(s) Reevaluation #1: 02/14/24 20:11 Medical record is reviewed Reevaluation #2: 02/14/24 20:11 Patient still with chest pain Reevaluation #3: 02/14/24 21:21 Patient informed of results and questions answered Reevaluation #4: 02/14/24 20:11 Was pt. sent in by a medical professional or institution (, PA, CONTROLS DESIGNER, urgent care, hospital, or senior living...) When possible be specific @ -no Did you speak to anyone other than the patient for history (EMS, parent, family, police, friend...)? What history was obtained from this source @ -no Did you review nursing and triage notes (agree or disagree)? Why? @ -agree Are old charts reviewed (outside hosp., previous admission, EMS record, old EKG, old radiological studies, urgent care reports/EKG's, senior living records)? Report findings @ -yes Differential Diagnosis (chest pain, altered mental status, abdominal pain women, abdominal pain men, vaginal bleeding, weakness, fever, dyspnea, syncope, headache, dizziness, GI bleed, back pain, seizure, CVA, palpatations, mental health, musculoskeletal)? @ -prior EKG interpreted by me (3pts min.). @ -yes X-rays interpreted by me (1pt min.). @ -yes negative for acute disease CT interpreted by me (1pt min.). @ -no U/S interpreted by me (1pt. min.). @ -no What testing was considered but not performed or refused? (CT, X-rays, U/S, labs)? Why? @ -none What meds were considered but not given or refused? Why? @ -none Did you discuss the management of the patient with other professionals (professionals i.e. , PA, CONTROLS DESIGNER, lab, RT, psych nurse, social media director, real estate account executive, teacher, state wildlife officer, adult protective caseworker)? Give summary @ -no Was smoking cessation discussed for >3mins.? @ -no Was critical care preformed (if so, how long)? @ -no Were there social determinants of health that impacted care today? How? (Homelessness, low income, unemployed, alcoholism, drug addiction, transportation, low edu. Level, literacy, decrease access to med. care, halfway, rehab)? @ -none Was there de-escalation of care discussed even if they declined (Discuss DNR or withdrawal of care, Hospice)? DNR status @ -no What co-morbidities impacted this encounter? (DM, HTN, Smoking, COPD, CAD, Cancer, CVA, ARF, Chemo, Hep., AIDS, mental health diagnosis, sleep apnea, morbid obesity)? @ -none Was patient admitted / discharged? Hospital course, mention meds given and route, prescriptions, significant lab abnormalities, going to OR and other pertinent info. @ - Undiagnosed new problem with uncertain prognosis? @ -no Drug Therapy requiring intensive monitoring for toxicity (Heparin, Nitro, Insulin, Cardizem)? @ -no Were any procedures done? @ -no Diagnosis/symptom? @ - Acute, or Chronic, or Acute on Chronic? @ -Acute Uncomplicated (without systemic symptoms) or Complicated (systemic symptoms)? @ -Complicated Side effects of treatment? @ -no Exacerbation, Progression, or Severe Exacerbation? @ -exacerbation Poses a threat to life or bodily function? How? (Chest pain, [place], [place], pneumonia, PE, COPD, DKA, ARF, appy, cholecystitis, CVA, Diverticulitis, Homicidal, Suicidal, threat to staff... and all critical care pts) @ -yes Reevaluation #5: Differential Chest Pain: Stable Angina, Unstable Angina, STEMI, NSTEMI Aortic Dissection, Pneumothorax, Musculoskeletal, Esophageal Spasm GERD, Cholecystitis, Pancreatitis, Zoster, this is not meant to be an all-inclusive list. Chest Pain MDM - MDM 78 female to ER with chest pain chest pain abdominal pain better with a burp patient has no pain here in the ER feels well can be discharged home Disposition Clinical Impression: Chest pain, Atypical chest pain, Pleurisy Disposition: HOME SELF-CARE Condition: Fair Instructions (If sedation given, give patient instructions): Chest Pain (ED) Is patient prescribed a controlled substance at d/c from ED?: No Referrals: Tyree Yañez DO [Primary Care Provider] - 1-2 days Time of Disposition: 21:20
[2024-02-14 20:00] VITALS: BP 129/63; PULSE 69; RESP 18; TEMP 98.6
[2024-02-14 20:05] LABS: Basophils % (A) 0 %; Eosinophils # (A) 0.1 k/uL (0-0.7); Eosinophils % (A) 2 %; HCT 40.9 % (34.0-46.0); HGB 13.6 gm/dL (11.4-16.0); Lymphocytes # (A) 2.3 k/uL (1.0-4.8); Lymphocytes % (A) 32 %; MCHC 33.3 g/dL (31.0-37.0); MCV 90.1 fL (80.0-100.0); Mean Platelet Volume 10.5; Monocytes # (A) 0.3 k/uL (0-1.0); Monocytes % (A) 4 %; Neutrophils # (A) 4.2 k/uL (1.3-7.7); Neutrophils % (A) 59 %; Platelet Count 122 k/uL (150-450); RBC 4.55 m/uL (3.80-5.40); WBC 7.1 k/uL (3.8-10.6)
[2024-02-14 20:18] LABS: Partial Thromboplastin Time 26.4 sec (22.0-30.0); Prothrombin Time 11.4 sec (10.0-12.5)
--- NOTE | 2024-02-14 20:20 | XR ---
EXAMINATION TYPE: XR chest 2V DATE OF EXAM: 02/14/2024 8:08 PM COMPARISON: 10/02/2022 CLINICAL INDICATION: Female, 78 years old with history of Chest Pain, , TECHNIQUE: PA and lateral views FINDINGS: Partially visualized reverse left shoulder arthroplasty. Heart border line in size. Mild interstitial prominence without consolidation or pleural effusion. DISH mid and lower thoracic spine. IMPRESSION: Borderline heart size and mild interstitial prominence. Correlate to exclude mild CHF with pulmonary vascular congestion. [facility], , 02/14/2024 8:18 PM
[2024-02-14 20:25] LABS: ALT 24 U/L (4-34); AST 31 U/L (14-36); African American GFR (CKD) >90 (>60 ml/min/1.73 sqM); Albumin 4.3 g/dL (3.5-5.0); Alkaline Phosphatase 86 U/L (38-126); Anion Gap 12 mmol/L; Blood Urea Nitrogen 22 mg/dL (7-17); Calcium 9.4 mg/dL (8.4-10.2); Carbon Dioxide 20 mmol/L (22-30); Chloride 104 mmol/L (98-107); Glucose 267 mg/dL (74-99); Lipase 96 U/L (23-300); Magnesium 1.6 mg/dL (1.6-2.3); Non-African American GFR(CKD) 79 (>60 ml/min/1.73 sqM); Potassium 4.5 mmol/L (3.5-5.1); Sodium 136 mmol/L (137-145); Total Bilirubin 0.3 mg/dL (0.2-1.3)
[2024-02-14 20:33] LABS: NT-Pro-B-Type Natriuretic Pept 406 pg/mL
== END 2024-02-14 21:29 | disposition home or self-care (01) ==
LOC: EC 19:38
DX: R07.89 Other chest pain (principal); R09.1 Pleurisy
CPT/HCPCS: 36415; 71046; 80053; 83690; 83735; 83880; 84484; 85025; 85610; 85730; 87636; 93005; 99285

== ENCOUNTER 2024-02-23 21:59 | Emergency (ER) | payer MEDICARE ==
--- NOTE | 2024-02-23 22:31 | XR ---
EXAMINATION TYPE: XR chest 2V DATE OF EXAM: 02/23/2024 10:26 PM COMPARISON: Chest x-ray February 14, 2024 CLINICAL INDICATION: Female, 78 years old with history of cough, TECHNIQUE: Frontal and lateral views of the chest are obtained. FINDINGS: There is no suspicious new focal air space opacity, pleural effusion, or pneumothorax seen . Persistent mild cardiomegaly with thoracic aorta. Surgical change of the left shoulder is redemonst rated. IMPRESSION: Mild cardiomegaly without acute pulmonary infiltrate. [facility], , 02/23/2024 10:29 PM
--- NOTE | 2024-02-23 23:01 | ED ---
URI HPI - General Chief Complaint: Upper Respiratory Infection Stated Complaint: Difficulty Breathing, Congestion, Cough Time Seen by Provider: 02/23/24 22:17 Source: patient, RN notes reviewed Mode of arrival: ambulatory Limitations: no limitations - History of Present Illness Initial Comments: This is a well-known 78-year-old female with history of DM, CAD, A-fib presenting with cough and nasal congestion x 1 day. Endorses some phlegm produced with cough without hemoptysis. Denies recent sick contacts. Endorses use of DayQuil, NyQuil and Tylenol with minimal relief. MD Complaint: cough, nasal congestion Onset/Timin -: days(s) Consistency: constant Improves With: nothing Worsens With: nothing Treatments Prior to Arrival: Acetaminophen, "cold medicine" - Related Data Home Medications Medication Instructions Recorded Confirmed Gabapentin [Neurontin] 300 mg PO BID 08/06/19 01/04/23 Aspirin EC [Ecotrin Low Dose] 81 mg PO DAILY 10/02/22 01/04/23 Empagliflozin [Jardiance] 25 mg PO DAILY 10/02/22 01/04/23 Loratadine [Claritin] 10 mg PO DAILY 10/02/22 01/04/23 Metoprolol Tartrate [Lopressor] 25 mg PO BID 10/02/22 01/04/23 Naloxone HCl [Narcan] 4 mg NASAL DIRECTED PRN 10/02/22 01/04/23 Pantoprazole [Protonix] 40 mg PO DAILY 10/02/22 01/04/23 Rosuvastatin [Crestor] 20 mg PO HS 10/02/22 01/05/23 amLODIPine [Norvasc] 10 mg PO DAILY 10/02/22 01/05/23 glipiZIDE [Glucotrol] 5 mg PO BID 10/02/22 01/04/23 methocarbamoL [Robaxin] 1,000 mg PO QID PRN 10/02/22 01/05/23 oxyCODONE HCL [OxyIR] 5 mg PO Q6H PRN 10/02/22 01/05/23 traZODone HCL 150 mg PO HS 10/02/22 01/05/23 Previous Rx's Medication Instructions Recorded PARoxetine [Paxil] 20 mg PO DAILY #30 tab 08/22/19 metFORMIN HCL [Glucophage] 1,000 mg PO BID #60 tab 08/22/19 Allergies Allergy/AdvReac Type Severity Reaction Status Date / Time No Known Allergies Allergy Verified 02/14/24 20:00 Review of Systems ROS Statement: Those systems with pertinent positive or pertinent negative responses have been documented in the HPI. ROS Other: All systems not noted in ROS Statement are negative. 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 History of Any Multi-Drug Resistant Organisms: None Reported Past Surgical History: Breast Surgery, Heart Catheterization With Stent, Hysterectomy, Orthopedic Surgery Additional Past Surgical History / Comment(s): knee, shoulder replacement, epidurals for pain Additional Past Anesthesia/Blood Transfusion Reaction / Comment(s): Slow to wake with last surgery. Date of Last Stent Placement:: 02/14/99 Past Psychological History: No Psychological Hx Reported Smoking Status: Never smoker Past Alcohol Use History: None Reported Past Drug Use History: None Reported - Past Family History Father Additional Family Medical History / Comment(s): Father had heart problems Mother Family Medical History: Diabetes Mellitus Additional Family Medical History / Comment(s): Heart problems Brother(s) Family Medical History: Coronary Artery Disease (CAD) Sister(s) Family Medical History: Coronary Artery Disease (CAD) General Exam Limitations: no limitations General appearance: alert, in no apparent distress Head exam: Present: atraumatic, normocephalic, normal inspection Eye exam: Present: normal appearance, PERRL, EOMI. Absent: scleral icterus, conjunctival injection, periorbital swelling ENT exam: Present: normal exam, mucous membranes moist Neck exam: Present: normal inspection. Absent: tenderness, meningismus, lymphadenopathy Respiratory exam: Present: normal lung sounds bilaterally. Absent: respiratory distress, wheezes, rales, rhonchi, stridor Cardiovascular Exam: Present: regular rate, normal rhythm, normal heart sounds. Absent: systolic murmur, diastolic murmur, rubs, gallop, clicks GI/Abdominal exam: Present: soft, normal bowel sounds. Absent: distended, tenderness, guarding, rebound, rigid Extremities exam: Present: normal inspection, full ROM, normal capillary refill. Absent: tenderness, pedal edema, joint swelling, calf tenderness Back exam: Present: normal inspection Neurological exam: Present: alert, oriented X3, CN II-XII intact Psychiatric exam: Present: normal affect, normal mood Skin exam: Present: warm, dry, intact, normal color. Absent: rash Course Vital Signs 02/23/24 22:12 Temperature 98.1 F Pulse Rate 83 Respiratory 18 Rate Blood Pressure 121/70 O2 Sat by Pulse 96 Oximetry Medical Decision Making - Medical Decision Making Was pt. sent in by a medical professional or institution (, PA, TRANSFER PROFESSOR, urgent care, hospital, or assisted...) When possible be specific @ -[No] Did you speak to anyone other than the patient for history (EMS, parent, family, police, friend...)? What history was obtained from this source @ -[No] Did you review nursing and triage notes (agree or disagree)? Why? @ -[I reviewed and agree with nursing and triage notes] Were old charts reviewed (outside hosp., previous admission, EMS record, old EKG, old radiological studies, urgent care reports/EKG's, assisted records)? Report findings @ -[No old charts were reviewed] Differential Diagnosis (chest pain, altered mental status, abdominal pain women, abdominal pain men, vaginal bleeding, weakness, fever, dyspnea, syncope, headache, dizziness, GI bleed, back pain, seizure, CVA, palpatations, mental health, musculoskeletal)? @ -Differential Fever: Pneumonia, viral URI, endocarditis, myocarditis, pericarditis, otitis, sinusitis, peritonsillar Abscess, retropharyngeal Abscess, epiglottitis, peritonitis, appendicitis, Angie cystitis, diverticulitis, hepatitis, colitis, UTI, PID, TOA, pyelonephritis, prostatitis, epididymitis, meningitis, encephalitis, pulmonary embolism, CVA, thyroid storm, pancreatitis, adrenal crisis, cavernous sinus thrombosis, this is not meant to be an all-inclusive list. EKG interpreted by me (3pts min.). @ -Not done X-rays interpreted by me (1pt min.). @ -CXR shows no acute cardiopulmonary process CT interpreted by me (1pt min.). @ -[None done] U/S interpreted by me (1pt. min.). @ -[None done] What testing was considered but not performed or refused? (CT, X-rays, U/S, labs)? Why? @ -[None] What meds were considered but not given or refused? Why? @ -[None] Did you discuss the management of the patient with other professionals (professionals i.e. , PA, TRANSFER PROFESSOR, lab, RT, psych nurse, social work manager, vice president of engineering, teacher, protective officer, caser up)? Give summary @ -[No] Was smoking cessation discussed for >3mins.? @ -[No] Was critical care preformed (if so, how long)? @ -[No] Were there social determinants of health that impacted care today? How? (Homelessness, low income, unemployed, alcoholism, drug addiction, transportation, low edu. Level, literacy, decrease access to med. care, senior living, rehab)? @ -[No] Was there de-escalation of care discussed even if they declined (Discuss DNR or withdrawal of care, Hospice)? DNR status @ -[No] What co-morbidities impacted this encounter? (DM, HTN, Smoking, COPD, CAD, Cancer, CVA, ARF, Chemo, Hep., AIDS, mental health diagnosis, sleep apnea, morbid obesity)? @ -[None] Was patient admitted / discharged? Hospital course, mention meds given and route, prescriptions, significant lab abnormalities, going to OR and other pertinent info. @ -Testing CXR unremarkable. Patient advised alternate Tylenol/Motrin every 4 hours for fever/pain. Increase rest and oral hydration. Undiagnosed new problem with uncertain prognosis? @ -[No] Drug Therapy requiring intensive monitoring for toxicity (Heparin, Nitro, Insulin, Cardizem)? @ -[No] Were any procedures done? @ -[No] Diagnosis/symptom? @ -Upper respiratory infection Acute, or Chronic, or Acute on Chronic? @ -Acute Uncomplicated (without systemic symptoms) or Complicated (systemic symptoms)? @ -Uncomplicated Side effects of treatment? @ -[No] Exacerbation, Progression, or Severe Exacerbation? @ -[No] Poses a threat to life or bodily function? How? (Chest pain, [place], [place], pneumonia, PE, COPD, DKA, ARF, appy, cholecystitis, CVA, Diverticulitis, Homicidal, Suicidal, threat to staff... and all critical care pts) @ -[No] - Lab Data Lab Results 02/23/24 Range/Units 22:45 Influenza Type A (PCR) Not Detected (Not Detectd) Influenza Type B (PCR) Not Detected (Not Detectd) RSV (PCR) Not Detected (Not Detectd) SARS-CoV-2 (PCR) Detected A (Not Detectd) Disposition Clinical Impression: COVID-19 Disposition: HOME SELF-CARE Condition: Good Instructions (If sedation given, give patient instructions): COVID-19 (Coronavirus Disease 2019) (ED) Is patient prescribed a controlled substance at d/c from ED?: No Referrals: Tyree Yañez DO [Primary Care Provider] - 1-2 days Time of Disposition: 00:47
[2024-02-24 01:05] VITALS: BP 130/79; PULSE 79; RESP 19; TEMP 97.8
== END 2024-02-24 01:04 | disposition home or self-care (01) ==
LOC: EC 21:59
DX: U07.1 COVID-19 (principal); J06.9 Acute upper respiratory infection, unspecified
CPT/HCPCS: 71046; 87636; 99285

== ENCOUNTER 2024-04-08 20:34 | Emergency (ER) | payer MEDICARE ==
[2024-04-08 21:12] VITALS: RESP 18; TEMP 97.7
--- NOTE | 2024-04-08 21:32 | ED ---
General Adult HPI - General Chief complaint: ENT Stated complaint: Sore throat Time Seen by Provider: 04/08/24 21:11 Source: patient, RN notes reviewed, old records reviewed Mode of arrival: ambulatory Limitations: no limitations - History of Present Illness Initial comments: 78 yo female presents for evaluation of sore throat. Patient states she has had a sore throat, nasal congestion, mild cough for the past 6 days. No fever. No chest pain. No dyspnea. No known sick contacts. No vomiting or diarrhea. - Related Data Home Medications Medication Instructions Recorded Confirmed Gabapentin [Neurontin] 300 mg PO BID 08/06/19 01/04/23 Aspirin EC [Ecotrin Low Dose] 81 mg PO DAILY 10/02/22 01/04/23 Empagliflozin [Jardiance] 25 mg PO DAILY 10/02/22 01/04/23 Loratadine [Claritin] 10 mg PO DAILY 10/02/22 01/04/23 Metoprolol Tartrate [Lopressor] 25 mg PO BID 10/02/22 01/04/23 Naloxone HCl [Narcan] 4 mg NASAL DIRECTED PRN 10/02/22 01/04/23 Pantoprazole [Protonix] 40 mg PO DAILY 10/02/22 01/04/23 Rosuvastatin [Crestor] 20 mg PO HS 10/02/22 01/05/23 amLODIPine [Norvasc] 10 mg PO DAILY 10/02/22 01/05/23 glipiZIDE [Glucotrol] 5 mg PO BID 10/02/22 01/04/23 methocarbamoL [Robaxin] 1,000 mg PO QID PRN 10/02/22 01/05/23 oxyCODONE HCL [OxyIR] 5 mg PO Q6H PRN 10/02/22 01/05/23 traZODone HCL 150 mg PO HS 10/02/22 01/05/23 Previous Rx's Medication Instructions Recorded PARoxetine [Paxil] 20 mg PO DAILY #30 tab 08/22/19 metFORMIN HCL [Glucophage] 1,000 mg PO BID #60 tab 08/22/19 Allergies Allergy/AdvReac Type Severity Reaction Status Date / Time No Known Allergies Allergy Verified 04/08/24 21:12 Review of Systems ROS Statement: Those systems with pertinent positive or pertinent negative responses have been documented in the HPI. ROS Other: All systems not noted in ROS Statement are negative. 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 History of Any Multi-Drug Resistant Organisms: None Reported Past Surgical History: Breast Surgery, Heart Catheterization With Stent, Hysterectomy, Orthopedic Surgery Additional Past Surgical History / Comment(s): knee, shoulder replacement, epidurals for pain Additional Past Anesthesia/Blood Transfusion Reaction / Comment(s): Slow to wake with last surgery. Date of Last Stent Placement:: 02/14/99 Past Psychological History: No Psychological Hx Reported Smoking Status: Never smoker Past Alcohol Use History: None Reported Past Drug Use History: None Reported - Past Family History Father Additional Family Medical History / Comment(s): Father had heart problems Mother Family Medical History: Diabetes Mellitus Additional Family Medical History / Comment(s): Heart problems Brother(s) Family Medical History: Coronary Artery Disease (CAD) Sister(s) Family Medical History: Coronary Artery Disease (CAD) General Exam Limitations: no limitations General appearance: alert, in no apparent distress Head exam: Present: atraumatic, normocephalic Eye exam: Present: normal appearance, PERRL ENT exam: Absent: normal oropharynx (Mild pharyngeal erythema no tonsillar swelling or exudate) Respiratory exam: Present: normal lung sounds bilaterally. Absent: respiratory distress, wheezes Cardiovascular Exam: Present: regular rate, normal rhythm GI/Abdominal exam: Present: soft. Absent: distended, tenderness Neurological exam: Present: alert, oriented X3 Psychiatric exam: Present: normal affect, normal mood Skin exam: Present: warm, dry, intact Course Vital Signs 04/08/24 21:09 Temperature 97.7 F Pulse Rate 74 Respiratory 18 Rate Blood Pressure 128/56 O2 Sat by Pulse 97 Oximetry Medical Decision Making - Medical Decision Making Was pt. sent in by a medical professional or institution (, PA, CHIEF NUCLEAR MEDICINE TECHNOLOGIST, urgent care, hospital, or detention...) When possible be specific @ -No Did you speak to anyone other than the patient for history (EMS, parent, family, police, friend...)? What history was obtained from this source @ -No Did you review nursing and triage notes (agree or disagree)? Why? @ -I reviewed and agree with nursing and triage notes Were old charts reviewed (outside hosp., previous admission, EMS record, old EKG, old radiological studies, urgent care reports/EKG's, detention records)? Report findings @ -No old charts were reviewed Differential Diagnosis viral pharyngitis, strep pharyngitis, peritonsillar abscess, retropharyngeal abscess EKG interpreted by me (3pts min.). @ -As above X-rays interpreted by me (1pt min.). @ -None done CT interpreted by me (1pt min.). @ -None done U/S interpreted by me (1pt. min.). @ -None done What testing was considered but not performed or refused? (CT, X-rays, U/S, labs)? Why? @ -None What meds were considered but not given or refused? Why? @ -None Did you discuss the management of the patient with other professionals (professionals i.e. , PA, CHIEF NUCLEAR MEDICINE TECHNOLOGIST, lab, RT, psych nurse, social work manager, tankerman, teacher, division officer weapons department, business case analyst)? Give summary @ -No Was smoking cessation discussed for >3mins.? @ -No Was critical care preformed (if so, how long)? @ -No Were there social determinants of health that impacted care today? How? (Homelessness, low income, unemployed, alcoholism, drug addiction, transportation, low edu. Level, literacy, decrease access to med. care, prison, rehab)? @ -No Was there de-escalation of care discussed even if they declined (Discuss DNR or withdrawal of care, Hospice)? DNR status @ -No What co-morbidities impacted this encounter? (DM, HTN, Smoking, COPD, CAD, Cancer, CVA, ARF, Chemo, Hep., AIDS, mental health diagnosis, sleep apnea, morbid obesity)? @ -None Was patient admitted / discharged? Hospital course, mention meds given and route, prescriptions, significant lab abnormalities, going to OR and other pertinent info. @ -[This is a well-appearing 78-year-old female with sore throat, upper respiratory symptoms, no chest pain or dyspnea. No fever. Vital signs are stable. She has pharyngeal erythema without tonsillar swelling or exudate, tonsillar pillars are symmetric. Viral swab and strep swab are negative. Pat pedro likely has viral pharyngitis we will continue supportive measures at home she should follow-up with her primary care provider. Undiagnosed new problem with uncertain prognosis? @ -No Drug Therapy requiring intensive monitoring for toxicity (Heparin, Nitro, Insulin, Cardizem)? @ -No Were any procedures done? @ -No Diagnosis/symptom? @ -Pharyngitis Acute, or Chronic, or Acute on Chronic? @ -Acute Uncomplicated (without systemic symptoms) or Complicated (systemic symptoms)? @ -Default Side effects of treatment? @ -No Exacerbation, Progression, or Severe Exacerbation? @ -No Poses a threat to life or bodily function? How? (Chest pain, [place], [place], pneumonia, PE, COPD, DKA, ARF, appy, cholecystitis, CVA, Diverticulitis, Homicidal, Suicidal, threat to staff... and all critical care pts) @ -No - Lab Data Lab Results 04/08/24 04/08/24 Range/Units 21:13 21:13 Influenza Type A (PCR) Not Detected (Not Detectd) Influenza Type B (PCR) Not Detected (Not Detectd) RSV (PCR) Not Detected (Not Detectd) SARS-CoV-2 (PCR) Not Detected (Not Detectd) Group A Strep (PCR) NOT DETECTED (Not Detectd) Disposition Clinical Impression: Acute viral pharyngitis Disposition: HOME SELF-CARE Condition: Fair Instructions (If sedation given, give patient instructions): Pharyngitis (ED) Is patient prescribed a controlled substance at d/c from ED?: No Referrals: Tyree Yañez DO [Primary Care Provider] - 1-2 days Time of Disposition: 22:09
[2024-04-08 22:08] LABS: Influenza A Not Detected (Not Detectd); Influenza B Not Detected (Not Detectd); RSV Not Detected (Not Detectd)
[2024-04-08 22:20] VITALS: BP 135/71; PULSE 71
== END 2024-04-08 22:20 | disposition home or self-care (01) ==
LOC: EC 20:34
DX: J02.8 Acute pharyngitis due to other specified organisms (principal)
CPT/HCPCS: 87636; 87651; 99283

== ENCOUNTER 2024-04-15 23:04 | Emergency (ER) | payer MEDICARE ==
[2024-04-15 23:11] LABS: Glucose,Whole Blood 248 mg/dL (70-110)
[2024-04-15 23:12] VITALS: RESP 18; TEMP 97.3
--- NOTE | 2024-04-15 23:31 | ED ---
General Adult HPI - General Chief complaint: Recheck/Abnormal Lab/Rx Stated complaint: Hyperglycemia Time Seen by Provider: 04/15/24 23:15 Source: patient Mode of arrival: ambulatory Limitations: no limitations - History of Present Illness Initial comments: 78-year-old female presenting with chief complaint of elevated blood sugar. Patient reports for the past week she has been sick with sore throat and other URI-like symptoms. She has had some fluctuations of her blood sugar recently. She is a type II diabetic currently on insulin. She had an episode of hypoglycemia the other day. She was concerned to give herself too much insulin before bed tonight so she came here to have her sugar checked. She is not having any chest pain, difficulty breathing, abdominal pain, vomiting, dizziness, headache, vision changes. - Related Data Home Medications Medication Instructions Recorded Confirmed Gabapentin [Neurontin] 300 mg PO BID 08/06/19 01/04/23 Aspirin EC [Ecotrin Low Dose] 81 mg PO DAILY 10/02/22 01/04/23 Empagliflozin [Jardiance] 25 mg PO DAILY 10/02/22 01/04/23 Loratadine [Claritin] 10 mg PO DAILY 10/02/22 01/04/23 Metoprolol Tartrate [Lopressor] 25 mg PO BID 10/02/22 01/04/23 Naloxone HCl [Narcan] 4 mg NASAL DIRECTED PRN 10/02/22 01/04/23 Pantoprazole [Protonix] 40 mg PO DAILY 10/02/22 01/04/23 Rosuvastatin [Crestor] 20 mg PO HS 10/02/22 01/05/23 amLODIPine [Norvasc] 10 mg PO DAILY 10/02/22 01/05/23 glipiZIDE [Glucotrol] 5 mg PO BID 10/02/22 01/04/23 methocarbamoL [Robaxin] 1,000 mg PO QID PRN 10/02/22 01/05/23 oxyCODONE HCL [OxyIR] 5 mg PO Q6H PRN 10/02/22 01/05/23 traZODone HCL 150 mg PO HS 10/02/22 01/05/23 Previous Rx's Medication Instructions Recorded PARoxetine [Paxil] 20 mg PO DAILY #30 tab 08/22/19 metFORMIN HCL [Glucophage] 1,000 mg PO BID #60 tab 08/22/19 Allergies Allergy/AdvReac Type Severity Reaction Status Date / Time No Known Allergies Allergy Verified 04/15/24 23:12 Review of Systems ROS Statement: Those systems with pertinent positive or pertinent negative responses have been documented in the HPI. ROS Other: All systems not noted in ROS Statement are negative. 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 History of Any Multi-Drug Resistant Organisms: None Reported Past Surgical History: Breast Surgery, Heart Catheterization With Stent, Hysterectomy, Orthopedic Surgery Additional Past Surgical History / Comment(s): knee, shoulder replacement, epidurals for pain Additional Past Anesthesia/Blood Transfusion Reaction / Comment(s): Slow to wake with last surgery. Date of Last Stent Placement:: 02/14/99 Past Psychological History: No Psychological Hx Reported Smoking Status: Never smoker Past Alcohol Use History: None Reported Past Drug Use History: None Reported - Past Family History Father Additional Family Medical History / Comment(s): Father had heart problems Mother Family Medical History: Diabetes Mellitus Additional Family Medical History / Comment(s): Heart problems Brother(s) Family Medical History: Coronary Artery Disease (CAD) Sister(s) Family Medical History: Coronary Artery Disease (CAD) General Exam Limitations: no limitations General appearance: alert, in no apparent distress Head exam: Present: atraumatic, normocephalic, normal inspection Eye exam: Present: normal appearance, EOMI Neck exam: Present: normal inspection. Absent: meningismus Respiratory exam: Present: normal lung sounds bilaterally. Absent: respiratory distress, wheezes, rales, rhonchi, stridor Cardiovascular Exam: Present: regular rate, normal rhythm, normal heart sounds. Absent: systolic murmur, diastolic murmur, rubs, gallop, clicks Neurological exam: Present: alert, oriented X3 Psychiatric exam: Present: normal affect, normal mood Skin exam: Present: warm, dry, intact, normal color Course Vital Signs 04/15/24 23:05 Temperature 97.3 F L Pulse Rate 83 Respiratory 18 Rate Blood Pressure 176/85 O2 Sat by Pulse 98 Oximetry Medical Decision Making - Medical Decision Making Was pt. sent in by a medical professional or institution (POLLO Magana, ACCESS CONSULTANT, urgent care, hospital, or care home...) When possible be specific @ -No Did you speak to anyone other than the patient for history (EMS, parent, family, police, friend...)? What history was obtained from this source @ -No Did you review nursing and triage notes (agree or disagree)? Why? @ -I reviewed and agree with nursing and triage notes Were old charts reviewed (outside hosp., previous admission, EMS record, old EKG, old radiological studies, urgent care reports/EKG's, care home records)? Report findings @ -No old charts were reviewed Differential Diagnosis (chest pain, altered mental status, abdominal pain women, abdominal pain men, vaginal bleeding, weakness, fever, dyspnea, syncope, h eadache, dizziness, GI bleed, back pain, seizure, CVA, palpatations, mental health, musculoskeletal)? @ -Differential includes DKA, diabetic hyperglycemia, but not an all-inclusive list EKG interpreted by me (3pts min.). @ -As above X-rays interpreted by me (1pt min.). @ -None done CT interpreted by me (1pt min.). @ -None done U/S interpreted by me (1pt. min.). @ -None done What testing was considered but not performed or refused? (CT, X-rays, U/S, labs)? Why? @ -None What meds were considered but not given or refused? Why? @ -None Did you discuss the management of the patient with other professionals (professionals i.e. POLLO Magana, ACCESS CONSULTANT, lab, RT, psych nurse, social media developer, digester, teacher, security police officer, egg caser)? Give summary @ -No Was smoking cessation discussed for >3mins.? @ -No Was critical care preformed (if so, how long)? @ -No Were there social determinants of health that impacted care today? How? (Homelessness, low income, unemployed, alcoholism, drug addiction, transportation, low edu. Level, literacy, decrease access to med. care, [facility], rehab)? @ -No Was there de-escalation of care discussed even if they declined (Discuss DNR or withdrawal of care, Hospice)? DNR status @ -No What co-morbidities impacted this encounter? (DM, HTN, Smoking, COPD, CAD, Canc er, CVA, ARF, Chemo, Hep., AIDS, mental health diagnosis, sleep apnea, morbid obesity)? @ -Type 2 diabetes Was patient admitted / discharged? Hospital course, mention meds given and route, prescriptions, significant lab abnormalities, going to OR and other pertinent info. @ -78-year-old female presenting with chief complaint of elevated blood sugar. She was concerned because she did not want to take too much insulin before bed. History and physical examination are conducted. Glucose is 248 upon arrival, on CMP glucose is 212. Anion gap is normal at 12. No ketonuria. Negative acetone. Lactic acid 2.5, may be due to dehydration as BUN is 18. Patient received IV fluids while here. On reassessment the patient is resting comfortably in the stretcher. She is educated on today's findings and supportive management at home. Follow-up with PCP. Report back to ER with any new or worsening symptoms. Discussed return parameters and answered all questions. Patient conveyed verbal understanding and agreed to the plan. I discussed this case in detail with my attending Dr. Ro Undiagnosed new problem with uncertain prognosis? @ -No Drug Therapy requiring intensive monitoring for toxicity (Heparin, Nitro, Insulin, Cardizem)? @ -No Were any procedures done? @ -No Diagnosis/symptom? @ -Hyperglycemia Acute, or Chronic, or Acute on Chronic? @ -Acute Uncomplicated (without systemic symptoms) or Complicated (systemic symptoms)? @ -Uncomplicated Side effects of treatment? @ -No Exacerbation, Progression, or Severe Exacerbation? @ -No Poses a threat to life or bodily function? How? (Chest pain, USA, [place], pneumonia, PE, COPD, DKA, ARF, appy, cholecystitis, CVA, Diverticulitis, Homicidal, Suicidal, threat to staff... and all critical care pts) @ -Unlikely - Lab Data Result diagrams: 04/15/24 23:46 04/15/24 23:46 Lab Results 04/15/24 04/15/24 04/15/24 Range/Units 23:09 23:46 23:46 WBC 8.4 (3.8-10.6) k/uL RBC 4.49 (3.80-5.40) m/uL Hgb 13.0 (11.4-16.0) gm/dL Hct 40.5 (34.0-46.0) % MCV 90.3 (80.0-100.0) fL MCH 28.9 (25.0-35.0) pg MCHC 32.0 (31.0-37.0) g/dL RDW 13.3 (11.5-15.5) % Plt Count 130 L (150-450) k/uL MPV 9.6 Neutrophils % 69 % Lymphocytes % 23 % Monocytes % 4 % Eosinophils % 2 % Basophils % 0 % Neutrophils # 5.8 (1.3-7.7) k/uL Lymphocytes # 1.9 (1.0-4.8) k/uL Monocytes # 0.4 (0-1.0) k/uL Eosinophils # 0.1 (0-0.7) k/uL Basophils # 0.0 (0-0.2) k/uL Sodium (137-145) mmol/L Potassium (3.5-5.1) mmol/L Chloride (98-107) mmol/L Carbon Dioxide (22-30) mmol/L Anion Gap mmol/L BUN (7-17) mg/dL Creatinine (0.52-1.04) mg/dL Est GFR (CKD-EPI)AfAm (>60 ml/min/1.73 sqM) Est GFR (CKD-EPI)NonAf (>60 ml/min/1.73 sqM) Glucose (74-99) mg/dL POC Glucose (mg/dL) 248 H (70-110) mg/dL POC Glu Sports Marketing Coordinator ID Yaritza Conklin Plasma Lactic Acid Sridhar (0.7-2.0) mmol/L Calcium (8.4-10.2) mg/dL Total Bilirubin (0.2-1.3) mg/dL AST (14-36) U/L ALT (4-34) U/L Alkaline Phosphatase (38-126) U/L Total Protein (6.3-8.2) g/dL Albumin (3.5-5.0) g/dL Urine Color Light Yellow Urine Appearance Clear (Clear) Urine pH 6.0 (5.0-8.0) Ur Specific [place] 1.023 (1.001-1.035) Urine Protein 1+ H (Negative) Urine Glucose (UA) 4+ H (Negative) Urine Ketones Negative (Negative) Urine Blood Negative (Negative) Urine Nitrite Negative (Negative) Urine Bilirubin Negative (Negative) Urine Urobilinogen 2.0 (<2.0) mg/dL Ur Leukocyte Esterase Negative (Negative) Urine RBC <1 (0-5) /hpf Urine WBC 1 (0-5) /hpf Ur Squamous Epith Cells <1 (0-4) /hpf Urine Mucus Rare H (None) /hpf Acetone, Qual (Negative) Influenza Type A (PCR) (Not Detectd) Influenza Type B (PCR) (Not Detectd) RSV (PCR) (Not Detectd) SARS-CoV-2 (PCR) (Not Detectd) 04/15/24 04/15/24 04/15/24 Range/Units 23:46 23:46 23:46 WBC (3.8-10.6) k/uL RBC (3.80-5.40) m/uL Hgb (11.4-16.0) gm/dL Hct (34.0-46.0) % MCV (80.0-100.0) fL MCH (25.0-35.0) pg MCHC (31.0-37.0) g/dL RDW (11.5-15.5) % Plt Count (150-450) k/uL MPV Neutrophils % % Lymphocytes % % Monocytes % % Eosinophils % % Basophils % % Neutrophils # (1.3-7.7) k/uL Lymphocytes # (1.0-4.8) k/uL Monocytes # (0-1.0) k/uL Eosinophils # (0-0.7) k/uL Basophils # (0-0.2) k/uL Sodium 137 (137-145) mmol/L Potassium 3.9 (3.5-5.1) mmol/L Chloride 101 (98-107) mmol/L Carbon Dioxide 24 (22-30) mmol/L Anion Gap 12 mmol/L BUN 18 H (7-17) mg/dL Creatinine 0.46 L (0.52-1.04) mg/dL Est GFR (CKD-EPI)AfAm >90 (>60 ml/min/1.73 sqM) Est GFR (CKD-EPI)NonAf >90 (>60 ml/min/1.73 sqM) Glucose 212 H (74-99) mg/dL POC Glucose (mg/dL) (70-110) mg/dL POC Glu Sports Marketing Coordinator ID Plasma Lactic Acid Sridhar 2.5 H* (0.7-2.0) mmol/L Calcium 9.4 (8.4-10.2) mg/dL Total Bilirubin 0.4 (0.2-1.3) mg/dL AST 27 (14-36) U/L ALT 20 (4-34) U/L Alkaline Phosphatase 72 (38-126) U/L Total Protein 7.1 (6.3-8.2) g/dL Albumin 4.2 (3.5-5.0) g/dL Urine Color Urine Appearance (Clear) Urine pH (5.0-8.0) Ur Specific [place] (1.001-1.035) Urine Protein (Negative) Urine Glucose (UA) (Negative) Urine Ketones (Negative) Urine Blood (Negative) Urine Nitrite (Negative) Urine Bilirubin (Negative) Urine Urobilinogen (<2.0) mg/dL Ur Leukocyte Esterase (Negative) Urine RBC (0-5) /hpf Urine WBC (0-5) /hpf Ur Squamous Epith Cells (0-4) /hpf Urine Mucus (None) /hpf Acetone, Qual Negative (Negative) Influenza Type A (PCR) Not Detected (Not Detectd) Influenza Type B (PCR) Not Detected (Not Detectd) RSV (PCR) Not Detected (Not Detectd) SARS-CoV-2 (PCR) Not Detected (Not Detectd) Disposition Clinical Impression: Hyperglycemia Disposition: HOME SELF-CARE Condition: Good Instructions (If sedation given, give patient instructions): Diabetic H yperglycemia (ED) Additional Instructions: Follow-up with PCP. Report back to ER with any new or worsening symptoms. Is patient prescribed a controlled substance at d/c from ED?: No Referrals: Tyree Yañez DO [Primary Care Provider] - 1-2 days Time of Disposition: 01:07
[2024-04-15 23:58] LABS: Basophils % (A) 0 %; Eosinophils # (A) 0.1 k/uL (0-0.7); Eosinophils % (A) 2 %; HCT 40.5 % (34.0-46.0); Lymphocytes # (A) 1.9 k/uL (1.0-4.8); Lymphocytes % (A) 23 %; MCH 28.9 pg (25.0-35.0); MCV 90.3 fL (80.0-100.0); Mean Platelet Volume 9.6; Monocytes # (A) 0.4 k/uL (0-1.0); Monocytes % (A) 4 %; Neutrophils # (A) 5.8 k/uL (1.3-7.7); Neutrophils % (A) 69 %; Platelet Count 130 k/uL (150-450); RBC 4.49 m/uL (3.80-5.40); RDW 13.3 % (11.5-15.5); WBC 8.4 k/uL (3.8-10.6)
[2024-04-16 00:08] LABS: Appearance,Urine Clear (Clear); Bilirubin,Urine Negative (Negative); Blood,Urine Negative (Negative); Color,Urine Light Yellow; Glucose,Urine (UA) 4+ (Negative); Ketones,Urine Negative (Negative); Leukocyte Esterase,Urine Negative (Negative); Mucus,Urine Rare /hpf; Nitrite,Urine Negative (Negative); Protein,Urine 1+ (Negative); RBC,Urine <1 /hpf (0-5); Specific Gravity,Urine 1.023 (1.001-1.035); Squamous Epithelial Cell,Urine <1 /hpf (0-4); WBC,Urine 1 /hpf (0-5)
[2024-04-16 00:16] LABS: ALT 20 U/L (4-34); AST 27 U/L (14-36); African American GFR (CKD) >90 (>60 ml/min/1.73 sqM); Albumin 4.2 g/dL (3.5-5.0); Alkaline Phosphatase 72 U/L (38-126); Anion Gap 12 mmol/L; Blood Urea Nitrogen 18 mg/dL (7-17); Calcium 9.4 mg/dL (8.4-10.2); Carbon Dioxide 24 mmol/L (22-30); Chloride 101 mmol/L (98-107); Glucose 212 mg/dL (74-99); Non-African American GFR(CKD) >90 (>60 ml/min/1.73 sqM); Potassium 3.9 mmol/L (3.5-5.1); Sodium 137 mmol/L (137-145); Total Bilirubin 0.4 mg/dL (0.2-1.3); Total Protein 7.1 g/dL (6.3-8.2)
[2024-04-16 00:34] LABS: Influenza A Not Detected (Not Detectd); Influenza B Not Detected (Not Detectd); RSV Not Detected (Not Detectd)
[2024-04-16] MEDS: SODIUM CHLORIDE 0.9% 500 ML 500 ML IV ONE (01:05)
[2024-04-16 01:36] VITALS: BP 132/63; PULSE 67
== END 2024-04-16 01:36 | disposition home or self-care (01) ==
LOC: EC 23:04
DX: E11.65 Type 2 diabetes mellitus with hyperglycemia (principal); Z79.84 Long term (current) use of oral hypoglycemic drugs; Z79.4 Long term (current) use of insulin
CPT/HCPCS: 36415; 80053; 81001; 82009; 83605; 85025; 87636; 99284

== ENCOUNTER 2024-05-01 06:53 | Day surgery (SDC) | payer MEDICARE ==
[2024-05-01 07:25] VITALS: RESP 16; TEMP 97.7
[2024-05-01 07:31] LABS: Glucose,Whole Blood 195 mg/dL (70-110)
[2024-05-01] MEDS: LACTATED RINGERS 1,000 ML IV SCH (07:31)
[2024-05-01] MEDS: IV FLUID CONTINUATION 1,000 ML IV ONE ×2 (07:32→08:21)
[2024-05-01] MEDS ORDERED: PROPOFOL 10 MG/ML 20 ML VIAL IV ONE (08:04)
--- NOTE | 2024-05-01 08:17 | P.PCN ---
Date of Procedure: 05/01/24 Procedure(s) Performed: BRIEF HISTORY: Patient is a 78-year-old, pleasant, white female scheduled for an upper endoscopy as a part evaluation of epigastric pain and abdominal bloating for the last 2 months duration.. PROCEDURE PERFORMED: Esophagogastroduodenoscopy with biopsy. PREOPERATIVE DIAGNOSIS: Chronic epigastric pain and abdominal bloating. IV sedation per anesthesia. PROCEDURE: After informed consent was obtained, the patient was brought into the endoscopy unit. IV sedation was administered by Anesthesia under continuous monitoring. Initially the Olympus GIF-140 video endoscope was inserted into the mouth. Esophagus intubated without any difficulty. It was gradually advanced into the stomach and duodenum and carefully examined. The bulb and the second part of the duodenum appeared normal. The scope at this time was withdrawn to the stomach, adequately insufflated with air, and upon careful examination, mucosa of the antrum, had a 7 to 8 mm sessile polyp that was biopsied. Mucosa of the body, cardia and the fundus appeared normal. The scope was then withdrawn into the esophagus. The GE junction was located at 39 cm from the incisors. Hiatal hernia noted. The esophagus appeared normal. There were no erosions or ulcerations seen, biopsies were done from the distal esophagus and the patient tolerated the procedure well. IMPRESSION: 1. 7-8 mm gastric antral polyp status post biopsy. 2. Small hiatal hernia 3. No evidence of esophagitis or peptic ulcer disease. RECOMMENDATIONS: The findings of this examination were discussed with the patient as well as the family. She was advised to follow-up with the biopsy results. in the meantime continue with Protonix 40 mg twice daily as well as Carafate as needed and follow antireflux measures..
[2024-05-01 08:42] VITALS: BP 127/67; PULSE 73
== END 2024-05-01 09:14 ==
LOC: ORWHC2ENDO 06:53
PROVIDERS: ATTEND Internal Medicine Gastroenterology
DX: K29.50 Unspecified chronic gastritis without bleeding (principal); K31.7 Polyp of stomach and duodenum; K44.9 Diaphragmatic hernia without obstruction or gangrene; G89.29 Other chronic pain; I10 Essential (primary) hypertension; E78.5 Hyperlipidemia, unspecified; I25.10 Atherosclerotic heart disease of native coronary artery without angina pectoris; I48.91 Unspecified atrial fibrillation; G47.33 Obstructive sleep apnea (adult) (pediatric); E11.9 Type 2 diabetes mellitus without complications; K21.9 Gastro-esophageal reflux disease without esophagitis; Z95.5 Presence of coronary angioplasty implant and graft; Z98.890 Other specified postprocedural states; Z79.84 Long term (current) use of oral hypoglycemic drugs; Z79.899 Other long term (current) drug therapy
CPT/HCPCS: 88305; 43239; J2704

== ENCOUNTER → 2024-05-22 | Outpatient (CLI) | payer MEDICARE ==
[2024-05-22 15:27] LABS: Basophils # (A) 0.02 X 10*3/uL (0.00-0.10); Basophils % (A) 0.3 %; Eosinophils # (A) 0.15 X 10*3/uL (0.04-0.35); Eosinophils % (A) 2.5 %; HCT 42.4 % (37.2-46.3); HGB 13.9 g/dL (12.0-15.0); Immature Grans, Automated 0 %; Lymphocytes # (A) 2.01 X 10*3/uL (0.90-5.00); MCH 29.7 pg (27.0-32.0); MCHC 32.8 g/dL (32.0-37.0); MCV 90.6 FL (80.0-97.0); Mean Platelet Volume 13.5 FL (9.5-12.2); Monocytes # (A) 0.36 X 10*3/uL (0.20-1.00); Monocytes % (A) 5.9 %; NRBC Per 100 WBC 0 X 10*3/uL (0.00-0.01); Neutrophils # (A) 3.55 X 10*3/uL (1.80-7.70); Neutrophils % (A) 58.3 %; Platelet Count 130 X 10*3/uL (140-440); RBC 4.68 X 10*6/uL (4.10-5.20); WBC 6.09 X 10*3/uL (4.50-10.00)
[2024-05-22 15:56] LABS: % Iron Saturation 12.08 (12.00-45.00); ALT 21 U/L (8-44); AST 28 U/L (13-35); Albumin 4.4 g/dL (3.8-4.9); Albumin/Globulin Ratio 1.63 Ratio (1.60-3.17); Alkaline Phosphatase 75 U/L (41-126); Calcium 9.2 mg/dL (8.7-10.3); Carbon Dioxide 22.9 mmol/L (21.6-31.8); Chloride 104 mmol/L (96-109); Chol/HDL Ratio 2.52 Ratio; Ferritin 34.2 ng/mL (10.0-291.0); Globulin 2.7 g/dL (1.6-3.3); Glucose 211 mg/dL (70-110); Iron 54 UG/DL (50-170); LDL Cholesterol,Calculated 46.8 mg/dL (0.0-131.0); Magnesium 1.3 mg/dL (1.5-2.4); Potassium 4.2 mmol/L (3.5-5.5); Sodium 142 mmol/L (135-145); Total Bilirubin 0.3 mg/dL (0.3-1.2); Total Iron Binding Capacity 447 UG/DL (228-460); Total Protein 7.1 g/dL (6.2-8.2)
[2024-05-22 19:47] LABS: Urine Creatinine 86.2 mg/dL (28.0-217.0)
== END | disposition home or self-care (01) ==
LOC: LABWHC1 09:10
PROVIDERS: ATTEND Internal Medicine
DX: E11.65 Type 2 diabetes mellitus with hyperglycemia (principal); E55.9 Vitamin D deficiency, unspecified; E53.8 Deficiency of other specified B group vitamins
CPT/HCPCS: 36415; 80053; 80061; 82043; 82306; 82570; 82607; 82728; 82746; 83540; 83550; 83735; 84443; 85025

== ENCOUNTER 2024-06-16 11:34 | Observation (INO) | payer MEDICARE ==
--- NOTE | 2024-06-16 12:07 | ED ---
General Adult HPI - General Chief complaint: Recheck/Abnormal Lab/Rx Stated complaint: magnesium low Time Seen by Provider: 06/16/24 11:40 Source: patient, RN notes reviewed, old records reviewed Mode of arrival: ambulatory Limitations: no limitations - History of Present Illness Initial comments: This is a 78-year-old female who presents to the emergency department complaining that she went to see her doctor for lab work and got a call today that her magnesium is critically low. Patient states the only thing she has noticed that she has been a lot more nauseous lately but has not vomited. Patient denies any fever chills or cough. Patient has chest pain difficulty breathing. Patient has abdominal pain patient has nausea vomiting diarrhea. - Related Data Home Medications Medication Instructions Recorded Confirmed Aspirin EC [Ecotrin Low Dose] 81 mg PO DAILY 10/02/22 04/30/24 Metoprolol Tartrate [Lopressor] 25 mg PO BID 10/02/22 04/30/24 Pantoprazole [Protonix] 40 mg PO DAILY 10/02/22 04/30/24 Rosuvastatin [Crestor] 20 mg PO HS 10/02/22 04/30/24 amLODIPine [Norvasc] 10 mg PO DAILY 10/02/22 04/30/24 glipiZIDE [Glucotrol] 5 mg PO QAM 10/02/22 04/30/24 traZODone HCL 100 mg PO HS 10/02/22 04/30/24 DULoxetine HCL [Cymbalta] 30 mg PO DAILY 04/30/24 04/30/24 Insulin Aspart [NovoLOG Flexpen] See Protocol SQ ACHS 04/30/24 04/30/24 Losartan [Cozaar] 25 mg PO DAILY 04/30/24 05/01/24 Sucralfate [Carafate] 1 gm PO DIRECTED 04/30/24 05/01/24 busPIRone HCL [Buspirone HCl] 15 mg PO TID PRN 04/30/24 04/30/24 Previous Rx's Medication Instructions Recorded metFORMIN HCL [Glucophage] 1,000 mg PO BID #60 tab 08/22/19 Allergies Allergy/AdvReac Type Severity Reaction Status Date / Time No Known Allergies Allergy Verified 06/16/24 11:38 Review of Systems ROS Statement: Those systems with pertinent positive or pertinent negative responses have been documented in the HPI. ROS Other: All systems not noted in ROS Statement are negative. 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 Covid 2-3 months ago, doesn't use CPAP, insists not on a blood thinner for a-fib History of Any Multi-Drug Resistant Organisms: None Reported Past Surgical History: Breast Surgery, Heart Catheterization With Stent, Hysterectomy, Orthopedic Surgery Additional Past Surgical History / Comment(s): jose eduardo. knee replacements, left shoulder replacement, epidurals for pain, breast reduction Past Anesthesia/Blood Transfusion Reactions: No Reported Reaction Additional Past Anesthesia/Blood Transfusion Reaction / Comment(s): Slow to wake with last surgery. Date of Last Stent Placement:: 02/14/99 Past Psychological History: Anxiety Smoking Status: Never smoker Past Alcohol Use History: None Reported Past Drug Use History: None Reported - Past Family History Father Additional Family Medical History / Comment(s): Father had heart problems Mother Family Medical History: Diabetes Mellitus Additional Family Medical History / Comment(s): Heart problems Brother(s) Family Medical History: Coronary Artery Disease (CAD) Sister(s) Family Medical History: Coronary Artery Disease (CAD) General Exam - General Exam Comments Initial Comments: GENERAL: Patient is well-developed and well-nourished. Patient is nontoxic and well- hydrated and is in mild distress. ENT: Neck is soft and supple. No significant lymphadenopathy is noted. Oropharynx is clear. Moist mucous membranes. Neck has full range of motion without eliciting any pain. EYES: The sclera were anicteric and conjunctiva were pink and moist. Extraocular movements were intact and pupils were equal round and reactive to light. Eyelids were unremarkable. PULMONARY: Unlabored respirations. Good breath sounds bilaterally. No audible rales rhonchi or wheezing was noted. CARDIOVASCULAR: There is a regular rate and rhythm without any murmurs gallops or rubs. ABDOMEN: Soft and nontender with normal bowel sounds. SKIN: Skin is clear with no lesions or rashes and otherwise unremarkable. NEUROLOGIC: Patient is alert and oriented x3. Cranial nerves II through XII are grossly intact. Motor and sensory are also intact. Normal speech, volume and content. Symmetrical smile. MUSCULOSKELETAL: Normal extremities with adequate strength and full range of motion. LYMPHATICS: No significant lymphadenopathy is noted PSYCHIATRIC: Normal psychiatric evaluation. Limitations: no limitations Course Vital Signs 06/16/24 06/16/24 11:36 12:26 Temperature 97.8 F Pulse Rate 60 81 Respiratory 18 16 Rate Blood Pressure 153/91 123/66 O2 Sat by Pulse 96 97 Oximetry Medical Decision Making - Medical Decision Making EKG is interpreted by myself but EKG shows a sinus rhythm at 92 bpm ME was 92 QRS is 100 QT interval 366 QTc is 416. Patient's EKG shows multiple PVCs Was pt. sent in by a medical professional or institution (POLLO Magana, TEAMCENTER SOLUTION ARCHITECT, urgent care, hospital, or intermediate...) When possible be specific @ -No Did you speak to anyone other than the patient for history (EMS, parent, family, police, friend...)? What history was obtained from this source @ -No Did you review nursing and triage notes (agree or disagree)? Why? @ -I reviewed and agree with nursing and triage notes Were old charts reviewed (outside hosp., previous admission, EMS record, old EKG, old radiological studies, urgent care reports/EKG's, intermediate records)? Report findings @ -No old charts were reviewed Differential Diagnosis? @ -Electrolyte abnormalities, hypomagnesemia, hypokalemia, hyponatremia, hyper kalemia, this is not an all-inclusive list EKG interpreted by me (3pts min.). @ -As above X-rays interpreted by me (1pt min.). @ -None done CT interpreted by me (1pt min.). @ -None done U/S interpreted by me (1pt. min.). @ -None done What testing was considered but not performed or refused? (CT, X-rays, U/S, labs)? Why? @ -None What meds were considered but not given or refused? Why? @ -None Did you discuss the management of the patient with other professionals (professionals i.e. POLLO Magana, TEAMCENTER SOLUTION ARCHITECT, lab, RT, psych nurse, social contact worker, copying machine repairer, teacher, ski patrol officer, case worker)? Give summary @ -I spoke to Dr. Clarke he agreed to admit the patient. Was smoking cessation discussed for >3mins.? @ -No Was critical care preformed (if so, how long)? @ -No Were there social determinants of health that impacted care today? How? (Homelessness, low income, unemployed, alcoholism, drug addiction, transportation, low edu. Level, literacy, decrease access to med. care, nursing home, rehab)? @ -No Was there de-escalation of care discussed even if they declined (Discuss DNR or withdrawal of care, Hospice)? DNR status @ -No What co-morbidities impacted this encounter? (DM, HTN, Smoking, COPD, CAD, Cancer, CVA, ARF, Chemo, Hep., AIDS, mental health diagnosis, sleep apnea, morbid obesity)? @ -None Was patient admitted / discharged? Hospital course, mention meds given and route, prescriptions, significant lab abnormalities, going to OR and other pertinent info. @ -Patient's magnesium was 0.9. Patient was given 2 g of magnesium. Patient will be admitted Undiagnosed new problem with uncertain prognosis? @ -No Drug Therapy requiring intensive monitoring for toxicity (Heparin, Nitro, Insulin, Cardizem)? @ -No Were any procedures done? @ -No Diagnosis/symptom? @ -Hypomagnesemia Acute, or Chronic, or Acute on Chronic? @ -Acute Uncomplicated (without systemic symptoms) or Complicated (systemic symptoms)? @ -Complicated Side effects of treatment? @ -No Exacerbation, Progression, or Severe Exacerbation? @ -No Poses a threat to life or bodily function? How? (Chest pain, USA, [place], pneumonia, PE, COPD, DKA, ARF, appy, cholecystitis, CVA, Diverticulitis, Homicidal, Suicidal, threat to staff... and all critical care pts) @ -Yes this could lead to seizure or possible coma - Lab Data Result diagrams: 06/16/24 12:06 06/16/24 12:06 Lab Results 06/16/24 06/16/24 Range/Units 12:06 12:06 WBC 8.86 (4.50-10.00) 10*3/uL RBC 4.56 (4.10-5.20) 10*6/uL Hgb 13.7 (12.0-15.0) g/dL Hct 39.3 (37.2-46.3) % MCV 86.2 (80.0-97.0) fL MCH 30.0 (27.0-32.0) pg MCHC 34.9 (32.0-37.0) g/dL Plt Count 127 L (140-440) 10*3/uL MPV 13.0 H (9.5-12.2) fL Immature Gran % (Auto) 0.1 % Neutrophils % 63.5 % Lymphocytes % 28.9 % Monocytes % 5.4 % Eosinophils % 1.9 % Basophils % 0.2 % Immature Gran # 0.01 (0.00-0.04) 10*3/uL Neutrophils # 5.62 (1.80-7.70) 10*3/uL Lymphocytes # 2.56 (0.90-5.00) 10*3/uL Monocytes # 0.48 (0.20-1.00) 10*3/uL Eosinophils # 0.17 (0.04-0.35) 10*3/uL Basophils # 0.02 (0.00-0.10) 10*3/uL Sodium 140 (137-145) mmol/L Potassium 4.0 (3.5-5.1) mmol/L Chloride 105 (98-107) mmol/L Carbon Dioxide 21 L (22-30) mmol/L Anion Gap 14 mmol/L BUN 17 (7-17) mg/dL Creatinine 0.49 L (0.52-1.04) mg/dL Est GFR (CKD-EPI)AfAm >90 (>60 ml/min/1.73 sqM) Est GFR (CKD-EPI)NonAf >90 (>60 ml/min/1.73 sqM) Glucose 183 H (74-99) mg/dL Calcium 8.8 (8.4-10.2) mg/dL Magnesium 0.9 L* (1.6-2.3) mg/dL Total Bilirubin 0.5 (0.2-1.3) mg/dL AST 33 (14-36) U/L ALT 19 (4-34) U/L Alkaline Phosphatase 58 (38-126) U/L Total Protein 6.9 (6.3-8.2) g/dL Albumin 4.2 (3.5-5.0) g/dL Disposition Clinical Impression: Hypomagnesemia Disposition: ADMITTED IP TO THIS HOSP Referrals: Tyree Yañez DO [Primary Care Provider] - 1-2 days Time of Disposition: 13:22
[2024-06-16 12:13] LABS: Basophils # (A) 0.02 10*3/uL (0.00-0.10); Basophils % (A) 0.2 %; Eosinophils # (A) 0.17 10*3/uL (0.04-0.35); Eosinophils % (A) 1.9 %; HCT 39.3 % (37.2-46.3); HGB 13.7 g/dL (12.0-15.0); Lymphocytes # (A) 2.56 10*3/uL (0.90-5.00); Lymphocytes % (A) 28.9 %; MCHC 34.9 g/dL (32.0-37.0); MCV 86.2 fL (80.0-97.0); Monocytes # (A) 0.48 10*3/uL (0.20-1.00); Monocytes % (A) 5.4 %; Neutrophils # (A) 5.62 10*3/uL (1.80-7.70); Neutrophils % (A) 63.5 %; Platelet Count 127 10*3/uL (140-440); RBC 4.56 10*6/uL (4.10-5.20); RDW 12.6 % (11.5-14.5); WBC 8.86 10*3/uL (4.50-10.00)
[2024-06-16] MEDS: MAGNESIUM SULFATE-D5W PMX 1 GM in DEXTROSE/WATER 1 100ML.BAG IVPB SCH ×2 (12:25→14:56)
[2024-06-16 12:32] LABS: ALT 19 U/L (4-34); AST 33 U/L (14-36); African American GFR (CKD) >90 (>60 ml/min/1.73 sqM); Albumin 4.2 g/dL (3.5-5.0); Alkaline Phosphatase 58 U/L (38-126); Anion Gap 14 mmol/L; Blood Urea Nitrogen 17 mg/dL (7-17); Calcium 8.8 mg/dL (8.4-10.2); Carbon Dioxide 21 mmol/L (22-30); Chloride 105 mmol/L (98-107); Glucose 183 mg/dL (74-99); Non-African American GFR(CKD) >90 (>60 ml/min/1.73 sqM); Sodium 140 mmol/L (137-145); Total Bilirubin 0.5 mg/dL (0.2-1.3); Total Protein 6.9 g/dL (6.3-8.2)
[2024-06-16 12:39] LABS: Magnesium 0.9 mg/dL (1.6-2.3)
[2024-06-16] MEDS: SODIUM CHLORIDE 0.9% 1,000 ML IV ONE (13:34)
[2024-06-16] MEDS ORDERED: ONDANSETRON 4 MG/2 ML VIAL IVP PRN (13:53)
[2024-06-16] MEDS ORDERED: ACETAMINOPHEN TAB 325 MG TAB PO PRN (13:53)
[2024-06-16] MEDS ORDERED: NALOXONE 0.4 MG/ML 1 ML VIAL IV PRN (13:53)
[2024-06-16] MEDS ORDERED: DEXTROSE 50% SYRINGE 50 ML IVP PRN ×2 (13:55)
[2024-06-16] MEDS ORDERED: busPIRone HCl 5 MG TAB PO PRN (13:57)
--- NOTE | 2024-06-16 14:00 | P.HPIM ---
History of Present Illness H&P Date: 06/16/24 78 year old F with PMH of DM, HTN, Anxiety/Depression, PUD, A-Fib presents to the ED for abnormal lab work. She was told to go in by her PCP for a low magnesium level. She reports some cramping in her feet at night. Also reports occasional nausea. She has been on Protonix since being diagnosed with PUD in April. Patient was also started on insulin sliding scale 2 months ago. She reports BG in the 50s and 60s in the middle of the night. She reports eating 3 meals a day but has decreased her PO intake due to starting Ozempic and her nausea. In the ED she underwent extensive evaluation. BP 153/91, HR 60, RR 18, T 97.8F, 96% on RA. CBC and CMP significant for Plt 127, bicarb 21, Cr 0.49, glu 183. Mag 0.9. EKG shows junctional rhythm with frequent PVCs. General: no distress, appears at stated age Derm: warm, dry Head: atraumatic, normocephalic, symmetric Mouth: no lip lesion, mucus membranes moist Cardiovascular: S1 S2 irreg. No murmur. Lungs: Decreased BS bilaterally, no accessory muscle use Ext: no gross muscle atrophy, no edema, no contractures Neuro: No focal neurologic deficits. Psych: Alert and oriented. Based on my assessment of this patient, this patient meets a high complexity level of care. Hypomagnesemia: Likely due to Protonix while I will hold. Order 4g Mag sulfate and re-check in the AM. Frequent PVCs likely related to above. DM: ISS with Accuchecks ACHS along with hypoglycemia precautions. Check A1c. HTN: Metoprolol as below. Losartan 25 mg PO QD. Amlodipine 10 mg PO QD. Anxiety/Depression/Insomnia: Trazadone 100 mg PO QHS. Cymbalta 30 mg PO QD, Buspar 15 mg PO TID PRN. PUD: Hold Protonix. A-Fib: Metoprolol 25 mg PO BID. Pradaxa 150 mg PO BID. CODE STATUS: FULL CODE DVT Prophylaxis: Pradaxa. GI Prophylaxis: Designated medical POA if patient is not able to make medical decisions for themselves: Brother, Sons I have reviewed the following advertising consultant notes: ED note. I have reviewed the results of the following tests: As above. I have ordered the following tests: As above. I have discussed the care of this patient with the following independent histor julissa: I have independently interpreted the following test below: EKG. I have discussed the management of this patient with the following physician: ED provider. Past Medical History Past Medical History: Atrial Fibrillation, Coronary Artery Disease (CAD), Diab etes Mellitus, GERD/Reflux, Hearing Disorder / Deafness, Hyperlipidemia, Hypertension, Osteoarthritis (OA), Sleep Apnea/CPAP/BIPAP Additional Past Medical History / Comment(s): NIDDM type II, arthritis in multiple joints, DJD, RLS, bronchitis, peptic ulcer, hiatal hernia, bilateral tinnitis, OMAHA bilaterally. Covid 2-3 months ago, doesn't use CPAP, insists not on a blood thinner for a-fib History of Any Multi-Drug Resistant Organisms: None Reported Past Surgical History: Breast Surgery, Heart Catheterization With Stent, Hysterectomy, Orthopedic Surgery Additional Past Surgical History / Comment(s): jose eduardo. knee replacements, left shoulder replacement, epidurals for pain, breast reduction Past Anesthesia/Blood Transfusion Reactions: No Reported Reaction Additional Past Anesthesia/Blood Transfusion Reaction / Comment(s): Slow to wake with last surgery. Date of Last Stent Placement:: 02/14/99 Past Psychological History: Anxiety Smoking Status: Never smoker Past Alcohol Use History: None Reported Past Drug Use History: None Reported - Past Family History Father Additional Family Medical History / Comment(s): Father had heart problems Mother Family Medical History: Diabetes Mellitus Additional Family Medical History / Comment(s): Heart problems Brother(s) Family Medical History: Coronary Artery Disease (CAD) Sister(s) Family Medical History: Coronary Artery Disease (CAD) Medications and Allergies Home Medications Medication Instructions Recorded Confirmed Type metFORMIN HCL [Glucophage] 1,000 mg PO BID #60 tab 08/22/19 04/30/24 Rx Aspirin EC [Ecotrin Low Dose] 81 mg PO DAILY 10/02/22 04/30/24 History Metoprolol Tartrate [Lopressor] 25 mg PO BID 10/02/22 04/30/24 History Pantoprazole [Protonix] 40 mg PO DAILY 10/02/22 04/30/24 History Rosuvastatin [Crestor] 20 mg PO HS 10/02/22 04/30/24 History amLODIPine [Norvasc] 10 mg PO DAILY 10/02/22 04/30/24 History glipiZIDE [Glucotrol] 5 mg PO QAM 10/02/22 04/30/24 History traZODone HCL 100 mg PO HS 10/02/22 04/30/24 History DULoxetine HCL [Cymbalta] 30 mg PO DAILY 04/30/24 04/30/24 History Insulin Aspart [NovoLOG Flexpen] See Protocol SQ ACHS 04/30/24 04/30/24 History Losartan [Cozaar] 25 mg PO DAILY 04/30/24 05/01/24 History Sucralfate [Carafate] 1 gm PO DIRECTED 04/30/24 05/01/24 History busPIRone HCL [Buspirone HCl] 15 mg PO TID PRN 04/30/24 04/30/24 History Allergies Allergy/AdvReac Type Severity Reaction Status Date / Time No Known Allergies Allergy Verified 06/16/24 11:38 Physical Exam Vitals: Vital Signs Temp Pulse Resp BP Pulse Ox 06/16/24 13:35 89 16 100/51 96 06/16/24 12:26 81 16 123/66 97 06/16/24 11:36 97.8 F 60 18 153/91 96 Intake and Output 06/15/24 06/16/24 06/16/24 22:59 06:59 14:59 Other: Weight 88.451 kg Results CBC & Chem 7: 06/16/24 12:06 06/16/24 12:06 Labs: Abnormal Lab Results - Last 24 Hours (Table) 06/16/24 06/16/24 Range/Units 12:06 12:06 Plt Count 127 L (140-440) 10*3/uL MPV 13.0 H (9.5-12.2) fL Carbon Dioxide 21 L (22-30) mmol/L Creatinine 0.49 L (0.52-1.04) mg/dL Glucose 183 H (74-99) mg/dL Magnesium 0.9 L* (1.6-2.3) mg/dL
[2024-06-16 16:41] LABS: Glucose,Whole Blood 179 mg/dL (70-110)
[2024-06-16] MEDS: INSULIN LISPRO (HumaLOG) 100 UNIT/ML 10 mL VL SQ SCH (16:58)
[2024-06-16] MEDS: METOPROLOL TARTRATE 25 MG TAB PO SCH (20:47)
[2024-06-16] MEDS: ATORVASTATIN 40 MG TAB PO SCH (20:47)
[2024-06-16] MEDS: traZODone HCL 100 MG TAB PO SCH (20:47)
[2024-06-16] MEDS: DABIGATRAN 150 MG CAP PO SCH (20:47)
[2024-06-16] MEDS: MELATONIN 3 MG TABLET PO PRN (20:47)
[2024-06-16 21:39] LABS: Glucose,Whole Blood 177 mg/dL (70-110)
[2024-06-17 06:26] LABS: Glucose,Whole Blood 162 mg/dL (70-110)
[2024-06-17] MEDS: ASPIRIN 81 MG PO SCH (07:56)
[2024-06-17] MEDS: LOSARTAN 25 MG TAB PO SCH (07:56)
[2024-06-17 07:57] VITALS: RESP 18; TEMP 98
[2024-06-17] MEDS: DULoxetine HCL 30 MG CAPSULE.DR PO SCH (07:57)
[2024-06-17] MEDS: amLODIPine 10 MG TAB PO SCH (07:57)
[2024-06-17] MEDS: BISMUTH SUBSALICYLATE 4,192 MG/240 ML BOTTLE PO PRN (10:22)
[2024-06-17 11:20] LABS: Basophils # (A) 0.02 X 10*3/uL (0.00-0.10); Basophils % (A) 0.3 %; Eosinophils # (A) 0.11 X 10*3/uL (0.04-0.35); Eosinophils % (A) 1.8 %; HCT 38.8 % (37.2-46.3); HGB 12.5 g/dL (12.0-15.0); Lymphocytes # (A) 1.97 X 10*3/uL (0.90-5.00); Lymphocytes % (A) 32.6 %; MCH 28.9 pg (27.0-32.0); MCHC 32.2 g/dL (32.0-37.0); MCV 89.8 FL (80.0-97.0); Mean Platelet Volume 14.1 FL (9.5-12.2); Monocytes # (A) 0.54 X 10*3/uL (0.20-1.00); Monocytes % (A) 8.9 %; NRBC Per 100 WBC 0 X 10*3/uL (0.00-0.01); Neutrophils # (A) 3.39 X 10*3/uL (1.80-7.70); Neutrophils % (A) 56.2 %; Platelet Count 99 X 10*3/uL (140-440); RBC 4.32 X 10*6/uL (4.10-5.20); RDW 12.8 % (11.5-14.5); WBC 6.04 X 10*3/uL (4.50-10.00)
[2024-06-17 12:09] LABS: Glucose,Whole Blood 196 mg/dL (70-110)
[2024-06-17 13:34] LABS: Blood Urea Nitrogen 15.8 mg/dL (9.0-27.0); Calcium 8.8 mg/dL (8.7-10.3); Carbon Dioxide 22.9 mmol/L (21.6-31.8); Chloride 107 mmol/L (96-109); Glucose 162 mg/dL (70-110); Potassium 4.2 mmol/L (3.5-5.5); Sodium 143 mmol/L (135-145)
[2024-06-17 13:45] LABS: Magnesium 1.8 mg/dL (1.5-2.4)
[2024-06-17 14:26] VITALS: BP 117/63; PULSE 77
--- NOTE | 2024-06-17 14:53 | P.DS ---
Providers Date of admission: 06/16/24 13:24 Expected date of discharge: 06/17/24 Attending physician: Olivia Clarke MD Primary care physician: [facility] Course: 78 year old F with PMH of DM, HTN, Anxiety/Depression, PUD, A-Fib presents to the ED for abnormal lab work. She was told to go in by her PCP for a low magnesium level. She reports some cramping in her feet at night. Also reports occasional nausea. She has been on Protonix since being diagnosed with PUD in April. Patient was also started on insulin sliding scale 2 months ago. She reports BG in the 50s and 60s in the middle of the night. She reports eating 3 meals a day but has decreased her PO intake due to starting Ozempic and her nausea. In the ED she underwent extensive evaluation. BP 153/91, HR 60, RR 18, T 97.8F, 96% on RA. CBC and CMP significant for Plt 127, bicarb 21, Cr 0.49, glu 183. Mag 0.9. EKG shows junctional rhythm with frequent PVCs. She was given Mag sulfate 4 g IV. 06/17 Patient was seen and examined. Generally feeling well. Repeat Mag is 1.8. Discharge Plans: Stop Protonix as it could have led to her hypomagnesemia. Would also recommend stopping insulin for now given nocturnal hypoglycemic episodes. Follow up with PCP within 1-2 days of discharge. General: no distress, appears at stated age Derm: warm, dry Head: atraumatic, normocephalic, symmetric Mouth: no lip lesion, mucus membranes moist Cardiovascular: S1 S2 irreg. No murmur. Lungs: Decreased BS bilaterally, no accessory muscle use Ext: no gross muscle atrophy, no edema, no contractures Neuro: No focal neurologic deficits. Psych: Alert and oriented. Discharge Diagnosis: Hypomagnesemia Frequent PVCs likely related to above. DM HTN Anxiety/Depression/Insomnia PUD A-Fib This complex discharge took 35 minutes to complete. Patient Condition at Discharge: Stable Plan - Discharge Summary Discharge Rx Participant: No New Discharge Prescriptions: Continue metFORMIN HCL [Glucophage] 1,000 mg PO BID #60 tab Aspirin EC [Ecotrin Low Dose] 81 mg PO DAILY glipiZIDE [Glucotrol] 5 mg PO BID Rosuvastatin [Crestor] 20 mg PO HS traZODone HCL 100 mg PO HS busPIRone HCL 15 mg PO TID Dabigatran [Pradaxa] 150 mg PO BID Ondansetron [Zofran] 4 mg PO TID PRN PRN Reason: Nausea amLODIPine [Norvasc] 10 mg PO DAILY Metoprolol Tartrate [Lopressor] 25 mg PO BID DULoxetine HCL [Cymbalta] 30 mg PO DAILY Fluticasone Nasal [place] [Flonase Nasal [place]] 1 spray EA NOSTRIL BID Semaglutide [Ozempic] 0.25 mg SQ FR Ergocalciferol (Vitamin D2) [Drisdol (GEQ) 1,250 MCG (50,000 IU)] 1,250 mcg PO TH Losartan [Cozaar] 50 mg PO DAILY Discontinued Pantoprazole [Protonix] 40 mg PO DAILY Insulin Aspart [NovoLOG Flexpen] See Protocol SQ TID-W/MEALS PRN PRN Reason: HIGH BLOOD SUGAR Discharge Medication List metFORMIN HCL [Glucophage] 1,000 mg PO BID #60 tab 08/22/19 [Rx] Aspirin EC [Ecotrin Low Dose] 81 mg PO DAILY 10/02/22 [History] Metoprolol Tartrate [Lopressor] 25 mg PO BID 10/02/22 [History] Rosuvastatin [Crestor] 20 mg PO HS 10/02/22 [History] amLODIPine [Norvasc] 10 mg PO DAILY 10/02/22 [History] glipiZIDE [Glucotrol] 5 mg PO BID 10/02/22 [History] traZODone HCL 100 mg PO HS 10/02/22 [History] DULoxetine HCL [Cymbalta] 30 mg PO DAILY 04/30/24 [History] busPIRone HCL 15 mg PO TID 04/30/24 [History] Dabigatran [Pradaxa] 150 mg PO BID 06/16/24 [History] Ergocalciferol (Vitamin D2) [Drisdol (GEQ) 1,250 MCG (50,000 IU)] 1,250 mcg PO TH 06/16/24 [History] Fluticasone Nasal [place] [Flonase Nasal [place]] 1 spray EA NOSTRIL BID 06/16/24 [History] Losartan [Cozaar] 50 mg PO DAILY 06/16/24 [History] Ondansetron [Zofran] 4 mg PO TID PRN 06/16/24 [History] Semaglutide [Ozempic] 0.25 mg SQ FR 06/16/24 [History] Follow up Appointment(s)/Referral(s): Tyree Yañez DO [Primary Care Provider] - 1-2 days Discharge Disposition: HOME SELF-CARE
== END 2024-06-17 16:37 | disposition home or self-care (01) ==
LOC: EC 11:34 → 4SSUR 13:24 → INTOOBSV 13:24 → 4SSUR 13:41
PROVIDERS: ADMIT Family Medicine; ATTEND Family Medicine
DX: E83.42 Hypomagnesemia (principal); I49.3 Ventricular premature depolarization; E11.9 Type 2 diabetes mellitus without complications; I10 Essential (primary) hypertension; F41.9 Anxiety disorder, unspecified; F32.A Depression, unspecified; G47.00 Insomnia, unspecified; I48.91 Unspecified atrial fibrillation; I25.10 Atherosclerotic heart disease of native coronary artery without angina pectoris; K21.9 Gastro-esophageal reflux disease without esophagitis; E78.5 Hyperlipidemia, unspecified; G47.30 Sleep apnea, unspecified; K27.9 Peptic ulcer, site unspecified, unspecified as acute or chronic, without hemorrhage or perforation; Z95.5 Presence of coronary angioplasty implant and graft; Z79.4 Long term (current) use of insulin; Z79.82 Long term (current) use of aspirin; Z79.84 Long term (current) use of oral hypoglycemic drugs; Z79.899 Other long term (current) drug therapy
CPT/HCPCS: 96361 ×2; 96366 ×2; 96365; 99285; 36415; 93005; 80053; 80048; 83735 ×2; 85025 ×2; 83036; G0378 ×2; J3475

== ENCOUNTER → 2024-06-27 | Outpatient (CLI) | payer MEDICARE ==
--- NOTE | 2024-06-27 11:18 | MM ---
Reason for Exam: Screening (asymptomatic). Patient History: Menarche at age 11. First Full-Term at age 30. Late child-bearing (after 30). Left ovary removed at age 38. Right ovary removed at age 38. Hysterectomy at age 38. Postmenopausal. 1994, Bilateral Reduction. 1994, Bilateral Reduction. Paternal aunt had breast cancer, age 50. Risk Values: Briseida 5 year model risk: 2.6%. NCI Lifetime model risk: 4.7%. Tissue Density: There are scattered areas of fibroglandular density. Findings: Analyzed By CAD. There are a few scattered tiny round calcifications bilaterally. Dystrophic calcifications posteriorly in the right breast are seen. There are benign-appearing bilateral axillary lymph nodes noted. There is no suspicious group of microcalcifications or new suspicious mass in either breast. Overall Assessment: Benign, BI-RAD 2 Management: Screening Mammogram of both breasts in 1 year. . Patient should continue monthly self-breast exams. A clinical breast exam by your physician is recommended on an annual basis. This exam should not preclude additional follow-up of suspicious palpable abnormalities. Note on Briseida scores and lifetime risk: 1. A Briseida score greater than 3% is considered moderate risk. If this is the case, consider specialist referral to assess eligibility for a risk reducing agent. 2. If overall lifetime risk for the development of breast cancer is 20% or higher, the patient may qualify for future screening with alternating mammogram and breast MRI. [facility], , 06/27/2024 11:15 AM. Electronically signed and approved by: Junior Yo M.D.
--- NOTE | 2024-06-27 11:27 | BD ---
EXAMINATION TYPE: Axial Bone Density DATE OF EXAM: 06/27/2024 CLINICAL HISTORY: 78 years old Female. ICD-10 CODE: Z12.31 SCREENING Z78.0 ASYMP [place] , [facility] onal History: Height: 60 in Weight: 194 lbs FRAX RISK QUESTIONS: History of Fracture in Adulthood: bilateral wrist fx around age 75 Secondary Osteoporosis: 3. Menopause before 45: total hysterectomy age 38 Rheumatoid Arthritis: yes HISTORY OF: History of Wrist Fracture: bilateral wrist fx around age 38 EXAM MEASUREMENTS: Bone mineral densitometry was performed using the [employer] System. Bone mineral density as measured about the Lumbar spine is: ----- L1-L4(G/cm2): 0.985 T Score Values are as follows: ----- L1: -0.6 ----- L2: -1.5 ----- L3: -2.0 ----- L4: -2.3 ----- L1-L4: -1.6 Z Score Values are as follows: ----- L1: 0.5 ----- L2: -0.5 ----- L3: -1.0 ----- L4: -1.2 ----- L1-L4: -0.6 Bone mineral density baseline Bone mineral density about the R hip (g/cm2): 0.836 Bone mineral density about the L hip (g/cm2): 0.744 T Score values are as follows: -----R Neck: -1.9 -----L Neck: -2.6 -----R Total: -1.4 -----L Total: -2.1 Z Score values are as follows: -----R Neck: -0.3 -----L Neck: -1.0 -----R Total: 0.0 -----L Total: -0.7 Bone mineral density baseline FRAX%s: The graph provided illustrates a 19.9% chance for a major osteoporotic fx and a 6.5% chance f or the hips probability for fx in 10 years time. IMPRESSION: Osteoporosis (T Score less than -2.5) femoral neck level left hip. There is increased fracture risk and therapy is usually indicated based on age. Re-Screen 1-2 years. NOTE: T-SCORE=SD OF THE YOUNG ADULT MEAN. [facility], , 06/27/2024 11:25 AM
== END | disposition home or self-care (01) ==
LOC: RADMAMWWP 09:34
PROVIDERS: ATTEND Internal Medicine
DX: Z12.31 Encounter for screening mammogram for malignant neoplasm of breast (principal); Z13.820 Encounter for screening for osteoporosis; M81.0 Age-related osteoporosis without current pathological fracture; R92.323 Mammographic fibroglandular density, bilateral breasts; R92.1 Mammographic calcification found on diagnostic imaging of breast; Z80.3 Family history of malignant neoplasm of breast; Z78.0 Asymptomatic menopausal state
CPT/HCPCS: 77063; 77067; 77080

== ENCOUNTER → 2024-06-29 | Outpatient (CLI) | payer MEDICARE ==
--- NOTE | 2024-06-29 14:26 | US ---
EXAMINATION TYPE: US venous doppler duplex UE RT DATE OF EXAM: 06/29/2024 COMPARISON: NONE CLINICAL INDICATION: Female, 78 years old with history of RIGHT I80.8 PHLEBITIS AND THROMBOPHLEBITIS OF; Pain in arm x 2 months TECHNIQUE: Grayscale, color Doppler and spectral Doppler imaging of the upper extremity. SIDE PERFORMED: Right arm VESSELS IMAGED: IJV Subclavian Vein Axilla Vein Brachial Vein(s) Radial Paired Veins Ulnar Paired Veins Cephalic Vein* Basilic Vein* (*superficial vessels) FINDINGS: Right Arm: Negative for DVT Grayscale, color doppler, spectral doppler imaging performed of the deep veins of the upper extremiti es. IMPRESSION: No evidence for DVT. [facility], , 06/29/2024 2:23 PM
== END | disposition home or self-care (01) ==
LOC: RADUSWWP 13:43
PROVIDERS: ATTEND Internal Medicine
DX: I80.8 Phlebitis and thrombophlebitis of other sites (principal)